=== PATIENT | male | born 1945 | race Caucasian/White ===

== ENCOUNTER 2020-03-17 01:08 | Inpatient (IN) | payer MEDICARE, SELFPAY ==
[2020-03-17] VITALS (34 sets, daily range): BP systolic 90–139; BP diastolic 63–95; PULSE 65–132; RESP 15–28; TEMP 36.2–36.9; O2SAT 94–100; BMI 35.2; BMI 34.9
--- NOTE | ~2020-03-17 | US_ITS ---
EXAMINATION: US arterial ankle brachial ind DATE: 04/06/2020 11:24 INDICATION: Peripheral arterial disease. TECHNIQUE: Segmental pressures and plethysmographic and Doppler waveforms of the brachial and lower e xtremity arteries were obtained. COMPARISON: Arterial Doppler and segmental pressures 03/23/20 FINDINGS: Right and left brachial artery pressures of 166 mm Hg and 160 mm Hg, respectively, are concordant (no rmal difference <= 30 mmHg). The right ankle-brachial index (SISSY) could not be measured due to inability to cuff occlude the dorsa lis pedis artery (normal >= 0.9-1.0). The right great toe-brachial index (TBI) is 0.54 (normal >= 0.6 5). Arterial Doppler waveforms are biphasic in dorsalis pedis and at least triphasic in posterior tib ial artery. The left SISSY could not be measured due to inability to cuff-occlude the arteries. The left TBI is 0.5 1. Arterial Doppler waveforms are at least triphasic at the ankle. IMPRESSION: 1. Mildly decreased TBIs and nondiagnostic ABIs, consistent with arterial occlusive disease. Reviewed, dictated and finalized at location B. APED ARTIST MODEL IMPRESSION: 1. Mildly decreased TBIs and nondiagnostic ABIs, consistent with arterial occlu sive disease.
--- NOTE | ~2020-03-17 | XR_ITS ---
XR chest 1V portable 03/23/2020 06:15 Indication: Respiratory failure Procedure: AP portable chest Comparison: Comparison to multiple prior studies sequentially, with oldest reviewed study dated 03/2020. Findings: Endotracheal tube tip 5.8 cm above the chase. NG tube in the stomach. PICC line tip in the SVC. Pacemaker leads in expected position. Cardiomegaly. There is bilateral perihilar and bibasilar infiltrates. Small left pleural effusion. No pneumothorax. Impression: 1: No significant change to bilateral perihilar and basilar airspace disease which may represent thanh a or pneumonia. 2: Small left pleural effusion. Reviewed, dictated and finalized at location A. ING MACHINE OPERATOR Impression: 1: No significant change to bilateral perihilar and basilar airspace disease wh ich may represent edema or pneumonia. 2: Small left pleural effusion.
--- NOTE | ~2020-03-17 | XR_ITS ---
EXAMINATION: XR abdomen obstructive series DATE: 04/08/2020 07:58 INDICATION: Respiratory failure. TECHNIQUE: Upright and supine views of the abdomen on 3 radiographs were obtained. COMPARISON: CT abdomen and pelvis 03/26/2020 FINDINGS: There are no dilated loops of bowel. There is a gastrostomy tube in expected position. No f ree intraperitoneal gas. There are phleboliths in the pelvis. Pacer wires overlie the heart. There ar e airspace opacities in the lower lung zones. IMPRESSION: 1. Normal bowel gas pattern. 2. Airspace opacities in the lower lung zones, consistent with pneumonia. Reviewed, dictated and finalized at location B. LANE CAPTAIN
--- NOTE | ~2020-03-17 | XR_ITS ---
XR chest 1V portable 03/28/2020 05:59 Indication: Respiratory failure Procedure: AP portable chest Comparison: Comparison to multiple prior studies sequentially, with oldest reviewed study dated 07/2020. Findings: NG tube in the stomach. PICC line tip in the SVC. Heart size upper normal. Patchy bilateral airspace disease. Small left effusion. No pneumothorax. Impression: 1: Persistent patchy bilateral airspace disease, most likely pneumonia. Reviewed, dictated and finalized at location A. LATORY ASSISTANT Impression: 1: Persistent patchy bilateral airspace disease, most likely pneumonia.
--- NOTE | ~2020-03-17 | US_ITS ---
EXAMINATION: US right upper quadrant EXAM DATE: 04/07/2020 09:21 INDICATION: Increased liver function tests. TECHNIQUE: Multiple grayscale and Doppler images of the abdomen right upper quadrant were obtained (b y a technologist who performed the scan) and subsequently reviewed. Comparison is made to prior exami nation from 03/19/2020, kidney ultrasound. FINDINGS: The pancreatic head and body are normal in appearance. The pancreatic tail is not visualized. The l iver has normal echogenicity and contour. There are no focal liver lesions identified. There is no evidence of intrahepatic biliary duct dilation. Portal venous flow was seen in the hepatopedal, nor mal direction and has normal Doppler waveform. No right-sided hydronephrosis. Common bile duct measures 7 mm, which is normal normal for age. Gallbladder wall is diffusely edemato us, which is nonspecific. There is moderate gallbladder distention. No pericholecystic fluid or dulce lithiasis. IMPRESSION: Gallbladder wall thickening, edema which is nonspecific. Could be from congestive heart f ailure, hypoalbuminemia, reactive from hepatitis or other nonspecific inflammatory condition. No chol elithiasis, biliary dilation or pericholecystic fluid to suggest acute cholecystitis. Could not asses s for sonographic Lozano's sign. Reviewed, dictated and finalized at location A. RANCE CLAIMS ASSISTANT IMPRESSION: Gallbladder wall thickening, edema which is nonspecific. Could be f rom congestive heart failure, hypoalbuminemia, reactive from hepatitis or other nonspecific inflammatory condition. No cholelithiasis, biliary dilation or per icholecystic fluid to suggest acute cholecystitis. Could not assess for sonogra phic Lozano's sign.
--- NOTE | ~2020-03-17 | XR_ITS ---
EXAMINATION: XR chest 1V portable EXAM DATE: 04/09/2020 05:54 INDICATION: Respiratory failure. TECHNIQUE: Portable AP frontal chest x-ray was obtained. Comparison is made to prior examination from 04/07, 04/08. FINDINGS: There is tracheostomy tube. There is a dual lead pacemaker/AICD seen with leads projecting over the expected locations of the right atrial appendage and right ventricle. There is moderate amount of patchy bilateral pneumonia and/or edema. There are no sizable pleural ef fusions. There is no pneumothorax suspected. The cardiomediastinal silhouette is prominent but mag nified on this AP technique. Moderate thoracic spondylosis and shoulder primary osteoarthritis. Airspace disease not significantly changed. IMPRESSION: 1. ET tube in position 2. Moderate patchy bilateral pneumonia and/or edema. Reviewed, dictated and finalized at location A. ST LANDSCAPE ECOLOGY PROFESSOR
--- NOTE | ~2020-03-17 | XR_ITS ---
XR chest 1V portable 03/25/2020 06:09 Indication: Respiratory failure Procedure: AP portable chest Comparison: Comparison to multiple prior studies sequentially, with oldest reviewed study dated 04/2020. Findings: Endotracheal tube tip 6.4 cm above the chase. Heart size normal. No significant change to bilateral airspace disease. Small left effusion. No pneumothorax. Pacemaker leads are present. PICC l ine tip not well visualized due to overlying pacemaker leads. Impression: 1: Stable bilateral airspace disease which may represent edema or pneumonia. Reviewed, dictated and finalized at location A. EDURES ANALYST Impression: 1: Stable bilateral airspace disease which may represent edema or pneumonia.
--- NOTE | ~2020-03-17 | XR_ITS ---
EXAMINATION: XR chest 1V portable INDICATION: Respiratory failure TECHNIQUE: Portable AP chest at 0509 hours COMPARISON: 03/30/2020 FINDINGS: The endotracheal tube ends approximately 5.7 cm above the chase. The nasogastric tube is f ollowed as far as the stomach. Its tip is beyond the inferior margin of the radiograph. A right upper extremity PICC ends with its tip in the distal superior vena cava. There is no pleural effusion or p neumothorax. Bibasilar airspace opacities persist with slight improvement. IMPRESSION: 1. Improved bibasilar airspace opacities, consistent with atelectasis versus pneumonia. Reviewed, dictated and finalized at location A. ED BOX SEWER IMPRESSION: 1. Improved bibasilar airspace opacities, consistent with atelectasis versus pn eumonia.
--- NOTE | ~2020-03-17 | XR_ITS ---
EXAMINATION: XR abdomen obstructive series EXAM DATE: 04/12/2020 18:05 INDICATION: Not tolerating tube feedings. TECHNIQUE: Frontal upright projection of the upper abdomen, frontal projection of the lower abdomen f or interpretation. Comparison is made to prior examination from 04/08/2020. FINDINGS: Gastric tube identified, balloon projecting over the gastric body. There is moderate amoun t of colonic gas, possibly of stool. No dilated small bowel. There is no organomegaly. Patchy bibasil ar airspace disease. No free intraperitoneal gas suspected. IMPRESSION: 1. Nonspecific, but nonobstructive bowel gas pattern. 2. Gastrostomy anchor balloon projects over expected location. 3. Basilar airspace disease. Reviewed, dictated and finalized at location A. MOBILE PARKER
--- NOTE | ~2020-03-17 | XR_ITS ---
EXAMINATION: XR chest 1V portable DATE: 03/19/2020 06:33 INDICATION: COVID 19 pneumonia. Acute respiratory failure. TECHNIQUE: frontal view of the chest was obtained. COMPARISON: Chest radiograph dated 03/18/2020 FINDINGS: Endotracheal tube tip 7.0 cm above the chase. Nasogastric tube extends below the left hemidiaphragm with distal tip collimated off the study. Right upper extremity peripherally inserted central venous catheter (PICC) tip at the caudal superior vena cava. Patchy airspace opacities throughout both lungs most prominent in the right upper lobe but with inter kelvin increase in the bilateral lower lobes. No pneumothorax or pleural effusion. The cardiomediastinal silhouette is normal. Dual lead pacemaker seen with leads projecting over the expected locations of the right atrium and right ventricular outflow tract. IMPRESSION: 1. Endotracheal tube tip 7 cm above the chase. Recommend advancement by 4-5 cm. 2. Scattered bilateral patchy airspace opacities consistent with pneumonia with interval progression in the bilateral lower lung zones. Reviewed, dictated and finalized at location A. M HEATING INSTALLER IMPRESSION: 1. Endotracheal tube tip 7 cm above the chase. Recommend advancement by 4-5 cm . 2. Scattered bilateral patchy airspace opacities consistent with pneumonia with interval progression in the bilateral lower lung zones.
--- NOTE | ~2020-03-17 | US_ITS ---
EXAMINATION: US venous doppler LE EXAM DATE: 04/02/2020 15:47 INDICATION: Respiratory failure. Fever. TECHNIQUE: Multiple grayscale, color flow and Doppler images of the lower extremity deep venous syste ms bilaterally were obtained and reviewed. Comparison is made to prior examination from 03/21/2020. FINDINGS: Right side: The right common femoral, femoral and profunda veins demonstrate normal color flow, respi ratory variation, augmentation and compressibility. Compressibility, color flow confirmed within the right popliteal, posterior tibial, peroneal, and greater saphenous veins. Left side: The left common femoral, femoral and profunda veins demonstrate normal color flow, respira tory variation, augmentation and compressibility. Compressibility, color flow confirmed within the l eft popliteal, posterior tibial, peroneal, and greater saphenous veins. IMPRESSION: No lower extremity deep venous thrombosis bilaterally. Reviewed, dictated and finalized at location B. CLEANING SUPERVISOR
--- NOTE | ~2020-03-17 | XR_ITS ---
XR chest 1V portable 03/29/2020 05:55 Indication: Respiratory failure Procedure: AP portable chest Comparison: Comparison to multiple prior studies sequentially, with oldest reviewed study dated 08/2020. Findings: Endotracheal tube tip 7.3 cm above the chase. NG tube in the stomach. PICC line tip in the SVC. Pacemaker leads stable. No significant change to patchy bilateral airspace disease, compatible with pneumonia. Small left pleural effusion. No pneumothorax. Impression: 1: Stable patchy bilateral airspace disease, compatible with pneumonia. Reviewed, dictated and finalized at location A. O GAME DEVELOPER Impression: 1: Stable patchy bilateral airspace disease, compatible with pneumonia.
--- NOTE | ~2020-03-17 | CT_ITS ---
EXAMINATION: CT brain wo con EXAM DATE: 03/17/2020 01:47 INDICATION: Temporary change in awareness. Unable to hold still. Clinical concern for stroke. TECHNIQUE: Spiral CT of the head was performed without contrast. Axial, coronal and sagittal images were reviewed. The dose-length product (DLP) for this examination was 681.00 mGy-cm. The exposure w as tailored according to patient size, and iterative reconstruction (ASIR) was used as additional dos e reduction technique. There is no prior study for comparison. 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 There is no acute intraparenchymal hemorrhage. No evidence of intraparenchymal brain mass lesion. No evidence of acute infarction. Please note that initial h ead CT has limited sensitivity for small or acute infarctions. There is mild to moderate periventricu lar and subcortical hypodensity, nonspecific but probably related to small vessel ischemic disease. There is prominence of the sulci and ventricles related to cerebral atrophy. There is intracranial carotid arteriosclerosis. There are no extra-axial collections. There is no mass effect or midline shift. Soft tissue is unremarkable. The visualized sinuses and mastoid air cells are well aerated. IMPRESSION: 1. No acute intracranial findings. 2. Chronic age related findings. Reviewed, dictated and finalized at location D. RITIES CONSULTANT
--- NOTE | ~2020-03-17 | XR_ITS ---
EXAMINATION: XR abdomen obstructive series EXAM DATE: 04/06/2020 12:37 INDICATION: Abdominal tenderness. TECHNIQUE: Frontal upright projection of the upper abdomen, frontal projection of the lower abdomen f or interpretation. Comparison is made to prior examination from 03/17/2020. FINDINGS: Interval placement of gastrostomy tube, ankle balloon overlies the gastric bubble. No evid ence of free intraperitoneal air. Nonobstructive bowel gas pattern. Large thoracolumbar endplate oste ophytes. IMPRESSION: 1. Nonspecific bowel gas pattern. Reviewed, dictated and finalized at location A. ER INSTALLER
--- NOTE | ~2020-03-17 | XR_ITS ---
EXAMINATION: XR chest 1V portable DATE: 03/22/2020 05:56 INDICATION: Acute respiratory failure. COVID 19 pneumonia. TECHNIQUE: frontal view of the chest was obtained. COMPARISON: Chest radiograph dated 03/21/2020 FINDINGS: Endotracheal tube tip 5.5 cm above the chase. Nasogastric tube extends below the left hemidiaphragm with distal tip collimated off the study. Right upper extremity peripherally inserted central venous catheter (PICC) tip at the caudal superior vena cava. Mild elevation the left hemidiaphragm. No significant interval change in patchy airspace opacities sc attered throughout both lungs. No pleural effusion or pneumothorax. The cardiomediastinal silhouette is within normal limits accounting for AP technique and slight leftward rotation of the patient. Dual lead pacemaker/AICD seen with leads projecting over the expected locations of the right atrium and r ight ventricular outflow tract. IMPRESSION: 1. No interval change in patchy bilateral airspace disease consistent with pneumonia. Reviewed, dictated and finalized at location A. EXCHANGE OPERATOR IMPRESSION: 1. No interval change in patchy bilateral airspace disease consistent with pneu monia.
--- NOTE | ~2020-03-17 | CT_ITS ---
EXAMINATION: CTA chest PE abdomen pel DATE: 04/09/2020 13:15 INDICATION: Pulmonary embolism. TECHNIQUE: Computed tomography (CT) pulmonary angiogram of the chest was performed with 100 mL Omnipa que-350 intravenous contrast. Additional 3D reconstructions utilizing coronal maximum intensity proje ction (MIP) were performed. CT of the abdomen and pelvis was performed with intravenous contrast util izing the same contrast bolus following a short delay. Automated exposure control and iterative recon struction technique were employed. The dose-length product was 2518.09 mGy-cm. COMPARISON: 03/26/2020 FINDINGS: Chest: Excellent contrast opacification of the pulmonary arteries. There is mild to moderate streak artifact from dense contrast in the superior vena cava and right atrium. As well as related to a dual-lead ca rdiac pacemaker with one of the leads appears to terminate in the region of the right atrial appendag e. The second lead is located along the proximal septum at level of the pulmonary valve plane, unclea r whether in the atrium or ventricle. Extensive moderate scattered respiratory motion artifact. Toget her this mildly decreases sensitivity in the segmental and moderately decreased sensitivity in some o f the smaller subsegmental pulmonary arteries. No definite pulmonary embolism. Tracheostomy tube in e xpected position at the thoracic inlet. Minimal paraseptal emphysema in the upper lungs. There are re gions of consolidation and groundglass opacity with peripheral and lower lung predominance. Improved aeration in the bilateral lower lobes with decrease in regions of consolidation in the right lower lo be and more significantly in the basilar segments of the left lower lobe. No pleural effusion or pneu mothorax. Cardiomegaly. Atherosclerotic coronary artery calcific lesions. Thoracic aorta is normal in caliber with no dissection. No significant change in a few mildly prominent but still normal-sized b ilateral hilar and mediastinal lymph nodes consistent with mild likely reactive lymphadenopathy. Mode rate to severe thoracic spondylosis. Abdomen/pelvis: Ill-defined 1 cm low-attenuation likely cyst or hemangioma in the right hepatic lobe. There is peripo rtal edema at the phoebe hepatis and throughout the right hepatic lobe. There is also diffuse edematou s gallbladder wall thickening, mild pericholecystic inflammatory stranding tiny amount of free fluid along the tip of the gallbladder. Multiple splenic lesions consistent with old granulomatous disease. Pancreas and bilateral adrenal glands are normal. A few small calcific lesions measuring up to 3 mm at the left renal hilum which could represent either atherosclerotic calcifications were nonobstructi ng renal stones. No hydronephrosis. Bilateral subcentimeter low-attenuation renal cysts. Dougherty cathet er in the partially decompressed bladder. Prostatomegaly. The appendix is not visualized. No periceca l inflammatory change to suggest acute appendicitis. Small amount of fluid in the sigmoid colon and r ectum consistent with diarrhea. A few diverticula along the descending and sigmoid colon without ewelina cent inflammatory change to suggest diverticulitis. No bowel obstruction. Small amount of free fluid in the deep pelvis. No abscess or free intraperitoneal gas. Small fat-containing right inguinal herni a. There is calcified atherosclerosis of the aorta and many of the other arteries. No pathologically enlarged abdominal or pelvic lymphadenopathy. Severe lumbar spondylosis. Dense sclerotic likely bone island at the right sacral ala. IMPRESSION: 1. No pulmonary embolism. Evaluation mildly limited in some of the smaller segmental and subsegmental pulmonary arteries due to respiratory motion and some streak artifact. 2. Diffuse bilateral peripheral and lower lung predominant lung disease with improvement in the bilat eral lower lobes likely sequela of COVID pneumonia.
--- NOTE | ~2020-03-17 | XR_ITS ---
EXAMINATION: XR chest ET placement DATE: 03/20/2020 13:27 INDICATION: Desaturation and endotracheal tube placement. TECHNIQUE: frontal view of the chest was obtained. COMPARISON: Chest radiograph dated 03/20/2020 at 5:15 AM FINDINGS: Endotracheal tube tip 5.9 cm above the chase. Nasogastric tube extends below the left hemidiaphragm with distal tip collimated off the study. Right upper extremity peripherally inserted central venous catheter (PICC) tip at the superior vena cava. Scattered mild airspace opacities in the right lower and left mid and lower lung zones. No pneumothor ax or definitive pleural effusion. The cardiomediastinal silhouette is within normal limits for AP te chnique and accounting for mild leftward rotation of the patient. Dual lead pacemaker seen with leads projecting over the expected locations of the right atrium and right ventricle. Suture anchors at th e right humeral head likely for prior rotator cuff repair. IMPRESSION: 1. Endotracheal tube tip 5.9 cm above the chase. Could consider advancement by 3-4 cm. 2. Mild opacities in the left mid and bilateral lower lung zones with improvement in the right mid an d upper lung zones. Differential would include pneumonia and mild pulmonary edema. Reviewed, dictated and finalized at location A. ENT OFFICER IMPRESSION: 1. Endotracheal tube tip 5.9 cm above the chase. Could consider advancement by 3-4 cm. 2. Mild opacities in the left mid and bilateral lower lung zones with improveme nt in the right mid and upper lung zones. Differential would include pneumonia and mild pulmonary edema.
--- NOTE | ~2020-03-17 | US_ITS ---
EXAMINATION: US venous doppler UE BI EXAM DATE: 04/02/2020 15:48 INDICATION: Respiratory failure. Fever. TECHNIQUE: Multiple grayscale, color flow, Doppler sonographic images of the upper extremity veins bi laterally obtained by technologist. Compression was performed where able. There is no prior study f or comparison. FINDINGS: RIGHT upper extremity: Jugular vein: ------------> Normal. Subclavian vein: --------> Normal. Axillary vein:------------> Normal. Brachial vein:-----------> Normal. Basilic vein: ------------> Normal. Cephalic vein: ----------> Normal. Radial vein: ------------> Normal. Ulnar vein: > Normal. LEFT upper extremity: Jugular vein: ------------> Normal. Subclavian vein: --------> Normal. Axillary vein:------------> Normal. Brachial vein:-----------> Normal. Basilic vein: ------------> Normal. Cephalic vein: ----------> Normal. Radial vein: ------------> Normal. Ulnar vein: > Normal. IMPRESSION: No upper extremity DVT. Reviewed, dictated and finalized at location B. LYTIC CASE OPERATOR IMPRESSION: No upper extremity DVT.
--- NOTE | ~2020-03-17 | XR_ITS ---
EXAMINATION: XR chest 1V portable DATE: 03/20/2020 06:13 INDICATION: Acute respiratory failure. COVID 19 pneumonia. TECHNIQUE: frontal view of the chest was obtained. COMPARISON: Chest radiograph dated 03/19/2020 FINDINGS: Endotracheal tube tip 5.5 cm above the chase. Nasogastric tube extends below the left hemidiaphragm with distal tip collimated off the study. Right upper extremity peripherally inserted central venous catheter (PICC) tip at the superior vena cava. Scattered airspace opacities throughout both lungs without significant change in the bilateral lower lungs but with interval improvement in the right upper lobe. No pleural effusion or pneumothorax. The cardiomediastinal silhouette is normal. Dual lead pacemaker/AICD seen with leads projecting over the expected locations of the right atrium and right ventricle. Suture anchors at the right humeral head likely related to prior rotator cuff repair. IMPRESSION: 1. Scattered bilateral patchy airspace opacities consistent with pneumonia with some improvement in t he right upper lobe. Reviewed, dictated and finalized at location A. DRILL OPERATOR CABLE TOOL IMPRESSION: 1. Scattered bilateral patchy airspace opacities consistent with pneumonia with some improvement in the right upper lobe.
--- NOTE | ~2020-03-17 | XR_ITS ---
EXAMINATION: XR chest PICC line DATE: 03/17/2020 12:19 INDICATION: PICC line placement TECHNIQUE: frontal view of the chest was obtained. COMPARISON: Chest radiograph dated 03/17/2020 at 6:52 AM FINDINGS: Right upper extremity peripherally inserted central venous catheter (PICC) extends into the superior vena cava but not into the right atrium with distal tip obscured within the superior vena cava by sup erimposed cardiac pacemaker leads. The pacemaker leads terminate at the right atrial appendage and at the right ventricular outflow tract. Endotracheal tube tip 6.8 cm above the chase. Nasogastric tube extends below the left hemidiaphragm with distal tip collimated off the study. Again seen are bilateral patchy airspace opacities most prominent in the right upper lung zone. No pn eumothorax or definitive pleural effusion. The cardiomediastinal silhouette is normal. Suture anchors at the right femoral head likely for right rotator cuff repair. IMPRESSION: 1. Right PICC line tip in the superior vena cava. 2. Patchy bilateral lung disease most likely pneumonia with differential including less likely pulmon hector edema or atelectasis. 3. Endotracheal tube tip 6.8 cm above the chase. Recommend advancement by 4 cm. Reviewed, dictated and finalized at location A. WAY PAINTER HELPER IMPRESSION: 1. Right PICC line tip in the superior vena cava. 2. Patchy bilateral lung disease most likely pneumonia with differential includ ing less likely pulmonary edema or atelectasis. 3. Endotracheal tube tip 6.8 cm above the chase. Recommend advancement by 4 cm .
--- NOTE | ~2020-03-17 | CT_ITS ---
EXAMINATION: CT brain wo con DATE: 03/26/2020 11:36 INDICATION: Encephalopathy TECHNIQUE: Computed tomography (CT) of the head was performed without intravenous contrast. The dose- length product was 681.00 mGy-cm. Automated exposure control and iterative reconstruction technique w ere employed. COMPARISON: CT dated FINDINGS: Mild generalized atrophy. There are scattered mild periventricular and subcortical white ma tter changes, most likely related to small vessel ischemic disease (microangiopathy). Basilar cistern s are patent. 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 No acute intracranial hemorrhage, infarction, mass or mass effect. There is small air-fluid level right maxillary sinus. There is mucosal thickening of th e ethmoid, frontal and sphenoid sinuses. There are mastoid effusions. IMPRESSION: 1. No acute intracranial abnormality. 2: Moderate sinus disease. Reviewed, dictated and finalized at location A. CTOR RIVER RESTORATION
--- NOTE | ~2020-03-17 | CT_ITS ---
EXAMINATION: CT chest abdomen pelvis wo con EXAM DATE: 03/26/2020 15:49 INDICATION: Persistent fever, recent COVID pneumonia. TECHNIQUE: Spiral CT of the chest, abdomen and pelvis was performed without contrast. Axial, wong l and sagittal images were reviewed. Coronal maximum intensity pixel images of chest reviewed. The dose-length product (DLP) for this examination was 2056.32 mGy-cm. The exposure was tailored accordi ng to patient size (auto mA exposure control), and iterative reconstruction (ASIR) was used as additi onal dose reduction technique. There is no prior study for comparison. FINDINGS: CHEST: Endotracheal and nasogastric tubes are in position. There is left-sided pacemaker/AICD device. Right-sided PICC line. Respiratory motion somewhat limiting evaluation of lung parenchyma but there are suspected to be scattered ill-defined groundglass opacities bilaterally, could be COVID pneumonia . There is more confluent multi segmental left lower lobe, segmental right lower lobe atelectasis and pneumonia. Trace left pleural effusion and pericardial effusion. Tracheobronchial tree is patent. There is no mediastinal, hilar or axillary lymphadenopathy. There is no pneumothorax. There is c ardiomegaly. There is moderate coronary arterial calcification, arterial sclerosis. ABDOMEN PELVIS: The liver, spleen, adrenal glands and pancreas are unremarkable. Gallbladder is unre markable. No biliary obstruction. Several small left renal hilar calcifications could be nephrolith iasis or arterial sclerosis. No hydronephrosis. There is mild to moderate prostatomegaly. The bladd er is collapsed with Dougherty catheter balloon anchor inside. There is no retroperitoneal or pelvic lym phadenopathy. There is mild to moderate scattered arteriosclerotic disease. The appendix is not positively visualized. There is no pericecal inflammatory change to suggest appe ndicitis. There is moderate sigmoid predominant colonic diverticulosis. There is no adjacent inflamm atory change to suggest diverticulitis. The stomach and small bowel are unremarkable. There is expec tayler amount of colonic stool. No free intraperitoneal gas. There is 5 x 9 mm sclerotic focus in th e sacrum probably bone island. IMPRESSION: 1. Multi segmental left lower lobe, segmental right lower lobe dependent atelectasis and pneumonia. 2. Scattered diffuse ill-defined groundglass lung opacities suspicious for COVID pneumonia. 3. Chronic abdominal findings. Reviewed, dictated and finalized at location A. HOUSE HANDLER IMPRESSION: 1. Multi segmental left lower lobe, segmental right lower lobe dependent atele ctasis and pneumonia. 2. Scattered diffuse ill-defined groundglass lung opacities suspicious for COV ID pneumonia. 3. Chronic abdominal findings.
--- NOTE | ~2020-03-17 | XR_ITS ---
XR chest 1V portable 03/26/2020 06:28 Indication: Acute respiratory failure Procedure: AP portable chest Comparison: Comparison to multiple prior studies sequentially, with oldest reviewed study dated 05/2020. Findings: Endotracheal tube tip 7.7 cm above the chase. PICC line tip in the SVC. NG tube in the sto mach. There is a hiatal hernia. Heart size normal. No significant change to bilateral patchy airspace disease of the mid and lower lung zones. No significant pleural effusion or pneumothorax. Impression: 1: Stable patchy airspace infiltrates of the mid and lower lung zones, compatible with pneumonia. Reviewed, dictated and finalized at location A. OID IOS DEVELOPER Impression: 1: Stable patchy airspace infiltrates of the mid and lower lung zones, compatib le with pneumonia.
--- NOTE | ~2020-03-17 | US_ITS ---
EXAMINATION: US renal BI DATE: 03/19/2020 09:35 INDICATION: Acute renal injury. COVID 19. TECHNIQUE: Multiple ultrasound grayscale images of the kidneys were obtained. COMPARISON: None. FINDINGS: The right kidney measures 12.2 x 5.1 x 5.6 cm. The left kidney measures 11.9 x 5.7 x 5.8 cm. The kidn eys demonstrate normal echogenicity. There is no hydronephrosis in either kidney. No stones identifi ed. The bladder appears normal but is partially decompressed which limits evaluation. IMPRESSION: 1. Normal kidneys without hydronephrosis. Reviewed, dictated and finalized at location A. ORATE AFFAIRS MANAGER
--- NOTE | ~2020-03-17 | XR_ITS ---
EXAMINATION: XR chest 1V portable EXAM DATE: 04/13/2020 06:02 INDICATION: COVID pneumonia. TECHNIQUE: Portable AP frontal chest x-ray was obtained. Comparison is made to prior examination from 04/09/2020. FINDINGS: There is tracheostomy tube. There is a dual lead pacemaker/AICD seen with leads projecting over the expected locations of the right atrial appendage and right ventricle. There is moderate amount of patchy bilateral pneumonia and/or edema. There are no sizable pleural ef fusions. There is no pneumothorax suspected. There is mild cardiomegaly. Moderate thoracic spondy losis and shoulder primary osteoarthritis. Suspect mild interval progression in the airspace disease compared to prior study. IMPRESSION: 1. Moderate amount of bilateral ill-defined acute airspace disease, mild interval progression. Reviewed, dictated and finalized at location A. EDICAL PHOTOGRAPHER IMPRESSION: 1. Moderate amount of bilateral ill-defined acute airspace disease, mild inter kelvin progression.
--- NOTE | ~2020-03-17 | XR_ITS ---
XR chest 1V portable 03/27/2020 06:08 Indication: Respiratory failure Procedure: AP portable chest Comparison: Comparison to multiple prior studies sequentially, with oldest reviewed study dated 06/2020. Findings: Endotracheal tube tip 7 cm above the chase. NG tube in the stomach. PICC line tip in the S VC. Pacemaker leads are stable. Patchy bilateral airspace disease predominantly of the mid and lower lung zones, most likely pneumonia. No significant pleural effusion or pneumothorax. Impression: 1: Persistent bilateral patchy airspace disease mid and lower lung zones, most likely pneumonia. Reviewed, dictated and finalized at location A. T HIGH SCHOOL INSTRUCTOR Impression: 1: Persistent bilateral patchy airspace disease mid and lower lung zones, most likely pneumonia.
--- NOTE | ~2020-03-17 | XR_ITS ---
XR chest 1V portable 04/05/2020 06:11 Indication: Respiratory failure Procedure: AP portable chest Comparison: Comparison to multiple prior studies sequentially, with oldest reviewed study dated 03/30. Findings: Endotracheal tube tip 6 cm above the chase. NG tube in the stomach. PICC line tip in the S VC. Pacemaker leads stable. There are patchy bilateral infiltrates, not significantly changed from pr ior examination. No acute osseous abnormality. Impression: 1: Patchy bilateral infiltrates predominantly affecting the upper and lower lung zones, increased sin ce 04/01/2020. Differential diagnosis includes pneumonia and edema. Reviewed, dictated and finalized at location A. GY ADMINISTRATOR Impression: 1: Patchy bilateral infiltrates predominantly affecting the upper and lower cesar g zones, increased since 04/01/2020. Differential diagnosis includes pneumonia a nd edema.
--- NOTE | ~2020-03-17 | US_ITS ---
EXAMINATION: US venous doppler [facility] DATE: 03/21/2020 09:22 INDICATION: COVID positive with acute respiratory failure. Fevers. TECHNIQUE: Grayscale ultrasound images without and with compression and Doppler ultrasound images of the bilateral lower extremity veins were obtained. COMPARISON: None. FINDINGS: The visualized portions of right common femoral vein, profunda (deep) femoral vein, femoral vein, pop liteal vein, posterior tibial veins and greater saphenous vein outflow are patent. The visualized portions of left common femoral vein, profunda femoral vein, femoral vein, popliteal v ein, posterior tibial veins, peroneal veins and greater saphenous vein outflow are patent. IMPRESSION: 1. No deep venous thrombosis in either lower limb. Reviewed, dictated and finalized at location A. AL CHIROPRACTOR
--- NOTE | ~2020-03-17 | XR_ITS ---
EXAMINATION: XR chest 1V portable INDICATION: Respiratory failure TECHNIQUE: Portable AP chest at 0510 hours COMPARISON: 03/29/2020 FINDINGS: There is stable cardiomegaly. The endotracheal tube ends approximately 4.6 cm above the car janette. The nasogastric tube is followed as far as the stomach. Its tip is beyond the inferior margin of the radiograph. A right upper extremity PICC ends with its tip in the distal superior vena cava. The re is no pleural effusion or pneumothorax. Bibasilar airspace opacities persist without significant c hange. IMPRESSION: 1. Stable bibasilar airspace opacities, consistent with atelectasis versus pneumonia. Reviewed, dictated and finalized at location A. RTED BLOCK OPERATOR IMPRESSION: 1. Stable bibasilar airspace opacities, consistent with atelectasis versus pneu monia.
--- NOTE | ~2020-03-17 | XR_ITS ---
EXAMINATION: XR chest 1V portable INDICATION: Respiratory failure TECHNIQUE: Portable AP chest at 0514 hours COMPARISON: 04/01/2020 FINDINGS: The endotracheal tube ends approximately 5.2 cm above the chase. The nasogastric tube is f ollowed as far as the stomach. Its tip is beyond the inferior margin of the radiograph. A right upper extremity PICC ends with its tip in the distal superior vena cava. Bibasilar airspace opacities pers ist without significant change. There is stable cardiomegaly. No pleural effusion or pneumothorax is identified. A dual-lead cardiac pacemaker of the left chest wall ends with leads in expected location s. IMPRESSION: 1. Stable bibasilar airspace opacities, consistent with atelectasis versus pneumonia. 2. Stable cardiomegaly. Reviewed, dictated and finalized at location A. USION SPECIALIST IMPRESSION: 1. Stable bibasilar airspace opacities, consistent with atelectasis versus pneu monia. 2. Stable cardiomegaly.
--- NOTE | ~2020-03-17 | US_ITS ---
EXAMINATION: US art doppler w arnav CAPUTO EXAM DATE: 03/23/2020 16:25 INDICATION: Decreased pulses and mottling. TECHNIQUE: Segmental pressures and plethysmographic and Doppler waveforms of the brachial and lower e xtremity arteries were obtained. There is no prior study for comparison. FINDINGS: Right brachial artery pressure is 167 mm Hg. The left could not be obtained. RIGHT LEG: The ankle-brachial index (SISSY) is 1.06 (normal >= 0.9-1). The great toe-brachial index (TBI) is 0.20 (normal >= 0.65). The lower extremity ratios, segmental pressure gradients as follows; Proximal superficial femoral artery:- 1.04 (173 mmHg). Distal superficial femoral artery: ----- 0.96 (160 mmHg). Popliteal: 1.18 (197 mmHg). Dorsalis pedis: 0.02 (3 mmHg). Posterior tibial: 1.06 (177 mmHg). (Normal gradients <= 20-30 mmHg between adjacent levels on the same leg or the same levels on the two legs). Arterial waveforms are biphasic . LEFT LEG: The ankle-brachial index (SISSY) is could not be obtained (normal >= 0.9-1). The great toe-brachial index (TBI) is 0.66 (normal >= 0.65). The lower extremity ratios, segmental pressure gradients as follows; Proximal superficial femoral artery:- Could not be obtained ( mmHg). Distal superficial femoral artery: ----- 0.95 (159 mmHg). Popliteal: 1.29 (215 mmHg). Dorsalis pedis: Could not be obtained ( mmHg). Posterior tibial: Could not be obtained (biphasic mmHg). (Normal gradients <= 20-30 mmHg between adjacent levels on the same leg or the same levels on the two legs). Arterial waveforms are biphasic. IMPRESSION: 1. Right ankle-brachial index 1.06, normal. 2. Left ankle-brachial index could not be obtained. 3. Segmental pressures as above. 4. High blood pressure. Reviewed, dictated and finalized at location A. EDICAL ANALYTICAL SCIENTIST
--- NOTE | ~2020-03-17 | CT_ITS ---
EXAMINATION: CT brain wo con DATE: 04/16/2020 11:25 INDICATION: Encephalopathy. Right upper extremity paralysis. TECHNIQUE: Computed tomography (CT) of the head was performed without intravenous contrast. The mA wa s adjusted according to patient size. Iterative reconstruction technique was employed. The dose-lengt h product was 605.33 mGy-cm. COMPARISON: Head CT 04/03/2020, 03/17/2020 FINDINGS: There are scattered areas of low attenuation in the cerebral white matter. There is no intr acranial hemorrhage, acute infarction, or abnormal intracranial mass lesion. The ventricles are cari l in size. 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 There are likely changes of right ocular lens rep lacement surgery. There is mild mucosal thickening in the paranasal sinuses. There are bilateral mast oid effusions. IMPRESSION: 1. Moderate nonspecific cerebral white matter disease, which likely represents chronic small vessel i schemic disease, stable from 03/17/2020. Reviewed, dictated and finalized at location A. PATIAL IMAGE ANALYST IMPRESSION: 1. Moderate nonspecific cerebral white matter disease, which likely represents chronic small vessel ischemic disease, stable from 03/17/2020.
--- NOTE | ~2020-03-17 | XR_ITS ---
EXAMINATION: XR chest 1V portable EXAM DATE: 04/08/2020 06:14 INDICATION: Respiratory failure. TECHNIQUE: Portable AP frontal chest x-ray was obtained. Comparison is made to prior examination from 04/07/2020, 04/05. FINDINGS: There is tracheostomy tube. There is a dual lead pacemaker/AICD seen with leads projecting over the expected locations of the right atrial appendage and right ventricle. There is moderate amount of patchy bilateral pneumonia and/or edema. There are no sizable pleural ef fusions. There is no pneumothorax suspected. The cardiomediastinal silhouette is prominent but mag nified on this AP technique. Moderate thoracic spondylosis and shoulder primary osteoarthritis. Airspace disease not significantly changed. IMPRESSION: 1. ET tube in position 2. Moderate patchy bilateral pneumonia and/or edema. Reviewed, dictated and finalized at location A. TER MACHINE
--- NOTE | ~2020-03-17 | XR_ITS ---
EXAMINATION: XR chest 1V portable INDICATION: Respiratory failure TECHNIQUE: Portable AP chest at 0509 hours COMPARISON: 03/31/2020 FINDINGS: The endotracheal tube ends approximately 6.0 cm above the chase. The nasogastric tube is f ollowed as far as the stomach. Its tip is beyond the inferior margin of the radiograph. A right upper extremity PICC ends with its tip in the distal superior vena cava. Bibasilar airspace opacities pers ist with slight improvement. There is no pleural effusion or pneumothorax. Stable cardiomegaly is not ed. A dual-lead cardiac pacemaker of the left chest wall ends with leads in expected locations. IMPRESSION: 1. Improving bibasilar airspace opacities, consistent with atelectasis versus pneumonia. 2. Stable cardiomegaly. Reviewed, dictated and finalized at location A. UNTS SPECIALIST IMPRESSION: 1. Improving bibasilar airspace opacities, consistent with atelectasis versus p neumonia. 2. Stable cardiomegaly.
--- NOTE | ~2020-03-17 | XR_ITS ---
XR chest 1V portable 03/24/2020 05:49 Indication: Respiratory failure Procedure: AP portable chest Comparison: Comparison to multiple prior studies sequentially, with oldest reviewed study dated 03/2020. Findings: Endotracheal tube tip 6.2 cm above the chase. There is bilateral perihilar airspace diseas e. There is bibasilar consolidation. Pacemaker leads are stable. Left costophrenic recesses excluded. No pneumothorax. PICC line tip in the SVC. Impression: 1: No significant change to bilateral perihilar airspace disease which may represent pneumonia and/or edema. Reviewed, dictated and finalized at location A. ANGE ENGINEER Impression: 1: No significant change to bilateral perihilar airspace disease which may repr esent pneumonia and/or edema.
--- NOTE | ~2020-03-17 | XR_ITS ---
EXAMINATION: XR chest 1V portable EXAM DATE: 04/07/2020 06:09 INDICATION: Respiratory failure. TECHNIQUE: Portable AP frontal chest x-ray was obtained. Comparison is made to prior examination from 04/06, 04/05, 04/02. FINDINGS: Feeding tube is no longer identified. Endotracheal tube tip is 5-6 centimeters above the ca zoey. There is moderate amount of patchy bilateral pneumonia and/or edema. There are no sizable pleural ef fusions. There is no pneumothorax suspected. There is a dual lead pacemaker/AICD seen with leads p rojecting over the expected locations of the right atrial appendage and right ventricle. The cardi omediastinal silhouette is prominent but magnified on this AP technique. Moderate thoracic spondylo sis and shoulder primary osteoarthritis. Airspace disease not significantly changed. IMPRESSION: 1. ET tube in position Moderate patchy bilateral pneumonia and/or edema. Reviewed, dictated and finalized at location A. ACOUSTIC ANALYST
--- NOTE | ~2020-03-17 | US_ITS ---
EXAMINATION: US arterial duplex LE EXAM DATE: 03/26/2020 14:51 INDICATION: left foot cool and mottled . TECHNIQUE: Multiple grayscale and Doppler images of the bilateral lower extremity arteries were obtai amara (by a technologist who performed the scan) and subsequently reviewed. Correlation is made to an a nkle brachial index exam from 03/23/2020. FINDINGS: Velocities below are reported in centimeters per 2nd. Right side: Common femoral 62, profunda 52, superficial femoral 66, 58, popliteal 31, posterior tibia l 46, anterior tibial 26, dorsalis pedis 20. Triphasic waveforms. Left side: Common femoral 62, profunda 97, superficial femoral 57, 63, 42, popliteal 39, posterior ti bial 47, anterior tibial 20, dorsalis pedis 20. The waveforms are triphasic. IMPRESSION: Normal bilateral lower extremity velocities and Doppler waveforms. Reviewed, dictated and finalized at location A. ELLATION CLERK
--- NOTE | ~2020-03-17 | CT_ITS ---
EXAMINATION: CT soft tissue neck wo con DATE: 04/09/2020 13:16 INDICATION: Abscess. TECHNIQUE: Computed tomography (CT) of the neck was performed without intravenous contrast. Automated exposure control and iterative reconstruction technique were employed. The dose-length product was 6 52.03 mGy-cm. 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 There are likely changes of right ocular lens repl acement surgery. There is a tracheostomy tube in expected position. There is a 1.5 cm nodule in right thyroid lobe. There are no pathologically enlarged lymph nodes. There is mild mucosal thickening in the paranasal sinuses. There are small bilateral mastoid effusions. There is no abscess. There is mod erate cervical spondylosis. IMPRESSION: 1. No abscess. 2. Right thyroid nodule. Given the patient's comorbidities, further evaluation may not be needed. Reviewed, dictated and finalized at location B. R VEHICLE EMISSIONS INSPECTOR
--- NOTE | ~2020-03-17 | XR_ITS ---
EXAMINATION: XR chest 1V portable DATE: 03/18/2020 06:08 INDICATION: Acute respiratory failure. COVID 19 pneumonia. TECHNIQUE: frontal view of the chest was obtained. COMPARISON: Chest radiograph dated 03/17/20 FINDINGS: Endotracheal tube tip 7.2 cm above the chase. Nasogastric tube extends below the left hemidiaphragm with distal tip collimated off the study. Right upper extremity peripherally inserted central venous catheter (PICC) tip at the caudal superior vena cava. Interval improvement in a region of consolidation in the right upper lobe concerning for pneumonia. M inimal change in more streaky opacities scattered throughout the remainder of the lungs which could r epresent atelectasis or additional pneumonia. No pleural effusion or pneumothorax. The cardiomediasti nal silhouette is normal. Dual lead pacemaker seen with leads projecting over the expected locations of the right atrium and right ventricular outflow tract. Suture anchors at the right humeral head lik jenise for prior rotator cuff repair. IMPRESSION: 1. Endotracheal tube tip now 7.2 cm above the chase. Recommend advancement by 4-5 cm. 2. Scattered mild streaky opacities throughout both lungs with interval improvement in a more conflue nt region of consolidation in the right upper lobe consistent with improving pneumonia. Reviewed, dictated and finalized at location A. AISER AUDITOR IMPRESSION: 1. Endotracheal tube tip now 7.2 cm above the chase. Recommend advancement by 4-5 cm. 2. Scattered mild streaky opacities throughout both lungs with interval improve ment in a more confluent region of consolidation in the right upper lobe consis tent with improving pneumonia.
--- NOTE | ~2020-03-17 | XR_ITS ---
EXAMINATION: XR chest 1V portable EXAM DATE: 04/06/2020 05:33 INDICATION: Respiratory failure. TECHNIQUE: Portable AP frontal chest x-ray was obtained. Comparison is made to prior examination from 04/05/2020. FINDINGS: Endotracheal tube tip is about 4 centimeters above the chase. There is a nasogastric tube seen with tip collimated off the study, but below the left hemidiaphragm. There is moderate amount of patchy bilateral pneumonia and/or edema. There are no sizable pleural ef fusions. There is no pneumothorax suspected. There is a dual lead pacemaker/AICD seen with leads p rojecting over the expected locations of the right atrial appendage and right ventricle. The cardi omediastinal silhouette is prominent but magnified on this AP technique. Moderate thoracic spondylo sis. There is no significant interval change compared to prior exam. IMPRESSION: 1. Tubes in position. 2. Moderate patchy bilateral pneumonia and/or edema. Reviewed, dictated and finalized at location A. IFIED REGISTERED NURSE ANESTHETIST
--- NOTE | ~2020-03-17 | CT_ITS ---
EXAMINATION: CT brain wo con INDICATION: Altered mental status COMPARISON: 03/26/2020 TECHNIQUE: Standard unenhanced head CT. The dose-length product (DLP) was 983.67 mGy-cm. The mA was a djusted according to patient size. Iterative reconstruction technique was employed. FINDINGS: Motion artifact slightly limits the examination. There is no acute intraparenchymal hemorrh age. No evidence of mass lesion. No evidence of acute infarction. There is mild periventricular and s ubcortical hypodensity probably related to small vessel ischemic disease. There is mild prominence of the sulci and ventricles related to cerebral atrophy. Intracranial calcified cerebral atherosclerosi s is noted. There are no extra-axial collections. There is no mass effect or midline shift. Changes i n the right globe are likely from ocular lens surgery. 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 There is mil d mucosal thickening of the paranasal sinuses. IMPRESSION: 1. No acute intracranial abnormality. 2. Age related findings. Reviewed, dictated and finalized at location A. OR ACCOUNTANT CPA
--- NOTE | ~2020-03-17 | XR_ITS ---
EXAMINATION: XR chest 1V portable DATE: 03/21/2020 06:22 INDICATION: Altered mental status TECHNIQUE: frontal view of the chest was obtained. COMPARISON: Chest radiograph dated 03/20/2020 FINDINGS: Endotracheal tube tip 5.7 cm above the chase. Nasogastric tube extends below the left hemidiaphragm with distal tip collimated off the study. Right upper extremity peripherally inserted central venous catheter (PICC) tip at the superior vena cava. No significant interval change accounting for differences in positioning in patchy bilateral airspace opacities throughout both lungs. No pneumothorax or pleural effusion. The cardiomediastinal silhouet te is normal. Dual lead pacemaker seen with leads projecting over the expected locations of the right atrium and right ventricle. Suture anchors at the right humeral head consistent with prior rotator c uff repair. IMPRESSION: 1. Unchanged patchy bilateral airspace opacities consistent with pneumonia. Reviewed, dictated and finalized at location A. T SALES ASSOCIATE
--- NOTE | ~2020-03-17 | XR_ITS ---
EXAMINATION: XR chest ET placement, XR abdomen NG/feed tube insert DATE: 03/17/2020 07:01 INDICATION: Status post intubation and nasogastric tube placement. TECHNIQUE: 1. Frontal view of the chest was obtained. 2. AP view of the upper abdomen was obtained. COMPARISON: None FINDINGS: Chest: Endotracheal tube tip 6.7 cm above the chase. Bilateral scattered scattered airspace opacities most prominent in the right mid to upper lung zones. No pneumothorax or evident pleural effusion. The righ t lung base is excluded from the [id number]. Heart size is normal. Dual lead pacemaker seen with l akbar projecting over the expected locations of the right atrium and right ventricular outflow tract. Abdomen: Nasogastric tube tip in the proximal stomach just below the level of the gastroesophageal junction. N o dilated loops of gas-filled bowel in the visualized upper abdomen. IMPRESSION: 1. Endotracheal tube tip 6.7 cm above the chase and consider advancement by 4 cm. 2. Nasogastric tube tip in the proximal stomach. Recommend advancement by additional 8-10 cm. 3. There are bilateral lung disease greatest in the right mid and upper lungs which is concerning for pneumonia. Differential includes pulmonary edema and/or atelectasis. Reviewed, dictated and finalized at location A. NSED PRACTICAL VOCATIONAL NURSE IMPRESSION: 1. Endotracheal tube tip 6.7 cm above the chase and consider advancement by 4 cm. 2. Nasogastric tube tip in the proximal stomach. Recommend advancement by addit ional 8-10 cm. 3. There are bilateral lung disease greatest in the right mid and upper lungs w hich is concerning for pneumonia. Differential includes pulmonary edema and/or atelectasis.
--- NOTE | 2020-03-17 01:12 | PM.IMHP ---
H&P: HPI History of Present Illness Date/Time: 03/17/20 01:12 Chief Complaint: Dyspnea Narrative: Griffin Meehan is a 74 year old male past history CAD, CHF, essential hypertension, BPH, TONY presents to ED with complaints dyspnea and cough. Patient was recently diagnosed with COVID-19. Symptoms were cough with sputum, dyspnea on exertion, wheezing. PCP Dr. Townsend. Patient was too anxious to give history. I attempted to call , no answer. It is unclear where he got COVID-19 and how it was diagnosed. Clinically patient appears to have COVID-19 as well as imaging consistent with COVID-19. In the ED at [facility]: Initial vitals show tachycardia 110, respirations 36, satting 88%. Patient will go in and out of paced rhythm. Original blood gas showed low pCO2 consistent with tachypnea. BNP 714, glucose elevated 217, lactic acid 2.6, D-dimer 1.46. Chest x-ray shows multi lobar pneumonia with consolidation right lung. Patient was given Rocephin and Zithromax. CT chest showed extensive bilateral infiltrates consistent with COVID-19, no large pulmonary embolism, small few possible filling defect subsegmental branches right lower lobe which could be small PE. He was given 3 doses of IV Ativan for agitation. Review of Systems Review of Systems: ROS unobtainable: Yes unobtainable due to medical condition PENDING SALE TO [facility] Past Medical History Medical History (Updated 03/17/20 @ 04:52 by Rachel Pruitt DO) Anxiety and depression Benign prostatic hyperplasia Bronchitis Congestive heart failure Coronary artery disease Essential hypertension Gastroesophageal reflux disease Hyperlipidemia Overactive bladder Surgical History Surgical History (Updated 03/17/20 @ 03:53 by Rachel Pruitt DO) Status post placement of cardiac pacemaker Family History Family History (Updated 03/17/20 @ 03:08 by Norma Diaz RN) Other Unknown family medical history Social History Social History (Updated 03/17/20 @ 03:59 by Rachel Pruitt DO) Smoking packs per day: 1 Smoking cigarettes per day: 20.0 Smoking status: Current every day smoker Alcohol intake: never Substance use: never Substance use type: does not use Living arrangements: with family Gender identity (if verbalized by the patient): Male Spiritual care concerns: No Meds Home Medications and Allergies Home Medications Medication Instructions Recorded Confirmed Type aspirin 81 mg PO DAILY 03/17/20 03/17/20 History atorvastatin 80 mg PO DAILY 03/17/20 03/17/20 History bupropion HCl 150 mg PO DAILY 03/17/20 03/17/20 History cetirizine [Zyrtec] 10 mg PO DAILY 03/17/20 03/17/20 History clopidogrel 75 mg PO DAILY 03/17/20 03/17/20 History famotidine 40 mg PO DAILY 03/17/20 03/17/20 History furosemide 40 mg PO DAILY 03/17/20 03/17/20 History metoprolol succinate 100 mg PO DAILY 03/17/20 03/17/20 History mirabegron [Myrbetriq] 25 mg PO DAILY 03/17/20 03/17/20 History oxybutynin chloride 10 mg PO DAILY 03/17/20 03/17/20 History sertraline 100 mg PO DAILY 03/17/20 03/17/20 History spironolactone 25 mg PO DAILY 03/17/20 03/17/20 History tamsulosin 0.4 mg PO DAILY 03/17/20 03/17/20 History Allergies Allergy/AdvReac Type Severity Reaction Status Date / Time No Known Allergies Allergy Verified 03/17/20 02:57 Exam Narrative: Exam Narrative: - GENERAL: Ill-appearing older gentleman not communicating on BiPAP however he was following commands like testing physical integration practitioner strength. Later he was very anxious and communicating. - EYES: Anicteric right eye, left artificial glass eye. - HENT: Moist mucous membranes. No scleral icterus. - LUNGS: Diminished lung sounds throughout. Tolerating BiPAP breathing with some abdominal muscles. - CARDIOVASCULAR: Regular rate and rhythm. Pacemaker in place. - ABDOMEN: Soft, non-tender and non-distended. Rectus diathesis. Patient has urine and stool appear to be normal in consistency. - EXTREMITIES: No ryan
[2020-03-17 01:14] LABS: Alveolar/Arterial O2 Gradient 227.1 mmHg; Base Excess ABG -2.7 mEq/l (+/-2.0); Carboxyhemoglobin 0.3 % THb (0-2.0); Fractional Inspired Oxygen 50 %; HCO3 ABG 22.2 mEq/l (22.0-26.0); Methemoglobin ABG 0.4 %THb (0-1.5); Oxygen Saturation ABG 96.3 % (95.0-100.0); Oxyhemoglobin 94.9 % THb (90.0-100.0); PCO2 ABG 39.1 mmHg (35.0-45.0); PO2 ABG 85.4 mmHg (80.0-100.0); PO2 FiO2 Ratio Arterial Blood 1.71 %; Reduced Hemoglobin 4.4 %THb (0-5.0); Total Hemoglobin 14.2 g/dL (12.0-18.0); pH ABG 7.372 (7.350-7.450)
[2020-03-17 01:15] LABS: Site Drawn RIGHT BRACHIAL
[2020-03-17 01:16] LABS: Device NON-INVASIVE VENT
[2020-03-17 01:17] LABS: Non-Invasive Expiratory Pressure 6 CMH2O; Non-Invasive Inspiratory Pressure 12 CMH2O; Non-Invasive Vent Rate 14 /MIN
--- NOTE | 2020-03-17 01:56 | ADMGEN ---
This patient, Griffin Meehan, was admitted to IMU Room 213-01 [id number]. Patient/family oriented to hospital policies and general routines including ID bracelet, bed and alarms, visiting hours, pain management, procedures, bathroom and other care routines, personal items, smoking policy, room service/diet, and visiting hours. Information on how to activate the Rapid Response Team has been discussed. Patient/Family are encouraged to report perceived risks to care and to ask questions if they do not understand what they are told or what they should do.
[2020-03-17 02:09] LABS: Hematocrit 40.8 % (42.0-52.0); Immature Granulocyte Absolute 0.05 K/mm3 (0.00-0.031); Immature Granulocyte Percent A 0.8 % (0-0.5); Immature Platelet Fraction Pct 2.8 % (0.9-11.2); Lymphocytes Absolute Auto 0.28 K/mm3 (0.9-3.2); Lymphocytes Percent Auto 4.5 % (18.3-44.2); Mean Corpuscular HGB Conc 34.3 g/dl (32-36); Mean Corpuscular Hemoglobin 31.1 pg (26-34); Mean Corpuscular Volume 90.7 fl (80-100); Mean Platelet Volume 10.1 fl (7.4-10.4); Monocytes Absolute Auto 0.1 K/mm3 (0.1-0.6); Monocytes Percent Auto 2.2 % (2.6-8.5); Neutrophils Absolute Auto 5.8 K/mm3 (1.3-6.7); Neutrophils Percent Auto 92.5 % (45.5-73.1); Platelet Count Result 110 k/mm3 (150-375); Red Cell Distribution Width 13.2 % (11.5-14.5); White Blood Count 6.3 K/mm3 (4.5-10.0)
[2020-03-17 02:20] LABS: Anion Gap 12 mmol/L (8-16); Blood Urea Nitrogen 19 mg/dL (9-20); Calcium 7.9 mg/dL (8.4-10.2); Carbon Dioxide 25 mmol/L (22-30); Chloride 103 mmol/L (98-107); Estimated CRCL calculation 78 ml/min; Estimated Glomerular Filt Rate > 60; Glucose 283 mg/dL (75-110); Magnesium 2.1 mg/dL (1.6-2.3); Potassium 3.4 mmol/L (3.4-5.0); Sodium 140 mmol/L (137-145)
[2020-03-17 02:38] LABS: CRP 8.7 mg/dL (<1.0)
[2020-03-17 02:51] LABS: Hemoglobin A1C 6.3 % (<5.7)
[2020-03-17 03:04] LABS: Partial Thromboplastin Time 29.2 SECONDS (22.3-36.8)
[2020-03-17 03:26] LABS: Lactate Dehydrogenase 728 U/L (313-618)
[2020-03-17] MEDS: LORazepam INJ (*CRX) 2 MG/ML VIAL 0.5 MG IV PUSH (04:36)
[2020-03-17] MEDS: ENOXAPARIN 120 MG/0.8 ML SYRINGE SUB-Q ×2 (04:36→17:11)
[2020-03-17] MEDS: LORazepam INJ (*CRX) 2 MG/ML VIAL 1 MG IV PUSH (05:42)
--- NOTE | 2020-03-17 05:49 | ECG_ITS ---
Measurements Intervals [place] Rate: 107 P: IN: 0 QRS: -65 QRSD: 162 T: 76 QT: 409 QTc: 547 Interpretive Statements SINUS OR ECTOPIC ATRIAL TACHYCARDIA LEFT AXIS DEVIATION LEFT BUNDLE BRANCH BLOCK BASELINE ARTIFACT- I, II, III, AVR, AVF, V1-V6 ABNORMAL ECG Electronically Signed On 03-17-2020 7:31:35 ELECTRIC METER REPAIRER by Jose Elise D.O.
[2020-03-17] MEDS: RAPID SEQUENCE INTUBATION KIT 1 EACH (06:15)
[2020-03-17 06:16] LABS: Alveolar/Arterial O2 Gradient 271.9 mmHg; Carboxyhemoglobin 0.3 % THb (0-2.0); Fractional Inspired Oxygen 50 %; Methemoglobin ABG 0.4 %THb (0-1.5); Oxygen Content ABG 17.8 %vol (16.0-22.0); Oxyhemoglobin 78.7 % THb (90.0-100.0); PCO2 ABG 31.2 mmHg (35.0-45.0); PO2 FiO2 Ratio Arterial Blood 0.99 %; Reduced Hemoglobin 20.6 %THb (0-5.0); Total Hemoglobin 16.1 g/dL (12.0-18.0)
[2020-03-17 06:18] LABS: pH ABG 7.238 (7.350-7.450)
[2020-03-17 06:19] LABS: Device NON-INVASIVE VENT; Modified Allen's Test Pass; Oxygen Saturation ABG 78.9 % (95.0-100.0); PO2 ABG 49.5 mmHg (80.0-100.0); Site Drawn RIGHT BRACHIAL
[2020-03-17 06:20] LABS: Non-Invasive Expiratory Pressure 6 CMH2O; Non-Invasive Inspiratory Pressure 12 CMH2O; Non-Invasive Vent Rate 14 /MIN
--- NOTE | 2020-03-17 06:42 | PC.NURSE ---
Pt arrived at approx. 0100 03/17. Report recieved from [facility] in [place]. when pt arrived noticed left eye wouldn't open and didn't look right did stat CT of brain. Took pt down on 9L high flow. Put back on Bipap to sleep. Called daughter couldn't get ahold of . He is very restless.
[2020-03-17] MEDS: FENTANYL 2,500MCG/NS250ML(*CRX 2,500 MCG/250 ML BAG 7.5 MCG IV CONT (06:50)
--- NOTE | 2020-03-17 06:51 | WPDPROCEDUR ---
Procedures Intubation Intubation Date: 03/17/20 Intubation Time: 06:30 Consent: Discussed with daughter, phone consent. Emergent procedure. A pre-procedural Time-Out was completed immediately before starting the procedure and confirmed: Patient Identification, Site, Procedure, Patient Position and the Availability of Requisite Equipment: Yes Sedative: etomidate Mg given: 35 Paralytic: rocuronium Mg given: 70 Laryngoscope: fiber optic video scope Assist device used: fiber optic device ET tube size: 7.5 Tube secured depth (cm): 26 Tube secured location: teeth Tube placement confirmation: visualized tube passing through cords, equal breath sounds bilaterally, no breath sounds over epigastrium and confirmation by capnometry Patient tolerated procedure: well Intubation complications: none
--- NOTE | 2020-03-17 07:18 | P.PNCROSS_ITS ---
Event Note Event Note Event Note: Rapid response was called for acute worsening of respiratory failure. Throughout the night he was requiring ativan to stay calm, patient has significant anxiety history on multiple agents confirmed by his daughter. He had received 3mg IV Ativan in the ER and at our hospital 0.5mg then 1mg. He would continuously take off his O2 and desaturate. He was using accessory muscles to breath. ABG done earlier in the evening showed patient was oxygenating well and tolerating the bipap. However there appeared to be a change in status. His heart rhythm appeared to have widened however on further inspection the rhythm appears to be the same as previous on EKG. Patient has significant CAD history with multiple stents and pacemaker placement. He is supposed to get new pacemaker next week. He follows Dr. Joshi cardiology at [place]. With his respiratory distress and new hypoxia and unable to keep his mask on, decision was made to intubate and place patient on ventilator. I called and discussed with daugther who agreed to the plan as I was unable to reach the . The is apparently also sick with COVID 19 at home. Patient was moved to the ICU and intubated with rapid sequence intubation 7.5 cm ETT with glidescope, etomidate 35mg and rocuronium 70mg. ETT placement confirmed by x-ray. I have informed systems engineering manager of the events.
--- NOTE | 2020-03-17 07:45 | PC.NURSE ---
Pt moved to ICU2 approx 03/17
--- NOTE | 2020-03-17 07:48 | PC.NURSE ---
Tried several times to reach never got a response. Spoke to daughter she says her mother is just as sick with covid. She was the one who took her dad to the ED and signed the transfer papers. I am putting her as the emergency contact at this time. Angie Torres [phone]
[2020-03-17] MEDS: ALBUTEROL SULFATE NEB 2.5 MG/0.5 ML INH 5 MG INHALATION ×2 (08:01→19:59)
[2020-03-17 08:50] LABS: Alanine Aminotransferase 42 U/L (4-50)
[2020-03-17 08:55] LABS: Alveolar/Arterial O2 Gradient 572.7 mmHg; Base Excess ABG -5.3 mEq/l (+/-2.0); Carboxyhemoglobin 0.3 % THb (0-2.0); Fractional Inspired Oxygen 100 %; HCO3 ABG 22.5 mEq/l (22.0-26.0); Methemoglobin ABG 0.4 %THb (0-1.5); Oxygen Content ABG 20.5 %vol (16.0-22.0); Oxygen Saturation ABG 95.2 % (95.0-100.0); Oxyhemoglobin 94.1 % THb (90.0-100.0); PCO2 ABG 52.6 mmHg (35.0-45.0); PO2 ABG 87.7 mmHg (80.0-100.0); PO2 FiO2 Ratio Arterial Blood 0.88 %; Reduced Hemoglobin 5.2 %THb (0-5.0); Total Hemoglobin 15.5 g/dL (12.0-18.0)
[2020-03-17 08:56] LABS: Arterial Blood Gas PEEP 10 cmH2O; Arterial Blood Gas Tidal Volume 450 ml; Arterial Blood Gas Vent Mode CMV; Arterial Blood Gas Ventilator rate 24 /MIN; Device VENTILATOR; Modified Allen's Test Pass; Site Drawn RIGHT RADIAL
[2020-03-17] MEDS: ATORVASTATIN 40 MG TABLET 80 MG PO (09:08)
[2020-03-17] MEDS: SERTRALINE HCL 50 MG TABLET 100 MG PO (09:08)
[2020-03-17] MEDS: CLOPIDOGREL BISULFATE 75 MG TABLET PO (09:09)
[2020-03-17] MEDS: CHOLECALCIFEROL 1,000 UNITS TABLET 5000 UNITS PO (09:09)
--- NOTE | 2020-03-17 09:09 | WPDCNINT ---
Assessment and Plan Assessment and plan (1) Acute respiratory failure with hypoxia: Code(s): J96.01 - Acute respiratory failure with hypoxia Status: Acute Assessment and Plan: Acute respiratory failure likely secondary to COVID-19 pneumonia -intubated on 03/17/2020 -chest x-ray shows bilateral lung disease greatest in the right mid and upper lungs which is concerning for pneumonia. Differential includes pulmonary edema and/or atelectasis. -continue on low tidal volume strategy, peep of 10, 100% FiO2, will wean FiO2 as tolerated -ABGs reviewed, will increase respiratory rate -will add bronchodilators (2) Pneumonia due to COVID-19 virus: Code(s): U07.1 - COVID-19; J12.89 - Other viral pneumonia Status: Acute Assessment and Plan: SARS-CoV-2 PCR positive on 03/11/2020 -patient presented to outside hospital 03/16/2020 with productive cough, shortness of breath, wheezing hypoxia -elevated inflammatory markers -patient started on dexamethasone IV -will start Remdesivir -will order convalescent plasma -continue airborne, contact, droplet isolation/precautions -will monitor inflammatory markers (3) Pulmonary embolism associated with severe acute respiratory syndrome coronavirus 2 (SARS-CoV-2) infection: Code(s): U07.1 - COVID-19; I26.99 - Other pulmonary embolism without acute cor pulmonale Status: Acute Assessment and Plan: Possible small segmental PEs on CTA chest the outside hospital lots of motion artifact -patient has been started on therapeutic Lovenox (4) Anxiety: Code(s): F41.9 - Anxiety disorder, unspecified Status: Acute Assessment and Plan: History of anxiety patient did require a lot of Ativan at the outside hospital and at [facility] prior to intubation Additional Plan Discussed with family and updated them with patient's condition and plan of care Code status: Full code Critical care time spent: 49 minutes Due to a high probability of clinically significant, life threatening deterioration, the patient required my highest level of preparedness to intervene emergently and I personally spent this critical care time directly and personally managing the patient. This critical care time included obtaining a history; examining the patient; pulse oximetry; ordering and review of studies; arranging urgent treatment with development of a management plan; evaluation of patient's response to treatment; frequent reassessment; and discussions with other providers. It was exclusive of separately billable procedures and treating other patients and teaching time. Please see Assessment and Plan section and the rest of the note for further information on patient assessment and treatment On Car Supervisor Consult Note Consult date: 03/17/20 Time Seen: 06:58 Reason for consult: Acute hypoxic respiratory failure COVID-19 pneumonia HPI: Griffin Meehan is a 74 year old male past medical history congestive heart failure, coronary artery disease, essential hypertension, GERD, hyperlipidemia overactive bladder, BPH depression presents to the ED at [facility] with cough with sputum, wheezing, shortness of breath, decreased O2 sats, tachypnea. Patient was also tachycardic. Patient was transferred to the [facility] for COVID-19 pneumonia, SARS-CoV-2 PCR was positive on 03/11/2020. CT scan done at the outside hospital showed extensive bilateral infiltrates consistent with COVID-19 19, no large pulmonary embolism, small few per filling defects at subsegmental branches right lower lobe which could be small PE. 03/17 in the morning patient was desaturating, severely anxious and removing his oxygen and BiPAP. Patient was using accessory muscles to breathe. ABG showed severe hypoxemia and hypoxia. And was intubated in the early hours on 03/17/2020 by the hospitalist. Patient currently on tidal volume of 450 mL, rate of 24, peep of 10, 100% FiO2. Repeat A
[2020-03-17] MEDS: DEXAMETHASONE SOD PHOS INJ 4 MG/ML VIAL 6 MG IV PUSH (09:10)
[2020-03-17] MEDS: PANTOPRAZOLE SODIUM IV 40 MG VIAL IV PUSH (09:30)
[2020-03-17 09:35] LABS: Glucose Point of Care 266 (65-105)
[2020-03-17] MEDS: REMDESIVIR 200 MG/NS 250 ML 200 MG/250 ML BAG 250 MG IVPB (11:08)
[2020-03-17] MEDS: LIDOCAINE HCL 1% PF INJ 5 ML VIAL INFILTRATE (11:30)
[2020-03-17] MEDS: INSULIN ASPART (*BKC) 100 UNITS/ML SUB-Q ×2 (12:52→17:16)
[2020-03-17] MEDS: SODIUM CHLORIDE 0.9% IV 250 ML 30 ML IV CONT (13:04)
[2020-03-17 13:10] LABS: Glucose Point of Care 249 (65-105)
--- NOTE | 2020-03-17 14:11 | PM.IMPN ---
Progress Note: A&P Assessment and Plan (1) Pneumonia due to COVID-19 virus: Code(s): U07.1 - COVID-19; J12.89 - Other viral pneumonia Status: Acute Assessment and Plan: -COVID-19 pneumonia diagnosed -CT and chest x-ray consistent with COVID-19 pneumonia -inflammatory markers are mildly elevated ferritin 597, LDH 728, CRP 8.7 -wean oxygen to keep saturations greater than 90%, currently 9 L oxygen nasal cannula, weaned off BiPAP, patient may need CPAP at night -ABG showed PO2 85 on 50% FiO2 -Tylenol for fever -albuterol nebs q.6 hours, is unclear if he could cooperate for MDI -dexamethasone 6 mg IV daily -will need to find out with when COVID-19 was diagnosed to see if he is appropriate for remdesivir and convalescent plasma -continue home Pepcid for GI prophylaxis -supplements vitamin-D 5000 units -on full-dose Lovenox for possible PE -holding off on further antibiotics and will re-evaluate tomorrow as patient does not a leukocytosis or sputum production 03/17/20 14:11 Patient is 74-year-old male with history of congestive heart failure, cardiac arrhythmia, coronary artery disease hypertension hyperlipidemia patient was diagnosed with COVID-19 on 03/11/2020 and he was admitted at [facility] with shortness of breath and hypoxia he was transferred to [facility] on 03/16 to intermediate care unit (IMU) he developed significant agitation was not keeping his BiPAP and was desaturating so solid center winder of 03/17 patient was intubated and placed on ventilator by the entertainment agent after he spoke with family, now in ICU patient is seen by space control supervisor patient is started on dexamethasone 03/17, Remdesovor 03/17 and will receive convalescent plasma, currently on vent unable to provide any review of symptoms, appreciate space control supervisor (2) Acute respiratory failure with hypoxia: Code(s): J96.01 - Acute respiratory failure with hypoxia Status: Acute Assessment and Plan: -Continue supportive care as above (3) Pulmonary embolism associated with severe acute respiratory syndrome coronavirus 2 (SARS-CoV-2) infection: Code(s): U07.1 - COVID-19; I26.99 - Other pulmonary embolism without acute cor pulmonale Status: Acute Assessment and Plan: -CT chest was unable to rule out subsegmental branches right lower lobe filling defects for PE which could be artifact respiratory motion -will air on the safe side and give full-dose Lovenox (4) Anxiety: Code(s): F41.9 - Anxiety disorder, unspecified Status: Acute Assessment and Plan: -Continue Zoloft, Wellbutrin -adding Ativan IV 0.5 mg q.6 hours p.r.n. anxiety, may need to go up on dose Additional Plan # other chronic conditions -CAD, HLD: Continue atorvastatin, Plavix. Because we are starting full-dose Lovenox, holding aspirin. -congestive heart failure: Unknown baseline, holding Lasix, spironolactone, metoprolol for now -GERD: Continue Pepcid -bladder spasm: Continue Myrbetriq and oxybutynin -BPH: Continue Flomax -seasonal allergies: Continue Zyrtec -patient has artificial left eye: Head CT was ordered to rule out stroke when we did not know eye was artifical, CT confirmed the left ocular prosthesis. Otherwise CT found underlying cerebral atrophy and presumed microvascular deep white matter hyper dense changes -hemoglobin A1c is 6.3, no diabetes, it was checked because of elevated blood sugar in the ER Diet: heart healthy DVT prophylaxis: full-dose Lovenox Code status: Full code Disposition: IMU, pending clinical course Subjective Date/time seen: 03/17/20 14:11 Patient is 74-year-old male with history of congestive heart failure, cardiac arrhythmia, coronary artery disease hypertension hyperlipidemia patient was diagnosed with COVID-19 on 03/11/2020 and he was admitted at [facility] with shortness of breath and hypoxia he was transferred to [facility] on 03/16 to intermediate care unit (IMU) he de
[2020-03-17] MEDS: IPRATROPIUM BR 0.02% INH SOLN 0.5 MG/2.5 ML VIAL INHALATION ×2 (14:15→20:00)
[2020-03-17] MEDS: LEVALBUTEROL NEB 1.25 MG/3 ML 0.63 MG INHALATION ×2 (14:16→19:59)
[2020-03-17] MEDS: CENTRAL LINE FLUSH 10 ML IV PUSH ×2 (17:12→21:45)
[2020-03-17 17:23] LABS: Glucose Point of Care 234 (65-105)
--- NOTE | 2020-03-17 22:17 | ECG_ITS ---
Measurements Intervals [place] Rate: 128 P: -37 NC: 198 QRS: -64 QRSD: 137 T: 82 QT: 361 QTc: 527 Interpretive Statements ATRIAL TACHYCARDIA/FLUTTER WITH RAPID VENTRICULAR RESPONSE LEFT BUNDLE BRANCH BLOCK ANTEROLATERAL INFARCT OR DUE TO LEFT BUNDLE BRANCH BLOCK INFERIOR INFARCT OR DUE TO LEFT BUNDLE BRANCH BLOCK ABNORMAL ECG Electronically Signed On 03-18-2020 14:41:02 GRINDER SET UP OPERATOR THREAD TOOL by Jose Elise D.O.
[2020-03-17] MEDS: AMIODARONE 150 MG/D5W 100 ML 150 MG/100 ML BAG 600 MG IV CONT (22:44)
[2020-03-17] MEDS: AMIODARONE 360 MG/D5W 200 ML 360 MG/200 ML BAG 33.33 MG IV CONT (22:55)
[2020-03-17 23:13] LABS: Blood Urea Nitrogen 34 mg/dL (9-20); Calcium 7.3 mg/dL (8.4-10.2); Carbon Dioxide 26 mmol/L (22-30); Chloride 108 mmol/L (98-107); Estimated CRCL calculation 56 ml/min; Estimated Glomerular Filt Rate 50; Glucose 235 mg/dL (75-110); Magnesium 2.3 mg/dL (1.6-2.3); Phosphorus 2.7 mg/dL (2.5-4.5); Potassium 2.5 mmol/L (3.4-5.0); Troponin I 0.389 ng/mL (0.000-0.034)
[2020-03-17 23:28] LABS: Anion Gap 7 mmol/L (8-16); Sodium 141 mmol/L (137-145)
[2020-03-17] MEDS: FENTANYL 2,500MCG/NS250ML(*CRX 2,500 MCG/250 ML BAG 15 MCG IV CONT (23:30)
[2020-03-18] VITALS (37 sets, daily range): BP systolic 94–131; BP diastolic 61–90; PULSE 84–128; RESP 13–30; TEMP 36.2–37.3; O2SAT 88–99
[2020-03-18] MEDS: POTASSIUM CHLORIDE 20 MEQ PACKET (FOR LIQUID) 40 MEQ FEED TUBE (00:06)
[2020-03-18] MEDS: INSULIN ASPART (*BKC) 100 UNITS/ML SUB-Q ×4 (01:31→17:15)
[2020-03-18] MEDS: ALBUTEROL SULFATE NEB 2.5 MG/0.5 ML INH 5 MG INHALATION (01:34)
[2020-03-18] MEDS: IPRATROPIUM BR 0.02% INH SOLN 0.5 MG/2.5 ML VIAL INHALATION ×4 (01:35→20:28)
[2020-03-18] MEDS: LEVALBUTEROL NEB 1.25 MG/3 ML 0.63 MG INHALATION ×4 (02:03→20:28)
[2020-03-18 03:52] LABS: Glucose Point of Care 247 (65-105)
[2020-03-18] MEDS: ENOXAPARIN 120 MG/0.8 ML SYRINGE SUB-Q ×2 (04:32→15:34)
[2020-03-18] MEDS: AMIODARONE 360 MG/D5W 200 ML 360 MG/200 ML BAG 16.67 MG IV CONT ×2 (04:34→20:05)
[2020-03-18 04:59] LABS: Alveolar/Arterial O2 Gradient 396.4 mmHg; Carboxyhemoglobin 0.3 % THb (0-2.0); Fractional Inspired Oxygen 75 %; HCO3 ABG 21.1 mEq/l (22.0-26.0); Methemoglobin ABG 0.4 %THb (0-1.5); Oxygen Content ABG 19.7 %vol (16.0-22.0); Oxygen Saturation ABG 97.2 % (95.0-100.0); Oxyhemoglobin 96.1 % THb (90.0-100.0); PCO2 ABG 38.4 mmHg (35.0-45.0); PO2 ABG 97.6 mmHg (80.0-100.0); Reduced Hemoglobin 3.2 %THb (0-5.0); Total Hemoglobin 14.5 g/dL (12.0-18.0); pH ABG 7.357 (7.350-7.450)
[2020-03-18 05:03] LABS: Arterial Blood Gas Vent Mode CMV; Arterial Blood Gas Ventilator rate 26 /MIN; Device VENTILATOR; Modified Allen's Test Pass; Site Drawn RIGHT RADIAL
[2020-03-18 05:04] LABS: Arterial Blood Gas PEEP 10 cmH2O; Arterial Blood Gas Tidal Volume 450 ml
[2020-03-18] MEDS: CENTRAL LINE FLUSH 10 ML IV PUSH ×3 (05:53→20:02)
[2020-03-18 06:01] LABS: Hematocrit 40.1 % (42.0-52.0); Hemoglobin 13.6 g/dL (14.0-18.0); Mean Corpuscular HGB Conc 33.9 g/dl (32-36); Mean Corpuscular Hemoglobin 31.6 pg (26-34); Mean Platelet Volume 9.9 fl (7.4-10.4); Platelet Count Result 121 k/mm3 (150-375); Red Blood Count 4.31 M/mm3 (4.6-6.20); Red Cell Distribution Width 13.7 % (11.5-14.5); White Blood Count 5.5 K/mm3 (4.5-10.0)
[2020-03-18 06:05] LABS: Glucose Point of Care 257 (65-105)
[2020-03-18 06:36] LABS: Alanine Aminotransferase 45 U/L (4-50); Albumin Level 3.1 g/dL (3.5-5.1); Alkaline Phosphatase 62 U/L (38-126); Anion Gap 7 mmol/L (8-16); Aspartate Amino Transferase 49 U/L (17-59); Bilirubin,Total 0.8 mg/dL (0.2-1.3); Blood Urea Nitrogen 31 mg/dL (9-20); Calcium 7.9 mg/dL (8.4-10.2); Carbon Dioxide 27 mmol/L (22-30); Chloride 109 mmol/L (98-107); Estimated CRCL calculation 60 ml/min; Estimated Glomerular Filt Rate 54; Glucose 283 mg/dL (75-110); Magnesium 2.5 mg/dL (1.6-2.3); Potassium 3.2 mmol/L (3.4-5.0); Sodium 143 mmol/L (137-145)
[2020-03-18 06:39] LABS: CRP 17.7 mg/dL (<1.0)
[2020-03-18] MEDS: PANTOPRAZOLE SODIUM IV 40 MG VIAL IV PUSH (08:09)
[2020-03-18] MEDS: CHOLECALCIFEROL 1,000 UNITS TABLET 5000 UNITS PO (08:09)
[2020-03-18] MEDS: DEXAMETHASONE SOD PHOS INJ 4 MG/ML VIAL 6 MG IV PUSH (08:09)
[2020-03-18] MEDS: CLOPIDOGREL BISULFATE 75 MG TABLET PO (08:10)
[2020-03-18] MEDS: INSULIN DETEMIR 100 UNITS/ML SUB-Q ×2 (08:10→20:01)
[2020-03-18] MEDS: ATORVASTATIN 40 MG TABLET 80 MG PO (08:10)
[2020-03-18] MEDS: POTASSIUM PHOS,M-BASIC-D-BASIC 20 MMOL in SODIUM CHLORIDE 0.9% IV 250 ML 62.5 MMOL IVPB (08:11)
--- NOTE | 2020-03-18 09:25 | WPDINTPN ---
Progress Note: A&P Assessment and Plan (1) Acute respiratory failure with hypoxia: Code(s): J96.01 - Acute respiratory failure with hypoxia Status: Acute Assessment and Plan: Acute respiratory failure likely secondary to COVID-19 pneumonia -intubated on 03/17/2020 -chest x-ray and ABGs reviewed, continue on low tidal volume strategy, peep of 10, 75% FiO2, wean FiO2 as tolerated to maintain O2 sats greater than 92% -continue bronchodilators (2) Pneumonia due to COVID-19 virus: Code(s): U07.1 - COVID-19; J12.89 - Other viral pneumonia Status: Acute Assessment and Plan: SARS-CoV-2 PCR positive on 03/11/2020 -patient presented to outside hospital 03/16/2020 with productive cough, shortness of breath, wheezing hypoxia -dexamethasone for a total of 10 days -continue Remdesivir for total of 5 days -received convalescent plasma on 03/17/2020 -continue airborne, contact, droplet isolation/precautions -inflammatory markers are elevated will continue to monitor and trend (3) Pulmonary embolism associated with severe acute respiratory syndrome coronavirus 2 (SARS-CoV-2) infection: Code(s): U07.1 - COVID-19; I26.99 - Other pulmonary embolism without acute cor pulmonale Status: Acute Assessment and Plan: Possible small segmental PEs on CTA chest the outside hospital lots of motion artifact -patient has been started on therapeutic Lovenox (4) Hyperglycemia: Code(s): R73.9 - Hyperglycemia, unspecified Status: Acute Assessment and Plan: Hyperglycemia likely related to steroids -continue sliding scale insulin Accu-Cheks. Added Levemir (5) Coronary artery disease: Code(s): I25.10 - Atherosclerotic heart disease of [place] coronary artery without angina pectoris Status: Acute Assessment and Plan: Continue clopidogrel, statin (6) Dietary counseling and surveillance: Code(s): Z71.3 - Dietary counseling and surveillance Status: Acute Assessment and Plan: Tolerating tube feeds (7) DVT prophylaxis: Code(s): Z29.9 - Encounter for prophylactic measures, unspecified Status: Acute Assessment and Plan: Therapeutic Lovenox Additional Plan Discussed with family and updated them with patient's condition and plan of care Code status: Full code Critical care time spent: 34 minutes Due to a high probability of clinically significant, life threatening deterioration, the patient required my highest level of preparedness to intervene emergently and I personally spent this critical care time directly and personally managing the patient. This critical care time included obtaining a history; examining the patient; pulse oximetry; ordering and review of studies; arranging urgent treatment with development of a management plan; evaluation of patient's response to treatment; frequent reassessment; and discussions with other providers. It was exclusive of separately billable procedures and treating other patients and teaching time. Please see Assessment and Plan section and the rest of the note for further information on patient assessment and treatment Subjective Date/time seen: 03/18/20 09:25 Interval history: Reason for consult: Acute hypoxic respiratory failure COVID-19 pneumonia -intubated on 03/17/2020 -convalescent plasma on 03/17/2020 03/18/2020: Patient seen and examined the ICU, remains intubated, the mode of ventilation, 75% FiO2, peep of 10. Patient is hemodynamically stable, urine output has been good. Some and phosphorus are low this morning. Patient is sedated with fentanyl and Versed infusion. 1 unit of a convalescent plasma yesterday. Patient is sedated, does not open his eyes or follow simple commands Review of Systems Review of Systems: ROS unobtainable: Yes unobtainable due to endotracheal tube Exam Const: General: comfortable and no acute distress HENMT: Other: ETT in place Eyes: Other: Right eye
[2020-03-18] MEDS: REMDESIVIR 100 MG/NS 250 ML 100 MG/250 ML BAG 250 MG IVPB (10:12)
--- NOTE | 2020-03-18 10:37 | PCDIET ---
ICU Rounding Note: Tube feedings held overnight for residual of 500mL. MD orders for Reglan and restarting Glucerna 1.2 at 10mL/hr. Last recorded weight is 118.9kg which is down from last review. Bowel Motility: BM x 3 on 03/17/20. Labs Reviewed: Hgb (13.6), Hct (40.1), Glu (283), BUN (31), K (3.2), Alb (3.1), Ceci Ca (8.62), PO4 (2.0) Meds Noted: Lipitor, Decadron, Fentanyl, Novolog, Levemir, Atrovent, Xopenex, Versed, Protonix, K-Phos, KCl, Remdesivir, Vitamin D, Reglan Additional Notes: No documented skin breakdown. Following daily in ICU rounds. Assessing/reassessing every Monday/Monday.
[2020-03-18 11:24] LABS: Glucose Point of Care 223 (65-105)
[2020-03-18] MEDS: METOCLOPRAMIDE HCL INJ 10 MG/2 ML VIAL 5 MG IV PUSH ×3 (11:36→23:39)
[2020-03-18] MEDS: AMIODARONE 360 MG/D5W 200 ML 360 MG/200 ML BAG 33.33 MG IV CONT (13:08)
[2020-03-18] MEDS: FENTANYL 2,500MCG/NS250ML(*CRX 2,500 MCG/250 ML BAG 15 MCG IV CONT (14:07)
--- NOTE | 2020-03-18 15:15 | PM.IMPN ---
Progress Note: A&P Assessment and Plan (1) Pneumonia due to COVID-19 virus: Code(s): U07.1 - COVID-19; J12.89 - Other viral pneumonia Status: Acute Assessment and Plan: -COVID-19 pneumonia diagnosed -CT and chest x-ray consistent with COVID-19 pneumonia -inflammatory markers are mildly elevated ferritin 597, LDH 728, CRP 8.7 -wean oxygen to keep saturations greater than 90%, currently 9 L oxygen nasal cannula, weaned off BiPAP, patient may need CPAP at night -ABG showed PO2 85 on 50% FiO2 -Tylenol for fever -albuterol nebs q.6 hours, is unclear if he could cooperate for MDI -dexamethasone 6 mg IV daily -will need to find out with when COVID-19 was diagnosed to see if he is appropriate for remdesivir and convalescent plasma -continue home Pepcid for GI prophylaxis -supplements vitamin-D 5000 units -on full-dose Lovenox for possible PE -holding off on further antibiotics and will re-evaluate tomorrow as patient does not a leukocytosis or sputum production 03/18/20 15:15 Patient is 74-year-old male with history of congestive heart failure, cardiac arrhythmia, coronary artery disease hypertension hyperlipidemia patient was diagnosed with COVID-19 on 03/11/2020 and [facility] of breath and hypoxia he was transferred to [facility] on 03/16 to intermediate care unit (IMU) he developed significant agitation was not keeping his BiPAP and was desaturating 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 patient was intubated and placed on ventilator by the business services intern after he spoke with family, now in ICU patient is seen by test equipment mechanic patient is started on dexamethasone 03/17 for 10days 04/29 , Remdesovor for 5 day on 03/17 04/24 and received 1 unit convalescent plasma 03/17 currently on vent unable to provide any review of symptoms, appreciate test equipment mechanic (2) Acute respiratory failure with hypoxia: Code(s): J96.01 - Acute respiratory failure with hypoxia Status: Acute Assessment and Plan: -Continue supportive care as above (3) Pulmonary embolism associated with severe acute respiratory syndrome coronavirus 2 (SARS-CoV-2) infection: Code(s): U07.1 - COVID-19; I26.99 - Other pulmonary embolism without acute cor pulmonale Status: Acute Assessment and Plan: -CT chest was unable to rule out subsegmental branches right lower lobe filling defects for PE which could be artifact respiratory motion -will air on the safe side and give full-dose Lovenox (4) Anxiety: Code(s): F41.9 - Anxiety disorder, unspecified Status: Acute Assessment and Plan: -Continue Zoloft, Wellbutrin -adding Ativan IV 0.5 mg q.6 hours p.r.n. anxiety, may need to go up on dose Additional Plan # other chronic conditions -CAD, HLD: Continue atorvastatin, Plavix. Because we are starting full-dose Lovenox, holding aspirin. -congestive heart failure: Unknown baseline, holding Lasix, spironolactone, metoprolol for now -GERD: Continue Pepcid -bladder spasm: Continue Myrbetriq and oxybutynin -BPH: Continue Flomax -seasonal allergies: Continue Zyrtec -patient has artificial left eye: Head CT was ordered to rule out stroke when we did not know eye was artifical, CT confirmed the left ocular prosthesis. Otherwise CT found underlying cerebral atrophy and presumed microvascular deep white matter hyper dense changes -hemoglobin A1c is 6.3, no diabetes, it was checked because of elevated blood sugar in the ER Diet: heart healthy DVT prophylaxis: full-dose Lovenox Code status: Full code Disposition: IMU, pending clinical course Subjective Date/time seen: 03/18/20 15:15 Patient is 74-year-old male with history of congestive heart failure, cardiac arrhythmia, coronary artery disease hypertension hyperlipidemia patient was diagnosed with COVID-19 on 03/11/2020 and [facility] with shortness of breath and hypoxia he was transferred to [facility] on
[2020-03-18 17:28] LABS: Glucose Point of Care 262 (65-105)
[2020-03-18 20:08] LABS: Glucose Point of Care 237 (65-105)
[2020-03-18 23:45] LABS: Glucose Point of Care 190 (65-105)
[2020-03-19] VITALS (37 sets, daily range): BP systolic 106–135; BP diastolic 70–87; PULSE 76–101; RESP 22–29; TEMP 36.2–36.9; O2SAT 95–98
[2020-03-19] MEDS: IPRATROPIUM BR 0.02% INH SOLN 0.5 MG/2.5 ML VIAL INHALATION ×4 (02:19→19:52)
[2020-03-19] MEDS: ALBUTEROL SULFATE NEB 2.5 MG/0.5 ML INH 5 MG INHALATION (02:19)
[2020-03-19] MEDS: ENOXAPARIN 120 MG/0.8 ML SYRINGE SUB-Q ×2 (03:48→16:14)
[2020-03-19 04:14] LABS: Hematocrit 39.2 % (42.0-52.0); Hemoglobin 12.9 g/dL (14.0-18.0); Immature Platelet Fraction Pct 2.2 % (0.9-11.2); Mean Corpuscular HGB Conc 32.9 g/dl (32-36); Mean Corpuscular Hemoglobin 31.3 pg (26-34); Mean Corpuscular Volume 95.1 fl (80-100); Mean Platelet Volume 9.7 fl (7.4-10.4); Platelet Count Result 125 k/mm3 (150-375); Red Blood Count 4.12 M/mm3 (4.6-6.20); Red Cell Distribution Width 14.1 % (11.5-14.5); White Blood Count 4.6 K/mm3 (4.5-10.0)
[2020-03-19 04:52] LABS: Alanine Aminotransferase 43 U/L (4-50); Albumin Level 3.1 g/dL (3.5-5.1); Alkaline Phosphatase 53 U/L (38-126); Anion Gap 3 mmol/L (8-16); Aspartate Amino Transferase 47 U/L (17-59); Blood Urea Nitrogen 38 mg/dL (9-20); CRP 15.5 mg/dL (<1.0); Calcium 8.3 mg/dL (8.4-10.2); Carbon Dioxide 30 mmol/L (22-30); Chloride 111 mmol/L (98-107); Estimated CRCL calculation 50 ml/min; Estimated Glomerular Filt Rate 42; Glucose 203 mg/dL (75-110); Magnesium 2.8 mg/dL (1.6-2.3); Phosphorus 3.1 mg/dL (2.5-4.5); Potassium 3.7 mmol/L (3.4-5.0); Sodium 144 mmol/L (137-145)
[2020-03-19 05:14] LABS: Alveolar/Arterial O2 Gradient 187.1 mmHg; Base Excess ABG -1.1 mEq/l (+/-2.0); Carboxyhemoglobin 0.3 % THb (0-2.0); Fractional Inspired Oxygen 45 %; HCO3 ABG 23.9 mEq/l (22.0-26.0); Methemoglobin ABG 0.4 %THb (0-1.5); Oxygen Content ABG 18.1 %vol (16.0-22.0); Oxygen Saturation ABG 96.5 % (95.0-100.0); PCO2 ABG 41.1 mmHg (35.0-45.0); PO2 FiO2 Ratio Arterial Blood 1.93 %; Reduced Hemoglobin 4.3 %THb (0-5.0); Total Hemoglobin 13.5 g/dL (12.0-18.0); pH ABG 7.383 (7.350-7.450)
[2020-03-19 05:15] LABS: Arterial Blood Gas PEEP 10 cmH2O; Arterial Blood Gas Tidal Volume 450 ml; Arterial Blood Gas Vent Mode CMV; Arterial Blood Gas Ventilator rate 26 /MIN; Device VENTILATOR; Modified Allen's Test Unable to perform; Site Drawn RIGHT RADIAL
[2020-03-19] MEDS: CENTRAL LINE FLUSH 10 ML IV PUSH ×3 (05:43→22:02)
[2020-03-19] MEDS: METOCLOPRAMIDE HCL INJ 10 MG/2 ML VIAL 5 MG IV PUSH ×3 (05:44→17:59)
[2020-03-19] MEDS: INSULIN ASPART (*BKC) 100 UNITS/ML SUB-Q ×3 (05:44→17:57)
[2020-03-19 05:50] LABS: Glucose Point of Care 206 (65-105)
[2020-03-19] MEDS: LEVALBUTEROL NEB 1.25 MG/3 ML 0.63 MG INHALATION ×3 (07:49→19:52)
[2020-03-19] MEDS: ATORVASTATIN 40 MG TABLET 80 MG PO (08:11)
[2020-03-19] MEDS: CHOLECALCIFEROL 1,000 UNITS TABLET 5000 UNITS PO (08:12)
[2020-03-19] MEDS: SODIUM CHLORIDE 0.9% IV 500 ML IV CONT (08:12)
[2020-03-19] MEDS: DEXAMETHASONE SOD PHOS INJ 4 MG/ML VIAL 6 MG IV PUSH (08:12)
[2020-03-19] MEDS: CLOPIDOGREL BISULFATE 75 MG TABLET PO (08:12)
[2020-03-19] MEDS: PANTOPRAZOLE SODIUM IV 40 MG VIAL IV PUSH (08:12)
[2020-03-19] MEDS: AMIODARONE 360 MG/D5W 200 ML 360 MG/200 ML BAG 16.67 MG IV CONT ×2 (08:14→18:54)
[2020-03-19] MEDS: INSULIN DETEMIR 100 UNITS/ML SUB-Q ×2 (08:41→10:29)
--- NOTE | 2020-03-19 08:47 | WPDINTPN ---
Progress Note: A&P Assessment and Plan (1) Acute respiratory failure with hypoxia: Code(s): J96.01 - Acute respiratory failure with hypoxia Status: Acute Assessment and Plan: Acute respiratory failure likely secondary to COVID-19 pneumonia -intubated on 03/17/2020 -chest x-ray shows Scattered bilateral patchy airspace opacities consistent with pneumonia with interval progression in the bilateral lower lung zones. -continue on low tidal volume strategy, peep of 10, 45 % FiO2, will wean FiO2 as tolerated -ABGs reviewed, -continue bronchodilators (2) Pneumonia due to COVID-19 virus: Code(s): U07.1 - COVID-19; J12.89 - Other viral pneumonia Status: Acute Assessment and Plan: SARS-CoV-2 PCR positive on 03/11/2020 -patient presented to outside hospital 03/16/2020 with productive cough, shortness of breath, wheezing hypoxia -elevated inflammatory markers -continue dexamethasone IV for 10 days -continue Remdesivir for 5 days -03/17 received to convalescent plasma -continue airborne, contact, droplet isolation/precautions -will monitor inflammatory markers (3) Pulmonary embolism associated with severe acute respiratory syndrome coronavirus 2 (SARS-CoV-2) infection: Code(s): U07.1 - COVID-19; I26.99 - Other pulmonary embolism without acute cor pulmonale Status: Acute Assessment and Plan: Possible small segmental PEs on CTA chest the outside hospital lots of motion artifact -patient has been started on therapeutic Lovenox (4) Hyperglycemia: Code(s): R73.9 - Hyperglycemia, unspecified Status: Acute Assessment and Plan: Continue Accu-Cheks, sliding scale insulin -increase Levemir -hyperglycemia likely related to dexamethasone (5) Coronary artery disease: Code(s): I25.10 - Atherosclerotic heart disease of [place] coronary artery without angina pectoris Status: Acute Assessment and Plan: Continue clopidogrel, atorvastatin (6) Dietary counseling and surveillance: Code(s): Z71.3 - Dietary counseling and surveillance Status: Acute Assessment and Plan: Patient tolerating tube feeds will continue Stress ulcer prophylaxis: Protonix (7) DVT prophylaxis: Code(s): Z29.9 - Encounter for prophylactic measures, unspecified Status: Acute Assessment and Plan: DVT prophylaxis: Therapeutic Lovenox Additional Plan Discussed with , Jodie and updated them with patient's condition and plan of care Code status: Full code Critical care time spent: 32 minutes Due to a high probability of clinically significant, life threatening deterioration, the patient required my highest level of preparedness to intervene emergently and I personally spent this critical care time directly and personally managing the patient. This critical care time included obtaining a history; examining the patient; pulse oximetry; ordering and review of studies; arranging urgent treatment with development of a management plan; evaluation of patient's response to treatment; frequent reassessment; and discussions with other providers. It was exclusive of separately billable procedures and treating other patients and teaching time. Please see Assessment and Plan section and the rest of the note for further information on patient assessment and treatment Subjective Date/time seen: 03/19/20 08:47 Interval history: Reason for consult: Acute hypoxic respiratory failure COVID-19 pneumonia -intubated on 03/17/2020 -convalescent plasma on 03/17/2020 03/19/2020: Patient remains intubated on CMV mode of ventilation. 45% FiO2, peep of 10. Hemodynamically stable, urine output has been adequate. Slight increase in his creatinine to 1.6 from 1.3 yesterday. CRP trending down. Patient is tolerating tube feeds. Patient sedated with fentanyl and Versed infusion, does not open his eyes to name of follows simple commands Review of Systems Review of Systems:
[2020-03-19] MEDS: REMDESIVIR 100 MG/NS 250 ML 100 MG/250 ML BAG 250 MG IVPB (10:30)
--- NOTE | 2020-03-19 10:55 | PCDIET ---
ICU Rounding Note: Patient tolerating Glucerna 1.2 tube feedings which were just advanced to goal of 60mL/hr, per RN. Continuing to receive 30mL water flush every 4 hours. Last recorded weight is 120.3kg which is increased from last review. +I/O. Bowel Motility: BM x 3 on 03/17/20. Labs Reviewed: Hgb (12.9), Hct (39.2), Glu (203), BUN (38), Cr (1.6), Alb (3.1) Meds Noted: Remdesivir, Vitamin D, Lipitor, Plavix, Decadron, Reglan, Versed, Fentanyl, Novolog, Levemir, Atrovent, Xopenex, Protonix Additional Notes: No documented skin breakdown. Following daily in ICU rounds. Assessing/reassessing every Monday/Monday.
[2020-03-19 11:10] LABS: Potassium Urine Random 18.7 meq/L; Sodium Urine Random 16 meq/L
[2020-03-19 12:14] LABS: Glucose Point of Care 222 (65-105)
--- NOTE | 2020-03-19 14:08 | PM.CNNEP ---
Assessment and Plan Assessment and plan (1) CLARK (acute kidney injury): Code(s): N17.9 - Acute kidney failure, unspecified Status: Acute Assessment and Plan: creatinine on admission 1.0mg/dl (presumed baseline) acute rise to 1.4, then 1.3, then 1.6mg/dl today suspect multifactorial etiology: - contrast/dye exposure for CT of chest at OSH (rise in creatinine (at 48 hours) appears to correlate) - prerenal factors (follow-up on urine lytes) - infection (COVD-19) - concurrent use of diuretics (lasix + spironolactone) prior to admission continue supportive therapy for now follow repeat labs and UOP (2) Acute respiratory failure with hypoxia: Code(s): J96.01 - Acute respiratory failure with hypoxia Status: Acute Assessment and Plan: due to COVID-19 pneumonia wean as tolerated (3) Pneumonia due to COVID-19 virus: Code(s): U07.1 - COVID-19; J12.89 - Other viral pneumonia Status: Acute Assessment and Plan: tested positive on 03/11/2020 started on dexamethasone for 10 days continue remdesivir for 5 days s/p convalescent plasma on 03/17/20 on airborne/contact/droplet isolation follow inflammatory markers continue ventilator support (4) Pulmonary embolism associated with severe acute respiratory syndrome coronavirus 2 (SARS-CoV-2) infection: Code(s): U07.1 - COVID-19; I26.99 - Other pulmonary embolism without acute cor pulmonale Status: Acute Assessment and Plan: as noted by CT Chest at OSH on anticoagulation Discussed case with Dr. Kennedy. Will continue to follow. History of Present Illness Reason for Consult Consult date: 03/19/20 Reason for consult: acute renal failure Chief Complaint Chief complaint: COVID-19, PE History of Present Illness Narrative: All of the information I have obtained is from review of the electronic medical record as well as discussion with the physicians/nurses involved in the care of this patient as the patient is unable to provide me with any history regarding his admission as he is currently intubated and sedated. The patient is a 74-year-old male with an extensive past medical history as outlined below who presented to an outside hospital with complaints of worsening shortness of breath. Apparently, for the last several days, he has had increasing cough with sputum production associated with wheezing. Workup and evaluation at the outside hospital emergency room demonstrated the patient to be in respiratory distress with hypoxia, tachypnea, and tachycardia. Complicating matters was the fact he tested positive on 03/11/2020 for COVID-19. CT scan of the chest demonstrated extensive bilateral infiltrates consistent with COVID-19 but no large pulmonary embolism but there were a few small filling defects at the subsegmental branches of the right lower lobe concerning for possible small PEs. He was subsequently transferred to [facility] IMU for further evaluation and therapy. On arrival to [facility], it was quite clear the patient had severe anxiety and was removing his oxygen and BiPAP therapy which was helping maintain his respiratory status. This continued to worsen despite the use of IV anxiolytics and given his worsening respiratory status in general with the use of accessory muscles to breathe and ongoing hypoxia/ hypoxemia, it was decided to intubate the patient and place him on mechanical ventilation after discussion with his family. He was subsequent transferred to the intensive care unit for further therapy. It was noted by labs today that his creatinine went from 1.3 - 1.6 mg/dL (creatinine on admission was 1.0mg/dl); however, he still appears to be making reasonable amounts of urine and he has no other critical electrolyte abnormalities. Renal consultation was requested due to his acute kidney injury/acute renal fa
--- NOTE | 2020-03-19 15:12 | PM.IMPN ---
Progress Note: A&P Assessment and Plan (1) Pneumonia due to COVID-19 virus: Code(s): U07.1 - COVID-19; J12.89 - Other viral pneumonia Status: Acute Assessment and Plan: -COVID-19 pneumonia diagnosed -CT and chest x-ray consistent with COVID-19 pneumonia -inflammatory markers are mildly elevated ferritin 597, LDH 728, CRP 8.7 -wean oxygen to keep saturations greater than 90%, currently 9 L oxygen nasal cannula, weaned off BiPAP, patient may need CPAP at night -ABG showed PO2 85 on 50% FiO2 -Tylenol for fever -albuterol nebs q.6 hours, is unclear if he could cooperate for MDI -dexamethasone 6 mg IV daily -will need to find out with when COVID-19 was diagnosed to see if he is appropriate for remdesivir and convalescent plasma -continue home Pepcid for GI prophylaxis -supplements vitamin-D 5000 units -on full-dose Lovenox for possible PE -holding off on further antibiotics and will re-evaluate tomorrow as patient does not a leukocytosis or sputum production 03/19/20 15:12 Patient is 74-year-old male with history of congestive heart failure, cardiac arrhythmia, coronary artery disease hypertension hyperlipidemia patient was diagnosed with COVID-19 on 03/11/2020 and he was admitted at [facility] with shortness of breath and hypoxia he was transferred to [facility] on 03/16 to intermediate care unit (IMU) he developed significant agitation was not keeping his BiPAP and was desaturating 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 patient was intubated and placed on ventilator by the program dir after he spoke with family, now in ICU patient is seen by obstetric assistant patient is started on dexamethasone 03/17 for 10days 05/27 , Remdesovor for 5 day on 03/17 3/ and received 1 unit convalescent plasma 03/17, today patient creatinine climb to 1.6 from 1.3, renal US is normal, gently hydrated, out of school hours care worker is consulted, currently on vent unable to provide any review of symptoms, appreciate obstetric assistant (2) Acute respiratory failure with hypoxia: Code(s): J96.01 - Acute respiratory failure with hypoxia Status: Acute Assessment and Plan: -Continue supportive care as above (3) Pulmonary embolism associated with severe acute respiratory syndrome coronavirus 2 (SARS-CoV-2) infection: Code(s): U07.1 - COVID-19; I26.99 - Other pulmonary embolism without acute cor pulmonale Status: Acute Assessment and Plan: -CT chest was unable to rule out subsegmental branches right lower lobe filling defects for PE which could be artifact respiratory motion -will air on the safe side and give full-dose Lovenox (4) Anxiety: Code(s): F41.9 - Anxiety disorder, unspecified Status: Acute Assessment and Plan: -Continue Zoloft, Wellbutrin -adding Ativan IV 0.5 mg q.6 hours p.r.n. 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 patient was intubated and placed on ventilator by the program dir after he spoke with family, now in ICU patient is seen by obstetric assistant patient is started on dexamethasone 03/17 for 10days 05/27 , Remdesovor for 5 day on 03/17 05/22 and received 1 unit convalescent plasma 03/17, today patient creatinine climb to 1.6 from 1.3, renal US is normal, gently hydrated, out of school hours care worker is consulted, currently on vent unable to provide any review of symptoms, appreciate obstetric assistant Review of Systems Review of Systems: ROS unobtainable: Yes unobtainable due to endotracheal tube Exam Narrative: Exam Narrative: Cristofer
[2020-03-19 18:12] LABS: Glucose Point of Care 320 (65-105)
[2020-03-19] MEDS: INSULIN DETEMIR 100 UNITS/ML 10 UNITS SUB-Q (20:08)
[2020-03-19 20:11] LABS: Glucose Point of Care 268 (65-105)
[2020-03-20] VITALS (47 sets, daily range): BP systolic 123–163; BP diastolic 64–104; PULSE 74–155; RESP 24–31; TEMP 35.9–38.4; O2SAT 92–98
[2020-03-20] MEDS: INSULIN ASPART (*BKC) 100 UNITS/ML SUB-Q ×5 (00:02→23:51)
[2020-03-20] MEDS: FENTANYL 2,500MCG/NS250ML(*CRX 2,500 MCG/250 ML BAG 10 MCG IV CONT (00:05)
[2020-03-20] MEDS: METOCLOPRAMIDE HCL INJ 10 MG/2 ML VIAL 5 MG IV PUSH ×5 (00:05→23:53)
[2020-03-20 00:53] LABS: Glucose Point of Care 282 (65-105)
[2020-03-20] MEDS: IPRATROPIUM BR 0.02% INH SOLN 0.5 MG/2.5 ML VIAL INHALATION ×4 (01:59→19:39)
[2020-03-20] MEDS: LEVALBUTEROL NEB 1.25 MG/3 ML 0.63 MG INHALATION ×4 (02:00→19:38)
[2020-03-20] MEDS: ENOXAPARIN 120 MG/0.8 ML SYRINGE SUB-Q ×2 (04:16→16:12)
[2020-03-20 04:47] LABS: Hematocrit 37.1 % (42.0-52.0); Hemoglobin 11.9 g/dL (14.0-18.0); Mean Corpuscular HGB Conc 32.1 g/dl (32-36); Mean Corpuscular Hemoglobin 30.6 pg (26-34); Mean Corpuscular Volume 95.4 fl (80-100); Mean Platelet Volume 10.3 fl (7.4-10.4); Platelet Count Result 109 k/mm3 (150-375); Red Blood Count 3.89 M/mm3 (4.6-6.20); Red Cell Distribution Width 13.8 % (11.5-14.5); White Blood Count 4.5 K/mm3 (4.5-10.0)
[2020-03-20 05:11] LABS: Alanine Aminotransferase 43 U/L (4-50); Albumin Level 2.9 g/dL (3.5-5.1); Alkaline Phosphatase 49 U/L (38-126); Anion Gap 5 mmol/L (8-16); Aspartate Amino Transferase 43 U/L (17-59); Bilirubin,Total 0.8 mg/dL (0.2-1.3); Blood Urea Nitrogen 55 mg/dL (9-20); CRP 7.2 mg/dL (<1.0); Calcium 8.5 mg/dL (8.4-10.2); Carbon Dioxide 30 mmol/L (22-30); Chloride 111 mmol/L (98-107); Estimated CRCL calculation 48 ml/min; Estimated Glomerular Filt Rate 40; Glucose 241 mg/dL (75-110); Phosphorus 4.2 mg/dL (2.5-4.5); Sodium 146 mmol/L (137-145)
[2020-03-20 05:36] LABS: Alveolar/Arterial O2 Gradient 148.4 mmHg; Arterial Blood Gas Ventilator rate 26 /MIN; Base Excess ABG -1.2 mEq/l (+/-2.0); Carboxyhemoglobin 0.3 % THb (0-2.0); Device VENTILATOR; Fractional Inspired Oxygen 40 %; HCO3 ABG 24.2 mEq/l (22.0-26.0); Methemoglobin ABG 0.4 %THb (0-1.5); Modified Allen's Test Unable to perform; Oxygen Saturation ABG 96.3 % (95.0-100.0); Oxyhemoglobin 94.7 % THb (90.0-100.0); PCO2 ABG 43.5 mmHg (35.0-45.0); PO2 ABG 86.8 mmHg (80.0-100.0); PO2 FiO2 Ratio Arterial Blood 2.17 %; Reduced Hemoglobin 4.6 %THb (0-5.0); Site Drawn RIGHT RADIAL; Total Hemoglobin 13.5 g/dL (12.0-18.0); pH ABG 7.364 (7.350-7.450)
[2020-03-20 05:37] LABS: Arterial Blood Gas PEEP 10 cmH2O; Arterial Blood Gas Tidal Volume 450 ml; Arterial Blood Gas Vent Mode CMV
[2020-03-20] MEDS: CENTRAL LINE FLUSH 10 ML IV PUSH ×2 (05:59→20:22)
[2020-03-20] MEDS: AMIODARONE 360 MG/D5W 200 ML 360 MG/200 ML BAG 16.67 MG IV CONT (06:47)
[2020-03-20 06:55] LABS: Glucose Point of Care 240 (65-105)
[2020-03-20] MEDS: PANTOPRAZOLE SODIUM IV 40 MG VIAL IV PUSH (07:37)
[2020-03-20] MEDS: CHOLECALCIFEROL 1,000 UNITS TABLET 5000 UNITS PO (07:37)
[2020-03-20] MEDS: CLOPIDOGREL BISULFATE 75 MG TABLET PO (07:37)
[2020-03-20] MEDS: DEXAMETHASONE SOD PHOS INJ 4 MG/ML VIAL 6 MG IV PUSH (07:37)
[2020-03-20] MEDS: ATORVASTATIN 40 MG TABLET 80 MG PO (07:38)
[2020-03-20] MEDS: INSULIN DETEMIR 100 UNITS/ML 18 UNITS SUB-Q ×2 (07:58→20:19)
--- NOTE | 2020-03-20 08:51 | WPDINTPN ---
Progress Note: A&P Assessment and Plan (1) Acute respiratory failure with hypoxia: Code(s): J96.01 - Acute respiratory failure with hypoxia Status: Acute Assessment and Plan: Acute respiratory failure likely secondary to COVID-19 pneumonia -intubated on 03/17/2020 -chest x-ray shows Scattered bilateral patchy airspace opacities consistent with pneumonia with some improvement in the right upper lobe. -continue on low tidal volume strategy, will decrease PEEP to 8, currently on 40% FiO2 -ABGs reviewed, -continue bronchodilators (2) Pneumonia due to COVID-19 virus: Code(s): U07.1 - COVID-19; J12.89 - Other viral pneumonia Status: Acute Assessment and Plan: SARS-CoV-2 PCR positive on 03/11/2020 -patient presented to outside hospital 03/16/2020 with productive cough, shortness of breath, wheezing hypoxia -elevated inflammatory markers -continue dexamethasone IV for 10 days -continue Remdesivir for 5 days -03/17 received to convalescent plasma -continue airborne, contact, droplet isolation/precautions -will monitor inflammatory markers (3) Pulmonary embolism associated with severe acute respiratory syndrome coronavirus 2 (SARS-CoV-2) infection: Code(s): U07.1 - COVID-19; I26.99 - Other pulmonary embolism without acute cor pulmonale Status: Acute Assessment and Plan: Possible small segmental PEs on CTA chest the outside hospital lots of motion artifact -patient has been started on therapeutic Lovenox (4) Hyperglycemia: Code(s): R73.9 - Hyperglycemia, unspecified Status: Acute Assessment and Plan: Continue Accu-Cheks, sliding scale insulin -increase Levemir -hyperglycemia likely related to dexamethasone (5) Coronary artery disease: Code(s): I25.10 - Atherosclerotic heart disease of [place] coronary artery without angina pectoris Status: Acute Assessment and Plan: Continue clopidogrel, atorvastatin (6) Dietary counseling and surveillance: Code(s): Z71.3 - Dietary counseling and surveillance Status: Acute Assessment and Plan: Patient tolerating tube feeds will continue Stress ulcer prophylaxis: Protonix (7) DVT prophylaxis: Code(s): Z29.9 - Encounter for prophylactic measures, unspecified Status: Acute Assessment and Plan: DVT prophylaxis: Therapeutic Lovenox Additional Plan Discussed with , Jodie and updated them with patient's condition and plan of care Code status: Full code Critical care time spent: 34 minutes Due to a high probability of clinically significant, life threatening deterioration, the patient required my highest level of preparedness to intervene emergently and I personally spent this critical care time directly and personally managing the patient. This critical care time included obtaining a history; examining the patient; pulse oximetry; ordering and review of studies; arranging urgent treatment with development of a management plan; evaluation of patient's response to treatment; frequent reassessment; and discussions with other providers. It was exclusive of separately billable procedures and treating other patients and teaching time. Please see Assessment and Plan section and the rest of the note for further information on patient assessment and treatment Subjective Date/time seen: 03/20/20 08:51 Interval history: Reason for consult: Acute hypoxic respiratory failure COVID-19 pneumonia -intubated on 03/17/2020 -convalescent plasma on 03/17/2020 03/20/2020: Patient on CMV mode of ventilation, peep of 10, 40% FiO2 urine output has been adequate, afebrile, hemodynamically stable remains on amiodarone infusion, in sinus rhythm. CRP trending down. Patient tolerating tube feeds sedated with fentanyl and Versed infusion. Does not open his eyes to name of follows simple commands Review of Systems Review of Systems: ROS unobtainable: Yes unobtainable due to endotrachea
[2020-03-20] MEDS: REMDESIVIR 100 MG/NS 250 ML 100 MG/250 ML BAG 250 MG IVPB (10:04)
[2020-03-20 11:33] LABS: Glucose Point of Care 291 (65-105)
[2020-03-20] MEDS: fentaNYL CITRATE INJ (*CRX) 100 MCG/2 ML VIAL 50 MCG IV PUSH (11:53)
[2020-03-20] MEDS: MIDAZOLAM HCL (*CRX) 2 MG/2 ML VIAL IV PUSH (11:53)
[2020-03-20] MEDS: ROCURONIUM BROMIDE 50 MG/5 ML VIAL IV PUSH (12:41)
[2020-03-20] MEDS: METOPROLOL TARTRATE INJ 5 MG/5 ML VIAL IV PUSH (13:30)
[2020-03-20] MEDS: ACETAMINOPHEN 325 MG TABLET 650 MG PO ×2 (13:31→20:20)
--- NOTE | 2020-03-20 14:09 | PM.IMPN ---
Progress Note: A&P Assessment and Plan (1) Pneumonia due to COVID-19 virus: Code(s): U07.1 - COVID-19; J12.89 - Other viral pneumonia Status: Acute Assessment and Plan: -COVID-19 pneumonia diagnosed -CT and chest x-ray consistent with COVID-19 pneumonia -inflammatory markers are mildly elevated ferritin 597, LDH 728, CRP 8.7 -wean oxygen to keep saturations greater than 90%, currently 9 L oxygen nasal cannula, weaned off BiPAP, patient may need CPAP at night -ABG showed PO2 85 on 50% FiO2 -Tylenol for fever -albuterol nebs q.6 hours, is unclear if he could cooperate for MDI -dexamethasone 6 mg IV daily -will need to find out with when COVID-19 was diagnosed to see if he is appropriate for remdesivir and convalescent plasma -continue home Pepcid for GI prophylaxis -supplements vitamin-D 5000 units -on full-dose Lovenox for possible PE -holding off on further antibiotics and will re-evaluate tomorrow as patient does not a leukocytosis or sputum production 03/20/20 14:09 Patient is 74-year-old male with history of congestive heart failure, cardiac arrhythmia, coronary artery disease hypertension hyperlipidemia patient was diagnosed with COVID-19 on 03/11/2020 and he was admitted at [facility] with shortness of breath and hypoxia he was transferred to [facility] on 03/16 to intermediate care unit (IMU) he developed significant agitation was not keeping his BiPAP and was desaturating so tamper operator of 03/17 patient was intubated and placed on ventilator by the optical instrument assembler after he spoke with family, now in ICU patient is seen by automobile carpets molder patient is started on dexamethasone 03/17 for 10days 06/27 , Remdesovor for 5 day on 03/17 06/22 and received 1 unit convalescent plasma 03/17, on 03/19 patient creatinine climb to 1.6 from 1.3, renal US was normal, gently hydrated, Today patient BUN and creatinine are rising, patient is seen by machine tool rebuilder further recommendation to follow. currently on vent and sedated unable to provide any review of symptoms, appreciate automobile carpets molder (2) Acute respiratory failure with hypoxia: Code(s): J96.01 - Acute respiratory failure with hypoxia Status: Acute Assessment and Plan: -Continue supportive care as above (3) Pulmonary embolism associated with severe acute respiratory syndrome coronavirus 2 (SARS-CoV-2) infection: Code(s): U07.1 - COVID-19; I26.99 - Other pulmonary embolism without acute cor pulmonale Status: Acute Assessment and Plan: -CT chest was unable to rule out subsegmental branches right lower lobe filling defects for PE which could be artifact respiratory motion -will air on the safe side and give full-dose Lovenox (4) Anxiety: Code(s): F41.9 - Anxiety disorder, unspecified Status: Acute Assessment and Plan: -Continue Zoloft, Wellbutrin -adding Ativan IV 0.5 mg q.6 hours p.r.n. anxiety, may need to go up on dose Subjective Date/time seen: 03/20/20 14:09 Patient is 74-year-old male with history of congestive heart failure, cardiac arrhythmia, coronary artery disease hypertension hyperlipidemia patient was diagnosed with COVID-19 on 03/11/2020 and he was admitted at [facility] with shortness of breath and hypoxia he was transferred to [facility] on 03/16 to intermediate care unit (IMU) he developed significant agitation was not keeping his BiPAP and was desaturating so tamper operator of 03/17 patient was intubated and placed on ventilator by the optical instrument assembler after he spoke with family, now in ICU patient is seen by automobile carpets molder patient is started on dexamethasone 03/17 for 10days /10 , Remdesovor for 5 day on 03/17 4/5 and received 1 unit convalescent plasma 03/17, on 03/19 patient creatinine climb to 1.6 from 1.3, renal US was normal, gently hydrated, Today patient BUN and creatinine are rising, patient is seen by machine tool rebuilder further recommendation to follow. currently on vent and sedated u
--- NOTE | 2020-03-20 14:24 | PCDIET ---
Nutrition Follow-Up Complete: Inadequate oral intake related to oral intubation as evidenced by NPO status. Patient to meet estimated nutritional needs. Goal:Goal met; continue goal Pt current nutrition is Glucerna 1.2 @ 60ml/hr over 22hrs Nutrition recommendation: agree Last recorded weight is 123.7 kg, up from 120.3kg yesterday; +485 I/O Bowel Motility: Scant BM today Labs Reviewed: Mg 3.0, Hgb/Hct 11.9/37.1, Albumin 2.9, Na 146, BUN 55, Cr 1.70, Glucose 241 Meds Noted:Vitamin D, Remdesiver, Decadron, Versed, Insulin, Reglan Additional Notes: Pt tolerating enteral nutrition at goal of 60ml/hr over 22hrs, with 0 residuals providing 1584kcals/79g protein, and 1062ml of free water. 30ml water flush q 4hrs appropriate with other fluids at this time. We will continue to reassess every T/F and follow daily in ICU rounds.
--- NOTE | 2020-03-20 14:58 | PM.PNNEP ---
Progress Note: A&P Assessment and Plan (1) CLARK (acute kidney injury): Code(s): N17.9 - Acute kidney failure, unspecified Status: Acute Assessment and Plan: creatinine on admission 1.0mg/dl (presumed baseline) acute rise to 1.4, then 1.3, then 1.6, and now 1.7mg/dl today suspect multifactorial etiology: - contrast/dye exposure for CT of chest at OSH (rise in creatinine (at 48 hours) appears to correlate) - prerenal factors (urine electrolytes support this) - infection (COVD-19) - concurrent use of diuretics (lasix + spironolactone) prior to admission continue supportive therapy for now follow repeat labs and UOP (2) Acute respiratory failure with hypoxia: Code(s): J96.01 - Acute respiratory failure with hypoxia Status: Acute Assessment and Plan: due to COVID-19 pneumonia wean as tolerated (3) Pneumonia due to COVID-19 virus: Code(s): U07.1 - COVID-19; J12.89 - Other viral pneumonia Status: Acute Assessment and Plan: tested positive on 03/11/2020 started on dexamethasone for 10 days continue remdesivir for 5 days s/p convalescent plasma on 03/17/20 on airborne/contact/droplet isolation follow inflammatory markers continue ventilator support (4) Pulmonary embolism associated with severe acute respiratory syndrome coronavirus 2 (SARS-CoV-2) infection: Code(s): U07.1 - COVID-19; I26.99 - Other pulmonary embolism without acute cor pulmonale Status: Acute Assessment and Plan: as noted by CT Chest at OSH on anticoagulation Will continue to follow. Subjective Date/time seen: 03/20/20 14:58 No significant change since I last saw him; remains on ventilator support; reasonable urine output in the last 24 hours; remains hemodynamically stable without the need for pressors although on amiodarone gtt; appears comfortable and in no distress. Exam Narrative: Exam Narrative: General: WD/WN male in NAD; intubated/sedated Heart: normal S1 and S2; no rub Lungs: coarse breath sounds throughout Abdomen: soft, nontender, nondistended, positive bowel sounds Extremities: no cyanosis or clubbing; no edema Skin: warm and dry Objective Data Vital Signs Vital Signs: Vital Signs Temp Pulse Resp BP Pulse Ox 03/20/20 14:49 93 98 03/20/20 14:47 93 28 H 03/20/20 13:31 38.1 C H 03/20/20 13:30 155 H 03/20/20 13:28 155 H 26 H 03/20/20 13:27 155 H 163/104 H 03/20/20 12:00 110 H 29 H 95 03/20/20 11:52 105 H 03/20/20 11:43 38.4 C H 03/20/20 11:30 127 H 92 03/20/20 11:09 37.9 C H 110 H 31 H 142/76 H 93 03/20/20 10:00 82 03/20/20 08:19 76 26 H 03/20/20 08:00 35.9 C L 79 24 H 140/78 94 03/20/20 07:49 78 97 03/20/20 07:48 78 97 03/20/20 07:46 79 26 H 03/20/20 06:47 74 142/79 H 03/20/20 06:00 80 26 H 142/79 H 98 03/20/20 05:59 80 26 H 03/20/20 04:47 77 97 03/20/20 04:18 81 26 H 03/20/20 04:00 36.3 C L 82 26 H 141/91 H 95 03/20/20 02:03 77 96 03/20/20 02:00 77 26 H 126/70 96 03/20/20 00:05 77 26 H 03/20/20 00:00 36.7 C 75 26 H 123/72 97 03/19/20 22:59 76 96 03/19/20 22:00 80 26 H 117/70 97 03/19/20 20:10 77 26 H 03/19/20 20:09 85 26 H 03/19/20 20:00 36.2 C L 84 24 H 116/72 97 03/19/20 19:57 84 97 03/19/20 19:56 84 28 H 03/19/20 18:54 85 123/73 03/19/20 18:19 92 26 H 03/19/20 18:18 91 26 H 03/19/20 18:00 87 26 H 123/73 96 03/19/20 16:54 87 96 03/19/20 16:38 92 26 H 03/19/20 16:00 36.6 C 83 26 H 118/73 96 Intake/Output Intake/Output: Intake & Output 03/17/20 03/18/20 03/19/20 03/20/20 23:59 23:59 23:59 23:59 Intake Total 876 2597 2638 1185 Output Total 800 1350 1150 700 Balance 76 1247 1488 485 Meds/Results Me
[2020-03-20] MEDS: AMIODARONE 360 MG/D5W 200 ML 360 MG/200 ML BAG 33.33 MG IV CONT ×2 (18:03→23:54)
[2020-03-20 18:08] LABS: Glucose Point of Care 295 (65-105)
[2020-03-20 20:46] LABS: Glucose Point of Care 301 (65-105)
[2020-03-20] MEDS: FENTANYL 2,500MCG/NS250ML(*CRX 2,500 MCG/250 ML BAG 15 MCG IV CONT (23:57)
[2020-03-21] VITALS (47 sets, daily range): BP systolic 124–181; BP diastolic 69–94; PULSE 69–101; RESP 25–38; TEMP 37.9–39.2; O2SAT 91–100
[2020-03-21 00:18] LABS: Glucose Point of Care 269 (65-105)
[2020-03-21] MEDS: ENOXAPARIN 120 MG/0.8 ML SYRINGE SUB-Q ×2 (03:47→17:18)
[2020-03-21] MEDS: INSULIN ASPART (*BKC) 100 UNITS/ML SUB-Q ×2 (05:03→17:40)
[2020-03-21] MEDS: CENTRAL LINE FLUSH 10 ML IV PUSH ×2 (05:04→21:54)
[2020-03-21] MEDS: METOCLOPRAMIDE HCL INJ 10 MG/2 ML VIAL 5 MG IV PUSH ×4 (05:05→23:14)
[2020-03-21 05:23] LABS: Glucose Point of Care 222 (65-105)
[2020-03-21 05:28] LABS: Hematocrit 36.1 % (42.0-52.0); Hemoglobin 11.5 g/dL (14.0-18.0); Mean Corpuscular HGB Conc 31.9 g/dl (32-36); Mean Corpuscular Hemoglobin 31.2 pg (26-34); Mean Corpuscular Volume 97.8 fl (80-100); Mean Platelet Volume 10.4 fl (7.4-10.4); Platelet Count Result 107 k/mm3 (150-375); Red Blood Count 3.69 M/mm3 (4.6-6.20); Red Cell Distribution Width 13.2 % (11.5-14.5)
[2020-03-21 05:44] LABS: Alanine Aminotransferase 39 U/L (4-50); Albumin Level 2.6 g/dL (3.5-5.1); Alkaline Phosphatase 45 U/L (38-126); Anion Gap 2 mmol/L (8-16); Aspartate Amino Transferase 33 U/L (17-59); Bilirubin,Total 0.6 mg/dL (0.2-1.3); Blood Urea Nitrogen 55 mg/dL (9-20); CRP 4.3 mg/dL (<1.0); Calcium 8.6 mg/dL (8.4-10.2); Carbon Dioxide 30 mmol/L (22-30); Chloride 115 mmol/L (98-107); Estimated CRCL calculation 57 ml/min; Estimated Glomerular Filt Rate 50; Glucose 244 mg/dL (75-110); Magnesium 2.6 mg/dL (1.6-2.3); Phosphorus 4.5 mg/dL (2.5-4.5); Potassium 4.2 mmol/L (3.4-5.0); Sodium 147 mmol/L (137-145)
[2020-03-21] MEDS: AMIODARONE 360 MG/D5W 200 ML 360 MG/200 ML BAG 33.33 MG IV CONT (05:54)
[2020-03-21 06:04] LABS: Base Excess ABG -0.4 mEq/l (+/-2.0); Carboxyhemoglobin 0.3 % THb (0-2.0); Fractional Inspired Oxygen 30 %; Methemoglobin ABG 0.3 %THb (0-1.5); Oxygen Content ABG 16.1 %vol (16.0-22.0); Oxygen Saturation ABG 91.6 % (95.0-100.0); Oxyhemoglobin 89.8 % THb (90.0-100.0); PO2 ABG 63.2 mmHg (80.0-100.0); PO2 FiO2 Ratio Arterial Blood 2.11 %; Reduced Hemoglobin 9.6 %THb (0-5.0); Total Hemoglobin 12.7 g/dL (12.0-18.0); pH ABG 7.372 (7.350-7.450)
[2020-03-21 06:05] LABS: Arterial Blood Gas Ventilator rate 26 /MIN; Device VENTILATOR; Modified Allen's Test Pass; Site Drawn RIGHT RADIAL
[2020-03-21 06:06] LABS: Arterial Blood Gas PEEP 8 cmH2O; Arterial Blood Gas Tidal Volume 450 ml; Arterial Blood Gas Vent Mode CMV
[2020-03-21] MEDS: LEVALBUTEROL NEB 1.25 MG/3 ML 0.63 MG INHALATION ×3 (07:21→19:48)
[2020-03-21] MEDS: IPRATROPIUM BR 0.02% INH SOLN 0.5 MG/2.5 ML VIAL INHALATION ×3 (07:21→19:48)
[2020-03-21] MEDS: DEXAMETHASONE SOD PHOS INJ 4 MG/ML VIAL 6 MG IV PUSH (07:50)
[2020-03-21] MEDS: PANTOPRAZOLE SODIUM IV 40 MG VIAL IV PUSH (07:50)
[2020-03-21] MEDS: CHOLECALCIFEROL 1,000 UNITS TABLET 5000 UNITS PO (07:51)
[2020-03-21] MEDS: ATORVASTATIN 40 MG TABLET 80 MG PO (07:51)
[2020-03-21] MEDS: CLOPIDOGREL BISULFATE 75 MG TABLET PO (07:51)
[2020-03-21] MEDS: INSULIN DETEMIR 100 UNITS/ML 25 UNITS SUB-Q ×2 (07:59→21:54)
[2020-03-21] MEDS: dexmedeTOMIDine 400 MCG/100 ML 400 MCG/100 ML BAG 15.41 MCG IV CONT (08:35)
[2020-03-21] MEDS: ACETAMINOPHEN 325 MG TABLET 650 MG PO ×3 (10:56→21:55)
[2020-03-21] MEDS: REMDESIVIR 100 MG/NS 250 ML 100 MG/250 ML BAG 250 MG IVPB (10:56)
[2020-03-21 11:48] LABS: Glucose Point of Care 171 (65-105)
[2020-03-21] MEDS: dexmedeTOMIDine 400 MCG/100 ML 400 MCG/100 ML BAG 30.83 MCG IV CONT ×3 (12:46→19:32)
--- NOTE | 2020-03-21 13:12 | WPDINTPN ---
Progress Note: A&P Assessment and Plan (1) Acute respiratory failure with hypoxia: Code(s): J96.01 - Acute respiratory failure with hypoxia Status: Acute Assessment and Plan: Acute respiratory failure likely secondary to COVID-19 pneumonia -intubated on 03/17/2020 -chest x-ray shows Scattered bilateral patchy airspace opacities consistent with pneumonia with some improvement in the right upper lobe. -continue on low tidal volume strategy, will decrease PEEP to 8, currently on 30% FiO2 -ABGs reviewed, -continue bronchodilators -will try to wean fentanyl and Versed, patient started on Precedex infusion (2) Pneumonia due to COVID-19 virus: Code(s): U07.1 - COVID-19; J12.89 - Other viral pneumonia Status: Acute Assessment and Plan: SARS-CoV-2 PCR positive on 03/11/2020 -patient presented to outside hospital 03/16/2020 with productive cough, shortness of breath, wheezing hypoxia -continue dexamethasone IV for 10 days -received 5 days of Remdesivir -03/17 received to convalescent plasma -continue airborne, contact, droplet isolation/precautions -will monitor inflammatory markers (3) Pulmonary embolism associated with severe acute respiratory syndrome coronavirus 2 (SARS-CoV-2) infection: Code(s): U07.1 - COVID-19; I26.99 - Other pulmonary embolism without acute cor pulmonale Status: Acute Assessment and Plan: Possible small segmental PEs on CTA chest the outside hospital lots of motion artifact -patient has been started on therapeutic Lovenox -03/21/2020 venous Dopplers bilateral lower extremities negative for DVT (4) Hyperglycemia: Code(s): R73.9 - Hyperglycemia, unspecified Status: Acute Assessment and Plan: Continue Accu-Cheks, sliding scale insulin -increase Levemir -hyperglycemia likely related to dexamethasone (5) Coronary artery disease: Code(s): I25.10 - Atherosclerotic heart disease of [place] coronary artery without angina pectoris Status: Acute Assessment and Plan: Continue clopidogrel, atorvastatin (6) Dietary counseling and surveillance: Code(s): Z71.3 - Dietary counseling and surveillance Status: Acute Assessment and Plan: Patient tolerating tube feeds will continue Stress ulcer prophylaxis: Protonix (7) DVT prophylaxis: Code(s): Z29.9 - Encounter for prophylactic measures, unspecified Status: Acute Assessment and Plan: DVT prophylaxis: Therapeutic Lovenox Additional Plan Discussed with , Jodie and updated them with patient's condition and plan of care Code status: Full code Critical care time spent: 33 minutes Due to a high probability of clinically significant, life threatening deterioration, the patient required my highest level of preparedness to intervene emergently and I personally spent this critical care time directly and personally managing the patient. This critical care time included obtaining a history; examining the patient; pulse oximetry; ordering and review of studies; arranging urgent treatment with development of a management plan; evaluation of patient's response to treatment; frequent reassessment; and discussions with other providers. It was exclusive of separately billable procedures and treating other patients and teaching time. Please see Assessment and Plan section and the rest of the note for further information on patient assessment and treatment Subjective Date/time seen: 03/21/20 13:12 Interval history: Reason for consult: Acute hypoxic respiratory failure COVID-19 pneumonia -intubated on 03/17/2020 -convalescent plasma on 03/17/2020 03/21/2020: Patient on CMV mode of ventilation, peep of 10, 40% FiO2 urine output has been adequate, febrile with a T-max of 101.1? F, hemodynamically stable remains on amiodarone infusion, in sinus rhythm, rate controlled. CRP trending down. Patient tolerating tube feeds. Sedated with fentanyl and Versed infusio
--- NOTE | 2020-03-21 13:39 | PM.PNNEP ---
Progress Note: A&P Assessment and Plan (1) CLARK (acute kidney injury): Code(s): N17.9 - Acute kidney failure, unspecified Status: Acute Assessment and Plan: creatinine on admission 1.0mg/dl (presumed baseline) peaked at 1.7mg/dl and improving at this time suspect multifactorial etiology: - contrast/dye exposure for CT of chest at OSH [rise in creatinine (at 48 hours) appears to correlate] - prerenal factors (urine electrolytes support this) - infection (COVD-19) - concurrent use of diuretics (lasix + spironolactone) prior to admission continue supportive therapy for now follow repeat labs and UOP (2) Acute respiratory failure with hypoxia: Code(s): J96.01 - Acute respiratory failure with hypoxia Status: Acute Assessment and Plan: due to COVID-19 pneumonia wean as tolerated (3) Pneumonia due to COVID-19 virus: Code(s): U07.1 - COVID-19; J12.89 - Other viral pneumonia Status: Acute Assessment and Plan: tested positive on 03/11/2020 started on dexamethasone for 10 days s/p remdesivir for 5 days s/p convalescent plasma on 03/17/20 on airborne/contact/droplet isolation follow inflammatory markers continue ventilator support (4) Pulmonary embolism associated with severe acute respiratory syndrome coronavirus 2 (SARS-CoV-2) infection: Code(s): U07.1 - COVID-19; I26.99 - Other pulmonary embolism without acute cor pulmonale Status: Acute Assessment and Plan: as noted by CT Chest at OSH on anticoagulation Will continue to follow. Subjective Date/time seen: 03/21/20 13:39 Remains sedated and on ventilator support - hemodynamically stable but remains on amiodarone for rate control; febrile in the last 24 hours; continues to make reasonably urine output; some issues with agitation at times per nursing; no apparent distress noted at this time. Exam Narrative: Exam Narrative: General: WD/WN male in NAD; intubated/sedated Heart: normal S1 and S2; no rub Lungs: coarse breath sounds throughout Abdomen: soft, nontender, nondistended, positive bowel sounds Extremities: no cyanosis or clubbing; no edema Skin: warm and intact Objective Data Vital Signs Vital Signs: Vital Signs Temp Pulse Resp BP Pulse Ox 03/21/20 12:46 72 29 H 03/21/20 11:56 38.4 C H 03/21/20 11:40 69 98 03/21/20 10:56 38.3 C H 03/21/20 10:28 75 28 H 03/21/20 10:27 71 26 H 03/21/20 10:24 70 124/69 03/21/20 10:00 38.4 C H 81 28 H 134/75 99 03/21/20 08:00 38.2 C H 86 27 H 142/82 H 97 03/21/20 07:22 78 26 H 97 03/21/20 07:00 38.1 C H 76 26 H 138/75 97 03/21/20 06:00 38.1 C H 94 30 H 171/94 H 94 03/21/20 05:54 88 132/71 03/21/20 05:36 78 97 03/21/20 05:10 78 26 H 03/21/20 05:09 78 26 H 03/21/20 05:07 79 132/71 03/21/20 04:00 37.9 C H 77 26 H 139/75 99 03/21/20 02:09 75 26 H 03/21/20 02:08 75 26 H 133/73 03/21/20 02:04 75 97 03/21/20 02:00 38.0 C H 75 26 H 133/73 98 03/21/20 00:00 38.0 C H 77 28 H 131/72 98 03/20/20 23:58 77 26 H 03/20/20 23:57 77 26 H 03/20/20 23:54 77 138/73 03/20/20 23:47 77 98 03/20/20 22:39 89 26 H 128/68 03/20/20 22:38 89 26 H 03/20/20 22:00 38.0 C H 89 26 H 128/68 97 03/20/20 21:20 38.1 C H 03/20/20 20:24 87 29 H 130/64 03/20/20 20:22 95 26 H 03/20/20 20:20 38.4 C H 03/20/20 20:00 38.4 C H 82 28 H 130/64 97 03/20/20 19:41 83 97 03/20/20 19:39 81 28 H 03/20/20 18:03 84 124/67 03/20/20 18:00 38.3 C H 82 28 H 134/67 97 03/20/20 16:39 87 96 03/20/20 16:00 37.9 C H 94 28 H 140/69 96 03/20/20 14:49 93 98 03/20/20 14:47 93 28 H 03/20/20 14:31 37.9 C H 03/20/20 14:00 37.9 C H 93 28 H 123/73 96
--- NOTE | 2020-03-21 13:50 | PM.IMPN ---
Progress Note: A&P Assessment and Plan (1) Pneumonia due to COVID-19 virus: Code(s): U07.1 - COVID-19; J12.89 - Other viral pneumonia Status: Acute Assessment and Plan: -COVID-19 pneumonia diagnosed -CT and chest x-ray consistent with COVID-19 pneumonia -inflammatory markers are mildly elevated ferritin 597, LDH 728, CRP 8.7 -wean oxygen to keep saturations greater than 90%, currently 9 L oxygen nasal cannula, weaned off BiPAP, patient may need CPAP at night -ABG showed PO2 85 on 50% FiO2 -Tylenol for fever -albuterol nebs q.6 hours, is unclear if he could cooperate for MDI -dexamethasone 6 mg IV daily -will need to find out with when COVID-19 was diagnosed to see if he is appropriate for remdesivir and convalescent plasma -continue home Pepcid for GI prophylaxis -supplements vitamin-D 5000 units -on full-dose Lovenox for possible PE -holding off on further antibiotics and will re-evaluate tomorrow as patient does not a leukocytosis or sputum production 03/21/20 13:50 Patient is 74-year-old male with history of congestive heart failure, cardiac arrhythmia, coronary artery disease hypertension hyperlipidemia patient was diagnosed with COVID-19 on 03/11/2020 and he was admitted at [facility] with shortness of breath and hypoxia he was transferred to [facility] on 03/16 to intermediate care unit (IMU) he developed significant agitation was not keeping his BiPAP and was desaturating so early head start teacher of 03/17 patient was intubated and placed on ventilator by the director payment after he spoke with family, now in ICU patient is seen by glass cleaner patient is started on dexamethasone 03/17 for 10days 06/27 , Remdesovor for 5 day on 03/17 4/ and received 1 unit convalescent plasma 03/17, on 03/19 patient creatinine climb to 1.6 from 1.3, renal US was normal, gently hydrated, on 03/20/2020 patient BUN and creatinine was rising however today its trending down, patient is seen by preschool teacher's assistant further recommendation to follow. currently on vent and sedated unable to provide any review of symptoms, however patient sometime patient get agitated and moves his head disconnect from vent, appreciate glass cleaner (2) Acute respiratory failure with hypoxia: Code(s): J96.01 - Acute respiratory failure with hypoxia Status: Acute Assessment and Plan: -Continue supportive care as above (3) Pulmonary embolism associated with severe acute respiratory syndrome coronavirus 2 (SARS-CoV-2) infection: Code(s): U07.1 - COVID-19; I26.99 - Other pulmonary embolism without acute cor pulmonale Status: Acute Assessment and Plan: -CT chest was unable to rule out subsegmental branches right lower lobe filling defects for PE which could be artifact respiratory motion -will air on the safe side and give full-dose Lovenox (4) Anxiety: Code(s): F41.9 - Anxiety disorder, unspecified Status: Acute Assessment and Plan: -Continue Zoloft, Wellbutrin -adding Ativan IV 0.5 mg q.6 hours p.r.n. anxiety, may need to go up on dose Additional Plan # other chronic conditions -CAD, HLD: Continue atorvastatin, Plavix. Because we are starting full-dose Lovenox, holding aspirin. -congestive heart failure: Unknown baseline, holding Lasix, spironolactone, metoprolol for now -GERD: Continue Pepcid -bladder spasm: Continue Myrbetriq and oxybutynin -BPH: Continue Flomax -seasonal allergies: Continue Zyrtec -patient has artificial left eye: Head CT was ordered to rule out stroke when we did not know eye was artifical, CT confirmed the left ocular prosthesis. Otherwise CT found underlying cerebral atrophy and presumed microvascular deep white matter hyper dense changes -hemoglobin A1c is 6.3, no diabetes, it was checked because of elevated blood sugar in the ER Diet: heart healthy DVT prophylaxis: full-dose Lovenox Code status: Full code Disposition: IMU, pending clinical course Subjective Date/time se
[2020-03-21] MEDS: AMIODARONE 360 MG/D5W 200 ML 360 MG/200 ML BAG 16.67 MG IV CONT (14:05)
[2020-03-21] MEDS: fentaNYL CITRATE INJ (*CRX) 100 MCG/2 ML VIAL IV PUSH (17:19)
[2020-03-21 17:54] LABS: Glucose Point of Care 244 (65-105)
[2020-03-21 22:27] LABS: Glucose Point of Care 210 (65-105)
[2020-03-21] MEDS: dexmedeTOMIDine 400 MCG/100 ML 400 MCG/100 ML BAG 33.91 MCG IV CONT (22:29)
[2020-03-22] VITALS (53 sets, daily range): BP systolic 83–172; BP diastolic 55–91; PULSE 75–114; RESP 16–40; TEMP 37.2–40.2; O2SAT 92–98
[2020-03-22 00:04] LABS: Glucose Point of Care 183 (65-105)
[2020-03-22] MEDS: LEVALBUTEROL NEB 1.25 MG/3 ML 0.63 MG INHALATION ×4 (01:17→19:31)
[2020-03-22] MEDS: IPRATROPIUM BR 0.02% INH SOLN 0.5 MG/2.5 ML VIAL INHALATION ×4 (01:18→19:32)
[2020-03-22] MEDS: dexmedeTOMIDine 400 MCG/100 ML 400 MCG/100 ML BAG 33.91 MCG IV CONT (01:26)
[2020-03-22] MEDS: ACETAMINOPHEN 325 MG TABLET 650 MG PO ×3 (03:04→18:35)
[2020-03-22] MEDS: ENOXAPARIN 120 MG/0.8 ML SYRINGE SUB-Q ×2 (03:51→15:32)
[2020-03-22] MEDS: dexmedeTOMIDine 400 MCG/100 ML 400 MCG/100 ML BAG 36.99 MCG IV CONT ×3 (04:17→09:45)
[2020-03-22 04:29] LABS: Alveolar/Arterial O2 Gradient 181.5 mmHg; Carboxyhemoglobin 0.3 % THb (0-2.0); Device VENTILATOR; Fractional Inspired Oxygen 40 %; HCO3 ABG 23.5 mEq/l (22.0-26.0); Methemoglobin ABG 0.6 %THb (0-1.5); Modified Allen's Test Unable to perform; Oxygen Content ABG 16.4 %vol (16.0-22.0); Oxygen Saturation ABG 93.7 % (95.0-100.0); Oxyhemoglobin 91.3 % THb (90.0-100.0); PCO2 ABG 34.3 mmHg (35.0-45.0); PO2 ABG 64.3 mmHg (80.0-100.0); PO2 FiO2 Ratio Arterial Blood 1.61 %; Reduced Hemoglobin 7.8 %THb (0-5.0); Site Drawn LEFT RADIAL; Total Hemoglobin 12.8 g/dL (12.0-18.0); pH ABG 7.453 (7.350-7.450)
[2020-03-22 04:30] LABS: Arterial Blood Gas PEEP 8 cmH2O; Arterial Blood Gas Tidal Volume 450 ml; Arterial Blood Gas Vent Mode CMV; Arterial Blood Gas Ventilator rate 26 /MIN
[2020-03-22] MEDS: INSULIN ASPART (*BKC) 100 UNITS/ML SUB-Q ×3 (05:08→17:57)
[2020-03-22] MEDS: METOCLOPRAMIDE HCL INJ 10 MG/2 ML VIAL 5 MG IV PUSH (05:10)
[2020-03-22] MEDS: CENTRAL LINE FLUSH 10 ML IV PUSH ×3 (05:10→20:57)
[2020-03-22 05:23] LABS: Glucose Point of Care 238 (65-105)
[2020-03-22 05:44] LABS: Hematocrit 36.1 % (42.0-52.0); Hemoglobin 11.7 g/dL (14.0-18.0); Mean Corpuscular HGB Conc 32.4 g/dl (32-36); Mean Corpuscular Hemoglobin 30.4 pg (26-34); Mean Corpuscular Volume 93.8 fl (80-100); Mean Platelet Volume 10.8 fl (7.4-10.4); Platelet Count Result 100 k/mm3 (150-375); Red Blood Count 3.85 M/mm3 (4.6-6.20); Red Cell Distribution Width 12.8 % (11.5-14.5); White Blood Count 5.4 K/mm3 (4.5-10.0)
[2020-03-22 06:16] LABS: Alanine Aminotransferase 37 U/L (4-50); Albumin Level 2.8 g/dL (3.5-5.1); Alkaline Phosphatase 53 U/L (38-126); Anion Gap 6 mmol/L (8-16); Aspartate Amino Transferase 31 U/L (17-59); Bilirubin,Total 0.8 mg/dL (0.2-1.3); Blood Urea Nitrogen 44 mg/dL (9-20); Calcium 8.6 mg/dL (8.4-10.2); Carbon Dioxide 29 mmol/L (22-30); Chloride 115 mmol/L (98-107); Estimated CRCL calculation 62 ml/min; Estimated Glomerular Filt Rate 54; Glucose 257 mg/dL (75-110); Magnesium 2.2 mg/dL (1.6-2.3); Phosphorus 4.3 mg/dL (2.5-4.5); Potassium 4.2 mmol/L (3.4-5.0); Sodium 150 mmol/L (137-145)
[2020-03-22] MEDS: ATORVASTATIN 40 MG TABLET 80 MG PO ×2 (08:54→08:55)
[2020-03-22] MEDS: SERTRALINE HCL 50 MG TABLET 100 MG PO (08:55)
[2020-03-22] MEDS: buPROPion HCL 75 MG TABLET PO ×2 (08:55→21:00)
[2020-03-22] MEDS: DEXAMETHASONE SOD PHOS INJ 4 MG/ML VIAL 6 MG IV PUSH (08:55)
[2020-03-22] MEDS: METOPROLOL TARTRATE 50 MG TAB PO (08:55)
[2020-03-22] MEDS: CHOLECALCIFEROL 1,000 UNITS TABLET 5000 UNITS PO (08:55)
[2020-03-22] MEDS: PANTOPRAZOLE SODIUM IV 40 MG VIAL IV PUSH (08:56)
[2020-03-22] MEDS: CLOPIDOGREL BISULFATE 75 MG TABLET PO (09:44)
[2020-03-22] MEDS: INSULIN DETEMIR 100 UNITS/ML 25 UNITS SUB-Q ×2 (09:44→20:57)
--- NOTE | 2020-03-22 10:27 | P.PNNP_ITS ---
Progress Note: A&P Assessment and Plan (1) CLARK (acute kidney injury): Code(s): N17.9 - Acute kidney failure, unspecified Status: Acute Assessment and Plan: * creatinine on admission 1.0mg/dl (presumed baseline) * peaked at 1.7mg/dl and improving at this time * suspect multifactorial etiology: - contrast/dye exposure for CT of chest at OSH [rise in creatinine (at 48 hours) appears to correlate] - prerenal factors (urine electrolytes support this) - infection (COVD-19) - concurrent use of diuretics (lasix + spironolactone) prior to admission * continue supportive therapy for now * follow repeat labs and UOP (2) Hyponatremia: Code(s): E87.1 - Hypo-osmolality and hyponatremia Status: Acute Assessment and Plan: * as noted by trend of labs in the last 3 - 4 days * likely due to free water deficit worsened by insensible losses from recent fevers * have increased free water tube flushes to 250cc * follow trend of sodium (3) Acute respiratory failure with hypoxia: Code(s): J96.01 - Acute respiratory failure with hypoxia Status: Acute Assessment and Plan: * due to COVID-19 pneumonia * wean as tolerated (4) Pneumonia due to COVID-19 virus: Code(s): U07.1 - COVID-19; J12.89 - Other viral pneumonia Status: Acute Assessment and Plan: * tested positive on 03/11/2020 * started on dexamethasone for 10 days * s/p remdesivir for 5 days * s/p convalescent plasma on 03/17/20 * on airborne/contact/droplet isolation * follow inflammatory markers * continue ventilator support (5) Pulmonary embolism associated with severe acute respiratory syndrome coronavirus 2 (SARS-CoV-2) infection: Code(s): U07.1 - COVID-19; I26.99 - Other pulmonary embolism without acute cor pulmonale Status: Acute Assessment and Plan: * as noted by CT Chest at OSH * on anticoagulation Will continue to follow. Subjective Date/time seen: 03/22/20 10:27 Continues to have high fevers in the last 24 - 48 hours despite broad spectrum antibiotic therapy but remains hemodynamically stable; making good urine output in general; remains on ventilatory support and sedation. Exam Narrative: Exam Narrative: General: WD/WN male in NAD; intubated/sedated Heart: normal S1 and S2; no rub Lungs: coarse breath sounds throughout Abdomen: soft, nontender, nondistended, positive bowel sounds Extremities: no cyanosis or clubbing; no edema Skin: no rash or nodules Objective Data Vital Signs Vital Signs: Vital Signs Temp Pulse Resp BP Pulse Ox 03/22/20 09:52 114 H 38 H 03/22/20 09:22 96 30 H 03/22/20 09:17 99 96 03/22/20 09:16 94 31 H 03/22/20 08:58 39.6 C H 03/22/20 08:55 93 03/22/20 06:36 96 32 H 03/22/20 06:00 39.1 C H 93 34 H 148/85 H 96 03/22/20 05:11 98 32 H 03/22/20 04:17 92 30 H 03/22/20 04:13 92 94 03/22/20 04:04 39.0 C H 03/22/20 04:00 39.1 C H 96 30 H 172/88 H 94 03/22/20 03:04 38.9 C H 03/22/20 03:00 102 H 40 H 03/22/20 02:00 38.7 C H 91 29 H 169/91 H 94 03/22/20 01:26 90 28 H 03/22/20 01:19 89 96 03/22/20 01:18 88 29 H 03/22/20 00:00 38.6 C H 89 28 H 166/89
--- NOTE | 2020-03-22 10:27 | PM.PNNEP ---
Progress Note: A&P Assessment and Plan (1) CLARK (acute kidney injury): Code(s): N17.9 - Acute kidney failure, unspecified Status: Acute Assessment and Plan: creatinine on admission 1.0mg/dl (presumed baseline) peaked at 1.7mg/dl and improving at this time suspect multifactorial etiology: - contrast/dye exposure for CT of chest at OSH [rise in creatinine (at 48 hours) appears to correlate] - prerenal factors (urine electrolytes support this) - infection (COVD-19) - concurrent use of diuretics (lasix + spironolactone) prior to admission continue supportive therapy for now follow repeat labs and UOP (2) Hyponatremia: Code(s): E87.1 - Hypo-osmolality and hyponatremia Status: Acute Assessment and Plan: as noted by trend of labs in the last 3 - 4 days likely due to free water deficit worsened by insensible losses from recent fevers have increased free water tube flushes to 250cc follow trend of sodium (3) Acute respiratory failure with hypoxia: Code(s): J96.01 - Acute respiratory failure with hypoxia Status: Acute Assessment and Plan: due to COVID-19 pneumonia wean as tolerated (4) Pneumonia due to COVID-19 virus: Code(s): U07.1 - COVID-19; J12.89 - Other viral pneumonia Status: Acute Assessment and Plan: tested positive on 03/11/2020 started on dexamethasone for 10 days s/p remdesivir for 5 days s/p convalescent plasma on 03/17/20 on airborne/contact/droplet isolation follow inflammatory markers continue ventilator support (5) Pulmonary embolism associated with severe acute respiratory syndrome coronavirus 2 (SARS-CoV-2) infection: Code(s): U07.1 - COVID-19; I26.99 - Other pulmonary embolism without acute cor pulmonale Status: Acute Assessment and Plan: as noted by CT Chest at OSH on anticoagulation Will continue to follow. Subjective Date/time seen: 03/22/20 10:27 Continues to have high fevers in the last 24 - 48 hours despite broad spectrum antibiotic therapy but remains hemodynamically stable; making good urine output in general; remains on ventilatory support and sedation. Exam Narrative: Exam Narrative: General: WD/WN male in NAD; intubated/sedated Heart: normal S1 and S2; no rub Lungs: coarse breath sounds throughout Abdomen: soft, nontender, nondistended, positive bowel sounds Extremities: no cyanosis or clubbing; no edema Skin: no rash or nodules Objective Data Vital Signs Vital Signs: Vital Signs Temp Pulse Resp BP Pulse Ox 03/22/20 09:52 114 H 38 H 03/22/20 09:22 96 30 H 03/22/20 09:17 99 96 03/22/20 09:16 94 31 H 03/22/20 08:58 39.6 C H 03/22/20 08:55 93 03/22/20 06:36 96 32 H 03/22/20 06:00 39.1 C H 93 34 H 148/85 H 96 03/22/20 05:11 98 32 H 03/22/20 04:17 92 30 H 03/22/20 04:13 92 94 03/22/20 04:04 39.0 C H 03/22/20 04:00 39.1 C H 96 30 H 172/88 H 94 03/22/20 03:04 38.9 C H 03/22/20 03:00 102 H 40 H 03/22/20 02:00 38.7 C H 91 29 H 169/91 H 94 03/22/20 01:26 90 28 H 03/22/20 01:19 89 96 03/22/20 01:18 88 29 H 03/22/20 00:00 38.6 C H 89 28 H 166/89 H 95 03/21/20 22:55 38.6 C H 03/21/20 22:46 89 95 03/21/20 22:30 38.7 C H 91 26 H 168/87 H 95 03/21/20 22:29 90 29 H 03/21/20 22:03 97 29 H 03/21/20 22:00 38.6 C H 98 26 H 181/94 H 93 03/21/20 21:55 38.6 C H 03/21/20 20:10 85 27 H 03/21/20 20:00 39.2 C H 84 27 H 169/83 H 97 03/21/20 19:51 83 100 03/21/20 19:50 82 26 H 03/21/20 19:32 83 27 H 03/21/20 19:00 39.2 C H 03/21/20 18:00 101 H 38 H 171/88 H 93 03/21/20 17:39 38.7 C H 03/21/20 16:39 95 98 03/21/20 16:00 38.7 C H 82 29 H 177/91 H 91 03/21/20 15:56 81 30 H 98 0
[2020-03-22] MEDS: PROPOFOL IV EMULSION 100 ML 22.27 MG IV CONT ×3 (10:54→18:35)
[2020-03-22] MEDS: FENTANYL 2,500MCG/NS250ML(*CRX 2,500 MCG/250 ML BAG 15 MCG IV CONT ×2 (11:29→20:44)
--- NOTE | 2020-03-22 12:37 | WPDINTPN ---
Progress Note: A&P Assessment and Plan (1) Fever: Code(s): R50.9 - Fever, unspecified Status: Acute Assessment and Plan: Patient with fevers, T-max 103.5? -sputum cultures growing gram-positive cocci in clusters -blood cultures pending -will start patient on vancomycin and cefepime for possible healthcare associated pneumonia -bilateral lower extremity venous Dopplers were negative for DVT -infectious disease has been consulted and await their recommendations (2) Acute respiratory failure with hypoxia: Code(s): J96.01 - Acute respiratory failure with hypoxia Status: Acute Assessment and Plan: Acute respiratory failure likely secondary to COVID-19 pneumonia -intubated on 03/17/2020 -chest x-ray shows No interval change in patchy bilateral airspace disease consistent with pneumonia -continue on low tidal volume strategy, on peep of 8 in 40% FiO2, -continue bronchodilators -patient was placed on Precedex, gets agitated, fentanyl, Versed was restarted. Start patient on propofol, wean Precedex to off, and then wean fentanyl and Versed infusions (3) Pneumonia due to COVID-19 virus: Code(s): U07.1 - COVID-19; J12.89 - Other viral pneumonia Status: Acute Assessment and Plan: SARS-CoV-2 PCR positive on 03/11/2020 -patient presented to outside hospital 03/16/2020 with productive cough, shortness of breath, wheezing hypoxia -continue dexamethasone IV for 10 days -received 5 days of Remdesivir -03/17 received to convalescent plasma -continue airborne, contact, droplet isolation/precautions -will monitor inflammatory markers (4) Pulmonary embolism associated with severe acute respiratory syndrome coronavirus 2 (SARS-CoV-2) infection: Code(s): U07.1 - COVID-19; I26.99 - Other pulmonary embolism without acute cor pulmonale Status: Acute Assessment and Plan: Possible small segmental PEs on CTA chest the outside hospital lots of motion artifact -patient has been started on therapeutic Lovenox -03/21/2020 venous Dopplers bilateral lower extremities negative for DVT (5) Hyperglycemia: Code(s): R73.9 - Hyperglycemia, unspecified Status: Acute Assessment and Plan: Continue Accu-Cheks, sliding scale insulin -continue Levemir -hyperglycemia likely related to dexamethasone (6) Coronary artery disease: Code(s): I25.10 - Atherosclerotic heart disease of [place] coronary artery without angina pectoris Status: Acute Assessment and Plan: Continue clopidogrel, atorvastatin (7) Dietary counseling and surveillance: Code(s): Z71.3 - Dietary counseling and surveillance Status: Acute Assessment and Plan: Patient tolerating tube feeds will continue Stress ulcer prophylaxis: Protonix (8) DVT prophylaxis: Code(s): Z29.9 - Encounter for prophylactic measures, unspecified Status: Acute Assessment and Plan: DVT prophylaxis: Therapeutic Lovenox Additional Plan Discussed with Jodie and updated them with patient's condition and plan of care Code status: Full code Critical care time spent: 32 minutes Due to a high probability of clinically significant, life threatening deterioration, the patient required my highest level of preparedness to intervene emergently and I personally spent this critical care time directly and personally managing the patient. This critical care time included obtaining a history; examining the patient; pulse oximetry; ordering and review of studies; arranging urgent treatment with development of a management plan; evaluation of patient's response to treatment; frequent reassessment; and discussions with other providers. It was exclusive of separately billable procedures and treating other patients and teaching time. Please see Assessment and Plan section and the rest of the note for further information on patient assessment and treatment Subjective Date/time seen: 03/22/20 12
[2020-03-22 12:59] LABS: Glucose Point of Care 364 (65-105)
--- NOTE | 2020-03-22 15:21 | PM.IMPN ---
Progress Note: A&P Assessment and Plan (1) Pneumonia due to COVID-19 virus: Code(s): U07.1 - COVID-19; J12.89 - Other viral pneumonia Status: Acute Assessment and Plan: -COVID-19 pneumonia diagnosed -CT and chest x-ray consistent with COVID-19 pneumonia -inflammatory markers are mildly elevated ferritin 597, LDH 728, CRP 8.7 -wean oxygen to keep saturations greater than 90%, currently 9 L oxygen nasal cannula, weaned off BiPAP, patient may need CPAP at night -ABG showed PO2 85 on 50% FiO2 -Tylenol for fever -albuterol nebs q.6 hours, is unclear if he could cooperate for MDI -dexamethasone 6 mg IV daily -will need to find out with when COVID-19 was diagnosed to see if he is appropriate for remdesivir and convalescent plasma -continue home Pepcid for GI prophylaxis -supplements vitamin-D 5000 units -on full-dose Lovenox for possible PE -holding off on further antibiotics and will re-evaluate tomorrow as patient does not a leukocytosis or sputum production 03/22/20 15:21 Patient is 74-year-old male with history of congestive heart failure, cardiac arrhythmia, coronary artery disease hypertension hyperlipidemia patient was diagnosed with COVID-19 on 03/11/2020 and [facility]ness of breath and hypoxia he was transferred to [facility] on 03/16 to intermediate care unit (IMU) he developed significant agitation was not keeping his BiPAP and was desaturating so television news producer of 03/17 patient was intubated and placed on ventilator by the hood maker after he spoke with family, now in ICU patient is seen by media production support manager patient is started on dexamethasone 03/17 for 10days 07/27 , Remdesovor for 5 day on 03/17 5/ and received 1 unit convalescent plasma 03/17, on 03/19 patient creatinine climb to 1.6 from 1.3, renal US was normal, gently hydrated, on 03/20/2020 patient BUN and creatinine was rising however on 03/21 it was trending down, patient is seen by furnace checker further recommendation to follow. Today patient been fibrile with tmax if 103.5, urine culture is growing coagulase-negative staph, being treated with cefepime and vancomycin Dr. nelson is consult, currently on vent and sedated unable to provide any review of symptoms, however patient sometime patient get agitated and moves his head disconnect from vent, appreciate media production support manager (2) Acute respiratory failure with hypoxia: Code(s): J96.01 - Acute respiratory failure with hypoxia Status: Acute Assessment and Plan: -Continue supportive care as above (3) Pulmonary embolism associated with severe acute respiratory syndrome coronavirus 2 (SARS-CoV-2) infection: Code(s): U07.1 - COVID-19; I26.99 - Other pulmonary embolism without acute cor pulmonale Status: Acute Assessment and Plan: -CT chest was unable to rule out subsegmental branches right lower lobe filling defects for PE which could be artifact respiratory motion -will air on the safe side and give full-dose Lovenox (4) Anxiety: Code(s): F41.9 - Anxiety disorder, unspecified Status: Acute Assessment and Plan: -Continue Zoloft, Wellbutrin -adding Ativan IV 0.5 mg q.6 hours p.r.n. anxiety, may need to go up on dose Subjective Date/time seen: 03/22/20 15:21 Patient is 74-year-old male with history of congestive heart failure, cardiac arrhythmia, coronary artery disease hypertension hyperlipidemia patient was diagnosed with COVID-19 on 03/11/2020 and [facility] with [facility]ness of breath and hypoxia he was transferred to [facility] on 03/16 to intermediate care unit (IMU) he developed significant agitation was not keeping his BiPAP and was desaturating so television news producer of 03/17 patient was intubated and placed on ventilator by the hood maker after he spoke with family, now in ICU patient is seen by media production support manager patient is started on dexamethasone 03/17 for 10days 5/10 , Remdesovor for 5 day
[2020-03-22] MEDS: CISATRACURIUM BESYLATE 200 MG in DEXTROSE 5% 80 ML 11.13 ML IV CONT (15:30)
[2020-03-22 15:37] LABS: Chloride Rand Ur <20 mmol/L (32-290); Creatinine Random Urine 144 mg/dL (20-320)
[2020-03-22] MEDS: SODIUM CHLORIDE 0.9% IV 1,000 ML 999 ML IV CONT (17:56)
[2020-03-22 18:06] LABS: Glucose Point of Care 274 (65-105)
[2020-03-22] MEDS: NOREPINEPHRINE 8 MG/D5W 250 ML 8 MG/250 ML BAG 9.38 MG IV CONT (20:44)
[2020-03-22] MEDS: CISATRACURIUM BESYLATE 200 MG in DEXTROSE 5% 80 ML 7.42 ML IV CONT (22:38)
[2020-03-22 23:16] LABS: Glucose Point of Care 193 (65-105)
[2020-03-23] VITALS (46 sets, daily range): BP systolic 101–129; BP diastolic 61–97; PULSE 53–92; RESP 18–28; TEMP 37.5–38.6; O2SAT 91–97
[2020-03-23] MEDS: ACETAMINOPHEN 325 MG TABLET 650 MG PO (00:01)
[2020-03-23] MEDS: LEVALBUTEROL NEB 1.25 MG/3 ML 0.63 MG INHALATION ×3 (01:33→19:30)
[2020-03-23] MEDS: IPRATROPIUM BR 0.02% INH SOLN 0.5 MG/2.5 ML VIAL INHALATION ×3 (01:33→19:30)
[2020-03-23] MEDS: ENOXAPARIN 120 MG/0.8 ML SYRINGE SUB-Q ×2 (03:35→15:21)
[2020-03-23 04:01] LABS: Hematocrit 35.2 % (42.0-52.0); Hemoglobin 11.4 g/dL (14.0-18.0); Mean Corpuscular HGB Conc 32.4 g/dl (32-36); Mean Corpuscular Hemoglobin 31.2 pg (26-34); Mean Corpuscular Volume 96.4 fl (80-100); Mean Platelet Volume 10.8 fl (7.4-10.4); Platelet Count Result 105 k/mm3 (150-375); Red Blood Count 3.65 M/mm3 (4.6-6.20); Red Cell Distribution Width 13.6 % (11.5-14.5); White Blood Count 8.1 K/mm3 (4.5-10.0)
[2020-03-23 04:16] LABS: Anion Gap 2 mmol/L (8-16); Blood Urea Nitrogen 53 mg/dL (9-20); Carbon Dioxide 31 mmol/L (22-30); Chloride 113 mmol/L (98-107); Estimated CRCL calculation 54 ml/min; Estimated Glomerular Filt Rate 46; Glucose 228 mg/dL (75-110); Magnesium 2.4 mg/dL (1.6-2.3); Potassium 4.3 mmol/L (3.4-5.0); Sodium 146 mmol/L (137-145)
[2020-03-23 05:09] LABS: Alveolar/Arterial O2 Gradient 197.5 mmHg; Base Excess ABG -0.9 mEq/l (+/-2.0); Carboxyhemoglobin 0.3 % THb (0-2.0); Fractional Inspired Oxygen 45 %; HCO3 ABG 24.4 mEq/l (22.0-26.0); Methemoglobin ABG 0.4 %THb (0-1.5); Oxygen Content ABG 16.6 %vol (16.0-22.0); Oxygen Saturation ABG 94.8 % (95.0-100.0); Oxyhemoglobin 93.2 % THb (90.0-100.0); PCO2 ABG 42.4 mmHg (35.0-45.0); PO2 ABG 75.1 mmHg (80.0-100.0); PO2 FiO2 Ratio Arterial Blood 1.67 %; Reduced Hemoglobin 6.1 %THb (0-5.0); Total Hemoglobin 12.6 g/dL (12.0-18.0); pH ABG 7.377 (7.350-7.450)
[2020-03-23 05:11] LABS: Device VENTILATOR; Modified Allen's Test Pass; Site Drawn RIGHT RADIAL
[2020-03-23 05:12] LABS: Arterial Blood Gas PEEP 8 cmH2O; Arterial Blood Gas Vent Mode CMV; Arterial Blood Gas Ventilator rate 26 /MIN
[2020-03-23 05:13] LABS: Arterial Blood Gas Tidal Volume 450 ml
[2020-03-23] MEDS: CENTRAL LINE FLUSH 10 ML IV PUSH ×3 (06:50→20:06)
[2020-03-23] MEDS: INSULIN ASPART (*BKC) 100 UNITS/ML SUB-Q (06:50)
[2020-03-23] MEDS: PANTOPRAZOLE SODIUM IV 40 MG VIAL IV PUSH (08:03)
[2020-03-23] MEDS: buPROPion HCL 75 MG TABLET PO ×2 (08:03→20:05)
[2020-03-23] MEDS: CHOLECALCIFEROL 1,000 UNITS TABLET 5000 UNITS PO (08:03)
[2020-03-23] MEDS: DEXAMETHASONE SOD PHOS INJ 4 MG/ML VIAL 6 MG IV PUSH (08:03)
[2020-03-23] MEDS: CLOPIDOGREL BISULFATE 75 MG TABLET PO (08:04)
[2020-03-23] MEDS: METOPROLOL TARTRATE 50 MG TAB PO ×2 (08:04→20:06)
[2020-03-23] MEDS: SERTRALINE HCL 50 MG TABLET 100 MG PO (08:04)
[2020-03-23] MEDS: INSULIN DETEMIR 100 UNITS/ML 25 UNITS SUB-Q ×2 (08:05→20:04)
[2020-03-23 09:34] LABS: Glucose Point of Care 173 (65-105)
--- NOTE | 2020-03-23 10:23 | PM.PNNEP ---
Progress Note: A&P Assessment and Plan (1) CLARK (acute kidney injury): Code(s): N17.9 - Acute kidney failure, unspecified Status: Acute Assessment and Plan: creatinine on admission 1.0mg/dl (presumed baseline) peaked at 1.7mg/dl on March 20. suspect multifactorial etiology: - contrast/dye exposure for CT of chest at OSH [rise in creatinine (at 48 hours) appears to correlate] - prerenal factors (urine electrolytes support this) - infection (COVD-19) - concurrent use of diuretics (lasix + spironolactone) prior to admission Creatinine is slightly higher today. He is still making some urine. (2) Acute respiratory failure with hypoxia: Code(s): J96.01 - Acute respiratory failure with hypoxia Status: Acute Assessment and Plan: due to COVID-19 pneumonia on ventilator. (3) Pneumonia due to COVID-19 virus: Code(s): U07.1 - COVID-19; J12.89 - Other viral pneumonia Status: Acute Assessment and Plan: tested positive on 03/11/2020 started on dexamethasone for 10 days s/p remdesivir for 5 days s/p convalescent plasma on 03/17/20 on airborne/contact/droplet isolation follow inflammatory markers Still on the ventilator. (4) Pulmonary embolism associated with severe acute respiratory syndrome coronavirus 2 (SARS-CoV-2) infection: Code(s): U07.1 - COVID-19; I26.99 - Other pulmonary embolism without acute cor pulmonale Status: Acute Assessment and Plan: as noted by CT Chest at OSH on anticoagulation (5) Hypernatremia: Code(s): E87.0 - Hyperosmolality and hypernatremia Status: Acute Assessment and Plan: sodium level is improved. It dropped from 150-146. Subjective Date/time seen: 03/23/20 10:23 Interval history: patient is on the ventilator and sedated. He cannot give a history. Review of Systems Review of Systems: ROS unobtainable: Yes unobtainable due to medical condition Exam Narrative: Exam Narrative: General: WD/WN male in NAD; intubated/sedated Heart: normal S1 and S2; no rub Lungs: coarse breath sounds Bilaterally Abdomen: soft, nontender, nondistended, positive bowel sounds Extremities: no cyanosis or clubbing; no edema Skin: no rash Objective Data Vital Signs Vital Signs: Vital Signs - 24 hr 03/22/20 11:19 03/22/20 11:29 03/22/20 12:00 Temperature 40.2 C H Pulse Rate 100 101 H 98 Respiratory Rate 30 H 30 H Blood Pressure 109/69 Pulse Oximetry 95 95 03/22/20 13:50 03/22/20 13:51 03/22/20 14:00 Temperature 39.9 C H Pulse Rate 98 98 98 Respiratory Rate 31 H 29 H 30 H Blood Pressure 102/65 Pulse Oximetry 93 03/22/20 15:19 03/22/20 15:20 03/22/20 15:25 Temperature Pulse Rate 92 95 92 Respiratory Rate 16 16 Blood Pressure Pulse Oximetry 92 03/22/20 15:30 03/22/20 15:57 03/22/20 16:00 Temperature 40.1 C H Pulse Rate 97 98 95 Respiratory Rate 32 H 32 H 26 H Blood Pressure 90/58 L 83/55 L Pulse Oximetry 93 93 03/22/20 16:35 03/22/20 17:58 03/22/20 18:35 Temperature 38.4 C H 38.1 C H Pulse Rate 95 89 86 Respiratory Rate 26 H 26 H Blood Pressure 100/60 Pulse Oximetry 93 95 03/22/20 19:35 03/22/20 20:00 03/22/20 20:29 Temperature 37.3 C 37.2 C Pulse Rate 79 79 Respiratory Rate 26 H Blood Pressure 93/57 L 85/57 L Pulse Oximetry 95 03/22/20 20:44 03/22/20 20:57 03/22/20 21:00 Temperature Pulse Rate 79 75 75 Respiratory Rate 26 H 26 H Blood Pressure 86/56 L 128/70 Pulse Oximetry 98 03/22/20 21:01 03/22/20 22:00 03/22/20 22:31 Temperature Pulse Rate 77 77 76 Respiratory Rate 26 H 26 H 32 H Blood Pressure 107/65 103/63 Pulse Oximetry 97 03/22/20 22:38 03/22/20 23:00 03/22/20 23:17 Temperature 37.3 C Pulse Rate 76 78 77 Respiratory Rate 32 H 26 H 26 H Blood Pressure 103/63 107/68 Pulse Oxim
[2020-03-23] MEDS: PROPOFOL IV EMULSION 100 ML 3.71 MG IV CONT (11:19)
[2020-03-23 11:28] LABS: Glucose Point of Care 192 (65-105)
--- NOTE | 2020-03-23 11:30 | PCDIET ---
ICU Rounding Note: Tube feedings held for residuals of 500-550mL overnight. MD order to resume Glucerna 1.2 at lower rate. Water flushes also reduced to 100mL every 4 hours (previously 250mL). Last recorded weight is 126.9kg which is increased from last review. Bowel Motility: No recent BM documented. If medically appropriate, would consider medication to promote BM. Labs Reviewed: Hgb (11.4), Hct (35.2), Glu (228), BUN (53), Cr (1.5), Cl (113), Na (146) Meds Noted: Versed, Protonix, Lipitor, Maxipime, Decadron, Fentanyl, Levemir, Atrovent, Xopenex, Reglan, Lopressor, Vancomycin, Vitamin D, Propofol (rate of 3.71mL/hr) Additional Notes: No documented skin breakdown. Following daily in ICU rounds. Assessing/reassessing every Monday/Monday.
--- NOTE | 2020-03-23 11:30 | WPDINTPN ---
Progress Note: A&P Assessment and Plan (1) Acute respiratory failure with hypoxia: Code(s): J96.01 - Acute respiratory failure with hypoxia Status: Acute Assessment and Plan: Acute respiratory failure likely secondary to COVID-19 pneumonia -intubated on 03/17/2020 -chest x-ray shows No interval change in patchy bilateral airspace disease consistent with pneumonia -continue on low tidal volume strategy, on peep of 8 in 35% FiO2, -continue bronchodilators -patient was placed on Precedex, gets agitated, fentanyl, Versed was restarted. Patient currently on neuromuscular blockers -I will hold Nimbex drip - Check BNP (2) Fever: Code(s): R50.9 - Fever, unspecified Status: Acute Assessment and Plan: Patient with fevers, T-max 103.5? -sputum cultures grew normal amy -blood cultures negative as of -continue vancomycin and cefepime for possible healthcare associated pneumonia -bilateral lower extremity venous Dopplers were negative for DVT -infectious disease has been consulted and await their recommendations (3) Pneumonia due to COVID-19 virus: Code(s): U07.1 - COVID-19; J12.89 - Other viral pneumonia Status: Acute Assessment and Plan: SARS-CoV-2 PCR positive on 03/11/2020 -patient presented to outside hospital 03/16/2020 with productive cough, shortness of breath, wheezing hypoxia -continue dexamethasone IV for 10 days -received 5 days of Remdesivir -03/17 received to convalescent plasma -continue airborne, contact, droplet isolation/precautions -will monitor inflammatory markers (4) Pulmonary embolism associated with severe acute respiratory syndrome coronavirus 2 (SARS-CoV-2) infection: Code(s): U07.1 - COVID-19; I26.99 - Other pulmonary embolism without acute cor pulmonale Status: Acute Assessment and Plan: Possible small segmental PEs on CTA chest the outside hospital lots of motion artifact -patient has been started on therapeutic Lovenox -03/21/2020 venous Dopplers bilateral lower extremities negative for DVT (5) Hyperglycemia: Code(s): R73.9 - Hyperglycemia, unspecified Status: Acute Assessment and Plan: Continue Accu-Cheks, sliding scale insulin -continue Levemir -hyperglycemia likely related to dexamethasone (6) Coronary artery disease: Code(s): I25.10 - Atherosclerotic heart disease of [place] coronary artery without angina pectoris Status: Acute Assessment and Plan: Continue clopidogrel, atorvastatin (7) Dietary counseling and surveillance: Code(s): Z71.3 - Dietary counseling and surveillance Status: Acute Assessment and Plan: Tube feeds were held due to high residuals. I will resume tube feeds at a low rate Decreased free water flushes Stress ulcer prophylaxis: Protonix (8) DVT prophylaxis: Code(s): Z29.9 - Encounter for prophylactic measures, unspecified Status: Acute Assessment and Plan: DVT prophylaxis: Therapeutic Lovenox Additional Plan Code status: Full code Critical care time spent: 30 minutes Due to a high probability of clinically significant, life threatening deterioration, the patient required my highest level of preparedness to intervene emergently and I personally spent this critical care time directly and personally managing the patient. This critical care time included obtaining a history; examining the patient; pulse oximetry; ordering and review of studies; arranging urgent treatment with development of a management plan; evaluation of patient's response to treatment; frequent reassessment; and discussions with other providers. It was exclusive of separately billable procedures and treating other patients and teaching time. Please see Assessment and Plan section and the rest of the note for further information on patient assessment and treatment Subjective Date/time seen: 03/23/20 11:30 Overnight events reviewed. Afebrile Continues to be
[2020-03-23 13:55] LABS: NT Pro B Type Natriuretic Pept 1540 PG/ML (5-100)
[2020-03-23] MEDS: FENTANYL 2,500MCG/NS250ML(*CRX 2,500 MCG/250 ML BAG 10 MCG IV CONT (15:19)
--- NOTE | 2020-03-23 15:36 | PM.IMPN ---
Progress Note: A&P Assessment and Plan (1) Pneumonia due to COVID-19 virus: Code(s): U07.1 - COVID-19; J12.89 - Other viral pneumonia Status: Acute Assessment and Plan: -COVID-19 pneumonia diagnosed -CT and chest x-ray consistent with COVID-19 pneumonia -inflammatory markers are mildly elevated ferritin 597, LDH 728, CRP 8.7 -wean oxygen to keep saturations greater than 90%, currently 9 L oxygen nasal cannula, weaned off BiPAP, patient may need CPAP at night -ABG showed PO2 85 on 50% FiO2 -Tylenol for fever -albuterol nebs q.6 hours, is unclear if he could cooperate for MDI -dexamethasone 6 mg IV daily -will need to find out with when COVID-19 was diagnosed to see if he is appropriate for remdesivir and convalescent plasma -continue home Pepcid for GI prophylaxis -supplements vitamin-D 5000 units -on full-dose Lovenox for possible PE -holding off on further antibiotics and will re-evaluate tomorrow as patient does not a leukocytosis or sputum production 03/23/20 15:36 Patient is 74-year-old male with history of congestive heart failure, cardiac arrhythmia, coronary artery disease hypertension hyperlipidemia patient was diagnosed with COVID-19 on 03/11/2020 and he was admitted at [facility] with shortness of breath and hypoxia he was transferred to [facility] on 03/16 to intermediate care unit (IMU) he developed significant agitation was not keeping his BiPAP and was desaturating so cannon pinion adjuster of 03/17 patient was intubated and placed on ventilator by the chaser helper after he spoke with family, now in ICU patient is seen by supervisor graphite patient is started on dexamethasone 03/17 for 10days 10 , Remdesovor for 5 day on 03/17 5/ and received 1 unit convalescent plasma 03/17, on 03/19 patient creatinine climb to 1.6 from 1.3, renal US was normal, gently hydrated, on 03/20/2020 patient BUN and creatinine was rising however on 03/21 it was trending down, patient is seen by renewable energy project manager further recommendation to follow. Today patient been fibrile with tmax if 103.5, urine culture is growing coagulase-negative staph, being treated with cefepime and vancomycin Dr. nelson is consult, currently on vent and sedated unable to provide any review of symptoms, Today has low grade fever, creatinine slightly elevated still making some urine, d/w supervisor graphite, prognosis is sable, will continue to monitor appreciate supervisor graphite and renewable energy project manager (2) Acute respiratory failure with hypoxia: Code(s): J96.01 - Acute respiratory failure with hypoxia Status: Acute Assessment and Plan: -Continue supportive care as above (3) Pulmonary embolism associated with severe acute respiratory syndrome coronavirus 2 (SARS-CoV-2) infection: Code(s): U07.1 - COVID-19; I26.99 - Other pulmonary embolism without acute cor pulmonale Status: Acute Assessment and Plan: -CT chest was unable to rule out subsegmental branches right lower lobe filling defects for PE which could be artifact respiratory motion -will air on the safe side and give full-dose Lovenox (4) Anxiety: Code(s): F41.9 - Anxiety disorder, unspecified Status: Acute Assessment and Plan: -Continue Zoloft, Wellbutrin -adding Ativan IV 0.5 mg q.6 hours p.r.n. anxiety, may need to go up on dose Subjective Date/time seen: 03/23/20 15:36 Patient is 74-year-old male with history of congestive heart failure, cardiac arrhythmia, coronary artery disease hypertension hyperlipidemia patient was diagnosed with COVID-19 on 03/11/2020 and he was admitted at [facility] with shortness of breath and hypoxia he was transferred to [facility] on 03/16 to intermediate care unit (IMU) he developed significant agitation was not keeping his BiPAP and was desaturating so cannon pinion adjuster of 03/17 patient was intubated and placed on ventilator by the chaser helper after he spoke with family, now in ICU patient is seen by supervisor graphite patient
[2020-03-23 17:42] LABS: Glucose Point of Care 200 (65-105)
[2020-03-24] VITALS (41 sets, daily range): BP systolic 95–145; BP diastolic 65–114; PULSE 74–98; RESP 18–29; TEMP 37.6–38.2; O2SAT 91–97
[2020-03-24 00:48] LABS: Glucose Point of Care 186 (65-105)
[2020-03-24] MEDS: PROPOFOL IV EMULSION 100 ML 7.42 MG IV CONT ×2 (01:16→13:27)
[2020-03-24] MEDS: LEVALBUTEROL NEB 1.25 MG/3 ML 0.63 MG INHALATION ×4 (01:39→20:58)
[2020-03-24] MEDS: IPRATROPIUM BR 0.02% INH SOLN 0.5 MG/2.5 ML VIAL INHALATION ×4 (01:40→20:58)
[2020-03-24 04:22] LABS: Hematocrit 35.5 % (42.0-52.0); Hemoglobin 11.2 g/dL (14.0-18.0); Immature Platelet Fraction Pct 6.2 % (0.9-11.2); Mean Corpuscular HGB Conc 31.5 g/dl (32-36); Mean Corpuscular Hemoglobin 31.2 pg (26-34); Mean Corpuscular Volume 98.9 fl (80-100); Mean Platelet Volume 11.9 fl (7.4-10.4); Platelet Count Result 142 k/mm3 (150-375); Red Blood Count 3.59 M/mm3 (4.6-6.20); Red Cell Distribution Width 13.4 % (11.5-14.5); White Blood Count 9.1 K/mm3 (4.5-10.0)
[2020-03-24] MEDS: ENOXAPARIN 120 MG/0.8 ML SYRINGE SUB-Q ×2 (04:28→17:02)
[2020-03-24] MEDS: CENTRAL LINE FLUSH 10 ML IV PUSH ×3 (04:28→20:01)
[2020-03-24 05:03] LABS: Alveolar/Arterial O2 Gradient 170.8 mmHg; Base Excess ABG -1.6 mEq/l (+/-2.0); Carboxyhemoglobin 0.3 % THb (0-2.0); Fractional Inspired Oxygen 40 %; HCO3 ABG 23.2 mEq/l (22.0-26.0); Methemoglobin ABG 0.1 %THb (0-1.5); Oxygen Content ABG 15.5 %vol (16.0-22.0); Oxygen Saturation ABG 93.6 % (95.0-100.0); Oxyhemoglobin 91.9 % THb (90.0-100.0); PCO2 ABG 39.7 mmHg (35.0-45.0); PO2 ABG 68.7 mmHg (80.0-100.0); PO2 FiO2 Ratio Arterial Blood 1.72 %; Reduced Hemoglobin 7.7 %THb (0-5.0); pH ABG 7.385 (7.350-7.450)
[2020-03-24 05:05] LABS: Device VENTILATOR; Modified Allen's Test Pass; Site Drawn RIGHT RADIAL
[2020-03-24 05:06] LABS: Arterial Blood Gas PEEP 8 cmH2O; Arterial Blood Gas Tidal Volume 450 ml; Arterial Blood Gas Vent Mode CMV; Arterial Blood Gas Ventilator rate 26 /MIN
[2020-03-24 05:06] LABS: Alanine Aminotransferase 33 U/L (4-50); Albumin Level 2.8 g/dL (3.5-5.1); Alkaline Phosphatase 49 U/L (38-126); Anion Gap 3 mmol/L (8-16); Aspartate Amino Transferase 29 U/L (17-59); Bilirubin,Total 0.7 mg/dL (0.2-1.3); Blood Urea Nitrogen 64 mg/dL (9-20); Calcium 8.4 mg/dL (8.4-10.2); Carbon Dioxide 29 mmol/L (22-30); Chloride 114 mmol/L (98-107); Estimated CRCL calculation 45 ml/min; Estimated Glomerular Filt Rate 37; Glucose 224 mg/dL (75-110); Magnesium 2.9 mg/dL (1.6-2.3); Potassium 4.8 mmol/L (3.4-5.0); Sodium 146 mmol/L (137-145)
[2020-03-24] MEDS: INSULIN ASPART (*BKC) 100 UNITS/ML SUB-Q ×2 (06:07→17:03)
[2020-03-24] MEDS: PANTOPRAZOLE SODIUM IV 40 MG VIAL IV PUSH (08:06)
[2020-03-24] MEDS: CHOLECALCIFEROL 1,000 UNITS TABLET 5000 UNITS PO (08:06)
[2020-03-24] MEDS: SERTRALINE HCL 50 MG TABLET 100 MG PO (08:07)
[2020-03-24] MEDS: METOPROLOL TARTRATE 50 MG TAB PO ×2 (08:07→20:00)
[2020-03-24] MEDS: buPROPion HCL 75 MG TABLET PO ×2 (08:07→20:00)
[2020-03-24] MEDS: CLOPIDOGREL BISULFATE 75 MG TABLET PO (08:07)
[2020-03-24] MEDS: ATORVASTATIN 40 MG TABLET 80 MG PO (08:07)
[2020-03-24] MEDS: DEXAMETHASONE SOD PHOS INJ 4 MG/ML VIAL 6 MG IV PUSH (08:09)
[2020-03-24] MEDS: INSULIN DETEMIR 100 UNITS/ML 25 UNITS SUB-Q ×2 (08:10→20:16)
--- NOTE | 2020-03-24 09:01 | P.PNNP_ITS ---
Progress Note: A&P Assessment and Plan (1) CLARK (acute kidney injury): Code(s): N17.9 - Acute kidney failure, unspecified Status: Acute Assessment and Plan: * creatinine on admission 1.0mg/dl (presumed baseline) * peaked at 1.7mg/dl on March 20. * suspect multifactorial etiology: - contrast/dye exposure for CT of chest at OSH - prerenal factors - infection (COVD-19) * Creatinine is higher again today. * This may be a new process. * I suspect vancomycin toxicity may be playing a role. * He also has COVID-19 and this could be affecting his kidneys as well. * He is not on diuretics. * He is still making some urine. * Discussed with Dr. Kennedy. He agrees with stopping the vancomycin. (2) Acute respiratory failure with hypoxia: Code(s): J96.01 - Acute respiratory failure with hypoxia Status: Acute Assessment and Plan: * due to COVID-19 pneumonia * He also had a pulmonary embolus * on ventilator. (3) Pneumonia due to COVID-19 virus: Code(s): U07.1 - COVID-19; J12.89 - Other viral pneumonia Status: Acute Assessment and Plan: * tested positive on 03/11/2020 * started on dexamethasone for 10 days * s/p remdesivir for 5 days * s/p convalescent plasma on 03/17/20 * on airborne/contact/droplet isolation * Still on the ventilator. (4) Pulmonary embolism associated with severe acute respiratory syndrome coronavirus 2 (SARS-CoV-2) infection: Code(s): U07.1 - COVID-19; I26.99 - Other pulmonary embolism without acute cor pulmonale Status: Acute Assessment and Plan: * as noted by CT Chest at OSH * on anticoagulation (5) Hypernatremia: Code(s): E87.0 - Hyperosmolality and hypernatremia Status: Acute Assessment and Plan: sodium level is about the same today. Will give D5W. Subjective Date/time seen: 03/24/20 09:01 Interval history: patient is on the ventilator and sedated. He cannot give a history. He is on tube feedings. He is on norepinephrine at a low dose. Review of Systems Review of Systems: ROS unobtainable: Yes unobtainable due to medical condition Exam Narrative: Exam Narrative: General: WD/WN male in NAD; intubated/sedated Heart: normal S1 and S2; no rub Lungs: coarse breath sounds bilaterally Abdomen: soft, nontender, nondistended, positive bowel sounds Extremities: 1+ edema Skin: no rash Objective Data Vital Signs Vital Signs: Vital Signs - 24 hr 03/23/20 09:10 03/23/20 09:39 03/23/20 10:00 Temperature Pulse Rate 83 82 87 Respiratory Rate 26 H 26 H 24 H Blood Pressure 123/70 122/73 Pulse Oximetry 91 03/23/20 11:17 03/23/20 11:18 03/23/20 11:19 Temperature Pulse Rate 87 91 92 Respiratory Rate 23 H 28 H Blood Pressure Pulse Oximetry 93 03/23/20 11:20 03/23/20 12:00 03/23/20 14:00 Temperature 37.7 C H Pulse Rate 91 88 89 Respiratory Rate 26 H 26 H 26 H Blood Pressure 119/70 123/70 Pulse Oximetry 93 93 03/23/20 15:10 03/23/20 15:19 03/23/20 16:00 Temperature 37.8 C H Pulse Rate 91 91 91 Respiratory Rate 18 18 26 H Blood Pre
--- NOTE | 2020-03-24 09:01 | PM.PNNEP ---
Progress Note: A&P Assessment and Plan (1) CLARK (acute kidney injury): Code(s): N17.9 - Acute kidney failure, unspecified Status: Acute Assessment and Plan: creatinine on admission 1.0mg/dl (presumed baseline) peaked at 1.7mg/dl on March 20. suspect multifactorial etiology: - contrast/dye exposure for CT of chest at OSH - prerenal factors - infection (COVD-19) Creatinine is higher again today. This may be a new process. I suspect vancomycin toxicity may be playing a role. He also has COVID-19 and this could be affecting his kidneys as well. He is not on diuretics. He is still making some urine. Discussed with Dr. Kennedy. He agrees with stopping the vancomycin. (2) Acute respiratory failure with hypoxia: Code(s): J96.01 - Acute respiratory failure with hypoxia Status: Acute Assessment and Plan: due to COVID-19 pneumonia He also had a pulmonary embolus on ventilator. (3) Pneumonia due to COVID-19 virus: Code(s): U07.1 - COVID-19; J12.89 - Other viral pneumonia Status: Acute Assessment and Plan: tested positive on 03/11/2020 started on dexamethasone for 10 days s/p remdesivir for 5 days s/p convalescent plasma on 03/17/20 on airborne/contact/droplet isolation Still on the ventilator. (4) Pulmonary embolism associated with severe acute respiratory syndrome coronavirus 2 (SARS-CoV-2) infection: Code(s): U07.1 - COVID-19; I26.99 - Other pulmonary embolism without acute cor pulmonale Status: Acute Assessment and Plan: as noted by CT Chest at OSH on anticoagulation (5) Hypernatremia: Code(s): E87.0 - Hyperosmolality and hypernatremia Status: Acute Assessment and Plan: sodium level is about the same today. Will give D5W. Subjective Date/time seen: 03/24/20 09:01 Interval history: patient is on the ventilator and sedated. He cannot give a history. He is on tube feedings. He is on norepinephrine at a low dose. Review of Systems Review of Systems: ROS unobtainable: Yes unobtainable due to medical condition Exam Narrative: Exam Narrative: General: WD/WN male in NAD; intubated/sedated Heart: normal S1 and S2; no rub Lungs: coarse breath sounds bilaterally Abdomen: soft, nontender, nondistended, positive bowel sounds Extremities: 1+ edema Skin: no rash Objective Data Vital Signs Vital Signs: Vital Signs - 24 hr 03/23/20 09:10 03/23/20 09:39 03/23/20 10:00 Temperature Pulse Rate 83 82 87 Respiratory Rate 26 H 26 H 24 H Blood Pressure 123/70 122/73 Pulse Oximetry 91 03/23/20 11:17 03/23/20 11:18 03/23/20 11:19 Temperature Pulse Rate 87 91 92 Respiratory Rate 23 H 28 H Blood Pressure Pulse Oximetry 93 03/23/20 11:20 03/23/20 12:00 03/23/20 14:00 Temperature 37.7 C H Pulse Rate 91 88 89 Respiratory Rate 26 H 26 H 26 H Blood Pressure 119/70 123/70 Pulse Oximetry 93 93 03/23/20 15:10 03/23/20 15:19 03/23/20 16:00 Temperature 37.8 C H Pulse Rate 91 91 91 Respiratory Rate 18 18 26 H Blood Pressure 110/72 Pulse Oximetry 94 03/23/20 16:57 03/23/20 18:00 03/23/20 18:07 Temperature Pulse Rate 91 89 89 Respiratory Rate 26 H 25 H Blood Pressure 117/70 Pulse Oximetry 93 94 03/23/20 18:08 03/23/20 18:09 03/23/20 20:00 Temperature 38.6 C H Pulse Rate 89 89 87 Respiratory Rate 25 H 24 H 27 H Blood Pressure 117/70 126/97 H Pulse Oximetry 92 03/23/20 20:02 03/23/20 20:05 03/23/20 20:06 Temperature 38.6 C H Pulse Rate 89 89 Respiratory Rate 26 H Blood Pressure Pulse Oximetry 93 03/23/20 20:32 03/23/20 22:00 03/23/20 22:15 Temperature 38.5 C H Pulse Rate 76 77 Respiratory Rate 26 H 26 H Blood Pressure 101/71 Pulse Oximetry 94 03/23/20 22:16 03/23/20 23:26 03/23/20 23:33 Temperature
[2020-03-24] MEDS: ACETAMINOPHEN 325 MG TABLET 650 MG PO (12:04)
[2020-03-24 12:35] LABS: Glucose Point of Care 195 (65-105)
--- NOTE | 2020-03-24 12:57 | PCDIET ---
Nutrition Follow-Up Complete: Nutrition Diagnosis: Inadequate oral intake related to oral intubation as evidenced by NPO status. Nutrition Goal: Patient to meet estimated nutritional needs. Goal in progress. RN reports patient tolerating Glucerna 1.2 tube feedings at 50mL/hr with goal of 60mL/hr. Continues on 100mL water flush every 4 hours. Last recorded weight is 125.8 kg which is decreased from last review. +I/O noted. Bowel Motility: No documented BM Labs Reviewed: Hgb (11.2), Hct (35.5), Glu (224), BUN (64), Cr (1.8), Cl (114), Na (146), Alb (2.8) Meds Noted: Propofol (rate of 7.422mL/hr provides 195kcal per 24 hours), Versed, Protonix, Vitamin D, Fentanyl, Novolog, Levemir, Atrovent, Xopenex, Reglan, Lopressor, Nimbex, Decadron, Lipitor, Maxipime Additional Notes: No documented skin breakdown. Will continue to monitor with same goal. Nutrition Monitoring and Evaluation: Follow up every Monday/Monday. Follow daily in ICU rounds.
--- NOTE | 2020-03-24 15:06 | WPDINTPN ---
Progress Note: A&P Assessment and Plan (1) Acute respiratory failure with hypoxia: Code(s): J96.01 - Acute respiratory failure with hypoxia Status: Acute Assessment and Plan: Acute respiratory failure likely secondary to COVID-19 pneumonia -intubated on 03/17/2020 -chest x-ray shows No interval change in patchy bilateral airspace disease consistent with pneumonia -continue on low tidal volume strategy, on peep of 8 in 35% FiO2, -continue bronchodilators -patient was placed on Precedex, gets agitated, fentanyl, Versed was restarted. Patient currently on neuromuscular blockers -off Nimbex (2) Fever: Code(s): R50.9 - Fever, unspecified Status: Acute Assessment and Plan: Patient with fevers, T-max 103.5? -sputum cultures grew normal amy -blood cultures negative as of -will continue cefepime and hold vancomycin as discussed with Nephrology -bilateral lower extremity venous Dopplers were negative for DVT -infectious disease has been consulted and await their recommendations (3) Pneumonia due to COVID-19 virus: Code(s): U07.1 - COVID-19; J12.89 - Other viral pneumonia Status: Acute Assessment and Plan: SARS-CoV-2 PCR positive on 03/11/2020 -patient presented to outside hospital 03/16/2020 with productive cough, shortness of breath, wheezing hypoxia -continue dexamethasone IV for 10 days -received 5 days of Remdesivir -03/17 received to convalescent plasma -continue airborne, contact, droplet isolation/precautions -will monitor inflammatory markers (4) Pulmonary embolism associated with severe acute respiratory syndrome coronavirus 2 (SARS-CoV-2) infection: Code(s): U07.1 - COVID-19; I26.99 - Other pulmonary embolism without acute cor pulmonale Status: Acute Assessment and Plan: Possible small segmental PEs on CTA chest the outside hospital lots of motion artifact -patient has been started on therapeutic Lovenox -03/21/2020 venous Dopplers bilateral lower extremities negative for DVT (5) Hyperglycemia: Code(s): R73.9 - Hyperglycemia, unspecified Status: Acute Assessment and Plan: Continue Accu-Cheks, sliding scale insulin -continue Levemir -hyperglycemia likely related to dexamethasone (6) Coronary artery disease: Code(s): I25.10 - Atherosclerotic heart disease of [place] coronary artery without angina pectoris Status: Acute Assessment and Plan: Continue clopidogrel, atorvastatin (7) Dietary counseling and surveillance: Code(s): Z71.3 - Dietary counseling and surveillance Status: Acute Assessment and Plan: Tolerating tube feeds Decreased free water flushes Stress ulcer prophylaxis: Protonix (8) DVT prophylaxis: Code(s): Z29.9 - Encounter for prophylactic measures, unspecified Status: Acute Assessment and Plan: DVT prophylaxis: Therapeutic Lovenox Additional Plan Code status: Full code Critical care time spent: 33 minutes Due to a high probability of clinically significant, life threatening deterioration, the patient required my highest level of preparedness to intervene emergently and I personally spent this critical care time directly and personally managing the patient. This critical care time included obtaining a history; examining the patient; pulse oximetry; ordering and review of studies; arranging urgent treatment with development of a management plan; evaluation of patient's response to treatment; frequent reassessment; and discussions with other providers. It was exclusive of separately billable procedures and treating other patients and teaching time. Please see Assessment and Plan section and the rest of the note for further information on patient assessment and treatment Subjective Date/time seen: 03/24/20 15:06 Interval history: Reason for consult: Acute hypoxic respiratory failure COVID-19 pneumonia -intubated on 03/17/2020 -convalescent plasma on
[2020-03-24 17:11] LABS: Glucose Point of Care 292 (65-105)
--- NOTE | 2020-03-24 19:26 | CONS_ITS ---
DATE OF CONSULTATION: 03/24/2020 REASON FOR CONSULTATION: Fever. HISTORY OF PRESENT ILLNESS: This 74-year-old male cannot provide any history as he is intubated and sedated. He developed a cough with dyspnea and audible wheezing and some sputum production starting on March 09. He was tested positive for coronavirus on 03/11/2020. He presented to an outside hospital on the , was transferred here, arrived early on the . He has been intubated. His hospital course has been complicated by pulmonary emboli, hyperglycemia, and several days after admission fever. Consultation now requested. He has been on vancomycin and cefepime for the last several days with vancomycin being stopped earlier today. I was first notified of this consult this morning. He has not required any surgical intervention. His hospital course has also been complicated by acute renal failure. ALLERGIES: NONE KNOWN. PRESENT MEDICATIONS: Dexamethasone. Other immunosuppressants none prior to admission. HABITS: One pack per day smoker. No alcohol. PAST MEDICAL HISTORY: In addition to the above, OAB, pacemaker, hyperlipidemia, GERD, hypertension, CAD, heart failure, BPH, anxiety, and depression. FAMILY HISTORY: Not pertinent to his present illness. SOCIAL HISTORY: Lives with family in [place]. and retired. REVIEW OF SYSTEMS: 14-point review otherwise negative though not obtainable from the patient in any direct fashion due to intubated status. PHYSICAL EXAMINATION: GENERAL: This is an elderly male who appears his actual age, sedated. He was afebrile for a number of days and on March 20, T-max 38.4, core temperature. The following day, 39.2 core temperature, following day 40.2 core temperature and since calendar day yesterday T-max 38.6 core. Currently he is afebrile, 80, 24, 123/76, 91 mean, 95% sat. SKIN: Erythroderma over the chest and abdomen, mild. Otherwise, no rashes. Warm and dry. No decubitus ulcers. NODES: No cervical nor axillary adenopathy. EENT: Orally intubated, also orogastric tube. No paranasal sinus erythema, edema or tenderness. Conjunctivae are normal. NECK: No masses or thyromegaly. CHEST: He has a PICC in the right upper extremity with appropriate placement in the central veins. LUNGS: Diminished breath sounds, vesicular breath sounds, clear to percussion. CARDIAC: Regular rate and rhythm. No murmurs or gallops. ABDOMEN: Massively obese. No tenderness elicited. No masses. No organomegaly. : Dougherty catheter draining clear yellow urine. He has no groin lines in place. EXTREMITIES: 2+ pedal edema. Toes are cool, otherwise appear well perfused. LABORATORY DATA: Urine culture with coagulase-negative Staph. Blood cultures from March 21, no growth. Sputum culture, normal amy. Repeat urine culture on March 21, final no growth. White blood cell count 9.1, hemoglobin 11.2, platelets are 142. No differential done today. Earlier showed a left shift with 93% PMNs. Blood gases 7.39, 40, 69, 23, 94% on the noted ventilator settings. Creatinine up to 1.8, had been normal on admission. BUN is 64. His sodium 146. He has had hyperglycemia, currently at 224. Magnesium is high. BNP is high. Albumin 2.8. His urinalysis, not performed. RADIOLOGY: I personally reviewed his chest x-ray. He has mild lower lobe interstitial infiltrates, appropriate PICC placement, appropriate ET tube placement. ASSESSMENT: 1. Fever. Consider due to coronavirus infection, bacterial superinfection of the lungs, PICC infection, urinary tract infection, drug fever or due to thrombosis or embolism. No pre-existing fever, was on no antibiotics prior to admission. 2. Morbid obesity. 3. Thrombotic disease associated with his coronavirus inf
[2020-03-25] VITALS (42 sets, daily range): BP systolic 104–181; BP diastolic 72–112; PULSE 81–121; RESP 15–93; TEMP 37.7–38.8; O2SAT 91–98
[2020-03-25 00:16] LABS: Glucose Point of Care 217 (65-105)
[2020-03-25] MEDS: INSULIN ASPART (*BKC) 100 UNITS/ML SUB-Q ×4 (00:17→23:16)
[2020-03-25] MEDS: PROPOFOL IV EMULSION 100 ML 11.13 MG IV CONT ×3 (00:37→19:54)
[2020-03-25] MEDS: LEVALBUTEROL NEB 1.25 MG/3 ML 0.63 MG INHALATION ×4 (03:27→19:49)
[2020-03-25 03:49] LABS: Arterial Blood Gas Ventilator rate 26 /MIN; Base Excess ABG -0.7 mEq/l (+/-2.0); Carboxyhemoglobin 0.3 % THb (0-2.0); Device VENTILATOR; Fractional Inspired Oxygen 35 %; HCO3 ABG 23.9 mEq/l (22.0-26.0); Methemoglobin ABG 0.4 %THb (0-1.5); Modified Allen's Test Pass; Oxygen Content ABG 19.5 %vol (16.0-22.0); Oxygen Saturation ABG 91.9 % (95.0-100.0); Oxyhemoglobin 89.8 % THb (90.0-100.0); PCO2 ABG 39.8 mmHg (35.0-45.0); PO2 ABG 62.3 mmHg (80.0-100.0); PO2 FiO2 Ratio Arterial Blood 1.78 %; Reduced Hemoglobin 9.5 %THb (0-5.0); Site Drawn LEFT RADIAL; Total Hemoglobin 15.5 g/dL (12.0-18.0); pH ABG 7.397 (7.350-7.450)
[2020-03-25 03:50] LABS: Arterial Blood Gas PEEP 8 cmH2O; Arterial Blood Gas Tidal Volume 450 ml; Arterial Blood Gas Vent Mode CMV
[2020-03-25] MEDS: FENTANYL 2,500MCG/NS250ML(*CRX 2,500 MCG/250 ML BAG IV CONT (05:10)
[2020-03-25] MEDS: ENOXAPARIN 120 MG/0.8 ML SYRINGE SUB-Q ×2 (05:12→16:05)
[2020-03-25] MEDS: ACETAMINOPHEN 325 MG TABLET 650 MG PO ×3 (05:13→19:53)
[2020-03-25] MEDS: IPRATROPIUM BR 0.02% INH SOLN 0.5 MG/2.5 ML VIAL INHALATION ×4 (05:13→19:49)
[2020-03-25 05:29] LABS: Hematocrit 36.7 % (42.0-52.0); Hemoglobin 11.6 g/dL (14.0-18.0); Mean Corpuscular HGB Conc 31.6 g/dl (32-36); Mean Corpuscular Hemoglobin 30.9 pg (26-34); Mean Corpuscular Volume 97.9 fl (80-100); Mean Platelet Volume 11.3 fl (7.4-10.4); Platelet Count Result 136 k/mm3 (150-375); Red Blood Count 3.75 M/mm3 (4.6-6.20); Red Cell Distribution Width 13.5 % (11.5-14.5); White Blood Count 7.6 K/mm3 (4.5-10.0)
[2020-03-25 05:51] LABS: Alanine Aminotransferase 44 U/L (4-50); Albumin Level 2.9 g/dL (3.5-5.1); Alkaline Phosphatase 56 U/L (38-126); Anion Gap 6 mmol/L (8-16); Aspartate Amino Transferase 40 U/L (17-59); Bilirubin,Total 0.6 mg/dL (0.2-1.3); Blood Urea Nitrogen 66 mg/dL (9-20); Calcium 8.7 mg/dL (8.4-10.2); Carbon Dioxide 27 mmol/L (22-30); Chloride 115 mmol/L (98-107); Estimated CRCL calculation 54 ml/min; Estimated Glomerular Filt Rate 46; Glucose 189 mg/dL (75-110); Phosphorus 4.3 mg/dL (2.5-4.5); Potassium 4.7 mmol/L (3.4-5.0); Sodium 148 mmol/L (137-145)
[2020-03-25] MEDS: CENTRAL LINE FLUSH 10 ML IV PUSH ×3 (05:53→19:55)
[2020-03-25] MEDS: buPROPion HCL 75 MG TABLET PO ×2 (08:31→19:58)
[2020-03-25] MEDS: CLOPIDOGREL BISULFATE 75 MG TABLET PO (08:31)
[2020-03-25] MEDS: ATORVASTATIN 40 MG TABLET 80 MG PO (08:31)
[2020-03-25] MEDS: CHOLECALCIFEROL 1,000 UNITS TABLET 5000 UNITS PO (08:32)
[2020-03-25] MEDS: SERTRALINE HCL 50 MG TABLET 100 MG PO (08:32)
[2020-03-25] MEDS: DEXAMETHASONE SOD PHOS INJ 4 MG/ML VIAL 6 MG IV PUSH (08:32)
[2020-03-25] MEDS: METOPROLOL TARTRATE 50 MG TAB PO ×2 (08:32→19:58)
[2020-03-25] MEDS: PANTOPRAZOLE SODIUM IV 40 MG VIAL IV PUSH (08:33)
[2020-03-25] MEDS: MICONAZOLE NITRATE 2% CREAM 30 GM TUBE 1 APPLIC TOPICAL ×2 (08:34→19:57)
[2020-03-25] MEDS: INSULIN DETEMIR 100 UNITS/ML 25 UNITS SUB-Q ×2 (08:49→23:11)
[2020-03-25] MEDS: FUROSEMIDE INJ 40 MG/4 ML VIAL IV PUSH (08:49)
--- NOTE | 2020-03-25 09:50 | WPDINTPN ---
Progress Note: A&P Assessment and Plan (1) Acute respiratory failure with hypoxia: Code(s): J96.01 - Acute respiratory failure with hypoxia Status: Acute Assessment and Plan: Acute respiratory failure likely secondary to COVID-19 pneumonia -intubated on 03/17/2020 -chest x-ray shows No interval change in patchy bilateral airspace disease consistent with pneumonia -continue on low tidal volume strategy, on peep of 8 in 35% FiO2, -continue bronchodilators -currently on fentanyl, Versed and propofol infusion, will start weaning and make a patient and place patient on a breathing trial as he is on minimal FiO2 and PEEP (2) Fever: Code(s): R50.9 - Fever, unspecified Status: Acute Assessment and Plan: Continues to have low-grade fevers, -sputum sputum, blood, cultures negative -appreciate infectious disease evaluation and recommendation, -continue cefepime g q.8 hours -vancomycin was discontinued on 03/24/2020 -bilateral lower extremity venous Dopplers were negative for DVT (3) Pneumonia due to COVID-19 virus: Code(s): U07.1 - COVID-19; J12.89 - Other viral pneumonia Status: Acute Assessment and Plan: SARS-CoV-2 PCR positive on 03/11/2020 -patient presented to outside hospital 03/16/2020 with productive cough, shortness of breath, wheezing hypoxia -continue dexamethasone IV for 10 days -received 5 days of Remdesivir -03/17 received to convalescent plasma -continue airborne, contact, droplet isolation/precautions -will monitor inflammatory markers (4) Pulmonary embolism associated with severe acute respiratory syndrome coronavirus 2 (SARS-CoV-2) infection: Code(s): U07.1 - COVID-19; I26.99 - Other pulmonary embolism without acute cor pulmonale Status: Acute Assessment and Plan: Possible small segmental PEs on CTA chest the outside hospital lots of motion artifact -patient has been started on therapeutic Lovenox -03/21/2020 venous Dopplers bilateral lower extremities negative for DVT (5) Hyperglycemia: Code(s): R73.9 - Hyperglycemia, unspecified Status: Acute Assessment and Plan: Continue Accu-Cheks, sliding scale insulin -continue Levemir -hyperglycemia likely related to dexamethasone (6) Coronary artery disease: Code(s): I25.10 - Atherosclerotic heart disease of [place] coronary artery without angina pectoris Status: Acute Assessment and Plan: Continue clopidogrel, atorvastatin (7) Dietary counseling and surveillance: Code(s): Z71.3 - Dietary counseling and surveillance Status: Acute Assessment and Plan: Tolerating tube feeds Decreased free water flushes -on Reglan Stress ulcer prophylaxis: Protonix (8) DVT prophylaxis: Code(s): Z29.9 - Encounter for prophylactic measures, unspecified Status: Acute Assessment and Plan: DVT prophylaxis: Therapeutic Lovenox Additional Plan Code status: Full code Critical care time spent: 32 minutes Due to a high probability of clinically significant, life threatening deterioration, the patient required my highest level of preparedness to intervene emergently and I personally spent this critical care time directly and personally managing the patient. This critical care time included obtaining a history; examining the patient; pulse oximetry; ordering and review of studies; arranging urgent treatment with development of a management plan; evaluation of patient's response to treatment; frequent reassessment; and discussions with other providers. It was exclusive of separately billable procedures and treating other patients and teaching time. Please see Assessment and Plan section and the rest of the note for further information on patient assessment and treatment Subjective Date/time seen: 03/25/20 09:50 Interval history: Reason for consult: Acute hypoxic respiratory failure COVID-19 pneumonia -intubated on 03/17/2020 -convalescent plas
--- NOTE | 2020-03-25 11:13 | PCDIET ---
ICU Rounding Note: Patient tolerating Glucerna 1.2 at 60mL/hr goal rate with 100mL water flush every 4 hours. Last recorded weight is 123.7kg which is decreased from last review. +I/O. Diuresis earlier today. Bowel Motility: No documented BM. adding Miralax. Labs Reviewed: Hgb (11.6), Hct (36.7), Glu (189), BUN (66), Cr (1.5), Na (148), Alb (2.9) Meds Noted: Lipitor, Cefepime, Protonix, Reglan, Decadron, Fentanyl, Propofol (rate of 11.13mL/hr provides 294kcal per day), Miralax, Lopressor, Novolog, Levemir, Vitamin D, Versed, Atrovent, Xopenex Additional Notes: No documented skin breakdown. Following daily in ICU rounds. Assessing/reassessing every Monday/Monday.
[2020-03-25 12:31] LABS: Glucose Point of Care 260 (65-105)
--- NOTE | 2020-03-25 12:57 | WPDINFPN2 ---
Progress Note: A&P Assessment and Plan (1) Fever: Code(s): R50.9 - Fever, unspecified Status: Acute Additional Plan 1. Fever, persists at 38.8 core, respiratory source is probable. 2. Recent CoVid 19 infection, on steroids, +remdesivir in past 3. Mild renal insufficiency REC Cefepime # 4, continue, no new dose adjustments. Subjective Date/time seen: 03/25/20 12:57 Interval history: sedated, no pressors, OG tube with TF. Exam Const: General: no acute distress Other: morbid obese Eyes: General: appearance normal, both eyes and all related structures Resp: Effort & Inspection: normal respiratory effort Auscultation: clear to auscultation bilaterally and diminished lung sounds Cardio: Rate: tachycardic Rhythm: regular rhythm Heart sounds: no murmurs GI: Inspection: distended GI Palp: Yes Soft to palpation and No Tenderness to palpation present (GI) Urinary Catheter: Urinary Catheter: patent and draining and urine clear Skin: General skin exam: normal color and no rashes or lesions noted Other: distal feet cool, no cyanosis Objective Data Vital Signs Vital Signs: Vital Signs - 24 hr 03/24/20 13:17 03/24/20 13:27 03/24/20 14:00 Temperature 37.9 C H Pulse Rate 80 80 84 Respiratory Rate 24 H 24 H 18 Blood Pressure 124/77 Pulse Oximetry 94 03/24/20 14:38 03/24/20 14:48 03/24/20 16:00 Temperature 38.0 C H Pulse Rate 92 91 90 Respiratory Rate 28 H 28 H 21 H Blood Pressure 124/65 Pulse Oximetry 96 94 03/24/20 17:18 03/24/20 18:00 03/24/20 18:40 Temperature 38.2 C H Pulse Rate 90 90 Respiratory Rate 22 H Blood Pressure 138/92 H Pulse Oximetry 94 95 03/24/20 19:00 03/24/20 19:10 03/24/20 20:00 Temperature 38.2 C H 38.2 C H Pulse Rate 95 93 Respiratory Rate 29 H Blood Pressure 134/73 145/114 H Pulse Oximetry 95 03/24/20 20:24 03/24/20 20:25 03/24/20 20:58 Temperature Pulse Rate 90 90 80 Respiratory Rate 29 H 29 H Blood Pressure Pulse Oximetry 96 03/24/20 21:00 03/24/20 21:10 03/24/20 22:00 Temperature 38.1 C H Pulse Rate 80 83 82 Respiratory Rate 29 H 29 H 20 Blood Pressure 95/68 L Pulse Oximetry 96 03/24/20 23:37 03/24/20 23:39 03/25/20 00:00 Temperature 38.1 C H Pulse Rate 82 83 82 Respiratory Rate 28 H 29 H Blood Pressure 112/72 Pulse Oximetry 97 96 97 03/25/20 00:37 03/25/20 02:00 03/25/20 03:00 Temperature 37.7 C H Pulse Rate 81 85 83 Respiratory Rate 29 H 31 H Blood Pressure 104/85 Pulse Oximetry 96 93 03/25/20 03:11 03/25/20 03:27 03/25/20 04:00 Temperature 37.7 C H Pulse Rate 82 91 81 Respiratory Rate 28 H 31 H 93 H Blood Pressure 124/72 Pulse Oximetry 93 93 03/25/20 05:03 03/25/20 05:10 03/25/20 05:13 Temperature 37.9 C H Pulse Rate 85 91 Respiratory Rate 29 H Blood Pressure Pulse Oximetry 94 03/25/20 05:16 03/25/20 05:35 03/25/20 05:36 Temperature Pulse Rate 90 92 91 Respiratory Rate 31 H 28 H 29 H Blood Pressure Pulse Oximetry 03/25/20 06:00 03/25/20 07:34 03/25/20 07:46 Temperature 38.1 C H Pulse Rate 89 104 H 104 H Respiratory Rate 31 H 32 H 32 H Blood Pressure 120/85 Pulse Oximetry 91 95 03/25/20 07:55 03/25/20 08:00 03/25/20 08:30 Temperature 38.3 C H Pulse Rate 104 H 104 H 104 H Respiratory Rate 32 H 18 32 H Blood Pressure 171/96 H Pulse Oximetry 93 03/25/20 10:00 03/25/20 10:30 03/25/20 10:55 Temperature 38.8 C H Pulse Rate 105 H 104 H 104 H Respiratory Rate 18 18 Blood Pressure 172/106 H Pulse Oximetry 93 93 03/25/20 11:15 03/25/20 12:00 03/25/20 12:20 Temperature 38.3 C H 38.8 C H Pulse Rate 104 H 106 H Respiratory Rate 18 15 Blood Pressure 181/110 H Pulse Oximetry 94 Intake/Output Intake/Output: Intake & Output 03/22/20 03/23/20 03/24/20 03/25/20 23:59 23:59 23:59 23:59 Intake Total 3371 2476.9 2466.9 1326 Output Total 2850 2150 1750 1300 Balance 521 326.9 716.9
--- NOTE | 2020-03-25 15:31 | P.PNNP_ITS ---
Progress Note: A&P Assessment and Plan (1) CLARK (acute kidney injury): Code(s): N17.9 - Acute kidney failure, unspecified Status: Acute Assessment and Plan: * creatinine on admission 1.0mg/dl (presumed baseline) * peaked at 1.7mg/dl on March 20. * suspect multifactorial etiology: - contrast/dye exposure for CT of chest at OSH - prerenal factors - infection (COVD-19 * Creatinine is better today after stopping the vancomycin. * He is still making some urine. * Discussed with Dr. Kennedy. * Will keep an eye on things. His creatinine is back down to 1.5. (2) Acute respiratory failure with hypoxia: Code(s): J96.01 - Acute respiratory failure with hypoxia Status: Acute Assessment and Plan: * due to COVID-19 pneumonia * He also had a pulmonary embolus * on ventilator. (3) Pneumonia due to COVID-19 virus: Code(s): U07.1 - COVID-19; J12.89 - Other viral pneumonia Status: Acute Assessment and Plan: * tested positive on 03/11/2020 * started on dexamethasone for 10 days * s/p remdesivir for 5 days * s/p convalescent plasma on 03/17/20 * on airborne/contact/droplet isolation * Still on the ventilator. (4) Pulmonary embolism associated with severe acute respiratory syndrome coronavirus 2 (SARS-CoV-2) infection: Code(s): U07.1 - COVID-19; I26.99 - Other pulmonary embolism without acute cor pulmonale Status: Acute Assessment and Plan: * as noted by CT Chest at OSH * on anticoagulation (5) Hypernatremia: Code(s): E87.0 - Hyperosmolality and hypernatremia Status: Acute Assessment and Plan: sodium level is A little better. Will give D5W Again. Subjective Date/time seen: 03/25/20 15:31 Interval history: patient is on the ventilator and sedated. He cannot give a history. He is on tube feedings. He is on norepinephrine at a smaller dose than yesterday. Review of Systems Review of Systems: ROS unobtainable: Yes unobtainable due to medical condition Exam Narrative: Exam Narrative: General: WD/WN male in NAD; intubated/sedated Heart: normal S1 and S2; no rub Lungs: coarse breath sounds bilaterally Abdomen: soft, nontender, nondistended, positive bowel sounds Extremities: 1+ edema Skin: no rash Or subcu nodules Objective Data Vital Signs Vital Signs: Vital Signs - 24 hr 03/24/20 16:00 03/24/20 17:18 03/24/20 18:00 Temperature 38.0 C H Pulse Rate 90 90 90 Respiratory Rate 21 H 22 H Blood Pressure 124/65 138/92 H Pulse Oximetry 94 94 95 03/24/20 18:40 03/24/20 19:00 03/24/20 19:10 Temperature 38.2 C H 38.2 C H Pulse Rate 95 Respiratory Rate Blood Pressure 134/73 Pulse Oximetry 03/24/20 20:00 03/24/20 20:24 03/24/20 20:25 Temperature 38.2 C H Pulse Rate 93 90 90 Respiratory Rate 29 H 29 H 29 H Blood Pressure 145/114 H Pulse Oximetry 95 03/24/20 20:58 03/24/20 21:00 03/24/20 21:10 Temperature Pulse Rate 80 80 83 Respiratory Rate 29 H 29 H Blood Pressure Pulse Oximetry 96 03/24/20 22:00 03/24/20 23:37
--- NOTE | 2020-03-25 15:31 | PM.PNNEP ---
Progress Note: A&P Assessment and Plan (1) CLARK (acute kidney injury): Code(s): N17.9 - Acute kidney failure, unspecified Status: Acute Assessment and Plan: creatinine on admission 1.0mg/dl (presumed baseline) peaked at 1.7mg/dl on March 20. suspect multifactorial etiology: - contrast/dye exposure for CT of chest at OSH - prerenal factors - infection (COVD-19 Creatinine is better today after stopping the vancomycin. He is still making some urine. Discussed with Dr. Kennedy. Will keep an eye on things. His creatinine is back down to 1.5. (2) Acute respiratory failure with hypoxia: Code(s): J96.01 - Acute respiratory failure with hypoxia Status: Acute Assessment and Plan: due to COVID-19 pneumonia He also had a pulmonary embolus on ventilator. (3) Pneumonia due to COVID-19 virus: Code(s): U07.1 - COVID-19; J12.89 - Other viral pneumonia Status: Acute Assessment and Plan: tested positive on 03/11/2020 started on dexamethasone for 10 days s/p remdesivir for 5 days s/p convalescent plasma on 03/17/20 on airborne/contact/droplet isolation Still on the ventilator. (4) Pulmonary embolism associated with severe acute respiratory syndrome coronavirus 2 (SARS-CoV-2) infection: Code(s): U07.1 - COVID-19; I26.99 - Other pulmonary embolism without acute cor pulmonale Status: Acute Assessment and Plan: as noted by CT Chest at OSH on anticoagulation (5) Hypernatremia: Code(s): E87.0 - Hyperosmolality and hypernatremia Status: Acute Assessment and Plan: sodium level is A little better. Will give D5W Again. Subjective Date/time seen: 03/25/20 15:31 Interval history: patient is on the ventilator and sedated. He cannot give a history. He is on tube feedings. He is on norepinephrine at a smaller dose than yesterday. Review of Systems Review of Systems: ROS unobtainable: Yes unobtainable due to medical condition Exam Narrative: Exam Narrative: General: WD/WN male in NAD; intubated/sedated Heart: normal S1 and S2; no rub Lungs: coarse breath sounds bilaterally Abdomen: soft, nontender, nondistended, positive bowel sounds Extremities: 1+ edema Skin: no rash Or subcu nodules Objective Data Vital Signs Vital Signs: Vital Signs - 24 hr 03/24/20 16:00 03/24/20 17:18 03/24/20 18:00 Temperature 38.0 C H Pulse Rate 90 90 90 Respiratory Rate 21 H 22 H Blood Pressure 124/65 138/92 H Pulse Oximetry 94 94 95 03/24/20 18:40 03/24/20 19:00 03/24/20 19:10 Temperature 38.2 C H 38.2 C H Pulse Rate 95 Respiratory Rate Blood Pressure 134/73 Pulse Oximetry 03/24/20 20:00 03/24/20 20:24 03/24/20 20:25 Temperature 38.2 C H Pulse Rate 93 90 90 Respiratory Rate 29 H 29 H 29 H Blood Pressure 145/114 H Pulse Oximetry 95 03/24/20 20:58 03/24/20 21:00 03/24/20 21:10 Temperature Pulse Rate 80 80 83 Respiratory Rate 29 H 29 H Blood Pressure Pulse Oximetry 96 03/24/20 22:00 03/24/20 23:37 03/24/20 23:39 Temperature 38.1 C H Pulse Rate 82 82 83 Respiratory Rate 20 28 H Blood Pressure 95/68 L Pulse Oximetry 96 97 96 03/25/20 00:00 03/25/20 00:37 03/25/20 02:00 Temperature 38.1 C H 37.7 C H Pulse Rate 82 81 85 Respiratory Rate 29 H 29 H 31 H Blood Pressure 112/72 104/85 Pulse Oximetry 97 96 03/25/20 03:00 03/25/20 03:11 03/25/20 03:27 Temperature Pulse Rate 83 82 91 Respiratory Rate 28 H 31 H Blood Pressure Pulse Oximetry 93 93 03/25/20 04:00 03/25/20 05:03 03/25/20 05:10 Temperature 37.7 C H Pulse Rate 81 85 91 Respiratory Rate 93 H 29 H Blood Pressure 124/72 Pulse Oximetry 93 94 03/25/20 05:13 03/25/20 05:16 03/25/20 05:35 Temperature 37.9 C H Pulse Rate 90 92 Respiratory Rate 31 H 28 H Blood Pressure Pulse
[2020-03-25] MEDS: DEXTROSE 5% 1,000 ML 1,000 ML 100 ML IV CONT (16:01)
--- NOTE | 2020-03-25 16:13 | PM.IMPN ---
Progress Note: A&P Assessment and Plan (1) Pneumonia due to COVID-19 virus: Code(s): U07.1 - COVID-19; J12.89 - Other viral pneumonia Status: Acute Assessment and Plan: -COVID-19 pneumonia diagnosed -CT and chest x-ray consistent with COVID-19 pneumonia -inflammatory markers are mildly elevated ferritin 597, LDH 728, CRP 8.7 -wean oxygen to keep saturations greater than 90%, currently 9 L oxygen nasal cannula, weaned off BiPAP, patient may need CPAP at night -ABG showed PO2 85 on 50% FiO2 -Tylenol for fever -albuterol nebs q.6 hours, is unclear if he could cooperate for MDI -dexamethasone 6 mg IV daily -will need to find out with when COVID-19 was diagnosed to see if he is appropriate for remdesivir and convalescent plasma -continue home Pepcid for GI prophylaxis -supplements vitamin-D 5000 units -on full-dose Lovenox for possible PE -holding off on further antibiotics and will re-evaluate tomorrow as patient does not a leukocytosis or sputum production 03/25/20 16:13 Patient is 74-year-old male with history of congestive heart failure, cardiac arrhythmia, coronary artery disease hypertension hyperlipidemia patient was diagnosed with COVID-19 on 03/11/2020 and he was admitted at [facility] with shortness of breath and hypoxia he was transferred to [facility] on 03/16 to intermediate care unit (IMU) he developed significant agitation was not keeping his BiPAP and was desaturating so feeder catcher tobacco of 03/17 patient was intubated and placed on ventilator by the cutlery grinder after he spoke with family, now in ICU patient is seen by plastic outfitter patient is started on dexamethasone 03/17 for 10days 07/27 , Remdesovor for 5 day on 03/17 5/ and received 1 unit convalescent plasma 03/17, on 03/19 patient creatinine climb to 1.6 from 1.3, renal US was normal, gently hydrated, on 03/20/2020 patient BUN and creatinine was rising however on 03/21 it was trending down, patient is seen by conservation scientist further recommendation to follow. Today patient been fibrile with tmax if 103.5, urine culture is growing coagulase-negative staph, being treated with cefepime and vancomycin Dr. boothe is consult, currently on vent and sedated unable to provide any review of symptoms, Today has grade fever, was seen by Dr. Boothe recommended to continue Cefepime #4 contineu, vancomycin was stopped did improve creatinine slightly still making some urine, will continue to monitor appreciate plastic outfitter, ID and conservation scientist Subjective Date/time seen: 03/25/20 16:13 Patient is 74-year-old male with history of congestive heart failure, cardiac arrhythmia, coronary artery disease hypertension hyperlipidemia patient was diagnosed with COVID-19 on 03/11/2020 and he was admitted at [facility] with shortness of breath and hypoxia he was transferred to [facility] on 03/16 to intermediate care unit (IMU) he developed significant agitation was not keeping his BiPAP and was desaturating so feeder catcher tobacco of 03/17 patient was intubated and placed on ventilator by the cutlery grinder after he spoke with family, now in ICU patient is seen by plastic outfitter patient is started on dexamethasone 03/17 for 10days 5/10 , Remdesovor for 5 day on 03/17 5/5 and received 1 unit convalescent plasma 03/17, on 03/19 patient creatinine climb to 1.6 from 1.3, renal US was normal, gently hydrated, on 03/20/2020 patient BUN and creatinine was rising however on 03/21 it was trending down, patient is seen by conservation scientist further recommendation to follow. Today patient been fibrile with tmax if 103.5, urine culture is growing coagulase-negative staph, being treated with cefepime and vancomycin Dr. boothe is consult, currently on vent and sedated unable to provide any review of symptoms, Today has grade fever, was seen by Dr. Boothe recommended to continue Cefepime #4 contineu, vancomycin was stopped did improve creatinine slightly still making some urine, will continue to monito
[2020-03-25 17:53] LABS: Glucose Point of Care 284 (65-105)
[2020-03-26] VITALS (32 sets, daily range): BP systolic 124–177; BP diastolic 69–147; PULSE 92–134; RESP 24–33; TEMP 38.4–39.2; O2SAT 92–96
[2020-03-26 00:08] LABS: Glucose Point of Care 235 (65-105)
[2020-03-26] MEDS: IPRATROPIUM BR 0.02% INH SOLN 0.5 MG/2.5 ML VIAL INHALATION ×3 (02:25→21:03)
[2020-03-26] MEDS: LEVALBUTEROL NEB 1.25 MG/3 ML 0.63 MG INHALATION ×3 (02:25→21:03)
[2020-03-26 04:11] LABS: Lactic Acid Reflex 1.7 mmol/L (0.7-2.1)
[2020-03-26 04:12] LABS: Alanine Aminotransferase 57 U/L (4-50); Albumin Level 3.1 g/dL (3.5-5.1); Alkaline Phosphatase 61 U/L (38-126); Anion Gap 5 mmol/L (8-16); Aspartate Amino Transferase 48 U/L (17-59); Bilirubin,Total 0.8 mg/dL (0.2-1.3); Blood Urea Nitrogen 60 mg/dL (9-20); Calcium 8.7 mg/dL (8.4-10.2); Carbon Dioxide 28 mmol/L (22-30); Chloride 113 mmol/L (98-107); Estimated CRCL calculation 57 ml/min; Estimated Glomerular Filt Rate 50; Glucose 239 mg/dL (75-110); Magnesium 2.7 mg/dL (1.6-2.3); Phosphorus 3.9 mg/dL (2.5-4.5); Potassium 4.6 mmol/L (3.4-5.0); Sodium 146 mmol/L (137-145)
[2020-03-26 04:17] LABS: Hematocrit 38.9 % (42.0-52.0); Hemoglobin 12.5 g/dL (14.0-18.0); Mean Corpuscular HGB Conc 32.1 g/dl (32-36); Mean Corpuscular Hemoglobin 30.6 pg (26-34); Mean Corpuscular Volume 95.1 fl (80-100); Mean Platelet Volume 11.5 fl (7.4-10.4); Platelet Count Result 199 k/mm3 (150-375); Red Blood Count 4.09 M/mm3 (4.6-6.20); Red Cell Distribution Width 13.7 % (11.5-14.5); White Blood Count 8.8 K/mm3 (4.5-10.0)
[2020-03-26 04:18] LABS: Alveolar/Arterial O2 Gradient 139.3 mmHg; Base Excess ABG 0.2 mEq/l (+/-2.0); Carboxyhemoglobin 0.3 % THb (0-2.0); Device VENTILATOR; Fractional Inspired Oxygen 35 %; HCO3 ABG 23.3 mEq/l (22.0-26.0); Methemoglobin ABG 0.3 %THb (0-1.5); Modified Allen's Test Unable to perform; Oxygen Saturation ABG 95.3 % (95.0-100.0); Oxyhemoglobin 93.3 % THb (90.0-100.0); PCO2 ABG 33.4 mmHg (35.0-45.0); PO2 ABG 71.4 mmHg (80.0-100.0); PO2 FiO2 Ratio Arterial Blood 2.04 %; Reduced Hemoglobin 6.1 %THb (0-5.0); Site Drawn LEFT RADIAL; Total Hemoglobin 14.5 g/dL (12.0-18.0); pH ABG 7.462 (7.350-7.450)
[2020-03-26 04:19] LABS: Arterial Blood Gas PEEP 8 cmH2O; Arterial Blood Gas Tidal Volume 450 ml; Arterial Blood Gas Vent Mode CMV; Arterial Blood Gas Ventilator rate 24 /MIN
[2020-03-26] MEDS: hydrALAZINE HCL 20 MG/ML VIAL 10 MG IV PUSH ×2 (05:39→20:09)
[2020-03-26] MEDS: INSULIN ASPART (*BKC) 100 UNITS/ML SUB-Q ×4 (05:39→23:21)
[2020-03-26] MEDS: ENOXAPARIN 120 MG/0.8 ML SYRINGE SUB-Q ×2 (05:39→16:19)
[2020-03-26] MEDS: CENTRAL LINE FLUSH 10 ML IV PUSH ×3 (07:13→20:12)
[2020-03-26] MEDS: INSULIN DETEMIR 100 UNITS/ML 35 UNITS SUB-Q ×2 (09:04→20:10)
[2020-03-26] MEDS: ACETAMINOPHEN 325 MG TABLET 650 MG PO ×2 (09:11→20:09)
[2020-03-26] MEDS: ATORVASTATIN 40 MG TABLET 80 MG PO (09:13)
[2020-03-26] MEDS: METOPROLOL TARTRATE 50 MG TAB PO ×2 (09:14→20:11)
[2020-03-26] MEDS: CLOPIDOGREL BISULFATE 75 MG TABLET PO (09:14)
[2020-03-26] MEDS: DEXAMETHASONE SOD PHOS INJ 4 MG/ML VIAL 6 MG IV PUSH (09:14)
[2020-03-26] MEDS: buPROPion HCL 75 MG TABLET PO ×2 (09:14→20:12)
[2020-03-26] MEDS: CHOLECALCIFEROL 1,000 UNITS TABLET 5000 UNITS PO (09:14)
[2020-03-26] MEDS: SERTRALINE HCL 50 MG TABLET 100 MG PO (09:15)
[2020-03-26] MEDS: PANTOPRAZOLE SODIUM IV 40 MG VIAL IV PUSH (09:15)
[2020-03-26] MEDS: polyethylene glycoL 3350 17 GM POWD.PACK PO (09:15)
[2020-03-26] MEDS: MICONAZOLE NITRATE 2% CREAM 30 GM TUBE 1 APPLIC TOPICAL ×2 (09:16→20:11)
--- NOTE | 2020-03-26 09:37 | WPDINTPN ---
Progress Note: A&P Assessment and Plan (1) Acute respiratory failure with hypoxia: Code(s): J96.01 - Acute respiratory failure with hypoxia Status: Acute Assessment and Plan: Acute respiratory failure likely secondary to COVID-19 pneumonia -intubated on 03/17/2020 -chest x-ray shows No interval change in patchy bilateral airspace disease consistent with pneumonia -will increase tidal volume to 6 mL/kg of predicted body weight and decreas respiratory rate. -continue bronchodilators -patient on propofol for sedation, (2) Fever: Code(s): R50.9 - Fever, unspecified Status: Acute Assessment and Plan: Fevers persists -sputum sputum, blood, cultures negative -appreciate infectious disease evaluation and recommendation, -continue cefepime g q.8 hours -vancomycin was discontinued on 03/24/2020 -bilateral lower extremity venous Dopplers were negative for DVT (3) Pneumonia due to COVID-19 virus: Code(s): U07.1 - COVID-19; J12.89 - Other viral pneumonia Status: Acute Assessment and Plan: SARS-CoV-2 PCR positive on 03/11/2020 -patient presented to outside hospital 03/16/2020 with productive cough, shortness of breath, wheezing hypoxia -continue dexamethasone IV for 10 days -received 5 days of Remdesivir -03/17 received to convalescent plasma -continue airborne, contact, droplet isolation/precautions -will monitor inflammatory markers (4) Pulmonary embolism associated with severe acute respiratory syndrome coronavirus 2 (SARS-CoV-2) infection: Code(s): U07.1 - COVID-19; I26.99 - Other pulmonary embolism without acute cor pulmonale Status: Acute Assessment and Plan: Possible small segmental PEs on CTA chest the outside hospital lots of motion artifact -patient has been started on therapeutic Lovenox -03/21/2020 venous Dopplers bilateral lower extremities negative for DVT (5) Hyperglycemia: Code(s): R73.9 - Hyperglycemia, unspecified Status: Acute Assessment and Plan: Continue Accu-Cheks, sliding scale insulin -increased Levemir -hyperglycemia likely related to dexamethasone (6) Coronary artery disease: Code(s): I25.10 - Atherosclerotic heart disease of [place] coronary artery without angina pectoris Status: Acute Assessment and Plan: Continue clopidogrel, atorvastatin (7) Dietary counseling and surveillance: Code(s): Z71.3 - Dietary counseling and surveillance Status: Acute Assessment and Plan: Tolerating tube feeds Decreased free water flushes -on Reglan Stress ulcer prophylaxis: Protonix (8) DVT prophylaxis: Code(s): Z29.9 - Encounter for prophylactic measures, unspecified Status: Acute Assessment and Plan: DVT prophylaxis: Therapeutic Lovenox (9) Encephalopathy: Code(s): G93.40 - Encephalopathy, unspecified Status: Acute Assessment and Plan: Encephalopathy after decreasing sedation. -will obtain CT scan of the brain -neurology consult -patient may require EEG at some point Additional Plan D/w Jodie, spouse, updated with patient's condition plan. And updated with patient's condition and plan of care. I did discuss with her regarding the decrease in oxygen requirement on the breathing machine but he is not able to wake up. She is aware that I will be getting CT scan of the brain and neurology consult. Code status: Full code Critical care time spent: 34 minutes Due to a high probability of clinically significant, life threatening deterioration, the patient required my highest level of preparedness to intervene emergently and I personally spent this critical care time directly and personally managing the patient. This critical care time included obtaining a history; examining the patient; pulse oximetry; ordering and review of studies; arranging urgent treatment with development of a management plan; evaluation of patient's response to treatment;
[2020-03-26 09:46] LABS: Glucose Point of Care 234 (65-105)
--- NOTE | 2020-03-26 10:50 | PCDIET ---
ICU Rounding Note: Patient tolerating Glucerna 1.2 at 60mL/hr goal rate with 100mL water flush every 4 hours. Last recorded weight is 135kg which is increased from last review, although -I/O noted. Bowel Motility: No BM reported. Discussed during rounds - Miralax continued. Labs Reviewed: Hgb (12.5), Hct (38.9), Glu (239), BUN (60), Cr (1.4), Cl (113), Na (146), Alb (3.1), Mg (2.7) Meds Noted: Lipitor, Cefepime, Decadron, Hydralazine, Novolog, Levemir, Xopenex, Reglan, Lopressor, Protonix, Miralax, Propofol (rate of 11.13mL/hr provides 294kcal per day), Vitamin D Additional Notes: Levemir increased today. Sodium/chloride levels slightly improved. No documented skin breakdown. Following daily in ICU rounds. Assessing/reassessing every Monday/Monday.
--- NOTE | 2020-03-26 11:04 | P.PNNP_ITS ---
Progress Note: A&P Assessment and Plan (1) CLARK (acute kidney injury): Code(s): N17.9 - Acute kidney failure, unspecified Status: Acute Assessment and Plan: * creatinine on admission 1.0mg/dl (presumed baseline) * peaked at 1.7mg/dl on March 20. * suspect multifactorial etiology: - contrast/dye exposure for CT of chest at OSH - prerenal factors - infection (COVD-19 * Creatinine is Down to 1.4. * He is still making some urine. * He seems to have plateaued above his prior creatinine. * He has mottling with good pulses. I wonder if he might have had a spontaneous episode of atheroemboli. (2) Acute respiratory failure with hypoxia: Code(s): J96.01 - Acute respiratory failure with hypoxia Status: Acute Assessment and Plan: * due to COVID-19 pneumonia * He also had a pulmonary embolus * on ventilator. (3) Pneumonia due to COVID-19 virus: Code(s): U07.1 - COVID-19; J12.89 - Other viral pneumonia Status: Acute Assessment and Plan: * tested positive on 03/11/2020 * started on dexamethasone for 10 days * s/p remdesivir for 5 days * s/p convalescent plasma on 03/17/20 * on airborne/contact/droplet isolation * Still on the ventilator. (4) Pulmonary embolism associated with severe acute respiratory syndrome coronavirus 2 (SARS-CoV-2) infection: Code(s): U07.1 - COVID-19; I26.99 - Other pulmonary embolism without acute cor pulmonale Status: Acute Assessment and Plan: * as noted by CT Chest at OSH * on anticoagulation (5) Hypernatremia: Code(s): E87.0 - Hyperosmolality and hypernatremia Status: Acute Assessment and Plan: sodium level is Slowly coming down check again in the morning Subjective Date/time seen: 03/26/20 11:04 Interval history: patient is on the ventilator and sedated. He cannot give a history. He is on tube feedings. He is off pressors. Feet are somewhat mottled Review of Systems Review of Systems: ROS unobtainable: Yes unobtainable due to medical condition Exam Narrative: Exam Narrative: General: WD/WN male in NAD; intubated/sedated Heart: normal S1 and S2; no rub Lungs: coarse breath sounds bilaterally Abdomen: soft, nontender, nondistended, positive bowel sounds Extremities: 1+ edema. Some mottling on his feet. Pulses are good. Skin: no rash Or subcu nodules Objective Data Vital Signs Vital Signs: Vital Signs - 24 hr 03/25/20 11:15 03/25/20 12:00 03/25/20 12:20 Temperature 38.3 C H 38.8 C H Pulse Rate 104 H 106 H Respiratory Rate 18 15 Blood Pressure 181/110 H Pulse Oximetry 94 03/25/20 14:00 03/25/20 14:22 03/25/20 14:25 Temperature 38.7 C H Pulse Rate 119 H 119 H 118 H Respiratory Rate 16 28 H Blood Pressure 168/112 H Pulse Oximetry 93 93 03/25/20 14:33 03/25/20 16:00 03/25/20 16:45 Temperature 38.6 C H Pulse Rate 118 H 118 H 117 H Respiratory Rate 24 H 28 H 28 H Blood Pressure 180/106 H Pulse Oximetry 93 03/25/20 17:06 03/25/20 18:00 03/25/20 19:49 Temperature 38.7 C H Pulse Rate 120 H 117 H 121 H Respiratory Rate
--- NOTE | 2020-03-26 11:04 | PM.PNNEP ---
Progress Note: A&P Assessment and Plan (1) CLARK (acute kidney injury): Code(s): N17.9 - Acute kidney failure, unspecified Status: Acute Assessment and Plan: creatinine on admission 1.0mg/dl (presumed baseline) peaked at 1.7mg/dl on March 20. suspect multifactorial etiology: - contrast/dye exposure for CT of chest at OSH - prerenal factors - infection (COVD-19 Creatinine is Down to 1.4. He is still making some urine. He seems to have plateaued above his prior creatinine. He has mottling with good pulses. I wonder if he might have had a spontaneous episode of atheroemboli. (2) Acute respiratory failure with hypoxia: Code(s): J96.01 - Acute respiratory failure with hypoxia Status: Acute Assessment and Plan: due to COVID-19 pneumonia He also had a pulmonary embolus on ventilator. (3) Pneumonia due to COVID-19 virus: Code(s): U07.1 - COVID-19; J12.89 - Other viral pneumonia Status: Acute Assessment and Plan: tested positive on 03/11/2020 started on dexamethasone for 10 days s/p remdesivir for 5 days s/p convalescent plasma on 03/17/20 on airborne/contact/droplet isolation Still on the ventilator. (4) Pulmonary embolism associated with severe acute respiratory syndrome coronavirus 2 (SARS-CoV-2) infection: Code(s): U07.1 - COVID-19; I26.99 - Other pulmonary embolism without acute cor pulmonale Status: Acute Assessment and Plan: as noted by CT Chest at OSH on anticoagulation (5) Hypernatremia: Code(s): E87.0 - Hyperosmolality and hypernatremia Status: Acute Assessment and Plan: sodium level is Slowly coming down check again in the morning Subjective Date/time seen: 03/26/20 11:04 Interval history: patient is on the ventilator and sedated. He cannot give a history. He is on tube feedings. He is off pressors. Feet are somewhat mottled Review of Systems Review of Systems: ROS unobtainable: Yes unobtainable due to medical condition Exam Narrative: Exam Narrative: General: WD/WN male in NAD; intubated/sedated Heart: normal S1 and S2; no rub Lungs: coarse breath sounds bilaterally Abdomen: soft, nontender, nondistended, positive bowel sounds Extremities: 1+ edema. Some mottling on his feet. Pulses are good. Skin: no rash Or subcu nodules Objective Data Vital Signs Vital Signs: Vital Signs - 24 hr 03/25/20 11:15 03/25/20 12:00 03/25/20 12:20 Temperature 38.3 C H 38.8 C H Pulse Rate 104 H 106 H Respiratory Rate 18 15 Blood Pressure 181/110 H Pulse Oximetry 94 03/25/20 14:00 03/25/20 14:22 03/25/20 14:25 Temperature 38.7 C H Pulse Rate 119 H 119 H 118 H Respiratory Rate 16 28 H Blood Pressure 168/112 H Pulse Oximetry 93 93 03/25/20 14:33 03/25/20 16:00 03/25/20 16:45 Temperature 38.6 C H Pulse Rate 118 H 118 H 117 H Respiratory Rate 24 H 28 H 28 H Blood Pressure 180/106 H Pulse Oximetry 93 03/25/20 17:06 03/25/20 18:00 03/25/20 19:49 Temperature 38.7 C H Pulse Rate 120 H 117 H 121 H Respiratory Rate 28 H 30 H Blood Pressure 159/84 H Pulse Oximetry 94 94 03/25/20 19:53 03/25/20 19:54 03/25/20 19:57 Temperature 38.8 C H Pulse Rate 121 H 121 H Respiratory Rate 30 H Blood Pressure Pulse Oximetry 94 03/25/20 19:58 03/25/20 20:00 03/25/20 21:30 Temperature 38.8 C H 38.8 C H Pulse Rate 120 H 118 H Respiratory Rate 30 H Blood Pressure 170/104 H Pulse Oximetry 94 03/25/20 22:00 03/25/20 23:23 03/26/20 00:47 Temperature 38.8 C H Pulse Rate 96 103 H 104 H Respiratory Rate 25 H Blood Pressure 160/93 H Pulse Oximetry 95 95 03/26/20 00:50 03/26/20 02:00 03/26/20 02:25 Temperature 38.8 C H 38.7 C H Pulse Rate 104 H 102 H 104 H Respiratory Rate 25 H 27 H 28 H Blood Pressure 177/101 H 166/98 H Pu
[2020-03-26 12:07] LABS: Glucose Point of Care 256 (65-105)
[2020-03-26] MEDS: IBUPROFEN IV 400 MG in SODIUM CHLORIDE 0.9% IV 100 ML 200 MG IVPB (13:32)
[2020-03-26] MEDS: PROPOFOL IV EMULSION 100 ML 14.84 MG IV CONT ×2 (13:33→18:13)
--- NOTE | 2020-03-26 14:17 | WPDINFPN2 ---
Progress Note: A&P Assessment and Plan (1) Fever: Code(s): R50.9 - Fever, unspecified Status: Acute Additional Plan 1. Fever, persists, exam=no findings to explain. Sinusitis on CT may explain fever but we should investigate other possibilities, besides uncomplicated respiratory source 2. Recent CoVid 19 infection, on steroids, +remdesivir in past 3. Mild renal insufficiency REC Cefepime # 5, continue, no new dose adjustments. Discussed, will set up for CT of viscera, and redo BCs. PICC can remain in place Subjective Date/time seen: 03/26/20 14:17 Interval history: sedated, no pressors Exam Narrative: Exam Narrative: t max 39.1 core Const: General: no acute distress Other: obese HENMT: Other: sinuses no erythema apparent tenderness edema nasal discharge. Eyes: General: appearance normal, both eyes and all related structures Resp: Effort & Inspection: normal respiratory effort Auscultation: clear to auscultation bilaterally Cardio: Rate: regular rate Rhythm: regular rhythm Heart sounds: no murmurs GI: Inspection: non-distended GI Palp: Yes Soft to palpation, No Tenderness to palpation present (GI) and No Guarding due to palpation present (GI) Percussion: Yes normal to percussion : Male General Exam: Yes normal external exam Urinary Catheter: Urinary Catheter: urine clear Skin: General skin exam: normal color and no rashes or lesions noted Other: mild erythroderma upper chest Objective Data Vital Signs Vital Signs: Vital Signs - 24 hr 03/25/20 14:22 03/25/20 14:25 03/25/20 14:33 Temperature Pulse Rate 119 H 118 H 118 H Respiratory Rate 28 H 24 H Blood Pressure Pulse Oximetry 93 03/25/20 16:00 03/25/20 16:45 03/25/20 17:06 Temperature 38.6 C H Pulse Rate 118 H 117 H 120 H Respiratory Rate 28 H 28 H Blood Pressure 180/106 H Pulse Oximetry 93 94 03/25/20 18:00 03/25/20 19:49 03/25/20 19:53 Temperature 38.7 C H 38.8 C H Pulse Rate 117 H 121 H Respiratory Rate 28 H 30 H Blood Pressure 159/84 H Pulse Oximetry 94 03/25/20 19:54 03/25/20 19:57 03/25/20 19:58 Temperature Pulse Rate 121 H 121 H 120 H Respiratory Rate 30 H Blood Pressure Pulse Oximetry 94 03/25/20 20:00 03/25/20 21:30 03/25/20 22:00 Temperature 38.8 C H 38.8 C H 38.8 C H Pulse Rate 118 H 96 Respiratory Rate 30 H 25 H Blood Pressure 170/104 H 160/93 H Pulse Oximetry 94 95 03/25/20 23:23 03/26/20 00:47 03/26/20 00:50 Temperature 38.8 C H Pulse Rate 103 H 104 H 104 H Respiratory Rate 25 H Blood Pressure 177/101 H Pulse Oximetry 95 94 03/26/20 02:00 03/26/20 02:25 03/26/20 02:29 Temperature 38.7 C H Pulse Rate 102 H 104 H 106 H Respiratory Rate 27 H 28 H Blood Pressure 166/98 H Pulse Oximetry 93 96 03/26/20 04:00 03/26/20 04:41 03/26/20 05:33 Temperature 38.4 C H Pulse Rate 101 H 101 H 104 H Respiratory Rate 26 H 26 H Blood Pressure 165/106 H Pulse Oximetry 92 96 03/26/20 08:50 03/26/20 08:53 03/26/20 09:11 Temperature 38.9 C H Pulse Rate 133 H 134 H Respiratory Rate 33 H Blood Pressure Pulse Oximetry 93 03/26/20 09:14 03/26/20 10:11 03/26/20 11:45 Temperature 39.2 C H Pulse Rate 134 H 99 Respiratory Rate Blood Pressure Pulse Oximetry 94 03/26/20 13:32 Temperature 39.1 C H Pulse Rate Respiratory Rate Blood Pressure Pulse Oximetry Intake/Output Intake/Output: Intake & Output 03/23/20 03/24/20 03/25/20 03/26/20 23:59 23:59 23:59 23:59 Intake Total 2476.9 2466.9 2040 886 Output Total 2150 1750 4200 650 Balance 326.9 716.9 -2160 236 Meds/Results Medications: Active Medications Generic Name Dose Route Start Last Admin Trade Name Freq PRN Reason Stop Dose Admin Acetaminophen 650 mg 03/17/20 04:13 03/26/20 09:11 Acetaminophen 325 Mg Tablet PO 650 mg Q4H PRN Administration Mild Pain (1-3) or Fever Atorvastatin Calcium 80 mg 03/17/20 09:00 03/26
--- NOTE | 2020-03-26 14:49 | WPDNEURCNPN ---
Assessment and Plan Assessment and plan (1) Encephalopathy: Code(s): G93.40 - Encephalopathy, unspecified Status: Acute (2) Hypernatremia: Code(s): E87.0 - Hyperosmolality and hypernatremia Status: Acute (3) Fever: Code(s): R50.9 - Fever, unspecified Status: Acute (4) Hyponatremia: Code(s): E87.1 - Hypo-osmolality and hyponatremia Status: Acute (5) CLARK (acute kidney injury): Code(s): N17.9 - Acute kidney failure, unspecified Status: Acute (6) DVT prophylaxis: Code(s): Z29.9 - Encounter for prophylactic measures, unspecified Status: Acute (7) Dietary counseling and surveillance: Code(s): Z71.3 - Dietary counseling and surveillance Status: Acute (8) Coronary artery disease: Code(s): I25.10 - Atherosclerotic heart disease of [place] coronary artery without angina pectoris Status: Acute (9) Hyperglycemia: Code(s): R73.9 - Hyperglycemia, unspecified Status: Acute (10) Anxiety: Code(s): F41.9 - Anxiety disorder, unspecified Status: Acute (11) Pulmonary embolism associated with severe acute respiratory syndrome coronavirus 2 (SARS-CoV-2) infection: Code(s): U07.1 - COVID-19; I26.99 - Other pulmonary embolism without acute cor pulmonale Status: Acute (12) Acute respiratory failure with hypoxia: Code(s): J96.01 - Acute respiratory failure with hypoxia Status: Acute (13) Pneumonia due to COVID-19 virus: Code(s): U07.1 - COVID-19; J12.89 - Other viral pneumonia Status: Acute Additional Plan multifactorial encephalopathy obviously COVID is the main factor a CT scan of the head today with no evidence of bleed and obvious signs of stroke treatment to be continued as such we will obtain EEG at a later date Consult date: 03/26/20 Time Seen: 14:00 HPI: Griffin Meehan is a 74 year old male admitted to the hospital for the complaints of increasing difficulties in breathing in addition to the ongoing history of 1. Coronary artery disease 2. Congestive heart failure 3. Hypertension 4. Benign prostatic hypertrophy 5. Obstructive sleep apnea. Patient had recently been diagnosed to have COVID-19 with symptoms of cough with sputum dyspnea on exertion wheezing. In the emergency room he was noted to be tachycardiac with respiration 36 PO2 88% and in and out of the paced rhythm BNP [address] to 17 lactic acid 2.6 D-dimer 1.46 x-ray chest with multilobar pneumonia with consolidation of the right lung CT of the chest consistent with COVID-19 bilateral infiltrations. 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 Review of Systems Review of Systems: All systems reviewed & are unremarkable except as noted in HPI and below PMFSH Past Medical History Medical History Anxiety and depression Benign prostatic hyperplasia Bronchitis Congestive heart failure Coronary artery disease Essential hypertension Gastroesophageal reflux disease Hyperlipidemia Hypernatremia Hypernatremia Overactive bladder Surgical History Surgical History Status post placement of cardiac pacemaker Family History Family History Other Unknown family medical history Social History Social History Smoking packs per day: 1 Smoking cigarettes per day: 20.0 Smoking status: Current every day smoker Alcohol intake: never Substance use: never Substance use type: does not use Living arrangements: with f
--- NOTE | 2020-03-26 17:32 | PM.IMPN ---
Progress Note: A&P Assessment and Plan (1) Pneumonia due to COVID-19 virus: Code(s): U07.1 - COVID-19; J12.89 - Other viral pneumonia Status: Acute Assessment and Plan: -COVID-19 pneumonia diagnosed -CT and chest x-ray consistent with COVID-19 pneumonia -inflammatory markers are mildly elevated ferritin 597, LDH 728, CRP 8.7 -wean oxygen to keep saturations greater than 90%, currently 9 L oxygen nasal cannula, weaned off BiPAP, patient may need CPAP at night -ABG showed PO2 85 on 50% FiO2 -Tylenol for fever -albuterol nebs q.6 hours, is unclear if he could cooperate for MDI -dexamethasone 6 mg IV daily -will need to find out with when COVID-19 was diagnosed to see if he is appropriate for remdesivir and convalescent plasma -continue home Pepcid for GI prophylaxis -supplements vitamin-D 5000 units -on full-dose Lovenox for possible PE -holding off on further antibiotics and will re-evaluate tomorrow as patient does not a leukocytosis or sputum production 03/26/20 17:32 Patient is 74-year-old male with history of congestive heart failure, cardiac arrhythmia, coronary artery disease hypertension hyperlipidemia patient was diagnosed with COVID-19 on 03/11/2020 and he was admitted at [facility] with shortness of breath and hypoxia he was transferred to 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 patient been fibrile with tmax if 103.5, urine culture is growing coagulase-negative staph, being treated with cefepime and vancomycin Dr. boothe is consult, currently on vent and sedated unable to provide any review of symptoms, has grade fever, was seen by Dr. Boothe recommended to continue Cefepime #5 continue, vancomycin was stopped did improve creatinine slightly still making some urine. on 03/26 patient is off sedation however is not responding unable to wean the patient off the ventilator, discussed with senior web analyst will consult neurologist patient may need EEG to further evaluate, the CT scan the head was negative for any acute injury will continue to monitor appreciate senior web analyst, ID and security controls assessor Subjective Date/time seen: 03/26/20 17:32 Patient is 74-year-old male with history of congestive heart failure, cardiac arrhythmia, coronary artery disease hypertension hyperlipidemia patient was diagnosed with COVID-19 on 03/11/2020 and he was admitted at [facility] with shortness of breath and hypoxia he was transferred to [facility] on 03/16 to intermediate care unit (IMU) he developed significant agitation was not keeping his BiPAP and was desaturating so utility bill collection clerk of 03/17 patient was intubated and placed on ventilator by the all around presser after he spoke with family, now in ICU patient is seen by senior web analyst patient is started on dexamethasone 03/17 for 10days 5/10 , Remdesovor for 5 day on 03/17 5/5 and received 1 unit convalescent plasma 03/17, on 03/19 patient creatinine climb to 1.6 from 1.3, renal US was normal, gently hydrated, on 03/20/2020 patient BUN and creatinine was rising however on 03/21 it was trending down, patient is seen by security controls assessor further recommendation to follow. patient been fibrile with tmax if 103.5, urine culture is growing coagulase-negative staph, being treated with cefepime and vancomycin Dr. boothe is consult, currently on vent and sedate
[2020-03-26 18:30] LABS: Glucose Point of Care 301 (65-105)
[2020-03-26 21:04] LABS: Glucose Point of Care 271 (65-105)
[2020-03-26 23:42] LABS: Glucose Point of Care 240 (65-105)
[2020-03-27] VITALS (39 sets, daily range): BP systolic 95–152; BP diastolic 69–109; PULSE 76–116; RESP 22–31; TEMP 36.4–39.2; O2SAT 90–97
[2020-03-27] MEDS: ACETAMINOPHEN 325 MG TABLET 650 MG PO ×2 (00:07→05:12)
[2020-03-27] MEDS: PROPOFOL IV EMULSION 100 ML 14.84 MG IV CONT ×4 (01:37→18:38)
[2020-03-27] MEDS: LEVALBUTEROL NEB 1.25 MG/3 ML 0.63 MG INHALATION ×4 (02:25→19:50)
[2020-03-27] MEDS: IPRATROPIUM BR 0.02% INH SOLN 0.5 MG/2.5 ML VIAL INHALATION ×4 (02:25→19:50)
[2020-03-27 04:41] LABS: Alveolar/Arterial O2 Gradient 140.4 mmHg; Base Excess ABG -0.8 mEq/l (+/-2.0); Carboxyhemoglobin 0.3 % THb (0-2.0); Fractional Inspired Oxygen 35 %; HCO3 ABG 22.3 mEq/l (22.0-26.0); Methemoglobin ABG 0.1 %THb (0-1.5); Oxygen Content ABG 17.9 %vol (16.0-22.0); Oxygen Saturation ABG 95.3 % (95.0-100.0); Oxyhemoglobin 92.7 % THb (90.0-100.0); PCO2 ABG 32.5 mmHg (35.0-45.0); PO2 ABG 71.4 mmHg (80.0-100.0); PO2 FiO2 Ratio Arterial Blood 2.04 %; Reduced Hemoglobin 6.9 %THb (0-5.0); Total Hemoglobin 13.7 g/dL (12.0-18.0); pH ABG 7.455 (7.350-7.450)
[2020-03-27 04:42] LABS: Device VENTILATOR; Modified Allen's Test Pass; Site Drawn RIGHT RADIAL
[2020-03-27 04:43] LABS: Arterial Blood Gas PEEP 8 cmH2O; Arterial Blood Gas Tidal Volume 480 ml; Arterial Blood Gas Vent Mode CMV; Arterial Blood Gas Ventilator rate 24 /MIN
[2020-03-27] MEDS: INSULIN ASPART (*BKC) 100 UNITS/ML SUB-Q ×4 (05:10→23:48)
[2020-03-27] MEDS: ENOXAPARIN 120 MG/0.8 ML SYRINGE SUB-Q ×2 (05:10→17:06)
[2020-03-27] MEDS: CENTRAL LINE FLUSH 10 ML IV PUSH ×3 (05:11→20:24)
[2020-03-27 05:59] LABS: Hematocrit 41.9 % (42.0-52.0); Hemoglobin 13.3 g/dL (14.0-18.0); Mean Corpuscular HGB Conc 31.7 g/dl (32-36); Mean Corpuscular Hemoglobin 31.1 pg (26-34); Mean Corpuscular Volume 97.9 fl (80-100); Mean Platelet Volume 11.3 fl (7.4-10.4); Platelet Count Result 193 k/mm3 (150-375); Red Blood Count 4.28 M/mm3 (4.6-6.20); White Blood Count 10.6 K/mm3 (4.5-10.0)
[2020-03-27 06:01] LABS: Glucose Point of Care 219 (65-105)
[2020-03-27 06:13] LABS: Alanine Aminotransferase 76 U/L (4-50); Albumin Level 3.3 g/dL (3.5-5.1); Alkaline Phosphatase 66 U/L (38-126); Anion Gap 5 mmol/L (8-16); Aspartate Amino Transferase 57 U/L (17-59); Bilirubin,Total 0.8 mg/dL (0.2-1.3); Blood Urea Nitrogen 57 mg/dL (9-20); Calcium 8.8 mg/dL (8.4-10.2); Carbon Dioxide 28 mmol/L (22-30); Chloride 114 mmol/L (98-107); Estimated CRCL calculation 60 ml/min; Estimated Glomerular Filt Rate 54; Glucose 250 mg/dL (75-110); Magnesium 2.6 mg/dL (1.6-2.3); Phosphorus 4.9 mg/dL (2.5-4.5); Potassium 4.9 mmol/L (3.4-5.0); Sodium 147 mmol/L (137-145)
[2020-03-27] MEDS: buPROPion HCL 75 MG TABLET PO ×2 (07:46→20:25)
[2020-03-27] MEDS: polyethylene glycoL 3350 17 GM POWD.PACK PO (07:46)
[2020-03-27] MEDS: ATORVASTATIN 40 MG TABLET 80 MG PO (07:46)
[2020-03-27] MEDS: SERTRALINE HCL 50 MG TABLET 100 MG PO (07:46)
[2020-03-27] MEDS: DEXAMETHASONE SOD PHOS INJ 4 MG/ML VIAL 6 MG IV PUSH (07:47)
[2020-03-27] MEDS: CLOPIDOGREL BISULFATE 75 MG TABLET PO (07:47)
[2020-03-27] MEDS: METOPROLOL TARTRATE 50 MG TAB PO ×2 (07:47→20:24)
[2020-03-27] MEDS: CHOLECALCIFEROL 1,000 UNITS TABLET 5000 UNITS PO (07:47)
[2020-03-27] MEDS: MICONAZOLE NITRATE 2% CREAM 30 GM TUBE 1 APPLIC TOPICAL ×2 (07:48→20:24)
[2020-03-27] MEDS: PANTOPRAZOLE SODIUM IV 40 MG VIAL IV PUSH (07:48)
[2020-03-27] MEDS: INSULIN DETEMIR 100 UNITS/ML 35 UNITS SUB-Q ×2 (08:34→20:25)
--- NOTE | 2020-03-27 10:03 | P.PNNP_ITS ---
Progress Note: A&P Assessment and Plan (1) CLARK (acute kidney injury): Code(s): N17.9 - Acute kidney failure, unspecified Status: Acute Assessment and Plan: * creatinine on admission 1.0mg/dl (presumed baseline) * peaked at 1.7mg/dl on March 20. * suspect multifactorial etiology: - contrast/dye exposure for CT of chest at OSH - prerenal factors - infection (COVD-19 * Creatinine is Down to 1.3. * He is still making urine. 3600cc yesterday. * He seems to have plateaued above his prior creatinine. * He has mottling with good pulses. I wonder if he might have had a spontaneous episode of atheroemboli. (2) Acute respiratory failure with hypoxia: Code(s): J96.01 - Acute respiratory failure with hypoxia Status: Acute Assessment and Plan: * due to COVID-19 pneumonia * He also had a pulmonary embolus * on ventilator. (3) Pneumonia due to COVID-19 virus: Code(s): U07.1 - COVID-19; J12.89 - Other viral pneumonia Status: Acute Assessment and Plan: * tested positive on 03/11/2020 * started on dexamethasone for 10 days * s/p remdesivir for 5 days * s/p convalescent plasma on 03/17/20 * on airborne/contact/droplet isolation * Still on the ventilator. * Oxygen requirements are improved. (4) Pulmonary embolism associated with severe acute respiratory syndrome coronavirus 2 (SARS-CoV-2) infection: Code(s): U07.1 - COVID-19; I26.99 - Other pulmonary embolism without acute cor pulmonale Status: Acute Assessment and Plan: * as noted by CT Chest at OSH * on anticoagulation (5) Hypernatremia: Code(s): E87.0 - Hyperosmolality and hypernatremia Status: Acute Assessment and Plan: sodium level is still a bit high. I hesitate to give lots of D5W because of the COVID and concerns for fluid overload. Discussed with Dr. Kennedy; instead of more D5W, we will increase tube feeding flushes a little bit and hopefully the sodium will not get worse. check again in the morning Subjective Date/time seen: 03/27/20 10:03 Interval history: patient is on the ventilator and sedated. He cannot give a history. He is on tube feedings. No pressors. Review of Systems Review of Systems: ROS unobtainable: Yes unobtainable due to medical condition Exam Narrative: Exam Narrative: General: WD/WN male in NAD; intubated/sedated Heart: normal S1 and S2; no rub Lungs: coarse breath sounds bilaterally Abdomen: soft, nontender, nondistended, positive bowel sounds Extremities: 1+ edema. Some mottling on his feet. Pulses in the dorsalis pedis are good. Skin: no rash Or subcu nodules Objective Data Vital Signs Vital Signs: Vital Signs - 24 hr 03/26/20 10:11 03/26/20 11:45 03/26/20 12:00 Temperature 39.2 C H 39.2 C H Pulse Rate 99 99 Respiratory Rate 27 H Blood Pressure 124/82 Pulse Oximetry 94 94 03/26/20 13:32 03/26/20 14:00 03/26/20 14:32 Temperature 39.1 C H 39.1 C H 38.8 C H Pulse Rate 107 H Respiratory Rate 29 H Blood Pressure 142/108 H Pulse Oximetry 95 03/26/20 15:50 03/26/20 16:00 03/26/20 16:57 Temperature 38.8 C H Pulse Rate 114 H 101 H 106 H Respirator
--- NOTE | 2020-03-27 10:03 | PM.PNNEP ---
Progress Note: A&P Assessment and Plan (1) CLARK (acute kidney injury): Code(s): N17.9 - Acute kidney failure, unspecified Status: Acute Assessment and Plan: creatinine on admission 1.0mg/dl (presumed baseline) peaked at 1.7mg/dl on March 20. suspect multifactorial etiology: - contrast/dye exposure for CT of chest at OSH - prerenal factors - infection (COVD-19 Creatinine is Down to 1.3. He is still making urine. 3600cc yesterday. He seems to have plateaued above his prior creatinine. He has mottling with good pulses. I wonder if he might have had a spontaneous episode of atheroemboli. (2) Acute respiratory failure with hypoxia: Code(s): J96.01 - Acute respiratory failure with hypoxia Status: Acute Assessment and Plan: due to COVID-19 pneumonia He also had a pulmonary embolus on ventilator. (3) Pneumonia due to COVID-19 virus: Code(s): U07.1 - COVID-19; J12.89 - Other viral pneumonia Status: Acute Assessment and Plan: tested positive on 03/11/2020 started on dexamethasone for 10 days s/p remdesivir for 5 days s/p convalescent plasma on 03/17/20 on airborne/contact/droplet isolation Still on the ventilator. Oxygen requirements are improved. (4) Pulmonary embolism associated with severe acute respiratory syndrome coronavirus 2 (SARS-CoV-2) infection: Code(s): U07.1 - COVID-19; I26.99 - Other pulmonary embolism without acute cor pulmonale Status: Acute Assessment and Plan: as noted by CT Chest at OSH on anticoagulation (5) Hypernatremia: Code(s): E87.0 - Hyperosmolality and hypernatremia Status: Acute Assessment and Plan: sodium level is still a bit high. I hesitate to give lots of D5W because of the COVID and concerns for fluid overload. Discussed with Dr. Kennedy; instead of more D5W, we will increase tube feeding flushes a little bit and hopefully the sodium will not get worse. check again in the morning Subjective Date/time seen: 03/27/20 10:03 Interval history: patient is on the ventilator and sedated. He cannot give a history. He is on tube feedings. No pressors. Review of Systems Review of Systems: ROS unobtainable: Yes unobtainable due to medical condition Exam Narrative: Exam Narrative: General: WD/WN male in NAD; intubated/sedated Heart: normal S1 and S2; no rub Lungs: coarse breath sounds bilaterally Abdomen: soft, nontender, nondistended, positive bowel sounds Extremities: 1+ edema. Some mottling on his feet. Pulses in the dorsalis pedis are good. Skin: no rash Or subcu nodules Objective Data Vital Signs Vital Signs: Vital Signs - 24 hr 03/26/20 10:11 03/26/20 11:45 03/26/20 12:00 Temperature 39.2 C H 39.2 C H Pulse Rate 99 99 Respiratory Rate 27 H Blood Pressure 124/82 Pulse Oximetry 94 94 03/26/20 13:32 03/26/20 14:00 03/26/20 14:32 Temperature 39.1 C H 39.1 C H 38.8 C H Pulse Rate 107 H Respiratory Rate 29 H Blood Pressure 142/108 H Pulse Oximetry 95 03/26/20 15:50 03/26/20 16:00 03/26/20 16:57 Temperature 38.8 C H Pulse Rate 114 H 101 H 106 H Respiratory Rate 24 H Blood Pressure 127/69 Pulse Oximetry 96 94 95 03/26/20 18:00 03/26/20 18:13 03/26/20 20:00 Temperature 38.8 C H 39.0 C H Pulse Rate 108 H 109 H 113 H Respiratory Rate 27 H 27 H 28 H Blood Pressure 136/106 H 164/147 H Pulse Oximetry 95 95 03/26/20 20:09 03/26/20 20:11 03/26/20 21:04 Temperature 39.0 C H Pulse Rate 114 H 92 Respiratory Rate 25 H Blood Pressure Pulse Oximetry 95 03/26/20 21:09 03/26/20 22:00 03/26/20 23:34 Temperature 39.0 C H 39.0 C H Pulse Rate 94 96 Respiratory Rate 27 H Blood Pressure 132/102 H Pulse Oximetry 94 94 03/27/20 00:00 03/27/20 00:06 03/27/20 00:07 Temperature 39.1 C H 39.2 C H Pulse R
--- NOTE | 2020-03-27 11:29 | PCDIET ---
Nutrition Follow-Up Complete: Nutrition Diagnosis: Inadequate oral intake related to oral intubation as evidenced by NPO status. Nutrition Goal: Patient to meet estimated nutritional needs. Goal met. Patient tolerating Glucerna 1.2 at 60mL/hr goal rate with 100mL water flush every 4 hours. Consider increasing water flush slightly, if medically appropriate. Last recorded weight is 115.7 kg which is decreased from last review. -I/O. Bowel Motility: +BM today. Labs Reviewed: WBC (10.6), Hgb (13.3), Hct (41.9), Glu (250), BUN (57), Cl (114), Na (147), PO4 (4.9), Mg (2.6), Alb (3.3) Meds Noted: Lipitor, Cefepime, Decadron, Hydralazine, Reglan, Novolog, Levemir, Atrovent, Lopressor, Xopenex, Protonix, Miralax, Vitamin D, Propofol (14.84mL/hr rate provides 391kcal per day) Additional Notes: No documented skin breakdown. Will continue to monitor with same goal. Nutrition Monitoring and Evaluation: Follow up every Monday/Monday. Follow daily in ICU rounds.
--- NOTE | 2020-03-27 12:38 | WPDINTPN ---
Progress Note: A&P Assessment and Plan (1) Encephalopathy: Code(s): G93.40 - Encephalopathy, unspecified Status: Acute Assessment and Plan: Encephalopathy after decreasing sedation. Be related to infection, fevers, seizures, toxic metabolic encephalopathy -brain CT scan on 03/26/2020 does not show any acute intracranial abnormalities, moderate sinus disease, could be related to COVID-19 -appreciate neurology evaluation recommendation, -patient may require EEG at some point -check ammonia level (2) Acute respiratory failure with hypoxia: Code(s): J96.01 - Acute respiratory failure with hypoxia Status: Acute Assessment and Plan: Acute respiratory failure likely secondary to COVID-19 pneumonia -CXR: Persistent bilateral patchy airspace disease mid and lower lung zones, most likely pneumonia. -continue low tidal volume strategy, 6 mL/kg of predicted body weight. ABGs are adequate, patient patient's mental status is not appropriate to place patient on SBT evaluate for extubation. -continue bronchodilators -patient on propofol for sedation, (3) Fever: Qualifiers: Fever type: unspecified Qualified Code(s): R50.9 - Fever, unspecified Code(s): R50.9 - Fever, unspecified Status: Acute Assessment and Plan: Persistently febrile -could be related to atelectasis, pneumonia, thromboembolism, central lines, drug fever, fungal infection -CT scan of the chest abdomen and pelvis on 03/26/2019 multi segment left lower lobe, segmental right lower lobe dependent atelectasis and pneumonia. Scattered diffuse ill-defined ground-glass lung opacities suspicious for COVID-19 pneumonia. Chronic abdominal findings. -repeat sputum blood, urine cultures pending -initial sputum, blood, cultures negative -appreciate infectious disease evaluation and recommendation, -continue cefepime g q.8 hours -vancomycin was discontinued on 03/24/2020 -bilateral lower extremity venous Dopplers were negative for DVT (4) Pneumonia due to COVID-19 virus: Code(s): U07.1 - COVID-19; J12.89 - Other viral pneumonia Status: Acute Assessment and Plan: SARS-CoV-2 PCR positive on 03/11/2020 -patient presented to outside hospital 03/16/2020 with productive cough, shortness of breath, wheezing hypoxia -continue dexamethasone IV for 10 days -received 5 days of Remdesivir -03/17 received to convalescent plasma -continue airborne, contact, droplet isolation/precautions -will monitor inflammatory markers (5) Pulmonary embolism associated with severe acute respiratory syndrome coronavirus 2 (SARS-CoV-2) infection: Code(s): U07.1 - COVID-19; I26.99 - Other pulmonary embolism without acute cor pulmonale Status: Acute Assessment and Plan: Possible small segmental PEs on CTA chest the outside hospital lots of motion artifact -patient has been started on therapeutic Lovenox -03/21/2020 venous Dopplers bilateral lower extremities negative for DVT (6) Hyperglycemia: Code(s): R73.9 - Hyperglycemia, unspecified Status: Acute Assessment and Plan: Continue Accu-Cheks, sliding scale insulin -increased Levemir -hyperglycemia likely related to dexamethasone (7) Coronary artery disease: Qualifiers: Coronary Disease-Associated Artery/Lesion type: unspecified vessel or lesion type [place] vs. transplanted heart: [place] heart Associated angina: without angina Qualified Code(s): I25.10 - Atherosclerotic heart disease of [place] coronary artery without angina pectoris Code(s): I25.10 - Atherosclerotic heart disease of [place] coronary artery without angina pectoris Status: Acute Assessment and Plan: Continue clopidogrel, atorvastatin (8) Dietary counseling and surveillance: Code(s): Z71.3 - Dietary counseling and surveillance Status: Acute Assessment and Plan: Tolerating tube feeds Increase free water flush for hypernatremia -on
[2020-03-27 13:19] LABS: Glucose Point of Care 277 (65-105)
[2020-03-27 13:26] LABS: Ammonia < 9 umol/L (9-30)
--- NOTE | 2020-03-27 15:20 | PM.IMPN ---
Progress Note: A&P Assessment and Plan (1) Pneumonia due to COVID-19 virus: Code(s): U07.1 - COVID-19; J12.89 - Other viral pneumonia Status: Acute Assessment and Plan: -COVID-19 pneumonia diagnosed -CT and chest x-ray consistent with COVID-19 pneumonia -inflammatory markers are mildly elevated ferritin 597, LDH 728, CRP 8.7 -wean oxygen to keep saturations greater than 90%, currently 9 L oxygen nasal cannula, weaned off BiPAP, patient may need CPAP at night -ABG showed PO2 85 on 50% FiO2 -Tylenol for fever -albuterol nebs q.6 hours, is unclear if he could cooperate for MDI -dexamethasone 6 mg IV daily -will need to find out with when COVID-19 was diagnosed to see if he is appropriate for remdesivir and convalescent plasma -continue home Pepcid for GI prophylaxis -supplements vitamin-D 5000 units -on full-dose Lovenox for possible PE -holding off on further antibiotics and will re-evaluate tomorrow as patient does not a leukocytosis or sputum production 03/27/20 15:20 Patient is 74-year-old male with history of congestive heart failure, cardiac arrhythmia, coronary artery disease hypertension hyperlipidemia patient was diagnosed with COVID-19 on 03/11/2020 and he was admitted at [facility] with shortness of breath and hypoxia he was transferred to [facility] on 03/16 to intermediate care unit (IMU) he developed significant agitation was not keeping his BiPAP and was desaturating so grill cook of 03/17 patient was intubated and placed on ventilator by the hot kettle tender after he spoke with family, now in ICU patient is seen by heel reducer patient is started on dexamethasone 03/17 for 10days 07/27 , Remdesovor for 5 day on 03/17 5/ and received 1 unit convalescent plasma 03/17, on 03/19 patient creatinine climb to 1.6 from 1.3, renal US was normal, gently hydrated, on 03/20/2020 patient BUN and creatinine was rising however on 03/21 it was trending down, patient is seen by household appliances salesperson further recommendation to follow. patient been fibrile with tmax if 103.5, urine culture is growing coagulase-negative staph, being treated with cefepime and vancomycin Dr. boothe is consult, currently on vent and sedated unable to provide any review of symptoms, has grade fever, was seen by Dr. Boothe recommended to continue Cefepime #5 continue, vancomycin was stopped did improve creatinine slightly still making some urine. on 03/26 patient is off sedation however is not responding unable to wean the patient off the ventilator, discussed with heel reducer will consult neurologist patient may need EEG to further evaluate, the CT scan the head was negative for any acute injury will continue to monitor appreciate heel reducer, ID and household appliances salesperson 03/27 patient is on propofol for sedation and he is not following simple instruction and does not respond to painful stimuli, today temp is 102.5 and on Cefepime, patient creatinine is 1.3 improving and he is making urine household appliances salesperson suspect this creatinine may be baseline, patient is seen by heel reducer, household appliances salesperson and ID, will continue to monitor and further recommendation to follow. Subjective Date/time seen: 03/27/20 15:20 Patient is 74-year-old male with history of congestive heart failure, cardiac arrhythmia, coronary artery disease hypertension hyperlipidemia patient was diagnosed with COVID-19 on 03/11/2020 and he was admitted at [facility] with shortness of breath and hypoxia he was transferred to [facility] on 03/16 to intermediate care unit (IMU) he developed significant agitation was not keeping his BiPAP and was desaturating so grill cook of 03/17 patient was intubated and placed on ventilator by the hot kettle tender after he spoke with family, now in ICU patient is seen by heel reducer patient is started on dexamethasone 03/17 for 10days /10 , Remdesovor for 5 day on 03/17 07/22 and received 1 unit convalescent plasma 03/17, on 03/19 patient creatinine climb to 1.6
--- NOTE | 2020-03-27 15:42 | WPDINFPN2 ---
Progress Note: A&P Assessment and Plan (1) Fever: Qualifiers: Fever type: unspecified Qualified Code(s): R50.9 - Fever, unspecified Code(s): R50.9 - Fever, unspecified Status: Acute Additional Plan 1. Fever, persists, respiratory source. exam=no findings to explain. Sinusitis on CT may explain fever but I doubt the sole cause. CT of viscera no other sources outside of the lung parenchyma, and prior sputum culture was not helpful. 2. Recent CoVid 19 infection, off steroids, +remdesivir in past 3. Mild renal insufficiency REC Cefepime # 6, stop (due to persistent fever and due to potential for encephalopathy side effect) and place on empiric PipTazo #1. No empiric antifungal needed. PICC can remain in place. New sputum in process Subjective Date/time seen: 03/27/20 15:42 Interval history: no pressors, lightly sedated, opens eyes no purposeful movements Exam Narrative: Exam Narrative: t max 39.0 core Const: General: no acute distress Resp: Effort & Inspection: normal respiratory effort Auscultation: clear to auscultation bilaterally Cardio: Rate: regular rate Rhythm: regular rhythm GI: Inspection: distended GI Palp: Yes Soft to palpation, No Tenderness to palpation present (GI) and No Guarding due to palpation present (GI) Urinary Catheter: Urinary Catheter: patent and draining and urine clear Skin: General skin exam: normal color and no rashes or lesions noted Objective Data Vital Signs Vital Signs: Vital Signs - 24 hr 03/26/20 15:50 03/26/20 16:00 03/26/20 16:57 Temperature 38.8 C H Pulse Rate 114 H 101 H 106 H Respiratory Rate 24 H Blood Pressure 127/69 Pulse Oximetry 96 94 95 03/26/20 18:00 03/26/20 18:13 03/26/20 20:00 Temperature 38.8 C H 39.0 C H Pulse Rate 108 H 109 H 113 H Respiratory Rate 27 H 27 H 28 H Blood Pressure 136/106 H 164/147 H Pulse Oximetry 95 95 03/26/20 20:09 03/26/20 20:11 03/26/20 21:04 Temperature 39.0 C H Pulse Rate 114 H 92 Respiratory Rate 25 H Blood Pressure Pulse Oximetry 95 03/26/20 21:09 03/26/20 22:00 03/26/20 23:34 Temperature 39.0 C H 39.0 C H Pulse Rate 94 96 Respiratory Rate 27 H Blood Pressure 132/102 H Pulse Oximetry 94 94 03/27/20 00:00 03/27/20 00:06 03/27/20 00:07 Temperature 39.1 C H 39.2 C H Pulse Rate 100 100 Respiratory Rate 29 H Blood Pressure 152/80 H Pulse Oximetry 90 03/27/20 02:00 03/27/20 02:23 03/27/20 02:26 Temperature 38.8 C H Pulse Rate 108 H 111 H 113 H Respiratory Rate 29 H Blood Pressure 136/102 H Pulse Oximetry 91 91 03/27/20 02:52 03/27/20 04:00 03/27/20 04:12 Temperature 39.0 C H 38.7 C H Pulse Rate 116 H 114 H Respiratory Rate 28 H Blood Pressure 147/109 H Pulse Oximetry 93 93 03/27/20 05:12 03/27/20 06:00 03/27/20 06:02 Temperature 38.7 C H 38.7 C H Pulse Rate 112 H 112 H Respiratory Rate 28 H Blood Pressure 114/88 Pulse Oximetry 93 03/27/20 06:12 03/27/20 07:47 03/27/20 08:00 Temperature 38.7 C H 38.3 C H Pulse Rate 111 H 113 H Respiratory Rate 22 H Blood Pressure 136/99 H Pulse Oximetry 93 03/27/20 08:10 03/27/20 08:20 03/27/20 10:00 Temperature 38.3 C H Pulse Rate 111 H 110 H 90 Respiratory Rate 24 H 23 H 23 H Blood Pressure 125/84 Pulse Oximetry 94 94 03/27/20 11:15 03/27/20 11:30 03/27/20 11:45 Temperature 38.4 C H 38.5 C H 38.4 C H Pulse Rate 97 98 96 Respiratory Rate 25 H 25 H 24 H Blood Pressure 134/92 H 139/83 134/89 Pulse Oximetry 93 93 93 03/27/20 12:00 03/27/20 12:02 Temperature 38.4 C H Pulse Rate 96 94 Respiratory Rate 23 H Blood Pressure 129/86 Pulse Oximetry 94 94 Intake/Output Intake/Output: Intake & Output 01/08/0703/25/20 03/26/20 03/27/20 23:59 23:59 23:59 23:59 Intake Total 2466.9 2040 2145 1389 Output Total 1750 4200 3000 1250 Balance 716.9 -2315 -851 139 Meds/Results Medications: Active Medications Generic Name Dose Ro
[2020-03-27 17:22] LABS: Glucose Point of Care 241 (65-105)
[2020-03-27 20:45] LABS: Glucose Point of Care 263 (65-105)
[2020-03-28] VITALS (47 sets, daily range): BP systolic 106–144; BP diastolic 66–111; PULSE 71–97; RESP 20–30; TEMP 37.1–38.2; O2SAT 94–99
[2020-03-28 00:04] LABS: Glucose Point of Care 271 (65-105)
[2020-03-28] MEDS: PROPOFOL IV EMULSION 100 ML 14.84 MG IV CONT ×2 (01:37→06:57)
[2020-03-28] MEDS: IPRATROPIUM BR 0.02% INH SOLN 0.5 MG/2.5 ML VIAL INHALATION ×4 (02:59→21:43)
[2020-03-28] MEDS: LEVALBUTEROL NEB 1.25 MG/3 ML 0.63 MG INHALATION ×4 (02:59→21:43)
[2020-03-28] MEDS: ACETAMINOPHEN 325 MG TABLET 650 MG PO ×3 (03:22→17:58)
[2020-03-28 04:19] LABS: Hematocrit 37.3 % (42.0-52.0); Hemoglobin 11.9 g/dL (14.0-18.0); Mean Corpuscular HGB Conc 31.9 g/dl (32-36); Mean Corpuscular Hemoglobin 30.7 pg (26-34); Mean Corpuscular Volume 96.4 fl (80-100); Mean Platelet Volume 11.2 fl (7.4-10.4); Platelet Count Result 192 k/mm3 (150-375); Red Blood Count 3.87 M/mm3 (4.6-6.20); Red Cell Distribution Width 13.6 % (11.5-14.5); White Blood Count 8.9 K/mm3 (4.5-10.0)
[2020-03-28 04:20] LABS: Alveolar/Arterial O2 Gradient 95.3 mmHg; Base Excess ABG -1.2 mEq/l (+/-2.0); Carboxyhemoglobin 0.3 % THb (0-2.0); Fractional Inspired Oxygen 30 %; HCO3 ABG 21.5 mEq/l (22.0-26.0); Methemoglobin ABG 0.3 %THb (0-1.5); Oxygen Content ABG 17.3 %vol (16.0-22.0); Oxygen Saturation ABG 96.9 % (95.0-100.0); Oxyhemoglobin 94.9 % THb (90.0-100.0); PCO2 ABG 30.4 mmHg (35.0-45.0); PO2 ABG 82.9 mmHg (80.0-100.0); PO2 FiO2 Ratio Arterial Blood 2.76 %; Reduced Hemoglobin 4.5 %THb (0-5.0); Total Hemoglobin 12.9 g/dL (12.0-18.0); pH ABG 7.468 (7.350-7.450)
[2020-03-28 04:21] LABS: Device VENTILATOR; Modified Allen's Test Unable to perform; Site Drawn LEFT RADIAL
[2020-03-28 04:22] LABS: Arterial Blood Gas PEEP 8 cmH2O; Arterial Blood Gas Tidal Volume 480 ml; Arterial Blood Gas Vent Mode CMV; Arterial Blood Gas Ventilator rate 24 /MIN
[2020-03-28 04:33] LABS: Alanine Aminotransferase 79 U/L (4-50); Albumin Level 2.9 g/dL (3.5-5.1); Alkaline Phosphatase 65 U/L (38-126); Anion Gap 6 mmol/L (8-16); Aspartate Amino Transferase 52 U/L (17-59); Bilirubin,Total 0.7 mg/dL (0.2-1.3); Blood Urea Nitrogen 57 mg/dL (9-20); Calcium 8.3 mg/dL (8.4-10.2); Carbon Dioxide 27 mmol/L (22-30); Chloride 114 mmol/L (98-107); Estimated CRCL calculation 70 ml/min; Estimated Glomerular Filt Rate > 60; Glucose 258 mg/dL (75-110); Magnesium 2.7 mg/dL (1.6-2.3); Phosphorus 4.7 mg/dL (2.5-4.5); Potassium 4.4 mmol/L (3.4-5.0); Sodium 147 mmol/L (137-145); Triglycerides 204 mg/dL (<150)
[2020-03-28] MEDS: INSULIN ASPART (*BKC) 100 UNITS/ML SUB-Q ×3 (06:56→17:16)
[2020-03-28] MEDS: ENOXAPARIN 120 MG/0.8 ML SYRINGE SUB-Q ×2 (06:57→17:02)
[2020-03-28] MEDS: CENTRAL LINE FLUSH 10 ML IV PUSH ×3 (06:57→21:12)
[2020-03-28 07:09] LABS: Glucose Point of Care 254 (65-105)
[2020-03-28] MEDS: SERTRALINE HCL 50 MG TABLET 100 MG PO (09:07)
[2020-03-28] MEDS: buPROPion HCL 75 MG TABLET PO ×2 (09:07→21:12)
[2020-03-28] MEDS: METOPROLOL TARTRATE 50 MG TAB PO ×2 (09:07→21:12)
[2020-03-28] MEDS: CHOLECALCIFEROL 1,000 UNITS TABLET 5000 UNITS PO (09:08)
[2020-03-28] MEDS: CLOPIDOGREL BISULFATE 75 MG TABLET PO (09:08)
[2020-03-28] MEDS: ATORVASTATIN 40 MG TABLET 80 MG PO (09:08)
[2020-03-28] MEDS: MICONAZOLE NITRATE 2% CREAM 30 GM TUBE 1 APPLIC TOPICAL ×2 (09:09→21:11)
[2020-03-28] MEDS: PANTOPRAZOLE SODIUM IV 40 MG VIAL IV PUSH (09:09)
[2020-03-28] MEDS: INSULIN DETEMIR 100 UNITS/ML 45 UNITS SUB-Q ×2 (09:10→21:09)
--- NOTE | 2020-03-28 11:51 | PM.PNNEP ---
Progress Note: A&P Assessment and Plan (1) CLARK (acute kidney injury): Code(s): N17.9 - Acute kidney failure, unspecified Status: Acute Assessment and Plan: creatinine on admission 1.0mg/dl (presumed baseline) peaked at 1.7mg/dl on March 20. suspect multifactorial etiology: - contrast/dye exposure for CT of chest at OSH - prerenal factors - infection (COVD-19 Creatinine is Down to 1.1 He is still making urine. 2300cc yesterday. His creatinine is now normal and back to baseline. (2) Acute respiratory failure with hypoxia: Code(s): J96.01 - Acute respiratory failure with hypoxia Status: Acute Assessment and Plan: due to COVID-19 pneumonia He also had a pulmonary embolus on ventilator. (3) Pneumonia due to COVID-19 virus: Code(s): U07.1 - COVID-19; J12.89 - Other viral pneumonia Status: Acute Assessment and Plan: tested positive on 03/11/2020 started on dexamethasone for 10 days s/p remdesivir for 5 days s/p convalescent plasma on 03/17/20 on airborne/contact/droplet isolation Still on the ventilator. Oxygen requirements are improved. He has new fevers. Dr. nelson is on the case. Multiple tests have been done which have not explain the fever so far. (4) Pulmonary embolism associated with severe acute respiratory syndrome coronavirus 2 (SARS-CoV-2) infection: Code(s): U07.1 - COVID-19; I26.99 - Other pulmonary embolism without acute cor pulmonale Status: Acute Assessment and Plan: as noted by CT Chest at OSH on anticoagulation (5) Hypernatremia: Code(s): E87.0 - Hyperosmolality and hypernatremia Status: Acute Assessment and Plan: sodium level is still a bit high. Tube feedings are not hyperosmolar. He is getting tube feeding flushes with his tube feedings. Sodium level is just barely high but stable Subjective Date/time seen: 03/28/20 11:51 Interval history: patient is on the ventilator and sedated. He cannot give a history. He is on tube feedings. He is still running fevers. He is on a cooling blanket. Review of Systems Review of Systems: ROS unobtainable: Yes unobtainable due to medical condition Exam Narrative: Exam Narrative: General: WD/WN male in NAD; intubated/sedated Heart: normal S1 and S2; no rub or gallop Lungs: coarse breath sounds Abdomen: soft, nontender, nondistended, positive bowel sounds Extremities: 1+ edema. Some mottling on his feet. Pulses in the dorsalis pedis are good. Skin: no rash Or subcu nodules Objective Data Vital Signs Vital Signs: Vital Signs - 24 hr 03/27/20 12:00 03/27/20 12:02 03/27/20 12:30 Temperature 38.4 C H 38.4 C H Pulse Rate 96 94 89 Respiratory Rate 23 H 24 H Blood Pressure 129/86 95/69 L Pulse Oximetry 94 94 93 03/27/20 13:00 03/27/20 14:00 03/27/20 15:00 Temperature 38.2 C H 37.8 C H 37.5 C Pulse Rate 90 88 85 Respiratory Rate 27 H 24 H 24 H Blood Pressure 113/90 128/75 124/72 Pulse Oximetry 95 95 95 03/27/20 15:45 03/27/20 15:47 03/27/20 16:00 Temperature 37.1 C Pulse Rate 81 79 80 Respiratory Rate 31 H 22 H Blood Pressure 126/81 Pulse Oximetry 97 96 03/27/20 17:00 03/27/20 17:19 03/27/20 18:00 Temperature 36.7 C 36.4 C L Pulse Rate 76 77 76 Respiratory Rate 24 H 24 H Blood Pressure 137/83 133/99 H Pulse Oximetry 97 97 96 03/27/20 19:57 03/27/20 20:00 03/27/20 20:02 Temperature 36.9 C Pulse Rate 87 85 87 Respiratory Rate 28 H 24 H Blood Pressure 129/83 Pulse Oximetry 96 97 03/27/20 20:24 03/27/20 22:00 03/27/20 23:34 Temperature 37.6 C H Pulse Rate 90 80 87 Respiratory Rate 24 H Blood Pressure 127/96 H Pulse Oximetry 97 97 03/28/20 00:00 03/28/20 00:18 03/28/20 00:30 Temperature 38.1 C H 38.2 C H 38.2 C H Pulse Rate 88 90 90 Respiratory Rate 22 H 24 H 24 H Blood
[2020-03-28 12:00] LABS: Glucose Point of Care 203 (65-105)
--- NOTE | 2020-03-28 14:03 | PM.IMPN ---
Progress Note: A&P Assessment and Plan (1) Pneumonia due to COVID-19 virus: Code(s): U07.1 - COVID-19; J12.89 - Other viral pneumonia Status: Acute Assessment and Plan: -COVID-19 pneumonia diagnosed -CT and chest x-ray consistent with COVID-19 pneumonia -inflammatory markers are mildly elevated ferritin 597, LDH 728, CRP 8.7 -wean oxygen to keep saturations greater than 90%, currently 9 L oxygen nasal cannula, weaned off BiPAP, patient may need CPAP at night -ABG showed PO2 85 on 50% FiO2 -Tylenol for fever -albuterol nebs q.6 hours, is unclear if he could cooperate for MDI -dexamethasone 6 mg IV daily -will need to find out with when COVID-19 was diagnosed to see if he is appropriate for remdesivir and convalescent plasma -continue home Pepcid for GI prophylaxis -supplements vitamin-D 5000 units -on full-dose Lovenox for possible PE -holding off on further antibiotics and will re-evaluate tomorrow as patient does not a leukocytosis or sputum production 03/28/20 14:03 Patient is 74-year-old male with history of congestive heart failure, cardiac arrhythmia, coronary artery disease hypertension hyperlipidemia patient was diagnosed with COVID-19 on 03/11/2020 and he was admitted at [facility] with shortness of breath and hypoxia he was transferred to [facility] on 03/16 to intermediate care unit (IMU) he developed significant agitation was not keeping his BiPAP and was desaturating so furniture installer of 03/17 patient was intubated and placed on ventilator by the camp housekeeper after he spoke with family, now in ICU patient is seen by automatic die cutting machine operator patient is started on dexamethasone 03/17 for 10days 07/27 , Remdesovor for 5 day on 03/17 5/ and received 1 unit convalescent plasma 03/17, on 03/19 patient creatinine climb to 1.6 from 1.3, renal US was normal, gently hydrated, on 03/20/2020 patient BUN and creatinine was rising however on 03/21 it was trending down, patient is seen by financial aids officer further recommendation to follow. patient been fibrile with tmax if 103.5, urine culture is growing coagulase-negative staph, being treated with cefepime and vancomycin Dr. boothe is consult, currently on vent and sedated unable to provide any review of symptoms, has grade fever, was seen by Dr. Boothe recommended to continue Cefepime #5 continue, vancomycin was stopped did improve creatinine slightly still making some urine. on 03/26 patient is off sedation however is not responding unable to wean the patient off the ventilator, discussed with automatic die cutting machine operator will consult neurologist patient may need EEG to further evaluate, the CT scan the head was negative for any acute injury will continue to monitor appreciate automatic die cutting machine operator, ID and financial aids officer 03/27 patient is on propofol for sedation and he is not following simple instruction and does not respond to painful stimuli, today temp is 102.5 and on Cefepime, patient creatinine is 1.3 improving and he is making urine financial aids officer suspect this creatinine may be baseline, patient is seen by automatic die cutting machine operator, financial aids officer and ID, will continue to monitor and further recommendation to follow. 03/28 on ventilator remains on propofol, patient had a fever of 102.5 on 03/[address] boothe concern for fever and possibly encephalopathy due to cefepime it was stopped and started the patient on Zosyn, today seen by financial aids officer coronary down to 1.1 close to normal, patient seen by Nephrology and automatic die cutting machine operator and appreciate Subjective Date/time seen: 03/28/20 14:03 Patient is 74-year-old male with history of congestive heart failure, cardiac arrhythmia, coronary artery disease hypertension hyperlipidemia patient was diagnosed with COVID-19 on 03/11/2020 and he was admitted at [facility] with shortness of breath and hypoxia he was transferred to [facility] on 03/16 to intermediate care unit (IMU) he developed significant agitation was not keeping his BiPAP and was desaturating so early m
[2020-03-28] MEDS: PROPOFOL IV EMULSION 100 ML 11.13 MG IV CONT (14:14)
--- NOTE | 2020-03-28 14:32 | WPDINTPN ---
Progress Note: A&P Assessment and Plan (1) Encephalopathy: Code(s): G93.40 - Encephalopathy, unspecified Status: Acute Assessment and Plan: Encephalopathy after decreasing sedation. Be related to infection, fevers, seizures, toxic metabolic encephalopathy -brain CT scan on 03/26/2020 does not show any acute intracranial abnormalities, moderate sinus disease, could be related to COVID-19 -appreciate neurology evaluation recommendation, -patient may require EEG at some point -ammonia level on 03/27/2020 was < 9 (2) Acute respiratory failure with hypoxia: Code(s): J96.01 - Acute respiratory failure with hypoxia Status: Acute Assessment and Plan: Acute respiratory failure likely secondary to COVID-19 pneumonia -CXR: Persistent bilateral patchy airspace disease mid and lower lung zones, most likely pneumonia. -continue low tidal volume strategy, 6 mL/kg of predicted body weight. ABGs are adequate, patient patient's mental status is not appropriate to place patient on SBT evaluate for extubation. -continue bronchodilators -will decreased propofol and start Precedex infusion (3) Fever: Qualifiers: Fever type: unspecified Qualified Code(s): R50.9 - Fever, unspecified Code(s): R50.9 - Fever, unspecified Status: Acute Assessment and Plan: Persistently febrile -could be related to atelectasis, pneumonia, thromboembolism, central lines, drug fever, fungal infection -CT scan of the chest abdomen and pelvis on 03/26/2019 multi segment left lower lobe, segmental right lower lobe dependent atelectasis and pneumonia. Scattered diffuse ill-defined ground-glass lung opacities suspicious for COVID-19 pneumonia. Chronic abdominal findings. -repeat sputum blood, urine cultures pending -initial sputum, blood, cultures negative -appreciate infectious disease evaluation and recommendation, -cefepime was discontinued and patient was started on Zosyn -vancomycin was discontinued on 03/24/2020 -bilateral lower extremity venous Dopplers were negative for DVT (4) Pneumonia due to COVID-19 virus: Code(s): U07.1 - COVID-19; J12.89 - Other viral pneumonia Status: Acute Assessment and Plan: SARS-CoV-2 PCR positive on 03/11/2020 -patient presented to outside hospital 03/16/2020 with productive cough, shortness of breath, wheezing hypoxia -continue dexamethasone IV for 10 days -received 5 days of Remdesivir -12/29 received to convalescent plasma -continue airborne, contact, droplet isolation/precautions -will monitor inflammatory markers (5) Pulmonary embolism associated with severe acute respiratory syndrome coronavirus 2 (SARS-CoV-2) infection: Code(s): U07.1 - COVID-19; I26.99 - Other pulmonary embolism without acute cor pulmonale Status: Acute Assessment and Plan: Possible small segmental PEs on CTA chest the outside hospital lots of motion artifact -patient has been started on therapeutic Lovenox -03/21/2020 venous Dopplers bilateral lower extremities negative for DVT (6) Hyperglycemia: Code(s): R73.9 - Hyperglycemia, unspecified Status: Acute Assessment and Plan: Continue Accu-Cheks, sliding scale insulin -increased Levemir -hyperglycemia likely related to dexamethasone (7) Coronary artery disease: Qualifiers: Coronary Disease-Associated Artery/Lesion type: unspecified vessel or lesion type [place] vs. transplanted heart: [place] heart Associated angina: without angina Qualified Code(s): I25.10 - Atherosclerotic heart disease of [place] coronary artery without angina pectoris Code(s): I25.10 - Atherosclerotic heart disease of [place] coronary artery without angina pectoris Status: Acute Assessment and Plan: Continue clopidogrel, atorvastatin (8) Dietary counseling and surveillance: Code(s): Z71.3 - Dietary counseling and surveillance Status: Acute Assessment and Plan: Tolerati
[2020-03-28 17:14] LABS: Glucose Point of Care 223 (65-105)
[2020-03-28] MEDS: PROPOFOL IV EMULSION 100 ML 18.56 MG IV CONT ×2 (18:28→23:50)
[2020-03-28 21:32] LABS: Glucose Point of Care 183 (65-105)
[2020-03-29] VITALS (45 sets, daily range): BP systolic 107–145; BP diastolic 47–89; PULSE 69–101; RESP 13–30; TEMP 37.4–38.1; O2SAT 90–99
[2020-03-29] MEDS: INSULIN ASPART (*BKC) 100 UNITS/ML SUB-Q
[2020-03-29 00:16] LABS: Glucose Point of Care 203 (65-105)
[2020-03-29] MEDS: LEVALBUTEROL NEB 1.25 MG/3 ML 0.63 MG INHALATION ×4 (02:50→19:23)
[2020-03-29] MEDS: IPRATROPIUM BR 0.02% INH SOLN 0.5 MG/2.5 ML VIAL INHALATION ×4 (02:51→19:23)
[2020-03-29] MEDS: PROPOFOL IV EMULSION 100 ML 14.84 MG IV CONT (04:00)
[2020-03-29 04:45] LABS: Hematocrit 33.5 % (42.0-52.0); Hemoglobin 10.8 g/dL (14.0-18.0); Mean Corpuscular HGB Conc 32.2 g/dl (32-36); Mean Corpuscular Volume 96.3 fl (80-100); Mean Platelet Volume 11.1 fl (7.4-10.4); Platelet Count Result 154 k/mm3 (150-375); Red Blood Count 3.48 M/mm3 (4.6-6.20); Red Cell Distribution Width 13.5 % (11.5-14.5); White Blood Count 6.8 K/mm3 (4.5-10.0)
[2020-03-29 05:01] LABS: Alanine Aminotransferase 82 U/L (4-50); Albumin Level 2.8 g/dL (3.5-5.1); Alkaline Phosphatase 59 U/L (38-126); Anion Gap 4 mmol/L (8-16); Aspartate Amino Transferase 47 U/L (17-59); Bilirubin,Total 0.6 mg/dL (0.2-1.3); Blood Urea Nitrogen 50 mg/dL (9-20); Calcium 8.3 mg/dL (8.4-10.2); Carbon Dioxide 29 mmol/L (22-30); Chloride 114 mmol/L (98-107); Estimated CRCL calculation 73 ml/min; Estimated Glomerular Filt Rate > 60; Glucose 168 mg/dL (75-110); Magnesium 2.6 mg/dL (1.6-2.3); Phosphorus 4.4 mg/dL (2.5-4.5); Potassium 3.8 mmol/L (3.4-5.0); Sodium 147 mmol/L (137-145)
[2020-03-29 05:21] LABS: Alveolar/Arterial O2 Gradient 109.2 mmHg; Base Excess ABG 0.8 mEq/l (+/-2.0); Carboxyhemoglobin 0.2 % THb (0-2.0); Device VENTILATOR; Fractional Inspired Oxygen 30 %; HCO3 ABG 23.5 mEq/l (22.0-26.0); Methemoglobin ABG 0.2 %THb (0-1.5); Modified Allen's Test Unable to perform; Oxygen Content ABG 15.2 %vol (16.0-22.0); Oxyhemoglobin 92.1 % THb (90.0-100.0); PCO2 ABG 31.6 mmHg (35.0-45.0); PO2 ABG 67.6 mmHg (80.0-100.0); PO2 FiO2 Ratio Arterial Blood 2.25 %; Reduced Hemoglobin 7.5 %THb (0-5.0); Site Drawn RIGHT RADIAL; Total Hemoglobin 11.7 g/dL (12.0-18.0)
[2020-03-29 05:22] LABS: Arterial Blood Gas PEEP 8 cmH2O; Arterial Blood Gas Tidal Volume 480 ml; Arterial Blood Gas Vent Mode CMV; Arterial Blood Gas Ventilator rate 24 /MIN
[2020-03-29] MEDS: ENOXAPARIN 120 MG/0.8 ML SYRINGE SUB-Q ×2 (06:43→17:19)
[2020-03-29] MEDS: CENTRAL LINE FLUSH 10 ML IV PUSH ×3 (06:47→20:10)
[2020-03-29] MEDS: CLOPIDOGREL BISULFATE 75 MG TABLET PO (08:23)
[2020-03-29] MEDS: CHOLECALCIFEROL 1,000 UNITS TABLET 5000 UNITS PO (08:23)
[2020-03-29] MEDS: SERTRALINE HCL 50 MG TABLET 100 MG PO (08:23)
[2020-03-29] MEDS: ATORVASTATIN 40 MG TABLET 80 MG PO (08:24)
[2020-03-29] MEDS: PANTOPRAZOLE SODIUM IV 40 MG VIAL IV PUSH (08:24)
[2020-03-29] MEDS: buPROPion HCL 75 MG TABLET PO ×2 (08:24→20:09)
[2020-03-29] MEDS: MICONAZOLE NITRATE 2% CREAM 30 GM TUBE 1 APPLIC TOPICAL ×2 (08:24→20:09)
[2020-03-29] MEDS: METOPROLOL TARTRATE 50 MG TAB PO ×2 (08:24→20:09)
[2020-03-29] MEDS: INSULIN DETEMIR 100 UNITS/ML 45 UNITS SUB-Q ×2 (08:26→20:34)
[2020-03-29] MEDS: PROPOFOL IV EMULSION 100 ML 11.13 MG IV CONT (10:55)
[2020-03-29] MEDS: dexmedeTOMIDine 400 MCG/100 ML 400 MCG/100 ML BAG 6.4 MCG IV CONT (10:56)
[2020-03-29] MEDS: ACETAMINOPHEN 325 MG TABLET 650 MG PO ×3 (11:21→22:48)
[2020-03-29 11:37] LABS: Glucose Point of Care 118 (65-105)
[2020-03-29] MEDS: ALBUMIN HUMAN 25% 12.5 GM/50ML 50 ML IVPB ×3 (12:04→23:29)
--- NOTE | 2020-03-29 14:31 | WPDINTPN ---
Progress Note: A&P Assessment and Plan (1) Encephalopathy: Code(s): G93.40 - Encephalopathy, unspecified Status: Acute Assessment and Plan: Encephalopathy after decreasing sedation. Be related to infection, fevers, seizures, toxic metabolic encephalopathy -brain CT scan on 03/26/2020 does not show any acute intracranial abnormalities, moderate sinus disease, could be related to COVID-19 -appreciate neurology evaluation recommendation, -patient may require EEG at some point -ammonia level on 03/27/2020 was < 9 -will switch propofol to Precedex infusion to alarm to wake up (2) Acute respiratory failure with hypoxia: Code(s): J96.01 - Acute respiratory failure with hypoxia Status: Acute Assessment and Plan: Acute respiratory failure likely secondary to COVID-19 pneumonia -CXR: Persistent bilateral patchy airspace disease mid and lower lung zones, most likely pneumonia. -continue low tidal volume strategy, 6 mL/kg of predicted body weight. ABGs are adequate, patient patient's mental status is not appropriate to place patient on SBT evaluate for extubation. -continue bronchodilators (3) Fever: Qualifiers: Fever type: unspecified Qualified Code(s): R50.9 - Fever, unspecified Code(s): R50.9 - Fever, unspecified Status: Acute Assessment and Plan: Persistently febrile -could be related to atelectasis, pneumonia, thromboembolism, central lines, drug fever, fungal infection -CT scan of the chest abdomen and pelvis on 03/26/2019 multi segment left lower lobe, segmental right lower lobe dependent atelectasis and pneumonia. Scattered diffuse ill-defined ground-glass lung opacities suspicious for COVID-19 pneumonia. Chronic abdominal findings. -03/26/2020 blood cultures: No growth x2 -03/27/2020 sputum culture growing Yeast -03/27/2020 urine culture: Growth -initial sputum, blood, cultures negative -appreciate infectious disease evaluation and recommendation, -continue Zosyn per Infectious Disease -bilateral lower extremity venous Dopplers were negative for DVT (4) Pneumonia due to COVID-19 virus: Code(s): U07.1 - COVID-19; J12.89 - Other viral pneumonia Status: Acute Assessment and Plan: SARS-CoV-2 PCR positive on 03/11/2020 -patient presented to outside hospital 03/16/2020 with productive cough, shortness of breath, wheezing hypoxia -continue dexamethasone IV for 10 days -received 5 days of Remdesivir -03/17 received to convalescent plasma -continue airborne, contact, droplet isolation/precautions -will monitor inflammatory markers (5) Pulmonary embolism associated with severe acute respiratory syndrome coronavirus 2 (SARS-CoV-2) infection: Code(s): U07.1 - COVID-19; I26.99 - Other pulmonary embolism without acute cor pulmonale Status: Acute Assessment and Plan: Possible small segmental PEs on CTA chest the outside hospital lots of motion artifact -patient has been started on therapeutic Lovenox -03/21/2020 venous Dopplers bilateral lower extremities negative for DVT (6) Hyperglycemia: Code(s): R73.9 - Hyperglycemia, unspecified Status: Acute Assessment and Plan: Continue Accu-Cheks, sliding scale insulin -increased Levemir -hyperglycemia likely related to dexamethasone (7) Coronary artery disease: Qualifiers: Coronary Disease-Associated Artery/Lesion type: unspecified vessel or lesion type [place] vs. transplanted heart: [place] heart Associated angina: without angina Qualified Code(s): I25.10 - Atherosclerotic heart disease of [place] coronary artery without angina pectoris Code(s): I25.10 - Atherosclerotic heart disease of [place] coronary artery without angina pectoris Status: Acute Assessment and Plan: Continue clopidogrel, atorvastatin (8) Dietary counseling and surveillance: Code(s): Z71.3 - Dietary counseling and surveillance Status: Acute Asses
--- NOTE | 2020-03-29 15:02 | PM.IMPN ---
Progress Note: A&P Assessment and Plan (1) Pneumonia due to COVID-19 virus: Code(s): U07.1 - COVID-19; J12.89 - Other viral pneumonia Status: Acute Assessment and Plan: -COVID-19 pneumonia diagnosed -CT and chest x-ray consistent with COVID-19 pneumonia -inflammatory markers are mildly elevated ferritin 597, LDH 728, CRP 8.7 -wean oxygen to keep saturations greater than 90%, currently 9 L oxygen nasal cannula, weaned off BiPAP, patient may need CPAP at night -ABG showed PO2 85 on 50% FiO2 -Tylenol for fever -albuterol nebs q.6 hours, is unclear if he could cooperate for MDI -dexamethasone 6 mg IV daily -will need to find out with when COVID-19 was diagnosed to see if he is appropriate for remdesivir and convalescent plasma -continue home Pepcid for GI prophylaxis -supplements vitamin-D 5000 units -on full-dose Lovenox for possible PE -holding off on further antibiotics and will re-evaluate tomorrow as patient does not a leukocytosis or sputum production 03/29/20 15:02 Patient is 74-year-old male with history of congestive heart failure, cardiac arrhythmia, coronary artery disease hypertension hyperlipidemia patient was diagnosed with COVID-19 on 03/11/2020 and he was admitted at [facility] with shortness of breath and hypoxia he was transferred to [facility] on 03/16 to intermediate care unit (IMU) he developed significant agitation was not keeping his BiPAP and was desaturating so merchant mariner of 03/17 patient was intubated and placed on ventilator by the varnisher after he spoke with family, now in ICU patient is seen by ingredient scaler patient is started on dexamethasone 03/17 for 10days 07/27 , Remdesovor for 5 day on 03/17 5 and received 1 unit convalescent plasma 03/17, on 03/19 patient creatinine climb to 1.6 from 1.3, renal US was normal, gently hydrated, on 03/20/2020 patient BUN and creatinine was rising however on 03/21 it was trending down, patient is seen by character actor further recommendation to follow. patient been fibrile with tmax if 103.5, urine culture is growing coagulase-negative staph, being treated with cefepime and vancomycin Dr. boothe is consult, currently on vent and sedated unable to provide any review of symptoms, has grade fever, was seen by Dr. Boothe recommended to continue Cefepime #5 continue, vancomycin was stopped did improve creatinine slightly still making some urine. on 03/26 patient is off sedation however is not responding unable to wean the patient off the ventilator, discussed with ingredient scaler will consult neurologist patient may need EEG to further evaluate, the CT scan the head was negative for any acute injury will continue to monitor appreciate ingredient scaler, ID and character actor 03/27 patient is on propofol for sedation and he is not following simple instruction and does not respond to painful stimuli, today temp is 102.5 and on Cefepime, patient creatinine is 1.3 improving and he is making urine character actor suspect this creatinine may be baseline, patient is seen by ingredient scaler, character actor and ID, will continue to monitor and further recommendation to follow. 03/28 on ventilator remains on propofol, patient had a fever of 102.5 on 03/[address] boothe concern for fever and possibly encephalopathy due to cefepime it was stopped and started the patient on Zosyn, today seen by character actor coronary down to 1.1 close to normal, patient seen by Nephrology and ingredient scaler and appreciate 03/29 still on ventilator and sedated, does not respond to painful stimuli, patient fever is down to 100.6 he is on Zosyn, discussed with ingredient scaler patient has history of necropsy will discuss with his skin specialist for further recommendation, but is down to 1.1 seen by character actor, will continue to monitor and further recommendation to follow, patient is seen by ingredient scaler, Nephrology, and ID appreciated. Subjective Date/time seen: 03/29/20 15:02 Patient is 74-year-old male with h
[2020-03-29] MEDS: dexmedeTOMIDine 400 MCG/100 ML 400 MCG/100 ML BAG 19.2 MCG IV CONT ×2 (17:53→22:52)
[2020-03-29 18:32] LABS: Glucose Point of Care 90 (65-105)
[2020-03-29 20:27] LABS: Glucose Point of Care 108 (65-105)
[2020-03-29 23:33] LABS: Glucose Point of Care 100 (65-105)
[2020-03-30] VITALS (36 sets, daily range): BP systolic 123–187; BP diastolic 76–110; PULSE 62–101; RESP 11–27; TEMP 37.3–38.2; O2SAT 93–97
[2020-03-30] MEDS: LEVALBUTEROL NEB 1.25 MG/3 ML 0.63 MG INHALATION ×4 (02:16→19:05)
[2020-03-30] MEDS: IPRATROPIUM BR 0.02% INH SOLN 0.5 MG/2.5 ML VIAL INHALATION ×4 (02:16→19:05)
[2020-03-30 04:09] LABS: Hematocrit 29.5 % (42.0-52.0); Hemoglobin 9.5 g/dL (14.0-18.0); Mean Corpuscular HGB Conc 32.2 g/dl (32-36); Mean Corpuscular Hemoglobin 30.9 pg (26-34); Mean Corpuscular Volume 96.1 fl (80-100); Mean Platelet Volume 10.6 fl (7.4-10.4); Platelet Count Result 131 k/mm3 (150-375); Red Blood Count 3.07 M/mm3 (4.6-6.20); Red Cell Distribution Width 13.2 % (11.5-14.5); White Blood Count 5.1 K/mm3 (4.5-10.0)
[2020-03-30 04:39] LABS: Alanine Aminotransferase 81 U/L (4-50); Albumin Level 2.8 g/dL (3.5-5.1); Alkaline Phosphatase 56 U/L (38-126); Anion Gap 3 mmol/L (8-16); Aspartate Amino Transferase 56 U/L (17-59); Bilirubin,Total 0.6 mg/dL (0.2-1.3); Blood Urea Nitrogen 39 mg/dL (9-20); Carbon Dioxide 29 mmol/L (22-30); Chloride 116 mmol/L (98-107); Estimated CRCL calculation 73 ml/min; Estimated Glomerular Filt Rate > 60; Glucose 110 mg/dL (75-110); Magnesium 2.5 mg/dL (1.6-2.3); Phosphorus 4.1 mg/dL (2.5-4.5); Potassium 3.6 mmol/L (3.4-5.0); Sodium 148 mmol/L (137-145); Triglycerides 98 mg/dL (<150)
[2020-03-30] MEDS: ALBUMIN HUMAN 25% 12.5 GM/50ML 50 ML IVPB (05:07)
[2020-03-30 05:08] LABS: Base Excess ABG 0.1 mEq/l (+/-2.0); Carboxyhemoglobin 0.3 % THb (0-2.0); Fractional Inspired Oxygen 30 %; HCO3 ABG 23.1 mEq/l (22.0-26.0); Methemoglobin ABG 0.3 %THb (0-1.5); Oxygen Saturation ABG 96.4 % (95.0-100.0); Oxyhemoglobin 93.5 % THb (90.0-100.0); PCO2 ABG 33.1 mmHg (35.0-45.0); PO2 FiO2 Ratio Arterial Blood 2.63 %; Reduced Hemoglobin 5.9 %THb (0-5.0); Total Hemoglobin 10.7 g/dL (12.0-18.0); pH ABG 7.462 (7.350-7.450)
[2020-03-30] MEDS: dexmedeTOMIDine 400 MCG/100 ML 400 MCG/100 ML BAG 12.8 MCG IV CONT (05:08)
[2020-03-30 05:12] LABS: Arterial Blood Gas PEEP 5 cmH2O; Arterial Blood Gas Vent Mode ASV; Device VENTILATOR; Modified Allen's Test Unable to perform; Site Drawn LEFT RADIAL
[2020-03-30] MEDS: ENOXAPARIN 120 MG/0.8 ML SYRINGE SUB-Q ×2 (05:12→18:26)
[2020-03-30] MEDS: CENTRAL LINE FLUSH 10 ML IV PUSH ×3 (05:12→20:45)
[2020-03-30] MEDS: CHOLECALCIFEROL 1,000 UNITS TABLET 5000 UNITS PO (08:31)
[2020-03-30] MEDS: ATORVASTATIN 40 MG TABLET 80 MG PO (08:31)
[2020-03-30] MEDS: buPROPion HCL 75 MG TABLET PO ×2 (08:31→20:44)
[2020-03-30] MEDS: MICONAZOLE NITRATE 2% CREAM 30 GM TUBE 1 APPLIC TOPICAL ×2 (08:32→20:45)
[2020-03-30] MEDS: CLOPIDOGREL BISULFATE 75 MG TABLET PO (08:32)
[2020-03-30] MEDS: METOPROLOL TARTRATE 50 MG TAB PO ×2 (08:32→20:44)
[2020-03-30] MEDS: PANTOPRAZOLE SODIUM IV 40 MG VIAL IV PUSH (08:33)
[2020-03-30] MEDS: SERTRALINE HCL 50 MG TABLET 100 MG PO (08:33)
[2020-03-30 08:54] LABS: Glucose Point of Care 82 (65-105)
[2020-03-30 12:21] LABS: Glucose Point of Care 97 (65-105)
--- NOTE | 2020-03-30 12:29 | WPDINTPN ---
Progress Note: A&P Assessment and Plan (1) Encephalopathy: Code(s): G93.40 - Encephalopathy, unspecified Status: Acute Assessment and Plan: Encephalopathy after decreasing sedation. Be related to infection, fevers, seizures, toxic metabolic encephalopathy -brain CT scan on 03/26/2020 does not show any acute intracranial abnormalities, moderate sinus disease, could be related to COVID-19 -appreciate neurology evaluation recommendation, -discontinue Precedex and all other sedatives -ammonia level on 03/27/2020 was < 9 -check EEG (2) Acute respiratory failure with hypoxia: Code(s): J96.01 - Acute respiratory failure with hypoxia Status: Acute Assessment and Plan: Acute respiratory failure likely secondary to COVID-19 pneumonia -CXR: Stable bilateral patchy airspace disease -patient currently in ASV mode on 30% FiO2 and 5 of PEEP -continue bronchodilators (3) Fever: Qualifiers: Fever type: unspecified Qualified Code(s): R50.9 - Fever, unspecified Code(s): R50.9 - Fever, unspecified Status: Acute Assessment and Plan: Persistently febrile -could be related to atelectasis, pneumonia, thromboembolism, sinusitis -CT scan of the chest abdomen and pelvis on 03/26/2019 multi segment left lower lobe, segmental right lower lobe dependent atelectasis and pneumonia. Scattered diffuse ill-defined ground-glass lung opacities suspicious for COVID-19 pneumonia. Chronic abdominal findings. -03/26/2020 blood cultures: No growth x2 -03/27/2020 sputum culture growing Yeast -03/27/2020 urine culture: Growth -initial sputum, blood, cultures negative -appreciate infectious disease evaluation and recommendation, -continue Zosyn per Infectious Disease -bilateral lower extremity venous Dopplers were negative for DVT (4) Pneumonia due to COVID-19 virus: Code(s): U07.1 - COVID-19; J12.89 - Other viral pneumonia Status: Acute Assessment and Plan: SARS-CoV-2 PCR positive on 03/11/2020 -patient presented to outside hospital 03/16/2020 with productive cough, shortness of breath, wheezing hypoxia -continue dexamethasone IV for 10 days -received 5 days of Remdesivir -03/17 received to convalescent plasma -continue airborne, contact, droplet isolation/precautions -will monitor inflammatory markers (5) Pulmonary embolism associated with severe acute respiratory syndrome coronavirus 2 (SARS-CoV-2) infection: Code(s): U07.1 - COVID-19; I26.99 - Other pulmonary embolism without acute cor pulmonale Status: Acute Assessment and Plan: Possible small segmental PEs on CTA chest the outside hospital lots of motion artifact -patient has been started on therapeutic Lovenox -03/21/2020 venous Dopplers bilateral lower extremities negative for DVT (6) Hyperglycemia: Code(s): R73.9 - Hyperglycemia, unspecified Status: Acute Assessment and Plan: Continue Accu-Cheks, sliding scale insulin -continue Levemir. -hyperglycemia likely related to dexamethasone (7) Coronary artery disease: Qualifiers: Coronary Disease-Associated Artery/Lesion type: unspecified vessel or lesion type [place] vs. transplanted heart: [place] heart Associated angina: without angina Qualified Code(s): I25.10 - Atherosclerotic heart disease of [place] coronary artery without angina pectoris Code(s): I25.10 - Atherosclerotic heart disease of [place] coronary artery without angina pectoris Status: Acute Assessment and Plan: Continue clopidogrel, atorvastatin (8) Dietary counseling and surveillance: Code(s): Z71.3 - Dietary counseling and surveillance Status: Acute Assessment and Plan: Tolerating tube feeds Increase free water flush for hypernatremia -on Reglan Stress ulcer prophylaxis: Protonix (9) DVT prophylaxis: Code(s): Z29.9 - Encounter for prophylactic measures, unspecified Status: Acute Ass
--- NOTE | 2020-03-30 13:23 | PCDIET ---
ICU Rounding Note: Patient tolerating Glucerna 1.2 at 60mL/hr goal rate with 125mL water flush every 4 hours. Last recorded weight is 127.1kg which is decreased from last review, despite +I/O. Bowel Motility: BM x 2 on 03/29/20. Labs Reviewed: Hgb (9.5), Hct (29.5), BUN (39), Cl (116), Na (148), Alb (2.8), Ceci Ca (8.96) Meds Noted: Lipitor, Precedex, Lopressor, Protonix, Levemir, Atrovent, Zosyn, Vitamin D, Reglan, Xopenex Additional Notes: No documented skin breakdown. decreased Levemir to 30u every 12 hours. Would consider further increasing water flush if sodium/chloride levels remain elevated. Following daily in ICU rounds. Assessing/reassessing every Monday/Monday.
--- NOTE | 2020-03-30 15:07 | WPDINFPN2 ---
Progress Note: A&P Assessment and Plan (1) Fever: Qualifiers: Fever type: unspecified Qualified Code(s): R50.9 - Fever, unspecified Code(s): R50.9 - Fever, unspecified Status: Acute Additional Plan 1. Fever, has improved. Respiratory source suspected 2. Recent CoVid 19 infection, off steroids, +remdesivir in past 3. Mild renal insufficiency REC PipTazo # 4, continue. The yeast in the sputum is likely a colonizer, not a pathogen. No empiric antifungal needed. PICC can remain in place. Subjective Date/time seen: 03/30/20 15:07 Interval history: getting eeg. Eyes do not follow Exam Narrative: Exam Narrative: t max 37.9 core temps Const: General: no acute distress HENMT: General nose exam: Normal nares present Other: no nasal drainage Resp: Effort & Inspection: normal respiratory effort Auscultation: clear to auscultation bilaterally Cardio: Rate: regular rate Rhythm: regular rhythm Heart sounds: no murmurs GI: Inspection: non-distended GI Palp: Yes Soft to palpation and No Tenderness to palpation present (GI) Urinary Catheter: Urinary Catheter: patent and draining and urine clear Objective Data Vital Signs Vital Signs: Vital Signs - 24 hr 03/29/20 15:38 03/29/20 15:52 03/29/20 16:00 Temperature 37.6 C H Pulse Rate 77 79 79 Respiratory Rate 13 14 16 Blood Pressure 119/89 Pulse Oximetry 94 93 03/29/20 16:41 03/29/20 17:16 03/29/20 17:17 Temperature Pulse Rate 80 80 79 Respiratory Rate 16 13 Blood Pressure Pulse Oximetry 93 03/29/20 17:53 03/29/20 17:56 03/29/20 18:00 Temperature 37.6 C H 37.7 C H Pulse Rate 80 79 Respiratory Rate 18 17 Blood Pressure 124/81 Pulse Oximetry 92 03/29/20 18:57 03/29/20 19:23 03/29/20 19:27 Temperature 37.7 C H Pulse Rate 77 76 Respiratory Rate 18 Blood Pressure Pulse Oximetry 97 03/29/20 20:00 03/29/20 20:09 03/29/20 22:00 Temperature 37.4 C 37.6 C H Pulse Rate 77 77 71 Respiratory Rate 23 H 21 H Blood Pressure 107/47 L 127/77 Pulse Oximetry 92 93 03/29/20 22:48 03/29/20 22:52 03/29/20 23:04 Temperature 37.7 C H Pulse Rate 70 71 Respiratory Rate 18 Blood Pressure Pulse Oximetry 99 03/29/20 23:09 03/29/20 23:30 03/29/20 23:37 Temperature Pulse Rate 70 69 69 Respiratory Rate 19 13 17 Blood Pressure Pulse Oximetry 96 03/29/20 23:48 03/30/20 00:00 03/30/20 02:00 Temperature 37.6 C H 37.6 C H 37.4 C Pulse Rate 68 65 Respiratory Rate 19 18 Blood Pressure 129/77 140/82 Pulse Oximetry 96 94 03/30/20 02:18 03/30/20 04:00 03/30/20 04:38 Temperature 37.3 C Pulse Rate 66 62 62 Respiratory Rate 18 19 Blood Pressure 123/76 Pulse Oximetry 95 96 97 03/30/20 05:00 03/30/20 05:08 03/30/20 05:56 Temperature Pulse Rate 62 62 66 Respiratory Rate 15 15 19 Blood Pressure Pulse Oximetry 03/30/20 06:00 03/30/20 08:00 03/30/20 08:20 Temperature 37.3 C 37.4 C Pulse Rate 65 65 66 Respiratory Rate 18 16 16 Blood Pressure 143/76 H 147/81 H Pulse Oximetry 95 96 03/30/20 08:23 03/30/20 08:27 03/30/20 08:32 Temperature Pulse Rate 66 68 67 Respiratory Rate 17 Blood Pressure Pulse Oximetry 97 03/30/20 10:00 03/30/20 10:51 03/30/20 12:00 Temperature 37.7 C H 37.8 C H Pulse Rate 71 93 71 Respiratory Rate 17 15 Blood Pressure 154/86 H 161/87 H Pulse Oximetry 96 95 96 03/30/20 14:00 03/30/20 14:31 03/30/20 14:34 Temperature 37.9 C H Pulse Rate 70 73 74 Respiratory Rate 15 17 Blood Pressure 169/89 H Pulse Oximetry 96 97 03/30/20 14:37 Temperature Pulse Rate 75 Respiratory Rate 18 Blood Pressure Pulse Oximetry Intake/Output Intake/Output: Intake & Output 03/27/20 03/28/20 03/29/20 03/30/20 23:59 23:59 23:59 23:59 Intake Total 2639 6960 3990 1250 Output Total 2599 2049 1999 [facility] Balance 33 041 748 372 Meds/Results Medications: Active Medications Generic Name Dose R
[2020-03-30] MEDS: ACETAMINOPHEN 325 MG TABLET 650 MG PO ×2 (16:59→22:52)
[2020-03-30 18:23] LABS: Glucose Point of Care 158 (65-105)
[2020-03-30] MEDS: INSULIN DETEMIR 100 UNITS/ML 30 UNITS SUB-Q (20:45)
[2020-03-31] VITALS (34 sets, daily range): BP systolic 136–172; BP diastolic 83–98; PULSE 69–94; RESP 14–22; TEMP 37.9–38.2; O2SAT 93–98
[2020-03-31 00:33] LABS: Glucose Point of Care 154 (65-105)
[2020-03-31] MEDS: LEVALBUTEROL NEB 1.25 MG/3 ML 0.63 MG INHALATION ×4 (01:33→20:22)
[2020-03-31] MEDS: IPRATROPIUM BR 0.02% INH SOLN 0.5 MG/2.5 ML VIAL INHALATION ×4 (01:33→20:23)
[2020-03-31] MEDS: ACETAMINOPHEN 325 MG TABLET 650 MG PO ×3 (03:32→20:56)
[2020-03-31 04:22] LABS: Alveolar/Arterial O2 Gradient 99.8 mmHg; Base Excess ABG 0.1 mEq/l (+/-2.0); Carboxyhemoglobin 0.3 % THb (0-2.0); Device VENTILATOR; Fractional Inspired Oxygen 30 %; HCO3 ABG 22.3 mEq/l (22.0-26.0); Methemoglobin ABG 0.4 %THb (0-1.5); Modified Allen's Test Unable to perform; Oxygen Saturation ABG 96.7 % (95.0-100.0); Oxyhemoglobin 94.7 % THb (90.0-100.0); PCO2 ABG 29.5 mmHg (35.0-45.0); PO2 ABG 79.4 mmHg (80.0-100.0); PO2 FiO2 Ratio Arterial Blood 2.65 %; Reduced Hemoglobin 4.6 %THb (0-5.0); Site Drawn RIGHT RADIAL; Total Hemoglobin 13.5 g/dL (12.0-18.0); pH ABG 7.496 (7.350-7.450)
[2020-03-31 04:23] LABS: Arterial Blood Gas PEEP 5 cmH2O; Arterial Blood Gas Vent Mode ASV
[2020-03-31 04:45] LABS: Hematocrit 34.7 % (42.0-52.0); Hemoglobin 11.3 g/dL (14.0-18.0); Mean Corpuscular HGB Conc 32.6 g/dl (32-36); Mean Corpuscular Hemoglobin 31.4 pg (26-34); Mean Corpuscular Volume 96.4 fl (80-100); Mean Platelet Volume 10.7 fl (7.4-10.4); Platelet Count Result 177 k/mm3 (150-375); Red Cell Distribution Width 13.4 % (11.5-14.5); White Blood Count 7.2 K/mm3 (4.5-10.0)
[2020-03-31 05:05] LABS: Alanine Aminotransferase 103 U/L (4-50); Albumin Level 3.1 g/dL (3.5-5.1); Alkaline Phosphatase 69 U/L (38-126); Anion Gap 2 mmol/L (8-16); Aspartate Amino Transferase 71 U/L (17-59); Bilirubin,Total 0.7 mg/dL (0.2-1.3); Blood Urea Nitrogen 32 mg/dL (9-20); Calcium 8.3 mg/dL (8.4-10.2); Carbon Dioxide 28 mmol/L (22-30); Chloride 115 mmol/L (98-107); Estimated CRCL calculation 81 ml/min; Estimated Glomerular Filt Rate > 60; Glucose 178 mg/dL (75-110); Magnesium 2.4 mg/dL (1.6-2.3); Potassium 3.7 mmol/L (3.4-5.0); Sodium 145 mmol/L (137-145)
[2020-03-31] MEDS: ENOXAPARIN 120 MG/0.8 ML SYRINGE SUB-Q ×2 (05:55→17:42)
[2020-03-31] MEDS: CENTRAL LINE FLUSH 10 ML IV PUSH ×3 (05:55→20:16)
[2020-03-31] MEDS: buPROPion HCL 75 MG TABLET PO ×2 (08:53→20:15)
[2020-03-31] MEDS: ATORVASTATIN 40 MG TABLET 80 MG PO (08:53)
[2020-03-31] MEDS: CHOLECALCIFEROL 1,000 UNITS TABLET 5000 UNITS PO (08:54)
[2020-03-31] MEDS: CLOPIDOGREL BISULFATE 75 MG TABLET PO (08:54)
[2020-03-31] MEDS: METOPROLOL TARTRATE 50 MG TAB PO ×2 (08:54→20:15)
[2020-03-31] MEDS: SERTRALINE HCL 50 MG TABLET 100 MG PO (08:55)
[2020-03-31] MEDS: MICONAZOLE NITRATE 2% CREAM 30 GM TUBE 1 APPLIC TOPICAL ×2 (08:55→20:16)
[2020-03-31] MEDS: PANTOPRAZOLE SODIUM IV 40 MG VIAL IV PUSH (08:55)
[2020-03-31] MEDS: INSULIN DETEMIR 100 UNITS/ML 30 UNITS SUB-Q ×2 (09:09→20:16)
[2020-03-31 09:19] LABS: Glucose Point of Care 179 (65-105)
--- NOTE | 2020-03-31 10:45 | PCDIET ---
Nutrition Follow-Up Complete: Nutrition Diagnosis: Inadequate oral intake related to oral intubation as evidenced by NPO status. Nutrition Goal: Patient to meet estimated nutritional needs. Goal met. Patient tolerating Glucerna 1.2 at 60mL/hr goal rate. MD decreasing water flushes from 200mL to 100mL every 4 hours. Last recorded weight is 131.6 kg which is increased from last review. +I/O. Bowel Motility: +BM today - multiple soft BM x 24 hours per RN. Labs Reviewed: Hgb (11.3), Hct (34.7), Glu (178), BUN (32), Alb (3.1) Meds Noted: Lipitor, Precedex, Levemir, Atrovent, Protonix, Xopenex, Reglan, Lopressor, Zosyn, Vitamin D Additional Notes: No documented skin breakdown. Will continue to monitor with same goal. Nutrition Monitoring and Evaluation: Follow up every Monday/Monday. Follow daily in ICU rounds.
--- NOTE | 2020-03-31 12:06 | WPDINFPN2 ---
Progress Note: A&P Assessment and Plan (1) Fever: Qualifiers: Fever type: unspecified Qualified Code(s): R50.9 - Fever, unspecified Code(s): R50.9 - Fever, unspecified Status: Acute Additional Plan 1. Fever, resolved for now after change in empiric therapy. Respiratory source suspected. CXR modest improvement 2. Recent CoVid 19 infection, off steroids, +remdesivir in past 3. Mild renal insufficiency REC PipTazo # 5, continue. Subjective Date/time seen: 03/31/20 12:06 Exam Narrative: Exam Narrative: afebrile : all core temps between 37.9 and 38.2 Const: General: no acute distress Other: non purposeful rotation of head/neck Resp: Effort & Inspection: normal respiratory effort Auscultation: clear to auscultation bilaterally Cardio: Rate: regular rate Rhythm: regular rhythm Heart sounds: no murmurs GI: Inspection: non-distended GI Palp: Yes Soft to palpation, No Tenderness to palpation present (GI) and No Guarding due to palpation present (GI) Urinary Catheter: Urinary Catheter: patent and draining and urine clear Skin: General skin exam: normal color and no rashes or lesions noted Objective Data Vital Signs Vital Signs: Vital Signs - 24 hr 03/30/20 14:00 03/30/20 14:31 03/30/20 14:34 Temperature 37.9 C H Pulse Rate 70 73 74 Respiratory Rate 15 17 Blood Pressure 169/89 H Pulse Oximetry 96 97 03/30/20 14:37 03/30/20 16:00 03/30/20 16:59 Temperature 38.1 C H 38.1 C H Pulse Rate 75 100 Respiratory Rate 18 27 H Blood Pressure 187/110 H Pulse Oximetry 95 03/30/20 17:04 03/30/20 18:00 03/30/20 19:05 Temperature 38.1 C H Pulse Rate 78 98 98 Respiratory Rate 26 H 19 Blood Pressure 164/92 H Pulse Oximetry 96 93 03/30/20 19:11 03/30/20 19:14 03/30/20 19:35 Temperature Pulse Rate 97 98 100 Respiratory Rate 11 L 18 Blood Pressure Pulse Oximetry 93 94 03/30/20 20:00 03/30/20 20:44 03/30/20 22:00 Temperature 38.2 C H 38.2 C H Pulse Rate 100 98 86 Respiratory Rate 20 15 Blood Pressure 154/90 H 153/97 H Pulse Oximetry 95 95 03/30/20 22:52 03/30/20 23:19 03/30/20 23:50 Temperature 38.2 C H Pulse Rate 78 82 Respiratory Rate 17 Blood Pressure Pulse Oximetry 93 94 03/30/20 23:52 03/31/20 00:00 03/31/20 01:34 Temperature 38.1 C H 38.0 C H Pulse Rate 84 87 Respiratory Rate 15 16 Blood Pressure 140/89 Pulse Oximetry 98 03/31/20 01:36 03/31/20 01:39 03/31/20 02:00 Temperature 38.0 C H Pulse Rate 88 88 90 Respiratory Rate 17 18 Blood Pressure 157/95 H Pulse Oximetry 93 93 03/31/20 03:19 03/31/20 03:32 03/31/20 04:00 Temperature 38.1 C H 38.1 C H Pulse Rate 89 91 Respiratory Rate 18 20 Blood Pressure 143/83 H Pulse Oximetry 95 95 03/31/20 04:04 03/31/20 06:00 03/31/20 08:00 Temperature 38.1 C H 37.9 C H Pulse Rate 84 89 88 Respiratory Rate 19 17 Blood Pressure 155/92 H 162/91 H Pulse Oximetry 95 95 95 03/31/20 08:47 03/31/20 08:54 03/31/20 08:57 Temperature Pulse Rate 89 94 90 Respiratory Rate 22 H 22 H Blood Pressure Pulse Oximetry 96 03/31/20 10:00 03/31/20 11:12 Temperature 38.1 C H Pulse Rate 82 83 Respiratory Rate 17 Blood Pressure 151/93 H Pulse Oximetry 95 96 Intake/Output Intake/Output: Intake & Output 03/28/20 03/29/20 03/30/20 03/31/20 23:59 23:59 23:59 23:59 Intake Total 2296 2420 2236 1200 Output Total 2049 1999 1849 850 Balance 484 610 386 350 Meds/Results Medications: Active Medications Generic Name Dose Route Start Last Admin Trade Name Freq PRN Reason Stop Dose Admin Acetaminophen 650 mg 03/17/20 04:13 03/31/20 03:32 Acetaminophen 325 Mg Tablet PO 650 mg Q4H PRN Administration Mild Pain (1-3) or Fever Atorvastatin Calcium 80 mg 03/17/20 09:00 03/31/20 08:53 Atorvastatin 40 Mg Tablet PO 80 mg DAILY ANALI Administration Bupropion HCl 75 mg 03/22/20 09:00 03/31/20 08:53 Bupropion H
--- NOTE | 2020-03-31 12:19 | WPDINTPN ---
Progress Note: A&P Assessment and Plan (1) Encephalopathy: Code(s): G93.40 - Encephalopathy, unspecified Status: Acute Assessment and Plan: Encephalopathy after decreasing sedation. Most likely toxic metabolic encephalopathy. Patient has been critically ill and was on heavy sedation for long time for mechanical ventilation -brain CT scan on 03/26/2020 does not show any acute intracranial abnormalities, moderate sinus disease, could be related to COVID-19 -appreciate neurology evaluation recommendation, -I discontinue Precedex yesterday -ammonia level on 03/27/2020 was < 9 - EEG was done and report is pending -unable to get MRI on mechanical ventilation here in this hospital -patient appears to be marginally better today as compared to yesterday. Continue holding sedation and monitoring (2) Acute respiratory failure with hypoxia: Code(s): J96.01 - Acute respiratory failure with hypoxia Status: Acute Assessment and Plan: Acute respiratory failure likely secondary to COVID-19 pneumonia -CXR: Stable bilateral patchy airspace disease -patient currently in ASV mode on 30% FiO2 and 5 of PEEP -continue bronchodilators (3) Fever: Qualifiers: Fever type: unspecified Qualified Code(s): R50.9 - Fever, unspecified Code(s): R50.9 - Fever, unspecified Status: Acute Assessment and Plan: Persistently febrile -could be related to atelectasis, pneumonia, thromboembolism, sinusitis -CT scan of the chest abdomen and pelvis on 03/26/2019 multi segment left lower lobe, segmental right lower lobe dependent atelectasis and pneumonia. Scattered diffuse ill-defined ground-glass lung opacities suspicious for COVID-19 pneumonia. Chronic abdominal findings. -03/26/2020 blood cultures: No growth x2 -03/27/2020 sputum culture growing Yeast -03/27/2020 urine culture: Growth -initial sputum, blood, cultures negative -appreciate infectious disease evaluation and recommendation, -continue Zosyn per Infectious Disease -bilateral lower extremity venous Dopplers were negative for DVT (4) Pneumonia due to COVID-19 virus: Code(s): U07.1 - COVID-19; J12.89 - Other viral pneumonia Status: Acute Assessment and Plan: SARS-CoV-2 PCR positive on 03/11/2020 -patient presented to outside hospital 03/16/2020 with productive cough, shortness of breath, wheezing hypoxia -continue dexamethasone IV for 10 days -received 5 days of Remdesivir -03/17 received to convalescent plasma -continue airborne, contact, droplet isolation/precautions -will monitor inflammatory markers (5) Pulmonary embolism associated with severe acute respiratory syndrome coronavirus 2 (SARS-CoV-2) infection: Code(s): U07.1 - COVID-19; I26.99 - Other pulmonary embolism without acute cor pulmonale Status: Acute Assessment and Plan: Possible small segmental PEs on CTA chest the outside hospital lots of motion artifact -patient has been started on therapeutic Lovenox -03/21/2020 venous Dopplers bilateral lower extremities negative for DVT (6) Hyperglycemia: Code(s): R73.9 - Hyperglycemia, unspecified Status: Acute Assessment and Plan: Continue Accu-Cheks, sliding scale insulin -continue Levemir. -hyperglycemia likely related to dexamethasone (7) Coronary artery disease: Qualifiers: Coronary Disease-Associated Artery/Lesion type: unspecified vessel or lesion type [place] vs. transplanted heart: [place] heart Associated angina: without angina Qualified Code(s): I25.10 - Atherosclerotic heart disease of [place] coronary artery without angina pectoris Code(s): I25.10 - Atherosclerotic heart disease of [place] coronary artery without angina pectoris Status: Acute Assessment and Plan: Continue clopidogrel, atorvastatin (8) Dietary counseling and surveillance: Code(s): Z71.3 - Dietary counseling and surveillance Status: Acute
[2020-03-31 13:58] LABS: Glucose Point of Care 178 (65-105)
--- NOTE | 2020-03-31 14:33 | PM.IMPN ---
Progress Note: A&P Assessment and Plan (1) Pneumonia due to COVID-19 virus: Code(s): U07.1 - COVID-19; J12.89 - Other viral pneumonia Status: Acute Assessment and Plan: -COVID-19 pneumonia diagnosed -CT and chest x-ray consistent with COVID-19 pneumonia -inflammatory markers are mildly elevated ferritin 597, LDH 728, CRP 8.7 -wean oxygen to keep saturations greater than 90%, currently 9 L oxygen nasal cannula, weaned off BiPAP, patient may need CPAP at night -ABG showed PO2 85 on 50% FiO2 -Tylenol for fever -albuterol nebs q.6 hours, is unclear if he could cooperate for MDI -dexamethasone 6 mg IV daily -will need to find out with when COVID-19 was diagnosed to see if he is appropriate for remdesivir and convalescent plasma -continue home Pepcid for GI prophylaxis -supplements vitamin-D 5000 units -on full-dose Lovenox for possible PE -holding off on further antibiotics and will re-evaluate tomorrow as patient does not a leukocytosis or sputum production culture is growing coagulase-negative staph, being treated with cefepime and vancomycin Dr. boothe is consult, currently on vent and sedated unable to provide any review of symptoms, has grade fever, was seen by Dr. Boothe recommended to continue Cefepime #5 continue, vancomycin was stopped did improve creatinine slightly still making some urine. on 03/26 patient is off sedation however is not responding unable to wean the patient off the ventilator, discussed with intelligence research specialist will consult neurologist patient may need EEG to further evaluate, the CT scan the head was negative for any acute injury will continue to monitor appreciate intelligence research specialist, ID and licensed insurance agent 03/27 patient is on propofol for sedation and he is not following simple instruction and does not respond to painful stimuli, today temp is 102.5 and on Cefepime, patient creatinine is 1.3 improving and he is making urine licensed insurance agent suspect this creatinine may be baseline, patient is seen by intelligence research specialist, licensed insurance agent and ID, will continue to monitor and further recommendation to follow. 03/28 on ventilator remains on propofol, patient had a fever of 102.5 on 03/[address] boothe concern for fever and possibly encephalopathy due to cefepime it was stopped and started the patient on Zosyn, today seen by licensed insurance agent coronary down to 1.1 close to normal, patient seen by Nephrology and intelligence research specialist and appreciate 03/29 still on ventilator and sedated, does not respond to painful stimuli, patient fever is down to 100.6 he is on Zosyn, discussed with intelligence research specialist patient has history of necropsy will discuss with his car lot attendant for further recommendation, but is down to 1.1 seen by licensed insurance agent, will continue to monitor and further recommendation to follow, patient is seen by intelligence research specialist, Nephrology, and ID appreciated. 03/30 patient not seen 03/31 patient still has a low-grade fever there is slight improved and patient is mentation as he nodes with were verbal instruction, seen by Dr. boothe recommending continue Zosyn, patient kidney function is improving, intelligence research specialist will discuss with the patient family further management. Subjective Date/time seen: 03/31/20 14:33 03/29/20 15:02 Patient is 74-year-old male with history of congestive heart failure, cardiac arrhythmia, coronary artery disease hypertension hyperlipidemia patient was diagnosed with COVID-19 on 03/11/2020 and he was admitted at [facility] with shortness of breath and hypoxia he was transferred to [facility] on 03/16 to intermediate care unit (IMU) he developed significant agitation was not keeping his BiPAP and was desaturating so baker doughnut of 03/17 patient was intubated and placed on ventilator by the director financial planning after he spoke with family, now in ICU patient is seen by intelligence research specialist patient is started on dexamethasone 03/17 for 10days 10 , Remdesovor for 5 day on 03/17 07/22 and received 1 unit convalescent plasma 03/17, on 03/19
[2020-03-31 17:46] LABS: Glucose Point of Care 163 (65-105)
[2020-03-31] MEDS: ALTEPLASE 2 MG VIAL (CATHFLO) IV PUSH (20:56)
[2020-03-31 23:19] LABS: Glucose Point of Care 137 (65-105)
[2020-04-01] VITALS (31 sets, daily range): BP systolic 105–164; BP diastolic 84–103; PULSE 70–93; RESP 14–22; TEMP 37.9–38.2; O2SAT 94–96
[2020-04-01] MEDS: LEVALBUTEROL NEB 1.25 MG/3 ML 0.63 MG INHALATION ×4 (02:56→20:55)
[2020-04-01] MEDS: IPRATROPIUM BR 0.02% INH SOLN 0.5 MG/2.5 ML VIAL INHALATION ×4 (02:56→20:56)
[2020-04-01 04:17] LABS: Hematocrit 33.9 % (42.0-52.0); Mean Corpuscular HGB Conc 32.4 g/dl (32-36); Mean Corpuscular Hemoglobin 31.3 pg (26-34); Mean Corpuscular Volume 96.3 fl (80-100); Mean Platelet Volume 10.5 fl (7.4-10.4); Platelet Count Result 171 k/mm3 (150-375); Red Blood Count 3.52 M/mm3 (4.6-6.20); Red Cell Distribution Width 13.5 % (11.5-14.5); White Blood Count 6.4 K/mm3 (4.5-10.0)
[2020-04-01 04:30] LABS: Alanine Aminotransferase 101 U/L (4-50); Alkaline Phosphatase 65 U/L (38-126); Anion Gap 5 mmol/L (8-16); Aspartate Amino Transferase 62 U/L (17-59); Bilirubin,Total 0.7 mg/dL (0.2-1.3); Blood Urea Nitrogen 29 mg/dL (9-20); Calcium 8.1 mg/dL (8.4-10.2); Carbon Dioxide 27 mmol/L (22-30); Chloride 115 mmol/L (98-107); Estimated CRCL calculation 100 ml/min; Estimated Glomerular Filt Rate > 60; Glucose 159 mg/dL (75-110); Magnesium 2.3 mg/dL (1.6-2.3); Phosphorus 3.5 mg/dL (2.5-4.5); Potassium 3.7 mmol/L (3.4-5.0); Sodium 147 mmol/L (137-145); Triglycerides 129 mg/dL (<150)
[2020-04-01] MEDS: ACETAMINOPHEN 325 MG TABLET 650 MG PO ×2 (04:57→21:32)
[2020-04-01] MEDS: CENTRAL LINE FLUSH 10 ML IV PUSH ×3 (04:58→21:36)
[2020-04-01] MEDS: ENOXAPARIN 120 MG/0.8 ML SYRINGE SUB-Q ×2 (05:05→17:49)
[2020-04-01 05:11] LABS: Alveolar/Arterial O2 Gradient 94.6 mmHg; Base Excess ABG -1.9 mEq/l (+/-2.0); Carboxyhemoglobin 0.2 % THb (0-2.0); Fractional Inspired Oxygen 30 %; HCO3 ABG 21.4 mEq/l (22.0-26.0); Methemoglobin ABG 0.2 %THb (0-1.5); Oxygen Content ABG 14.2 %vol (16.0-22.0); Oxygen Saturation ABG 96.7 % (95.0-100.0); Oxyhemoglobin 94.4 % THb (90.0-100.0); PCO2 ABG 31.3 mmHg (35.0-45.0); PO2 ABG 82.5 mmHg (80.0-100.0); PO2 FiO2 Ratio Arterial Blood 2.75 %; Reduced Hemoglobin 5.2 %THb (0-5.0); Total Hemoglobin 10.6 g/dL (12.0-18.0); pH ABG 7.452 (7.350-7.450)
[2020-04-01 05:12] LABS: Device VENTILATOR; Modified Allen's Test Pass; Site Drawn RIGHT RADIAL
[2020-04-01 05:13] LABS: Arterial Blood Gas Vent Mode ASV
[2020-04-01 05:14] LABS: Arterial Blood Gas PEEP 5 cmH2O
[2020-04-01] MEDS: METOPROLOL TARTRATE 50 MG TAB PO ×2 (07:56→21:36)
[2020-04-01] MEDS: CHOLECALCIFEROL 1,000 UNITS TABLET 5000 UNITS PO (07:56)
[2020-04-01] MEDS: buPROPion HCL 75 MG TABLET PO ×2 (07:56→21:36)
[2020-04-01] MEDS: CLOPIDOGREL BISULFATE 75 MG TABLET PO (07:56)
[2020-04-01] MEDS: SERTRALINE HCL 50 MG TABLET 100 MG PO (07:56)
[2020-04-01] MEDS: ATORVASTATIN 40 MG TABLET 80 MG PO (07:56)
[2020-04-01] MEDS: INSULIN DETEMIR 100 UNITS/ML 30 UNITS SUB-Q ×2 (07:57→21:53)
[2020-04-01] MEDS: PANTOPRAZOLE SODIUM IV 40 MG VIAL IV PUSH (07:57)
[2020-04-01] MEDS: MICONAZOLE NITRATE 2% CREAM 30 GM TUBE 1 APPLIC TOPICAL ×2 (07:58→21:36)
--- NOTE | 2020-04-01 10:19 | PM.IMPN ---
Progress Note: A&P Assessment and Plan (1) Pneumonia due to COVID-19 virus: Code(s): U07.1 - COVID-19; J12.89 - Other viral pneumonia Status: Acute Assessment and Plan: -COVID-19 pneumonia diagnosed -CT and chest x-ray consistent with COVID-19 pneumonia -inflammatory markers are mildly elevated ferritin 597, LDH 728, CRP 8.7 -wean oxygen to keep saturations greater than 90%, currently 9 L oxygen nasal cannula, weaned off BiPAP, patient may need CPAP at night -ABG showed PO2 85 on 50% FiO2 -Tylenol for fever -albuterol nebs q.6 hours, is unclear if he could cooperate for MDI -dexamethasone 6 mg IV daily -will need to find out with when COVID-19 was diagnosed to see if he is appropriate for remdesivir and convalescent plasma -continue home Pepcid for GI prophylaxis -supplements vitamin-D 5000 units -on full-dose Lovenox for possible PE -holding off on further antibiotics and will re-evaluate tomorrow as patient does not a leukocytosis or sputum production culture is growing coagulase-negative staph, being treated with cefepime and vancomycin Dr. boothe is consult, currently on vent and sedated unable to provide any review of symptoms, has grade fever, was seen by Dr. Boothe recommended to continue Cefepime #5 continue, vancomycin was stopped did improve creatinine slightly still making some urine. on 03/26 patient is off sedation however is not responding unable to wean the patient off the ventilator, discussed with cardiopulmonary technologist chief will consult neurologist patient may need EEG to further evaluate, the CT scan the head was negative for any acute injury will continue to monitor appreciate cardiopulmonary technologist chief, ID and digital field service technician 03/27 patient is on propofol for sedation and he is not following simple instruction and does not respond to painful stimuli, today temp is 102.5 and on Cefepime, patient creatinine is 1.3 improving and he is making urine digital field service technician suspect this creatinine may be baseline, patient is seen by cardiopulmonary technologist chief, digital field service technician and ID, will continue to monitor and further recommendation to follow. 03/28 on ventilator remains on propofol, patient had a fever of 102.5 on 03/[address] boothe concern for fever and possibly encephalopathy due to cefepime it was stopped and started the patient on Zosyn, today seen by digital field service technician coronary down to 1.1 close to normal, patient seen by Nephrology and cardiopulmonary technologist chief and appreciate 03/29 still on ventilator and sedated, does not respond to painful stimuli, patient fever is down to 100.6 he is on Zosyn, discussed with cardiopulmonary technologist chief patient has history of necropsy will discuss with his bsa officer for further recommendation, but is down to 1.1 seen by digital field service technician, will continue to monitor and further recommendation to follow, patient is seen by cardiopulmonary technologist chief, Nephrology, and ID appreciated. 03/30 patient not seen 03/31 patient still has a low-grade fever there is slight improved and patient is mentation as he nodes with were verbal instruction, seen by Dr. boothe recommending continue Zosyn, patient kidney function is improving, cardiopulmonary technologist chief will discuss with the patient family further management. Additional Plan Patient is intubated and sedated. Patient repeat chest x-ray shows slight improvement. Plan is to continue current antibiotic treatment and vent support. Monitor CBC and electrolytes. Repeat chest x-ray in the morning. DVT prophylaxis: full-dose Lovenox Code status: Full code Disposition: IMU, pending clinical course Subjective Date/time seen: 04/01/20 10:19 Interval history: Patient was seen during the morning rounds today. Intubated and sedated. No new complaints. Review of Systems Review of Systems: ROS unobtainable: Yes unobtainable due to endotracheal tube and unobtainable due to medical condition Exam Narrative: Exam Narrative: Moderately obese Patient is intubated and sedated. HEENT: ET tube in place LUNGS: Normal respiratory effort ABD: Distended
--- NOTE | 2020-04-01 10:44 | PCDIET ---
Nutrition Follow-Up Complete: Nutrition Diagnosis: Inadequate oral intake related to oral intubation as evidenced by NPO status. Nutrition Goal: Patient to meet estimated nutritional needs. Goal met. Patient tolerating Glucerna 1.2 at 60mL/hr goal rate with 100mL water flush every 4 hours. Would consider increasing water flush to 150mL every 4 hours, if medically appropriate. Last recorded weight is 130.6 kg which is decreased from last review, despite +I/O. Will monitor. Bowel Motility: BM x 2 documented 03/31/20. RN reports patient generally with 1-2 BM per shift. Labs Reviewed: Hgb (11.0), Hct (33.9), Glu (159), BUN (29), Na (147), Cl (115), Alb (3.0), Ceci Ca (8.9) Meds Noted: Lipitor, Levemir, Atrovent, Xopenex, Reglan, Lopressor, Protonix, Zosyn, Vitamin D Additional Notes: No documented skin breakdown. Nutrition Monitoring and Evaluation: Follow up every Monday/Monday. Follow daily in ICU rounds.
--- NOTE | 2020-04-01 10:47 | P.NEURO_ITS ---
Neurology EEG Report General Information Date of Study: 03/30/20 TEST EEG DIAGNOSIS change in the mental status CONDITION OF RECORDING unresponsive EEG NUMBER [id number] CLINICAL HISTORY no particular history available and patient is unresponsive EEG DESCRIPTION whole record consists of poorly organized low voltage 8 to 10 hertz per 2nd alpha posteriorly admixed with low to medium voltage 6 to 7 hertz per 2nd theta activity bilaterally as well as anteriorly. Bilateral symmetrical sleep activity is seen during sleep. Non paroxysmal. Nonfocal. Nonlateralizing. IMPRESSION Abnormal record due to presence of bihemispheric theta activity this abnormality could be suggestive of underlying organic or metabolic encephalopathy. There is no evidence of any paroxysmal activity clinical cor relation recommended
--- NOTE | 2020-04-01 12:10 | WPDINFPN2 ---
Progress Note: A&P Assessment and Plan (1) Fever: Qualifiers: Fever type: unspecified Qualified Code(s): R50.9 - Fever, unspecified Code(s): R50.9 - Fever, unspecified Status: Acute Additional Plan 1. Fever, resolved for now after change in empiric therapy. Respiratory source suspected. CXR modest improvement 2. Recent CoVid 19 infection, off steroids, +remdesivir in past 3. Mild renal insufficiency REC PipTazo # 6, continue. PICC can remain in place, discussed. Subjective Date/time seen: 04/01/20 12:10 Interval history: intubated, lightly sedated Exam Narrative: Exam Narrative: afebrile: all core temps 37.9-38.2 Const: General: no acute distress Resp: Effort & Inspection: normal respiratory effort Auscultation: clear to auscultation bilaterally Cardio: Rate: regular rate Rhythm: regular rhythm Heart sounds: no murmurs GI: Inspection: non-distended GI Palp: Yes Soft to palpation, No Tenderness to palpation present (GI) and No Guarding due to palpation present (GI) Urinary Catheter: Urinary Catheter: patent and draining and urine clear Skin: General skin exam: normal color and no rashes or lesions noted Objective Data Vital Signs Vital Signs: Vital Signs - 24 hr 03/31/20 13:47 03/31/20 13:57 03/31/20 14:00 Temperature 38.1 C H Pulse Rate 77 80 84 Respiratory Rate 16 17 17 Blood Pressure 172/98 H Pulse Oximetry 95 95 03/31/20 16:00 03/31/20 16:15 03/31/20 16:56 Temperature 38.2 C H 38.2 C H Pulse Rate 83 81 Respiratory Rate 17 Blood Pressure 169/98 H Pulse Oximetry 95 95 03/31/20 17:15 03/31/20 18:00 03/31/20 20:00 Temperature 38.1 C H 38.1 C H 38.0 C H Pulse Rate 81 78 Respiratory Rate 17 17 Blood Pressure 152/93 H 136/87 Pulse Oximetry 95 96 03/31/20 20:15 03/31/20 20:23 03/31/20 20:25 Temperature Pulse Rate 81 84 77 Respiratory Rate 16 Blood Pressure Pulse Oximetry 97 03/31/20 20:56 03/31/20 21:56 03/31/20 22:00 Temperature 38.1 C H 38.1 C H 38.1 C H Pulse Rate 69 Respiratory Rate 16 Blood Pressure 151/89 H Pulse Oximetry 97 03/31/20 23:19 03/31/20 23:37 04/01/20 00:00 Temperature 37.9 C H Pulse Rate 70 75 72 Respiratory Rate 15 16 Blood Pressure 147/89 H Pulse Oximetry 97 97 96 04/01/20 02:00 04/01/20 02:56 04/01/20 02:57 Temperature 38.0 C H Pulse Rate 73 80 78 Respiratory Rate 15 16 Blood Pressure 160/92 H Pulse Oximetry 94 96 04/01/20 03:32 04/01/20 04:00 04/01/20 04:16 Temperature 38.1 C H Pulse Rate 75 80 78 Respiratory Rate 17 16 Blood Pressure 141/86 H Pulse Oximetry 95 96 95 04/01/20 04:57 04/01/20 05:57 04/01/20 06:00 Temperature 38.1 C H 38.1 C H 38.1 C H Pulse Rate 87 Respiratory Rate 16 Blood Pressure 159/99 H Pulse Oximetry 96 04/01/20 08:00 04/01/20 08:10 04/01/20 08:20 Temperature 38.1 C H Pulse Rate 86 87 88 Respiratory Rate 17 14 14 Blood Pressure 150/93 H Pulse Oximetry 95 95 04/01/20 10:00 Temperature 38.1 C H Pulse Rate 78 Respiratory Rate 22 H Blood Pressure 162/97 H Pulse Oximetry 96 Intake/Output Intake/Output: Intake & Output 03/29/20 03/30/20 03/31/20 04/01/20 23:59 23:59 23:59 23:59 Intake Total 2610 2236 2600 802 Output Total 1999 1850 1950 750 Balance 610 386 650 52 Meds/Results Medications: Active Medications Generic Name Dose Route Start Last Admin Trade Name Freq PRN Reason Stop Dose Admin Acetaminophen 650 mg 03/17/20 04:13 04/01/20 04:57 Acetaminophen 325 Mg Tablet PO 650 mg Q4H PRN Administration Mild Pain (1-3) or Fever Alteplase, Recombinant 2 mg 03/31/20 18:13 03/31/20 20:56 Alteplase 2 Mg Vial (Cathflo) IV PUSH 2 mg ONCE PRN Administration Line Occlusion Atorvastatin Calcium 80 mg 03/17/20 09:00 04/01/20 07:56 Atorvastatin 40 Mg Tablet PO 80 mg DAILY ANALI Administration Bupropion HCl 75 mg 03/22/20 09:00 04/01/20 07:56 Bupropi
--- NOTE | 2020-04-01 12:14 | WPDINTPN ---
Progress Note: A&P Assessment and Plan (1) Encephalopathy: Code(s): G93.40 - Encephalopathy, unspecified Status: Acute Assessment and Plan: Encephalopathy after decreasing sedation. Most likely toxic metabolic encephalopathy. Patient has been critically ill and was on heavy sedation for long time for mechanical ventilation -brain CT scan on 03/26/2020 does not show any acute intracranial abnormalities, moderate sinus disease, could be related to COVID-19 -appreciate neurology evaluation recommendation, -ammonia level on 03/27/2020 was < 9 - EEG was done and is consistent with encephalopathy -unable to get MRI on mechanical ventilation here in this hospital -patient appears to be marginally better today as compared to yesterday. Continue holding sedation and monitoring (2) Acute respiratory failure with hypoxia: Code(s): J96.01 - Acute respiratory failure with hypoxia Status: Acute Assessment and Plan: Acute respiratory failure likely secondary to COVID-19 pneumonia -CXR: Stable bilateral patchy airspace disease -patient currently in ASV mode on 30% FiO2 and 5 of PEEP -continue bronchodilators -patient has been on ventilator for 2 weeks but his mental status is improving and he may be able to be extubated in next few days. If this does not happen he may need tracheostomy but will continue through the end of this week in trying to extubate him. (3) Fever: Qualifiers: Fever type: unspecified Qualified Code(s): R50.9 - Fever, unspecified Code(s): R50.9 - Fever, unspecified Status: Acute Assessment and Plan: Persistently febrile -could be related to atelectasis, pneumonia, thromboembolism, sinusitis -CT scan of the chest abdomen and pelvis on 03/26/2019 multi segment left lower lobe, segmental right lower lobe dependent atelectasis and pneumonia. Scattered diffuse ill-defined ground-glass lung opacities suspicious for COVID-19 pneumonia. Chronic abdominal findings. -03/26/2020 blood cultures: No growth x2 -03/27/2020 sputum culture growing Yeast -03/27/2020 urine culture: Growth -initial sputum, blood, cultures negative -his WBC count is normal -continue Zosyn per Infectious Disease. I have discussed case with Dr. nelson and he feels that it is okay to continue with the PICC line and does not suspect it to be a source of infection -bilateral lower extremity venous Dopplers were negative for DVT (4) Pneumonia due to COVID-19 virus: Code(s): U07.1 - COVID-19; J12.89 - Other viral pneumonia Status: Acute Assessment and Plan: SARS-CoV-2 PCR positive on 03/11/2020 -patient presented to outside hospital 03/16/2020 with productive cough, shortness of breath, wheezing hypoxia -continue dexamethasone IV for 10 days -received 5 days of Remdesivir -03/17 received to convalescent plasma -continue airborne, contact, droplet isolation/precautions -will monitor inflammatory markers (5) Pulmonary embolism associated with severe acute respiratory syndrome coronavirus 2 (SARS-CoV-2) infection: Code(s): U07.1 - COVID-19; I26.99 - Other pulmonary embolism without acute cor pulmonale Status: Acute Assessment and Plan: Possible small segmental PEs on CTA chest the outside hospital lots of motion artifact -patient has been started on therapeutic Lovenox -03/21/2020 venous Dopplers bilateral lower extremities negative for DVT (6) Hyperglycemia: Code(s): R73.9 - Hyperglycemia, unspecified Status: Acute Assessment and Plan: Continue Accu-Cheks, sliding scale insulin -continue Levemir. -hyperglycemia likely related to dexamethasone (7) Coronary artery disease: Qualifiers: Coronary Disease-Associated Artery/Lesion type: unspecified vessel or lesion type [place] vs. transplanted heart: [place] heart Associated angina: without angina Qualified Code(s): I25.10 - Atherosclerotic heart disease of [place] coronary
[2020-04-01 12:51] LABS: Glucose Point of Care 138 (65-105)
[2020-04-01 17:07] LABS: Glucose Point of Care 92 (65-105)
[2020-04-01 21:53] LABS: Glucose Point of Care 131 (65-105)
[2020-04-02] VITALS (38 sets, daily range): BP systolic 123–155; BP diastolic 78–99; PULSE 71–100; RESP 12–26; TEMP 38.1–38.5; O2SAT 91–99
[2020-04-02 01:34] LABS: Glucose Point of Care 109 (65-105)
[2020-04-02] MEDS: LEVALBUTEROL NEB 1.25 MG/3 ML 0.63 MG INHALATION ×4 (02:44→20:22)
[2020-04-02] MEDS: IPRATROPIUM BR 0.02% INH SOLN 0.5 MG/2.5 ML VIAL INHALATION ×4 (02:45→20:22)
[2020-04-02] MEDS: ACETAMINOPHEN 325 MG TABLET 650 MG PO ×2 (03:52→13:12)
[2020-04-02 04:16] LABS: Hematocrit 33.9 % (42.0-52.0); Hemoglobin 10.9 g/dL (14.0-18.0); Mean Corpuscular HGB Conc 32.2 g/dl (32-36); Mean Corpuscular Hemoglobin 30.3 pg (26-34); Mean Corpuscular Volume 94.2 fl (80-100); Mean Platelet Volume 10.4 fl (7.4-10.4); Platelet Count Result 188 k/mm3 (150-375); Red Cell Distribution Width 13.2 % (11.5-14.5); White Blood Count 7.2 K/mm3 (4.5-10.0)
[2020-04-02 04:38] LABS: Alanine Aminotransferase 113 U/L (4-50); Albumin Level 2.9 g/dL (3.5-5.1); Alkaline Phosphatase 66 U/L (38-126); Anion Gap 5 mmol/L (8-16); Aspartate Amino Transferase 73 U/L (17-59); Bilirubin,Total 0.7 mg/dL (0.2-1.3); Blood Urea Nitrogen 27 mg/dL (9-20); Carbon Dioxide 26 mmol/L (22-30); Chloride 115 mmol/L (98-107); Estimated CRCL calculation 100 ml/min; Estimated Glomerular Filt Rate > 60; Glucose 132 mg/dL (75-110); Magnesium 2.3 mg/dL (1.6-2.3); Phosphorus 3.7 mg/dL (2.5-4.5); Potassium 3.7 mmol/L (3.4-5.0); Sodium 146 mmol/L (137-145)
[2020-04-02 05:07] LABS: Alveolar/Arterial O2 Gradient 93.5 mmHg; Base Excess ABG -1.8 mEq/l (+/-2.0); Carboxyhemoglobin 0.3 % THb (0-2.0); Device VENTILATOR; Fractional Inspired Oxygen 30 %; HCO3 ABG 21.8 mEq/l (22.0-26.0); Methemoglobin ABG 0.4 %THb (0-1.5); Modified Allen's Test Unable to perform; Oxygen Content ABG 17.6 %vol (16.0-22.0); Oxygen Saturation ABG 96.3 % (95.0-100.0); Oxyhemoglobin 94.8 % THb (90.0-100.0); PCO2 ABG 33.7 mmHg (35.0-45.0); PO2 ABG 80.8 mmHg (80.0-100.0); PO2 FiO2 Ratio Arterial Blood 2.69 %; Reduced Hemoglobin 4.5 %THb (0-5.0); Site Drawn RIGHT RADIAL; Total Hemoglobin 13.2 g/dL (12.0-18.0); pH ABG 7.429 (7.350-7.450)
[2020-04-02 05:08] LABS: Arterial Blood Gas Minute Volume 7 LPM; Arterial Blood Gas PEEP 5 cmH2O; Arterial Blood Gas Vent Mode ASV
[2020-04-02] MEDS: ENOXAPARIN 120 MG/0.8 ML SYRINGE SUB-Q ×2 (05:09→17:25)
[2020-04-02] MEDS: CENTRAL LINE FLUSH 10 ML IV PUSH ×2 (05:09→21:54)
[2020-04-02] MEDS: SERTRALINE HCL 50 MG TABLET 100 MG PO (08:33)
[2020-04-02] MEDS: ATORVASTATIN 40 MG TABLET 80 MG PO (08:33)
[2020-04-02] MEDS: buPROPion HCL 75 MG TABLET PO (08:34)
[2020-04-02] MEDS: MICONAZOLE NITRATE 2% CREAM 30 GM TUBE 1 APPLIC TOPICAL ×2 (08:34→21:53)
[2020-04-02] MEDS: INSULIN DETEMIR 100 UNITS/ML 30 UNITS SUB-Q ×2 (08:34→21:52)
[2020-04-02] MEDS: CLOPIDOGREL BISULFATE 75 MG TABLET PO (08:34)
[2020-04-02] MEDS: METOPROLOL TARTRATE 50 MG TAB PO ×2 (08:34→21:53)
[2020-04-02] MEDS: CHOLECALCIFEROL 1,000 UNITS TABLET 5000 UNITS PO (08:34)
[2020-04-02] MEDS: PANTOPRAZOLE SODIUM IV 40 MG VIAL IV PUSH (08:34)
--- NOTE | 2020-04-02 13:00 | PCDIET ---
ICU Rounding Note: Patient tolerating Glucerna 1.2 at 60mL/hr goal rate. MD increased water flush to 200mL every 4 hours. Last recorded weight is 129.6kg which is decreased from last review. Bowel Motility: BM x 1 today. Labs Reviewed: Hgb (10.9), Hct (33.9), Glu (132), Na (146), Cl (115), Alb (2.9), Ceci Ca (8.88) Meds Noted: Lipitor, Levemir, Protonix, Atrovent, Xopenex, Zosyn, Reglan, Lopressor, Vitamin D Additional Notes: Cheek wounds per RN. No other reported skin issues. Following daily in ICU rounds. Assessing/reassessing every Monday/Monday.
[2020-04-02 13:24] LABS: Glucose Point of Care 142 (65-105)
--- NOTE | 2020-04-02 14:37 | WPDINTPN ---
Progress Note: A&P Assessment and Plan (1) Encephalopathy: Code(s): G93.40 - Encephalopathy, unspecified Status: Acute Assessment and Plan: Encephalopathy after decreasing sedation. Most likely toxic metabolic encephalopathy. Patient has been critically ill and was on heavy sedation for long time for mechanical ventilation -brain CT scan on 03/26/2020 does not show any acute intracranial abnormalities, moderate sinus disease, could be related to COVID-19 -appreciate neurology evaluation recommendation, -ammonia level on 03/27/2020 was < 9 - EEG was done and is consistent with encephalopathy -unable to get MRI on mechanical ventilation here in this hospital -patient appears to be marginally better today as compared to yesterday. Continue holding sedation and monitoring (2) Acute respiratory failure with hypoxia: Code(s): J96.01 - Acute respiratory failure with hypoxia Status: Acute Assessment and Plan: Acute respiratory failure likely secondary to COVID-19 pneumonia -CXR: Stable bilateral patchy airspace disease -patient currently in ASV mode on 30% FiO2 and 5 of PEEP -continue bronchodilators -patient has been on ventilator for 2 weeks and encephalopathy has prevented extubation. His mental status is improving, albeit very slowly and he may be able to be extubated in next few days. If this does not happen he may need tracheostomy but will continue through the end of this week in trying to extubate him. (3) Fever: Qualifiers: Fever type: unspecified Qualified Code(s): R50.9 - Fever, unspecified Code(s): R50.9 - Fever, unspecified Status: Acute Assessment and Plan: Persistently low-grade fever-could be related to atelectasis, pneumonia, thromboembolism, sinusitis -CT scan of the chest abdomen and pelvis on 03/26/2019 multi segment left lower lobe, segmental right lower lobe dependent atelectasis and pneumonia. Scattered diffuse ill-defined ground-glass lung opacities suspicious for COVID-19 pneumonia. Chronic abdominal findings. -03/26/2020 blood cultures: No growth x2 -03/27/2020 sputum culture growing Yeast -03/27/2020 urine culture: Growth -initial sputum, blood, cultures negative -his WBC count is normal -continue Zosyn per Infectious Disease. 04/01- I discussed case with Dr. nelson and and whether to remove PICC line. He feels that it is okay to continue with the PICC line and does not suspect it to be a source of infection -bilateral lower extremity venous Dopplers were negative for DVT. Will repeat. Check lipase (4) Pneumonia due to COVID-19 virus: Code(s): U07.1 - COVID-19; J12.89 - Other viral pneumonia Status: Acute Assessment and Plan: SARS-CoV-2 PCR positive on 03/11/2020 -patient presented to outside hospital 03/16/2020 with productive cough, shortness of breath, wheezing hypoxia -continue dexamethasone IV for 10 days -received 5 days of Remdesivir -03/17 received to convalescent plasma -continue airborne, contact, droplet isolation/precautions (5) Pulmonary embolism associated with severe acute respiratory syndrome coronavirus 2 (SARS-CoV-2) infection: Code(s): U07.1 - COVID-19; I26.99 - Other pulmonary embolism without acute cor pulmonale Status: Acute Assessment and Plan: Possible small segmental PEs on CTA chest the outside hospital lots of motion artifact -patient has been started on therapeutic Lovenox -03/21/2020 venous Dopplers bilateral lower extremities negative for DVT (6) Hyperglycemia: Code(s): R73.9 - Hyperglycemia, unspecified Status: Acute Assessment and Plan: Continue Accu-Cheks, sliding scale insulin -continue Levemir. (7) Coronary artery disease: Qualifiers: Coronary Disease-Associated Artery/Lesion type: unspecified vessel or lesion type [place] vs. transplanted heart: [place] heart Associated angina: without angina Qualified Code(s): I25.10 - At
--- NOTE | 2020-04-02 15:23 | WPDINFPN2 ---
Progress Note: A&P Assessment and Plan (1) Fever: Qualifiers: Fever type: unspecified Qualified Code(s): R50.9 - Fever, unspecified Code(s): R50.9 - Fever, unspecified Status: Acute Additional Plan 1. Fever, resolved for now after change in empiric therapy. Respiratory source suspected. CXR stable 2. Recent CoVid 19 infection, off steroids, +remdesivir in past 3. Mild renal insufficiency REC PipTazo # 7, continue through today. PICC can remain in place. Back off antibiotic tomorrow if stable. This hospital does not offer procalcitonin levels that are returned in anywhere close to timely fashion, so will not order. Subjective Date/time seen: 04/02/20 15:23 Interval history: on vent, no pressors, no sedation Exam Narrative: Exam Narrative: t max 38.5 core, range since last visit 38.1 - 38.5, all core temps Const: General: no acute distress Resp: Effort & Inspection: normal respiratory effort Auscultation: clear to auscultation bilaterally Cardio: Rate: regular rate Rhythm: regular rhythm Heart sounds: no gallops and no murmurs GI: Inspection: non-distended GI Palp: Yes Soft to palpation, No Tenderness to palpation present (GI) and No Guarding due to palpation present (GI) Urinary Catheter: Urinary Catheter: patent and draining and urine clear Objective Data Vital Signs Vital Signs: Vital Signs - 24 hr 04/01/20 16:00 04/01/20 17:32 04/01/20 18:00 Temperature 38.1 C H 38.1 C H Pulse Rate 76 85 76 Respiratory Rate 16 18 Blood Pressure 151/90 H 164/84 H Pulse Oximetry 95 94 95 04/01/20 20:00 04/01/20 20:30 04/01/20 20:56 Temperature 38.1 C H Pulse Rate 84 88 91 Respiratory Rate 14 14 Blood Pressure 162/96 H Pulse Oximetry 94 94 04/01/20 21:05 04/01/20 21:32 04/01/20 21:36 Temperature 38.2 C H Pulse Rate 89 93 Respiratory Rate 19 Blood Pressure Pulse Oximetry 04/01/20 22:00 04/01/20 23:00 04/01/20 23:41 Temperature 38.2 C H Pulse Rate 83 70 72 Respiratory Rate 15 21 H Blood Pressure 156/99 H Pulse Oximetry 95 95 96 04/02/20 00:00 04/02/20 02:00 04/02/20 02:15 Temperature 38.2 C H 38.3 C H Pulse Rate 71 75 77 Respiratory Rate 13 18 Blood Pressure 151/93 H 155/99 H Pulse Oximetry 96 95 95 04/02/20 02:45 04/02/20 02:53 04/02/20 03:52 Temperature 38.3 C H Pulse Rate 77 77 Respiratory Rate 18 18 Blood Pressure Pulse Oximetry 04/02/20 04:00 04/02/20 04:52 04/02/20 05:09 Temperature 38.3 C H 38.3 C H Pulse Rate 80 80 Respiratory Rate 17 Blood Pressure 137/89 Pulse Oximetry 95 97 04/02/20 06:00 04/02/20 08:00 04/02/20 08:02 Temperature 38.3 C H 38.3 C H Pulse Rate 81 77 79 Respiratory Rate 19 17 17 Blood Pressure 142/93 H 135/87 Pulse Oximetry 96 97 04/02/20 08:05 04/02/20 08:15 04/02/20 08:34 Temperature Pulse Rate 82 84 81 Respiratory Rate 18 Blood Pressure Pulse Oximetry 94 04/02/20 10:00 04/02/20 12:00 04/02/20 12:02 Temperature 38.3 C H 38.5 C H Pulse Rate 96 91 95 Respiratory Rate 18 12 Blood Pressure 151/97 H 154/97 H Pulse Oximetry 93 97 94 04/02/20 13:12 04/02/20 14:05 04/02/20 14:07 Temperature 38.5 C H Pulse Rate 92 90 Respiratory Rate 17 Blood Pressure Pulse Oximetry 91 04/02/20 14:14 Temperature Pulse Rate 98 Respiratory Rate 15 Blood Pressure Pulse Oximetry Intake/Output Intake/Output: Intake & Output 03/30/20 03/31/20 04/01/20 04/02/20 23:59 23:59 23:59 23:59 Intake Total 2236 2600 1725 1150 Output Total 1850 1950 1600 700 Balance 386 650 125 450 Meds/Results Medications: Active Medications Generic Name Dose Route Start Last Admin Trade Name Freq PRN Reason Stop Dose Admin Acetaminophen 650 mg 03/17/20 04:13 04/02/20 13:12 Acetaminophen 325 Mg Tablet PO 650 mg Q4H PRN Administration Mild Pain (1-3) or Fever Alteplase, Recombinant 2 mg 03/31/20 18:13 03/31/20 20:56 Alteplase 2 Mg
[2020-04-02 15:54] LABS: Lipase 151 U/L (23-300)
[2020-04-02 17:41] LABS: Glucose Point of Care 104 (65-105)
[2020-04-02] MEDS: PROPOFOL IV EMULSION 100 ML 3.89 MG IV CONT (21:54)
[2020-04-02 22:27] LABS: Glucose Point of Care 120 (65-105)
[2020-04-02 23:39] LABS: Glucose Point of Care 110 (65-105)
[2020-04-03] VITALS (32 sets, daily range): BP systolic 107–172; BP diastolic 67–100; PULSE 75–94; RESP 12–21; TEMP 37.9–38.4; O2SAT 92–98
[2020-04-03] MEDS: LEVALBUTEROL NEB 1.25 MG/3 ML 0.63 MG INHALATION ×4 (02:18→20:07)
[2020-04-03] MEDS: IPRATROPIUM BR 0.02% INH SOLN 0.5 MG/2.5 ML VIAL INHALATION ×4 (02:18→20:07)
[2020-04-03 04:32] LABS: Alveolar/Arterial O2 Gradient 203.1 mmHg; Base Excess ABG -2.2 mEq/l (+/-2.0); Carboxyhemoglobin 0.3 % THb (0-2.0); Fractional Inspired Oxygen 45 %; HCO3 ABG 20.7 mEq/l (22.0-26.0); Methemoglobin ABG 0.4 %THb (0-1.5); Oxygen Content ABG 17.5 %vol (16.0-22.0); Oxygen Saturation ABG 96.8 % (95.0-100.0); Oxyhemoglobin 94.6 % THb (90.0-100.0); PCO2 ABG 30.1 mmHg (35.0-45.0); PO2 ABG 83.5 mmHg (80.0-100.0); PO2 FiO2 Ratio Arterial Blood 1.86 %; Reduced Hemoglobin 4.7 %THb (0-5.0); Total Hemoglobin 13.1 g/dL (12.0-18.0); pH ABG 7.455 (7.350-7.450)
[2020-04-03 04:34] LABS: Device VENTILATOR; Modified Allen's Test Pass; Site Drawn LEFT RADIAL
[2020-04-03 04:35] LABS: Arterial Blood Gas PEEP 5 cmH2O; Arterial Blood Gas Vent Mode ASV
[2020-04-03] MEDS: ENOXAPARIN 120 MG/0.8 ML SYRINGE SUB-Q ×2 (05:23→17:26)
[2020-04-03] MEDS: CENTRAL LINE FLUSH 10 ML IV PUSH ×3 (05:24→20:23)
[2020-04-03 05:46] LABS: Glucose Point of Care 90 (65-105)
[2020-04-03 05:59] LABS: Triglycerides 96 mg/dL (<150)
[2020-04-03] MEDS: PANTOPRAZOLE SODIUM IV 40 MG VIAL IV PUSH (08:02)
[2020-04-03] MEDS: MICONAZOLE NITRATE 2% CREAM 30 GM TUBE 1 APPLIC TOPICAL ×2 (08:03→20:37)
[2020-04-03] MEDS: CHOLECALCIFEROL 1,000 UNITS TABLET 5000 UNITS PO (08:03)
[2020-04-03] MEDS: ATORVASTATIN 40 MG TABLET 80 MG PO (08:05)
[2020-04-03] MEDS: CLOPIDOGREL BISULFATE 75 MG TABLET PO (08:05)
[2020-04-03] MEDS: METOPROLOL TARTRATE 50 MG TAB PO ×2 (08:05→20:36)
[2020-04-03] MEDS: INSULIN DETEMIR 100 UNITS/ML 30 UNITS SUB-Q ×2 (08:06→20:36)
--- NOTE | 2020-04-03 10:48 | PCDIET ---
Nutrition Follow-Up Complete: Nutrition Diagnosis: Inadequate oral intake related to oral intubation as evidenced by NPO status. Nutrition Goal: Patient to meet estimated nutritional needs. Goal met. Patient tolerating Glucerna 1.2 at 60mL/hr goal rate with 200mL water flush every 4 hours. Last recorded weight is 124.1 kg which is decreased from last review; remains up from admission. Bowel Motility: Last documented BM on 04/02/20 x 1. Labs Reviewed: Glu (90) Meds Noted: Novolog, Xopenex, Protonix, Levemir, Reglan, Zosyn, Atrovent, Lopressor, Vitamin D Additional Notes: Cheek abrasion. Groin areas reddened, per nursing. MD consulting ENT and GI for tracheostomy and PEG. Will continue to monitor with same goal. Nutrition Monitoring and Evaluation: Follow up every Monday/Monday. Follow daily in ICU rounds.
--- NOTE | 2020-04-03 10:49 | WPDINTPN ---
Progress Note: A&P Assessment and Plan (1) Encephalopathy: Code(s): G93.40 - Encephalopathy, unspecified Status: Acute Assessment and Plan: Encephalopathy after decreasing sedation. Most likely toxic metabolic encephalopathy. Patient has been critically ill and was on heavy sedation for long time for mechanical ventilation -brain CT scan on 03/26/2020 does not show any acute intracranial abnormalities, moderate sinus disease, could be related to COVID-19 -ammonia level on 03/27/2020 was < 9 - EEG was done and is consistent with encephalopathy -although patient does appear slightly more aware of his surroundings over last few days, the improvement has been slow -unable to get MRI on mechanical ventilation here in this hospital -I spoke to Dr. Jimenez with neurology yesterday regarding patient's mental status and unexpectedly slow improvement after holding sedation. Discussed options of pursuing LP or transferring patient to other facility for MRI. He recommended getting head CT and will see patient today and offer further recommendations. Head CT was done last night and did not showed any acute change -Continue holding sedation and monitoring. Await further Neurology recommendations (2) Acute respiratory failure with hypoxia: Code(s): J96.01 - Acute respiratory failure with hypoxia Status: Acute Assessment and Plan: Acute respiratory failure likely secondary to COVID-19 pneumonia -CXR: Stable bilateral patchy airspace disease -patient currently in ASV mode on 30% FiO2 and 5 of PEEP -continue bronchodilators -patient has been on ventilator for > 2 weeks and encephalopathy has prevented extubation. His mental status is improving, albeit very slowly but he is very weak and his cough reflex is minimal. He is unable to move his extremities and 1 be able to protect or clear his airway. I do not think patient would be able to be extubated next couple of days. Will proceed the trach next week (see below) (3) Fever: Qualifiers: Fever type: unspecified Qualified Code(s): R50.9 - Fever, unspecified Code(s): R50.9 - Fever, unspecified Status: Acute Assessment and Plan: Persistently low-grade fever-could be related to atelectasis, pneumonia, thromboembolism, sinusitis -CT scan of the chest abdomen and pelvis on 03/26/2019 multi segment left lower lobe, segmental right lower lobe dependent atelectasis and pneumonia. Scattered diffuse ill-defined ground-glass lung opacities suspicious for COVID-19 pneumonia. Chronic abdominal findings. -03/26/2020 blood cultures: No growth x2 -03/27/2020 sputum culture growing Yeast -03/27/2020 urine culture: Growth -initial sputum, blood, cultures negative -his WBC count is normal -he will complete course of Zosyn per Infectious Disease. - 04/01- I discussed case with Dr. nelson and and whether to remove PICC line. He feels that it is okay to continue with the PICC line and does not suspect it to be a source of infection -04/02 repeat bilateral lower and upper extremity venous Dopplers were negative for DVT. Lipase level was normal (4) Pneumonia due to COVID-19 virus: Code(s): U07.1 - COVID-19; J12.89 - Other viral pneumonia Status: Acute Assessment and Plan: SARS-CoV-2 PCR positive on 03/11/2020 -patient presented to outside hospital 03/16/2020 with productive cough, shortness of breath, wheezing hypoxia -continue dexamethasone IV for 10 days -received 5 days of Remdesivir -03/17 received to convalescent plasma -continue airborne, contact, droplet isolation/precautions (5) Pulmonary embolism associated with severe acute respiratory syndrome coronavirus 2 (SARS-CoV-2) infection: Code(s): U07.1 - COVID-19; I26.99 - Other pulmonary embolism without acute cor pulmonale Status: Acute Assessment and Plan: Possible small segmental PEs on CTA chest the outside hospital lots of motion artifact -patient has b
--- NOTE | 2020-04-03 12:29 | WPDGICN ---
Assessment and Plan Assessment and plan (1) Acute respiratory failure with hypoxia: Code(s): J96.01 - Acute respiratory failure with hypoxia Status: Acute Assessment and Plan: Patient appears to be ventilator dependent. Although service is still trying to wean the patient from the ventilator. I will plan to follow patient over the weekend. If unable to be extubated will anticipate PEG tube placement on Monday. If we proceed this with anticoagulation will be need to be held after Monday night. In tube feedings will need to be held at night as well. We will follow with you in the antrum. Anticipate PEG placement on Monday. (2) Pneumonia due to COVID-19 virus: Code(s): U07.1 - COVID-19; J12.89 - Other viral pneumonia Status: Acute (3) Pulmonary embolism associated with severe acute respiratory syndrome coronavirus 2 (SARS-CoV-2) infection: Code(s): U07.1 - COVID-19; I26.99 - Other pulmonary embolism without acute cor pulmonale Status: Acute (4) Encephalopathy: Code(s): G93.40 - Encephalopathy, unspecified Status: Acute (5) Coronary artery disease: Qualifiers: Coronary Disease-Associated Artery/Lesion type: unspecified vessel or lesion type [place] vs. transplanted heart: [place] heart Associated angina: without angina Qualified Code(s): I25.10 - Atherosclerotic heart disease of [place] coronary artery without angina pectoris Code(s): I25.10 - Atherosclerotic heart disease of [place] coronary artery without angina pectoris Status: Acute GI Consult Note Consult date/time: 04/03/20 12:29 HPI: Griffin Meehan is a 74 year old male seen in evaluation at the request of the hospitalist service. Patient presented the hospital was admitted March 17, 2020. Was found to have COVID number pneumonia. Developed respiratory failure placed on the ventilator. He has been on the ventilator since that time. During his hospital stay he has had a pulmonary embolus for which she is now on Lovenox. He remains somewhat poorly alert after stopping any sedatives. He is felt to have an underlying encephalopathy. This is may be from COVID or chronic illness. Because of ventilator dependency a PEG tube has been requested. Patient currently receiving tube feedings through an NG tube. Review of Systems Review of Systems: ROS unobtainable: Yes unobtainable due to endotracheal tube and unobtainable due to medical condition [facility] Past Medical History Medical History Anxiety and depression Benign prostatic hyperplasia Bronchitis Congestive heart failure Coronary artery disease Essential hypertension Gastroesophageal reflux disease Hyperlipidemia Hypernatremia Hypernatremia Overactive bladder Surgical History Surgical History Status post placement of cardiac pacemaker Family History Family History Other Unknown family medical history Social History Social History Smoking packs per day: 1 Smoking cigarettes per day: 20.0 Smoking status: Current every day smoker Alcohol intake: never Substance use: never Substance use type: does not use Living arrangements: with family Gender identity (if verbalized by the patient): Male Spiritual care concerns: No Meds Home Medications and Allergies Home Medications Medication Instructions Recorded Confirmed Type aspirin 81 mg PO DAILY 03/17/20 03/17/20 History atorvastatin 80 mg PO DAILY 03/17/20 03/17/20 History bupropion HCl 150 mg PO DAILY 03/17/20 03/17/20 History cetirizine [Zyrtec] 10 mg PO DAILY 03/17/20 03/17/20 History clopidogrel 75 mg PO DAILY 03/17/20 03/17/20 History famotidine 40 mg PO DAILY 03/17/20 03/17/20 History furosemide 40 mg PO DAILY 03/17/20 03/17/20 History metoprolol succ
[2020-04-03 12:52] LABS: Glucose Point of Care 99 (65-105)
--- NOTE | 2020-04-03 15:06 | WPDINFPN2 ---
Progress Note: A&P Assessment and Plan (1) Fever: Qualifiers: Fever type: unspecified Qualified Code(s): R50.9 - Fever, unspecified Code(s): R50.9 - Fever, unspecified Status: Acute Additional Plan 1. Fever, resolved for now after change in empiric therapy. Respiratory source suspected. 2. Recent CoVid 19 infection, off steroids, +remdesivir in past 3. Mild renal insufficiency REC PipTazo # 8, stop. PICC can remain in place. Subjective Date/time seen: 04/03/20 15:06 Interval history: no sedation no pressors Exam Narrative: Exam Narrative: Core temps range: 37.9 - 38.4 Const: General: no acute distress Resp: Effort & Inspection: normal respiratory effort Auscultation: clear to auscultation bilaterally Cardio: Rate: regular rate Rhythm: regular rhythm GI: Inspection: non-distended GI Palp: Yes Soft to palpation and No Tenderness to palpation present (GI) Urinary Catheter: Urinary Catheter: patent and draining and urine clear Skin: General skin exam: normal color and no rashes or lesions noted Objective Data Vital Signs Vital Signs: Vital Signs - 24 hr 04/02/20 15:33 04/02/20 16:00 04/02/20 16:40 Temperature 38.1 C H Pulse Rate 84 81 75 Respiratory Rate 19 15 Blood Pressure 129/84 Pulse Oximetry 92 92 92 04/02/20 17:46 04/02/20 20:00 04/02/20 20:26 Temperature 38.3 C H Pulse Rate 82 89 86 Respiratory Rate 18 18 13 Blood Pressure 129/84 142/95 H Pulse Oximetry 92 95 04/02/20 20:27 04/02/20 20:36 04/02/20 21:53 Temperature Pulse Rate 86 89 94 Respiratory Rate 14 Blood Pressure Pulse Oximetry 96 04/02/20 21:54 04/02/20 22:00 04/02/20 22:02 Temperature 38.1 C H Pulse Rate 92 91 92 Respiratory Rate 13 17 Blood Pressure 123/78 Pulse Oximetry 98 04/02/20 23:27 04/02/20 23:36 04/03/20 00:00 Temperature Pulse Rate 85 79 Respiratory Rate Blood Pressure Pulse Oximetry 99 96 04/03/20 00:02 04/03/20 01:55 04/03/20 02:00 Temperature 38.1 C H Pulse Rate 77 83 76 Respiratory Rate 17 12 17 Blood Pressure 107/67 112/78 Pulse Oximetry 96 92 95 04/03/20 02:05 04/03/20 03:35 04/03/20 04:00 Temperature Pulse Rate 85 82 Respiratory Rate 12 Blood Pressure Pulse Oximetry 95 04/03/20 04:01 04/03/20 04:13 04/03/20 06:00 Temperature 37.9 C H Pulse Rate 84 83 79 Respiratory Rate 20 Blood Pressure 157/88 H Pulse Oximetry 97 98 04/03/20 06:01 04/03/20 07:31 04/03/20 07:35 Temperature 37.9 C H Pulse Rate 79 82 83 Respiratory Rate 12 18 Blood Pressure 121/75 Pulse Oximetry 96 98 04/03/20 08:00 04/03/20 08:05 04/03/20 10:00 Temperature 37.9 C H 38.2 C H Pulse Rate 81 85 79 Respiratory Rate 12 18 Blood Pressure 166/85 H 155/89 H Pulse Oximetry 94 95 04/03/20 10:33 04/03/20 12:00 04/03/20 14:00 Temperature 38.4 C H 38.4 C H Pulse Rate 79 84 82 Respiratory Rate 21 H 16 Blood Pressure 163/89 H 162/98 H Pulse Oximetry 95 94 96 04/03/20 14:19 04/03/20 14:30 Temperature Pulse Rate 80 80 Respiratory Rate 18 Blood Pressure Pulse Oximetry 96 Intake/Output Intake/Output: Intake & Output 03/31/20 04/01/20 04/02/20 04/03/20 23:59 23:59 23:59 23:59 Intake Total 2600 1725 2254 1398 Output Total 1950 1600 1300 600 Balance 650 125 954 798 Meds/Results Medications: Active Medications Generic Name Dose Route Start Last Admin Trade Name Freq PRN Reason Stop Dose Admin Acetaminophen 650 mg 03/17/20 04:13 04/02/20 13:12 Acetaminophen 325 Mg Tablet PO 650 mg Q4H PRN Administration Mild Pain (1-3) or Fever Alteplase, Recombinant 2 mg 03/31/20 18:13 03/31/20 20:56 Alteplase 2 Mg Vial (Cathflo) IV PUSH 2 mg ONCE PRN Administration Line Occlusion Atorvastatin Calcium 80 mg 03/17/20 09:00 04/03/20 08:05 Atorvastatin 40 Mg Tablet PO 80 mg DAILY ANALI Administration Bupropion HCl 75 mg 03/22/20 09:00 04/02/20 0
[2020-04-03 17:39] LABS: Glucose Point of Care 106 (65-105)
[2020-04-03 23:29] LABS: Glucose Point of Care 98 (65-105)
[2020-04-04] VITALS (41 sets, daily range): BP systolic 117–175; BP diastolic 79–138; PULSE 73–135; RESP 13–32; TEMP 38.1–39.2; O2SAT 93–99
[2020-04-04] MEDS: LEVALBUTEROL NEB 1.25 MG/3 ML 0.63 MG INHALATION ×4 (01:57→20:17)
[2020-04-04] MEDS: IPRATROPIUM BR 0.02% INH SOLN 0.5 MG/2.5 ML VIAL INHALATION ×4 (01:57→20:17)
[2020-04-04] MEDS: CENTRAL LINE FLUSH 10 ML IV PUSH ×3 (04:55→20:08)
[2020-04-04 05:14] LABS: Glucose Point of Care 146 (65-105)
[2020-04-04] MEDS: METOPROLOL TARTRATE INJ 5 MG/5 ML VIAL IV PUSH (05:16)
[2020-04-04] MEDS: ACETAMINOPHEN 325 MG TABLET 650 MG PO ×3 (05:17→17:10)
[2020-04-04 05:46] LABS: Alveolar/Arterial O2 Gradient 154.4 mmHg; Base Excess ABG -1.9 mEq/l (+/-2.0); Carboxyhemoglobin 0.3 % THb (0-2.0); Fractional Inspired Oxygen 40 %; HCO3 ABG 20.7 mEq/l (22.0-26.0); Methemoglobin ABG 0.4 %THb (0-1.5); Oxygen Content ABG 19.1 %vol (16.0-22.0); Oxygen Saturation ABG 97.8 % (95.0-100.0); PCO2 ABG 29.7 mmHg (35.0-45.0); PO2 ABG 96.6 mmHg (80.0-100.0); PO2 FiO2 Ratio Arterial Blood 2.41 %; Reduced Hemoglobin 3.3 %THb (0-5.0); Total Hemoglobin 14.1 g/dL (12.0-18.0); pH ABG 7.461 (7.350-7.450)
[2020-04-04 05:48] LABS: Arterial Blood Gas PEEP 5 cmH2O; Arterial Blood Gas Vent Mode ASV; Device VENTILATOR; Modified Allen's Test Unable to perform; Site Drawn LEFT RADIAL
[2020-04-04] MEDS: ENOXAPARIN 120 MG/0.8 ML SYRINGE SUB-Q ×2 (06:50→17:10)
[2020-04-04] MEDS: METOPROLOL TARTRATE 50 MG TAB PO ×2 (07:52→20:08)
[2020-04-04] MEDS: CLOPIDOGREL BISULFATE 75 MG TABLET PO (07:52)
[2020-04-04] MEDS: MICONAZOLE NITRATE 2% CREAM 30 GM TUBE 1 APPLIC TOPICAL ×2 (07:52→20:08)
[2020-04-04] MEDS: ATORVASTATIN 40 MG TABLET 80 MG PO (07:52)
[2020-04-04] MEDS: PANTOPRAZOLE SODIUM IV 40 MG VIAL IV PUSH (07:53)
[2020-04-04] MEDS: INSULIN DETEMIR 100 UNITS/ML 30 UNITS SUB-Q ×2 (07:53→20:07)
[2020-04-04] MEDS: CHOLECALCIFEROL 1,000 UNITS TABLET 5000 UNITS PO (07:53)
--- NOTE | 2020-04-04 10:07 | WPDINTPN ---
Progress Note: A&P Assessment and Plan (1) Encephalopathy: Code(s): G93.40 - Encephalopathy, unspecified Status: Acute Assessment and Plan: Encephalopathy after decreasing sedation. Most likely toxic metabolic encephalopathy or COVID encephalopathy Patient was critically ill and was on heavy sedation for long time for mechanical ventilation -brain CT scan on 03/26/2020 and repeat on 04/03 did not show any acute intracranial abnormalities except sinus disease -ammonia level on 03/27/2020 was < 9 - EEG was done and is consistent with encephalopathy -unable to get MRI on mechanical ventilation here in this hospital -I spoke to Dr. Jimenez with neurology 04/02 regarding patient's mental status and unexpectedly slow improvement after holding sedation. Discussed options of pursuing LP or transferring patient to other facility for MRI. He recommended getting head CT. Head CT was done and was negative -he saw patient 04/03 and did not recommend any further testing including LP or MRI at this time and feels that this is toxic metabolic encephalopathy or COVID encephalopathy. He agreed with pursuing trach and PEG at this time do not expect patient to get better quickly -Continue holding sedation and monitoring. (2) Acute respiratory failure with hypoxia: Code(s): J96.01 - Acute respiratory failure with hypoxia Status: Acute Assessment and Plan: Acute respiratory failure likely secondary to COVID-19 pneumonia -CXR: Stable bilateral patchy airspace disease -patient currently in ASV mode on 30% FiO2 and 5 of PEEP -continue bronchodilators -trach and PEG scheduled for next week (3) Fever: Qualifiers: Fever type: unspecified Qualified Code(s): R50.9 - Fever, unspecified Code(s): R50.9 - Fever, unspecified Status: Acute Assessment and Plan: Persistently low-grade fever-could be related to atelectasis, pneumonia, thromboembolism, sinusitis -CT scan of the chest abdomen and pelvis on 03/26/2019 multi segment left lower lobe, segmental right lower lobe dependent atelectasis and pneumonia. Scattered diffuse ill-defined ground-glass lung opacities suspicious for COVID-19 pneumonia. Chronic abdominal findings. -03/26/2020 blood cultures: No growth x2 -03/27/2020 sputum culture growing Yeast -03/27/2020 urine culture: Growth -initial sputum, blood, cultures negative -his WBC count is normal -he will complete course of Zosyn per Infectious Disease. - 04/01- I discussed case with Dr. nelson and and whether to remove PICC line. He feels that it is okay to continue with the PICC line and does not suspect it to be a source of infection -04/02 repeat bilateral lower and upper extremity venous Dopplers were negative for DVT. Lipase level was normal (4) Pneumonia due to COVID-19 virus: Code(s): U07.1 - COVID-19; J12.89 - Other viral pneumonia Status: Acute Assessment and Plan: SARS-CoV-2 PCR positive on 03/11/2020 -patient presented to outside hospital 03/16/2020 with productive cough, shortness of breath, wheezing hypoxia -continue dexamethasone IV for 10 days -received 5 days of Remdesivir -03/17 received to convalescent plasma -continue airborne, contact, droplet isolation/precautions (5) Pulmonary embolism associated with severe acute respiratory syndrome coronavirus 2 (SARS-CoV-2) infection: Code(s): U07.1 - COVID-19; I26.99 - Other pulmonary embolism without acute cor pulmonale Status: Acute Assessment and Plan: Possible small segmental PEs on CTA chest the outside hospital lots of motion artifact -patient has been started on therapeutic Lovenox -03/21/2020 and 04/02 venous Dopplers bilateral lower and upper extremities negative for DVT (6) Hyperglycemia: Code(s): R73.9 - Hyperglycemia, unspecified Status: Acute Assessment and Plan: Continue Accu-Cheks, sliding scale insulin -continue Levemir. (7) Coronary artery di
[2020-04-04 10:30] LABS: Basophils Percent Auto 0.2 % (0.2-1.2); Eosinophils Absolute Auto 0.1 K/mm3 (0-0.3); Eosinophils Percent Auto 0.5 % (0-4.4); Hematocrit 35.2 % (42.0-52.0); Hemoglobin 11.9 g/dL (14.0-18.0); Immature Granulocyte Absolute 0.15 K/mm3 (0.00-0.031); Immature Granulocyte Percent A 1.2 % (0-0.5); Lymphocytes Absolute Auto 0.39 K/mm3 (0.9-3.2); Lymphocytes Percent Auto 3.1 % (18.3-44.2); Mean Corpuscular HGB Conc 33.8 g/dl (32-36); Mean Corpuscular Hemoglobin 31.2 pg (26-34); Mean Corpuscular Volume 92.1 fl (80-100); Mean Platelet Volume 9.6 fl (7.4-10.4); Monocytes Absolute Auto 0.7 K/mm3 (0.1-0.6); Monocytes Percent Auto 5.3 % (2.6-8.5); Neutrophils Absolute Auto 11.4 K/mm3 (1.3-6.7); Neutrophils Percent Auto 89.7 % (45.5-73.1); Platelet Count Result 206 k/mm3 (150-375); Red Blood Count 3.82 M/mm3 (4.6-6.20); Red Cell Distribution Width 13.5 % (11.5-14.5); White Blood Count 12.7 K/mm3 (4.5-10.0)
[2020-04-04 10:42] LABS: Alanine Aminotransferase 106 U/L (4-50); Albumin Level 3.2 g/dL (3.5-5.1); Alkaline Phosphatase 68 U/L (38-126); Anion Gap 3 mmol/L (8-16); Aspartate Amino Transferase 68 U/L (17-59); Bilirubin,Total 1.1 mg/dL (0.2-1.3); Blood Urea Nitrogen 20 mg/dL (9-20); Calcium 8.3 mg/dL (8.4-10.2); Carbon Dioxide 28 mmol/L (22-30); Chloride 111 mmol/L (98-107); Estimated CRCL calculation 110 ml/min; Estimated Glomerular Filt Rate > 60; Glucose 150 mg/dL (75-110); Magnesium 2.1 mg/dL (1.6-2.3); Potassium 4.2 mmol/L (3.4-5.0); Sodium 142 mmol/L (137-145)
--- NOTE | 2020-04-04 10:45 | WPDGIPROGNO ---
Progress Note: A&P Assessment and Plan (1) Pneumonia due to COVID-19 virus: Code(s): U07.1 - COVID-19; J12.89 - Other viral pneumonia Status: Acute (2) Acute respiratory failure with hypoxia: Code(s): J96.01 - Acute respiratory failure with hypoxia Status: Acute (3) Encephalopathy: Code(s): G93.40 - Encephalopathy, unspecified Status: Acute (4) Pulmonary embolism associated with severe acute respiratory syndrome coronavirus 2 (SARS-CoV-2) infection: Code(s): U07.1 - COVID-19; I26.99 - Other pulmonary embolism without acute cor pulmonale Status: Acute Additional Plan Because of long-term ventilator dependency with no expectation for improvement. Will plan PEG tube placement Monday. Tracheostomy planned later in week as well. By ENT service Subjective Date/time seen: 04/04/20 10:45 Patient essentially unchanged. Remains on the ventilator. Nutrition via NG tube. Review of Systems Review of Systems: All systems reviewed & are unremarkable except as noted in HPI and below Exam Narrative: Exam Narrative: Patient not examined today because of COVID positive status. No change in status. Objective Data Vital Signs Vital Signs: Vital Signs - 24 hr 04/03/20 12:00 04/03/20 14:00 04/03/20 14:19 Temperature 101.2 F H 101.1 F H Pulse Rate 84 82 80 Respiratory Rate 21 H 16 18 Blood Pressure 163/89 H 162/98 H Pulse Oximetry 94 96 04/03/20 14:30 04/03/20 16:00 04/03/20 16:59 Temperature 101.1 F H Pulse Rate 80 90 91 Respiratory Rate 19 Blood Pressure 166/94 H Pulse Oximetry 96 93 95 04/03/20 18:00 04/03/20 20:00 04/03/20 20:08 Temperature 100.9 F H 100.6 F H Pulse Rate 88 86 85 Respiratory Rate 14 19 14 Blood Pressure 149/91 H 172/94 H Pulse Oximetry 96 95 04/03/20 20:11 04/03/20 20:36 04/03/20 22:00 Temperature Pulse Rate 85 84 75 Respiratory Rate 17 Blood Pressure 169/100 H Pulse Oximetry 97 97 04/03/20 22:58 04/03/20 23:33 04/03/20 23:41 Temperature 100.7 F H Pulse Rate 75 77 Respiratory Rate 19 Blood Pressure 169/91 H Pulse Oximetry 96 95 95 04/04/20 00:00 04/04/20 01:59 04/04/20 02:00 Temperature 100.5 F H Pulse Rate 77 77 78 Respiratory Rate 13 Blood Pressure 175/93 H Pulse Oximetry 95 99 04/04/20 04:00 04/04/20 05:16 04/04/20 05:17 Temperature 101.4 F H 101.1 F H Pulse Rate 73 135 H Respiratory Rate 28 H Blood Pressure 167/138 H Pulse Oximetry 95 04/04/20 05:31 04/04/20 05:45 04/04/20 06:00 Temperature 101.1 F H Pulse Rate 126 H 121 H 124 H Respiratory Rate 23 H Blood Pressure 162/96 H Pulse Oximetry 95 96 04/04/20 06:17 04/04/20 07:32 04/04/20 07:33 Temperature 101.2 F H 101.5 F H Pulse Rate 119 H Respiratory Rate 29 H Blood Pressure 150/98 H Pulse Oximetry 96 96 04/04/20 07:52 04/04/20 08:00 04/04/20 08:16 Temperature Pulse Rate 122 H 126 H 122 H Respiratory Rate 28 H Blood Pressure Pulse Oximetry 04/04/20 08:17 04/04/20 08:22 04/04/20 09:54 Temperature Pulse Rate 119 H 118 H 110 H Respiratory Rate 26 H Blood Pressure Pulse Oximetry 95 04/04/20 10:00 04/04/20 10:23 Temperature 102.6 F H 102.6 F H Pulse Rate 111 H Respiratory Rate 21 H Blood Pressure 154/95 H Pulse Oximetry 93 Intake/Output Intake/Output: Intake & Output 04/01/20 04/02/20 04/03/20 04/04/20 23:59 23:59 23:59 23:59 Intake Total 1725 2254 2101 1000 Output Total 1600 1300 1400 750 Balance 125 954 701 250 Meds/Results Medications: Active Medications Generic Name Dose Route Start Last Admin Trade Name Freq PRN Reason Stop Dose Admin Acetaminophen 650 mg 03/17/20 04:13 04/04/20 10:23 Acetaminophen 325 Mg Tablet PO 650 mg Q4H PRN Administration Mild Pain (1-3) or Fever Alteplase, Recombinant 2 mg 03/31/20 18:13 03/31/20 20:56 Alteplase 2 Mg Vial (Cathflo) IV PUSH 2 mg ONCE PRN A
--- NOTE | 2020-04-04 12:25 | PM.IMPN ---
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 transplanted heart: [place] heart Associated angina: without angina Qualified Code(s): I25.10 - Atherosclerotic heart disease of [place] coronary artery without angina pectoris Code(s): I25.10 - Atherosclerotic heart disease of [place] coronary artery without angina pectoris Status: Acute Assessment and Plan: Stable continue home medication (4) Hyperglycemia: Code(s): R73.9 - Hyperglycemia, unspecified Status: Acute Assessment and Plan: Insulin sliding scale (5) Pulmonary embolism associated with severe acute respiratory syndrome coronavirus 2 (SARS-CoV-2) infection: Code(s): U07.1 - COVID-19; I26.99 - Other pulmonary embolism without acute cor pulmonale Status: Acute Assessment and Plan: Doppler of upper lower extremity was negative Cannot rule out artifact Critical care following Patient currently on therapeutic Lovenox It is difficult to evaluate if patient has pulmonary embolism or was artifact management by critical care May need pulmonology evaluation before discharge (6) Acute respiratory failure with hypoxia: Code(s): J96.01 - Acute respiratory failure with hypoxia Status: Acute Assessment and Plan: Secondary to COVID-19 pneumonia on mechanical ventilation Sedation was discontinued but patient is still having acute metabolic encephalopathy (7) Pneumonia due to COVID-19 virus: Code(s): U07.1 - COVID-19; J12.89 - Other viral pneumonia Status: Acute Assessment and Plan: Completed plasma remdesiver Subjective Date/time seen: 04/04/20 12:25 Interval history: Patient seen and examined Patient was admitted to the hospital with shortness of breath and hypoxia the patient was transferred from [facility] patient was diagnosed with COVID-19 on 03/11/21 patient condition deteriorated required mechanical ventilation and sedation sedation was weaned off but mental status did not improve neurology was consulted CT scan of the brain was negative unable to get MRI done as patient is on mechanical ventilation LP has been discussed with the Neurology 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 also patient during hospitalization doubled acute renal failure probably multifactorial related to COVID-19 infection patient condition did not improve walk-in progress to facilitate for tracheostomy and PEG tube GI was consulted for PEG tube ID was consulted patient received dexamethasone remdisever and plasma, patient also received course of IV antibiotics IV Zosyn last does 04/03/2020 for probable pneumonia bacteremia pneumonia complicating viral pneumonia I am seeing the patient for pneumonia Exam Narrative: Exam Narrative: On a vent not following command Chest no wheeze crackles Abdomen nontender nondistended CVS S1 + S2 Positive Lower extremity edema Objective Data Vital Signs Vital Signs: Vital Signs - 24 hr 04/03/20 14:00 04/03/20 14:19 04/03/20 14:30 Temperature 101.1 F H Pulse Rate 82 80 80 Respiratory Rate 16 18 Blood Pressure 162/98 H Pulse Oximetry 96 96 04/03/20 16:00 04/03/20 16:59 04/03/20 18:00 Temperature 101.1 F H 100.9 F H Pulse
[2020-04-04 13:15] LABS: Ammonia < 9 umol/L (9-30)
[2020-04-04 14:23] LABS: Folic Acid 6.5 ng/mL (2.76->20)
[2020-04-04 18:27] LABS: Glucose Point of Care 174 (65-105)
[2020-04-04 23:54] LABS: Glucose Point of Care 161 (65-105)
[2020-04-05] VITALS (33 sets, daily range): BP systolic 118–145; BP diastolic 76–115; PULSE 83–125; RESP 10–27; TEMP 36.7–38.8; O2SAT 90–100
[2020-04-05] MEDS: ACETAMINOPHEN 325 MG TABLET 650 MG PO ×3 (00:07→12:53)
[2020-04-05] MEDS: IPRATROPIUM BR 0.02% INH SOLN 0.5 MG/2.5 ML VIAL INHALATION ×4 (02:19→20:05)
[2020-04-05] MEDS: LEVALBUTEROL NEB 1.25 MG/3 ML 0.63 MG INHALATION ×4 (02:19→20:05)
[2020-04-05] MEDS: CENTRAL LINE FLUSH 10 ML IV PUSH ×3 (04:35→20:28)
[2020-04-05 04:56] LABS: Alveolar/Arterial O2 Gradient 160.2 mmHg; Base Excess ABG -1.1 mEq/l (+/-2.0); Carboxyhemoglobin 0.2 % THb (0-2.0); Fractional Inspired Oxygen 40 %; HCO3 ABG 21.5 mEq/l (22.0-26.0); Methemoglobin ABG 0.3 %THb (0-1.5); Oxygen Content ABG 15.5 %vol (16.0-22.0); Oxygen Saturation ABG 97.6 % (95.0-100.0); Oxyhemoglobin 95.9 % THb (90.0-100.0); PCO2 ABG 29.3 mmHg (35.0-45.0); PO2 ABG 91.3 mmHg (80.0-100.0); PO2 FiO2 Ratio Arterial Blood 2.28 %; Reduced Hemoglobin 3.6 %THb (0-5.0); Total Hemoglobin 11.4 g/dL (12.0-18.0); pH ABG 7.483 (7.350-7.450)
[2020-04-05 04:58] LABS: Device VENTILATOR; Modified Allen's Test Pass; Site Drawn RIGHT RADIAL
[2020-04-05 04:59] LABS: Arterial Blood Gas PEEP 5 cmH2O; Arterial Blood Gas Vent Mode ASV
[2020-04-05 05:46] LABS: Hematocrit 31.8 % (42.0-52.0); Hemoglobin 10.5 g/dL (14.0-18.0); Mean Corpuscular Hemoglobin 30.2 pg (26-34); Mean Corpuscular Volume 91.4 fl (80-100); Platelet Count Result 152 k/mm3 (150-375); Red Blood Count 3.48 M/mm3 (4.6-6.20); Red Cell Distribution Width 13.7 % (11.5-14.5); White Blood Count 9.6 K/mm3 (4.5-10.0)
[2020-04-05] MEDS: ENOXAPARIN 120 MG/0.8 ML SYRINGE SUB-Q (05:50)
[2020-04-05 06:02] LABS: Alanine Aminotransferase 81 U/L (4-50); Albumin Level 2.8 g/dL (3.5-5.1); Alkaline Phosphatase 62 U/L (38-126); Anion Gap 1 mmol/L (8-16); Aspartate Amino Transferase 46 U/L (17-59); Bilirubin,Total 0.9 mg/dL (0.2-1.3); Blood Urea Nitrogen 20 mg/dL (9-20); Carbon Dioxide 27 mmol/L (22-30); Chloride 110 mmol/L (98-107); Estimated CRCL calculation 110 ml/min; Estimated Glomerular Filt Rate > 60; Glucose 138 mg/dL (75-110); Magnesium 2.1 mg/dL (1.6-2.3); Potassium 3.7 mmol/L (3.4-5.0); Sodium 138 mmol/L (137-145); Triglycerides 81 mg/dL (<150)
[2020-04-05] MEDS: PANTOPRAZOLE SODIUM IV 40 MG VIAL IV PUSH (08:18)
[2020-04-05] MEDS: CHOLECALCIFEROL 1,000 UNITS TABLET 5000 UNITS PO (08:18)
[2020-04-05] MEDS: CLOPIDOGREL BISULFATE 75 MG TABLET PO (08:19)
[2020-04-05] MEDS: ATORVASTATIN 40 MG TABLET 80 MG PO (08:19)
[2020-04-05] MEDS: MICONAZOLE NITRATE 2% CREAM 30 GM TUBE 1 APPLIC TOPICAL ×2 (08:20→20:28)
[2020-04-05] MEDS: METOPROLOL TARTRATE 50 MG TAB PO ×2 (08:20→20:27)
--- NOTE | 2020-04-05 09:29 | WPDGIPROGNO ---
Progress Note: A&P Assessment and Plan (1) Pneumonia due to COVID-19 virus: Code(s): U07.1 - COVID-19; J12.89 - Other viral pneumonia Status: Acute (2) Acute respiratory failure with hypoxia: Code(s): J96.01 - Acute respiratory failure with hypoxia Status: Acute (3) Weakness acquired in ICU: Code(s): R53.1 - Weakness Status: Acute (4) Encephalopathy: Code(s): G93.40 - Encephalopathy, unspecified Status: Acute Additional Plan Patient with respiratory failure remains ventilator dependent. No signs of being able to be wean. Plan to proceed with PEG tube on Monday morning. Will keep patient NPO and hold tube feedings after midnight. Hold anticoagulation in anticipation of PEG tube placement tomorrow morning Subjective Date/time seen: 04/05/20 09:29 Patient remains on the ventilator with no indication of getting office at this time. Currently receiving tube feedings via NG tube. Review of Systems Review of Systems: ROS unobtainable: Yes unobtainable due to endotracheal tube Exam Narrative: Exam Narrative: Patient remains on the ventilator. Abdomen without scars. He is somewhat obese. Objective Data Vital Signs Vital Signs: Vital Signs - 24 hr 04/04/20 09:54 04/04/20 10:00 04/04/20 10:23 Temperature 102.6 F H 102.6 F H Pulse Rate 110 H 111 H Respiratory Rate 21 H Blood Pressure 154/95 H Pulse Oximetry 93 04/04/20 11:00 04/04/20 11:10 04/04/20 11:23 Temperature 102.2 F H Pulse Rate 114 H Respiratory Rate Blood Pressure Pulse Oximetry 97 96 04/04/20 12:00 04/04/20 14:00 04/04/20 14:05 Temperature 101.6 F H Pulse Rate 93 96 108 H Respiratory Rate 25 H 28 H 32 H Blood Pressure 117/79 132/96 H Pulse Oximetry 97 97 98 04/04/20 14:10 04/04/20 15:33 04/04/20 15:35 Temperature 101.9 F H Pulse Rate 105 H 102 H Respiratory Rate 26 H 27 H Blood Pressure 144/91 H Pulse Oximetry 96 97 04/04/20 16:00 04/04/20 16:59 04/04/20 17:10 Temperature 102 F H Pulse Rate 98 100 Respiratory Rate Blood Pressure Pulse Oximetry 97 04/04/20 17:41 04/04/20 18:00 04/04/20 18:10 Temperature 101.6 F H 101.2 F H Pulse Rate 105 H 100 Respiratory Rate 29 H Blood Pressure 142/87 H Pulse Oximetry 97 04/04/20 20:00 04/04/20 20:08 04/04/20 20:18 Temperature 101.4 F H Pulse Rate 97 100 97 Respiratory Rate 22 H 25 H Blood Pressure 141/95 H Pulse Oximetry 98 04/04/20 20:19 04/04/20 22:00 04/04/20 23:00 Temperature Pulse Rate 101 H 85 91 Respiratory Rate 22 H Blood Pressure 137/85 Pulse Oximetry 96 98 98 04/05/20 00:00 04/05/20 00:07 04/05/20 01:07 Temperature 102 F H 102 F H 101.1 F H Pulse Rate 92 Respiratory Rate 22 H Blood Pressure 130/78 Pulse Oximetry 98 04/05/20 02:00 04/05/20 02:10 04/05/20 02:12 Temperature 101 F H Pulse Rate 97 98 98 Respiratory Rate 22 H 21 H Blood Pressure 123/81 Pulse Oximetry 98 97 04/05/20 04:00 04/05/20 05:44 04/05/20 05:49 Temperature 101.3 F H 101.8 F H Pulse Rate 102 H 92 102 H Respiratory Rate 22 H 22 H Blood Pressure 137/115 H 145/87 H Pulse Oximetry 100 97 100 04/05/20 05:50 04/05/20 06:53 04/05/20 08:00 Temperature 101.8 F H 101.3 F H 99.4 F Pulse Rate 96 Respiratory Rate 14 Blood Pressure 142/82 H Pulse Oximetry 97 04/05/20 08:20 04/05/20 08:48 Temperature Pulse Rate 99 101 H Respiratory Rate 20 Blood Pressure Pulse Oximetry 98 Intake/Output Intake/Output: Intake & Output 04/02/20 04/03/20 04/04/20 04/05/20 23:59 23:59 23:59 23:59 Intake Total 2254 2101 2612 1290 Output Total 1300 1400 1450 650 Balance 221 625 9461 640 Meds/Results Medications: Active Medications Generic Name Dose Route Start Last Admin Trade Name Freq PRN Reason Stop Dose Admin Acetaminophen 650 mg 03/17/20 04:13 04/05/20 05:50 Acetaminophen 325 Mg Tablet PO 650 mg Q4H PRN
--- NOTE | 2020-04-05 09:42 | WPDINTPN ---
Progress Note: A&P Assessment and Plan (1) Encephalopathy: Code(s): G93.40 - Encephalopathy, unspecified Status: Acute Assessment and Plan: Encephalopathy after decreasing sedation. Most likely toxic metabolic encephalopathy or COVID encephalopathy Patient was critically ill and was on heavy sedation for long time for mechanical ventilation -brain CT scan on 03/26/2020 and repeat on 04/03 did not show any acute intracranial abnormalities except sinus disease -ammonia level on 03/27/2020 was < 9 - EEG was done and is consistent with encephalopathy -unable to get MRI on mechanical ventilation here in this hospital -I spoke to Dr. Jimenez with neurology 04/02 regarding patient's mental status and unexpectedly slow improvement after holding sedation. Discussed options of pursuing LP or transferring patient to other facility for MRI. He recommended getting head CT. Head CT was done and was negative -he saw patient 04/03 and and I discussed with him. He did not recommend any further testing including LP or MRI at this time and feels that this is toxic metabolic encephalopathy or COVID encephalopathy. He agreed with pursuing trach and PEG at this time do not expect patient to get better quickly -Continue holding sedation and monitoring. (2) Acute respiratory failure with hypoxia: Code(s): J96.01 - Acute respiratory failure with hypoxia Status: Acute Assessment and Plan: Acute respiratory failure likely secondary to COVID-19 pneumonia -CXR: Stable bilateral patchy airspace disease -patient currently in ASV mode on 30% FiO2 and 5 of PEEP -continue bronchodilators -trach and PEG scheduled for next week (3) Fever: Qualifiers: Fever type: unspecified Qualified Code(s): R50.9 - Fever, unspecified Code(s): R50.9 - Fever, unspecified Status: Acute Assessment and Plan: Persistently low-grade fever-could be related to atelectasis, pneumonia, thromboembolism, sinusitis or COVID -CT scan of the chest abdomen and pelvis on 03/26/2019 multi segment left lower lobe, segmental right lower lobe dependent atelectasis and pneumonia. Scattered diffuse ill-defined ground-glass lung opacities suspicious for COVID-19 pneumonia. Chronic abdominal findings. -03/26/2020 blood cultures: No growth x2 -03/27/2020 sputum culture growing Yeast -03/27/2020 urine culture: Growth -initial sputum, blood, cultures negative -he has completed acourse of Zosyn per Infectious Disease. - 04/01- I discussed case with Dr. nelson and and whether to remove PICC line. He feels that it is okay to continue with the PICC line and does not suspect it to be a source of infection -04/02 repeat bilateral lower and upper extremity venous Dopplers were negative for DVT. Lipase level was normal Although his WBC is normal he continues to have low-grade fevers. I will repeat blood cultures, sputum culture, change Dougherty catheter to condom catheter, remove PICC line and place another IV access (4) Pneumonia due to COVID-19 virus: Code(s): U07.1 - COVID-19; J12.89 - Other viral pneumonia Status: Acute Assessment and Plan: SARS-CoV-2 PCR positive on 03/11/2020 -patient presented to outside hospital 03/16/2020 with productive cough, shortness of breath, wheezing hypoxia -continue dexamethasone IV for 10 days -received 5 days of Remdesivir -03/17 received to convalescent plasma -continue airborne, contact, droplet isolation/precautions (5) Pulmonary embolism associated with severe acute respiratory syndrome coronavirus 2 (SARS-CoV-2) infection: Code(s): U07.1 - COVID-19; I26.99 - Other pulmonary embolism without acute cor pulmonale Status: Acute Assessment and Plan: Possible small segmental PEs on CTA chest the outside hospital lots of motion artifact -patient has been started on therapeutic Lovenox -03/21/2020 and 04/02 venous Dopplers bilateral lower and upper extremities negative for DVT
[2020-04-05] MEDS: PROPOFOL IV EMULSION 200 MG/20 ML VIAL 50 MG IV PUSH (10:00)
[2020-04-05 10:38] LABS: Basophils Percent Auto 0.1 % (0.2-1.2); Eosinophils Absolute Auto 0.2 K/mm3 (0-0.3); Eosinophils Percent Auto 1.9 % (0-4.4); Hematocrit 30.7 % (42.0-52.0); Hemoglobin 10.2 g/dL (14.0-18.0); Immature Granulocyte Absolute 0.07 K/mm3 (0.00-0.031); Immature Granulocyte Percent A 0.8 % (0-0.5); Lymphocytes Percent Auto 5.5 % (18.3-44.2); Mean Corpuscular HGB Conc 33.2 g/dl (32-36); Mean Corpuscular Hemoglobin 30.7 pg (26-34); Mean Corpuscular Volume 92.5 fl (80-100); Mean Platelet Volume 9.8 fl (7.4-10.4); Monocytes Absolute Auto 0.5 K/mm3 (0.1-0.6); Monocytes Percent Auto 4.9 % (2.6-8.5); Neutrophils Absolute Auto 7.9 K/mm3 (1.3-6.7); Neutrophils Percent Auto 86.8 % (45.5-73.1); Platelet Count Result 153 k/mm3 (150-375); Red Blood Count 3.32 M/mm3 (4.6-6.20); Red Cell Distribution Width 13.8 % (11.5-14.5); White Blood Count 9.1 K/mm3 (4.5-10.0)
[2020-04-05 10:48] LABS: INR 1.7; Prothrombin Time 20.4 Seconds (11.1-14.7)
[2020-04-05 10:49] LABS: Partial Thromboplastin Time 50.7 SECONDS (22.3-36.8)
[2020-04-05 10:50] LABS: Anion Gap 0 mmol/L (8-16); Blood Urea Nitrogen 21 mg/dL (9-20); Carbon Dioxide 29 mmol/L (22-30); Chloride 111 mmol/L (98-107); Estimated CRCL calculation 97 ml/min; Estimated Glomerular Filt Rate > 60; Glucose 124 mg/dL (75-110); Potassium 3.8 mmol/L (3.4-5.0); Sodium 140 mmol/L (137-145)
[2020-04-05] MEDS: INSULIN DETEMIR 100 UNITS/ML 30 UNITS SUB-Q (11:09)
--- NOTE | 2020-04-05 13:13 | PM.IMPN ---
Progress Note: A&P Assessment and Plan (1) Acute respiratory failure with hypoxia: Code(s): J96.01 - Acute respiratory failure with hypoxia Status: Acute Assessment and Plan: Secondary to COVID-19 pneumonia on mechanical ventilation Sedation was discontinued but patient is still having acute metabolic encephalopathy Wean as possible (2) Pneumonia due to COVID-19 virus: Code(s): U07.1 - COVID-19; J12.89 - Other viral pneumonia Status: Acute Assessment and Plan: Completed plasma, remdesevir (03/23) (3) Pulmonary embolism associated with severe acute respiratory syndrome coronavirus 2 (SARS-CoV-2) infection: Code(s): U07.1 - COVID-19; I26.99 - Other pulmonary embolism without acute cor pulmonale Status: Acute Assessment and Plan: Possible artifact Venous doppler negative Critical care following Continue therapeutic Lovenox (4) Encephalopathy: Code(s): G93.40 - Encephalopathy, unspecified Status: Acute Assessment and Plan: EEG c/w metabolic encephalopathy Most likely patient has acute metabolic encephalopathy multifactorial due to COVID-19 infection and ICU stay Continue to monitor Further diagnostic testing as indicated (5) CLARK (acute kidney injury): Code(s): N17.9 - Acute kidney failure, unspecified Status: Acute Assessment and Plan: Multifactorial most likely related to COVID-19 infection F/u lab (6) Coronary artery disease: Qualifiers: Coronary Disease-Associated Artery/Lesion type: unspecified vessel or lesion type [place] vs. transplanted heart: [place] heart Associated angina: without angina Qualified Code(s): I25.10 - Atherosclerotic heart disease of [place] coronary artery without angina pectoris Code(s): I25.10 - Atherosclerotic heart disease of [place] coronary artery without angina pectoris Status: Acute Assessment and Plan: Stable continue home medication (7) Hyperglycemia: Code(s): R73.9 - Hyperglycemia, unspecified Status: Acute Assessment and Plan: Insulin sliding scale Subjective Date/time seen: 04/05/20 13:14 Interval history: Admitted to the hospital with shortness of breath and hypoxia the patient was transferred from [facility] patient was diagnosed with COVID-19 on 03/11/21 patient condition deteriorated required mechanical ventilation and sedation sedation was weaned off but mental status did not improve neurology was consulted CT scan of the brain was negative unable to get MRI done as patient is on mechanical ventilation LP has been discussed with the 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 also patient during hospitalization developed acute renal failure probably multifactorial related to COVID-19 infection patient condition did not improve to facilitate for tracheostomy and PEG tube GI was consulted for PEG tube ID was consulted patient received dexamethasone remdisever and plasma, patient also received course of IV antibiotics IV Zosyn last does 04/03/2020 for probable pneumonia bacteremia pneumonia complicating viral pneumonia Review of Systems Review of Systems: ROS unobtainable: Yes unobtainable due to medical condition Exam Narrative: Exam Narrative: HEENT: LEFT EYE IS GLASS. Right eye movements WNL with reactive pupil. ET tube in place NECK: No JVD CHEST: Decr BS, breathes with vent HEART: NL S1/S2, regular ABDOMEN: BS+, soft, nontender, no mass, no bruits EXTREMITIES: No cyanosis, edema, or clubbing NEUROLOGIC: CN intact and symmetric to inspection. MUSCULOSKELETAL: Tone and strength symmetric. PSYCH: Arouses to touch, does not follow commands Objective Data Vital Signs Vital Signs: Vital Signs - 24 hr 04/04/20 14:00 04/04/20 14:05 04/04/20 14:10 Temperature Pulse Rate 96 108 H 105 H Respiratory Rate 28 H 32 H 26 H Blood Pressure 132/96 H Pulse Oximetry 97 98 04/04/20 15:33 04/04/20 15:35 04/04/20 16
[2020-04-05 13:18] LABS: Glucose Point of Care 122 (65-105)
[2020-04-05 17:58] LABS: Glucose Point of Care 106 (65-105)
[2020-04-05 20:57] LABS: Glucose Point of Care 91 (65-105)
[2020-04-06] VITALS (40 sets, daily range): BP systolic 105–171; BP diastolic 76–98; PULSE 84–991; RESP 12–27; TEMP 36.6–38.4; O2SAT 90–98
[2020-04-06 00:41] LABS: Glucose Point of Care 94 (65-105)
[2020-04-06] MEDS: LEVALBUTEROL NEB 1.25 MG/3 ML 0.63 MG INHALATION ×4 (02:32→19:57)
[2020-04-06] MEDS: IPRATROPIUM BR 0.02% INH SOLN 0.5 MG/2.5 ML VIAL INHALATION ×4 (02:32→19:57)
[2020-04-06 04:30] LABS: Alveolar/Arterial O2 Gradient 110.4 mmHg; Base Excess ABG -0.4 mEq/l (+/-2.0); Carboxyhemoglobin 0.3 % THb (0-2.0); Fractional Inspired Oxygen 30 %; HCO3 ABG 21.9 mEq/l (22.0-26.0); Methemoglobin ABG 0.3 %THb (0-1.5); Oxygen Content ABG 16.2 %vol (16.0-22.0); Oxygen Saturation ABG 95.4 % (95.0-100.0); Oxyhemoglobin 93.2 % THb (90.0-100.0); PCO2 ABG 29.1 mmHg (35.0-45.0); PO2 ABG 69.3 mmHg (80.0-100.0); PO2 FiO2 Ratio Arterial Blood 2.31 %; Reduced Hemoglobin 6.2 %THb (0-5.0); Total Hemoglobin 12.3 g/dL (12.0-18.0); pH ABG 7.495 (7.350-7.450)
[2020-04-06 04:31] LABS: Device VENTILATOR; Modified Allen's Test Unable to perform; Site Drawn RIGHT RADIAL
[2020-04-06 04:32] LABS: Arterial Blood Gas Minute Volume 8 LPM; Arterial Blood Gas PEEP 5 cmH2O; Arterial Blood Gas Vent Mode ASV
[2020-04-06] MEDS: CENTRAL LINE FLUSH 10 ML IV PUSH ×3 (07:07→20:12)
[2020-04-06 07:16] LABS: Hematocrit 30.3 % (42.0-52.0); Hemoglobin 10.2 g/dL (14.0-18.0); Mean Corpuscular HGB Conc 33.7 g/dl (32-36); Mean Corpuscular Volume 92.1 fl (80-100); Mean Platelet Volume 9.8 fl (7.4-10.4); Platelet Count Result 154 k/mm3 (150-375); Red Blood Count 3.29 M/mm3 (4.6-6.20); Red Cell Distribution Width 13.7 % (11.5-14.5)
[2020-04-06 07:28] LABS: Alanine Aminotransferase 155 U/L (4-50); Albumin Level 2.8 g/dL (3.5-5.1); Alkaline Phosphatase 67 U/L (38-126); Anion Gap -1 mmol/L (8-16); Aspartate Amino Transferase 122 U/L (17-59); Bilirubin,Total 0.9 mg/dL (0.2-1.3); Blood Urea Nitrogen 20 mg/dL (9-20); Carbon Dioxide 32 mmol/L (22-30); Chloride 107 mmol/L (98-107); Estimated CRCL calculation 99 ml/min; Estimated Glomerular Filt Rate > 60; Glucose 81 mg/dL (75-110); Magnesium 2.1 mg/dL (1.6-2.3); Potassium 3.6 mmol/L (3.4-5.0); Sodium 138 mmol/L (137-145)
[2020-04-06] MEDS: PANTOPRAZOLE SODIUM IV 40 MG VIAL IV PUSH (08:44)
[2020-04-06] MEDS: METOPROLOL TARTRATE 50 MG TAB PO ×2 (08:44→20:11)
[2020-04-06] MEDS: MICONAZOLE NITRATE 2% CREAM 30 GM TUBE 1 APPLIC TOPICAL ×2 (08:45→20:11)
--- NOTE | 2020-04-06 08:48 | PM.IMPN ---
Progress Note: A&P Assessment and Plan (1) Acute respiratory failure with hypoxia: Code(s): J96.01 - Acute respiratory failure with hypoxia Status: Acute Assessment and Plan: Secondary to COVID-19 pneumonia. Patient remains on mechanical ventilation. Sedation was discontinued but patient is still having acute metabolic encephalopathy Wean vent as tolerated; appreciate intensivsit input (2) Pneumonia due to COVID-19 virus: Code(s): U07.1 - COVID-19; J12.89 - Other viral pneumonia Status: Acute Assessment and Plan: Completed plasma x 1 03/17 Completed remdesevir 03/23 Remains intubated (3) Fever: Qualifiers: Fever type: unspecified Qualified Code(s): R50.9 - Fever, unspecified Code(s): R50.9 - Fever, unspecified Status: Acute Assessment and Plan: Persistent low-grade fevers without clear etiology. BCx 03/26 negative. Sputum 03/27 growing yeast. Urine cx 03/27 negative. CDiff negative 04/03. He completed a course of Zosyn and patient currently off abx. Repeat cultures ordered and are pending. (4) Pulmonary embolism associated with severe acute respiratory syndrome coronavirus 2 (SARS-CoV-2) infection: Code(s): U07.1 - COVID-19; I26.99 - Other pulmonary embolism without acute cor pulmonale Status: Acute Assessment and Plan: CT chest showed small few possible filling defect subsegmental branches right lower lobe which could be small PE. Possible artifact Venous doppler negative Critical care following Therapeutic Lovenox on hold for PEG planned for today (5) Encephalopathy: Code(s): G93.40 - Encephalopathy, unspecified Status: Acute Assessment and Plan: EEG c/w metabolic encephalopathy; Brain CT 04/03 showing no acute findings Most likely patient has acute metabolic encephalopathy multifactorial due to COVID-19 infection and ICU stay Sedation stopped. Continue to monitor Appreciate Neurology input. (6) CLARK (acute kidney injury): Code(s): N17.9 - Acute kidney failure, unspecified Status: Acute Assessment and Plan: Multifactorial most likely related to COVID-19 infection Resolved (7) Coronary artery disease: Qualifiers: Associated angina: without angina Coronary Disease-Associated Artery/Lesion type: unspecified vessel or lesion type [place] vs. transplanted heart: [place] heart Qualified Code(s): I25.10 - Atherosclerotic heart disease of [place] coronary artery without angina pectoris Code(s): I25.10 - Atherosclerotic heart disease of [place] coronary artery without angina pectoris Status: Acute Assessment and Plan: Stable. Continue Lipitor, Lopressor. Plavix on hold. Tele noted; continue to monitor on tele (8) Hyperglycemia: Code(s): R73.9 - Hyperglycemia, unspecified Status: Acute Assessment and Plan: A1c 6.3. Glucose well controlled. Continue insulin sliding scale Subjective Date/time seen: Date of service 04/06/20 08:48 Interval history: 74yo male admitted to the hospital with shortness of breath and hypoxia. He was diagnosed with COVID-19 on 03/11/21. Patient condition deteriorated required mechanical ventilation and sedation. Sedation was weaned off but mental status did not improve. Assuming care. Chart reviewed. Patient intubated and does not follow commands. Plan for trach and PEG. Review of Systems Review of Systems: ROS unobtainable: Yes unobtainable due to endotracheal tube Exam Narrative: Exam Narrative: Tm 100.3 99.4 151/85 109 20 95% MV Gen - arouses but does not follow commands, intubated HEENT - ETT and OG secured. Left eye is glass Chest - decreased BS anteriorly CV - RRR S1/S2; Tele NSVT with one episode of ?AFib Abd - soft, ND, mild diffuse tenderness Ext - diffuse UE/LE edema Neuro - opens eyes, does not follow commands Skin - mild erythema and warmth to the chest and left foot
[2020-04-06 09:00] LABS: Glucose Point of Care 76 (65-105)
--- NOTE | 2020-04-06 09:27 | WPDNEUROPN ---
Progress Note: A&P Assessment and Plan (1) Encephalopathy: Code(s): G93.40 - Encephalopathy, unspecified Status: Acute Additional Plan remains unresponsive and the supportive measures Review of Systems Review of Systems: All systems reviewed & are unremarkable except as noted in HPI and below Exam Const: General: well developed Orientation/consciousness: patient obtunded HENMT: Head: normal to inspection Face and sinus: normal facial exam Eyes: Alignment and Position: position abnormal Resp: Auscultation: diminished lung sounds Cardio: Rhythm: other GI: Auscultation: normal bowel sounds Neuro: General: patient obtunded and Unable to assess gait Cranial nerves: Yes Other cranial nerve findings present ( completely obtunded) Speech: Other speech findings present (Neuro) ( does not follow the commands) Deep tendon reflexes (DTR's): Right triceps reflex intensity grade: 0, Left triceps reflex intensity grade: 0, Rt Biceps (C5, C6): 0, Left biceps reflex intensity grade: 0, Right brachioradialis reflex intensity grade: 0, Left brachioradialis reflex intensity grade: 0, Right patellar reflex intensity grade: 0, Left patellar reflex intensity grade: 0, Right ankle reflex intensity grade: 0 and Left ankle reflex intensity grade: 0 Objective Data Vital Signs Vital Signs: Vital Signs - 24 hr 04/05/20 10:00 04/05/20 10:45 04/05/20 12:00 Temperature 37.7 C H Pulse Rate 87 83 93 Respiratory Rate 17 20 Blood Pressure 135/86 127/84 Pulse Oximetry 97 97 93 04/05/20 12:53 04/05/20 13:48 04/05/20 14:00 Temperature 37.7 C H Pulse Rate 95 95 Respiratory Rate 10 L 16 Blood Pressure 120/95 H Pulse Oximetry 98 90 04/05/20 15:34 04/05/20 16:00 04/05/20 16:58 Temperature 37.9 C H 37.9 C H Pulse Rate 102 H 103 H Respiratory Rate 21 H Blood Pressure 128/81 Pulse Oximetry 98 98 04/05/20 18:00 04/05/20 20:00 04/05/20 20:02 Temperature 36.7 C 37.9 C H Pulse Rate 105 H 108 H 106 H Respiratory Rate 22 H 25 H Blood Pressure 118/81 121/99 H Pulse Oximetry 97 97 04/05/20 20:07 04/05/20 20:08 04/05/20 20:27 Temperature Pulse Rate 109 H 108 H 111 H Respiratory Rate 27 H Blood Pressure Pulse Oximetry 96 04/05/20 20:47 04/05/20 22:00 04/05/20 22:01 Temperature Pulse Rate 109 H 125 H 85 Respiratory Rate 20 12 Blood Pressure 133/76 Pulse Oximetry 98 04/05/20 23:00 04/06/20 00:00 04/06/20 02:00 Temperature 37.6 C Pulse Rate 87 93 87 Respiratory Rate 24 H 12 Blood Pressure 142/80 H 124/76 Pulse Oximetry 97 97 97 04/06/20 02:10 04/06/20 02:33 04/06/20 02:40 Temperature Pulse Rate 89 92 89 Respiratory Rate 14 14 Blood Pressure Pulse Oximetry 97 04/06/20 04:00 04/06/20 04:47 04/06/20 06:00 Temperature 37.4 C Pulse Rate 93 94 100 Respiratory Rate 18 20 Blood Pressure 142/81 H 151/85 H Pulse Oximetry 96 96 95 04/06/20 08:44 Temperature Pulse Rate 109 H Respiratory Rate Blood Pressure Pulse Oximetry Intake/Output Intake/Output: Intake & Output 04/03/20 04/04/20 04/05/20 04/06/20 23:59 23:59 23:59 23:59 Intake Total 2101 2612 2290 782 Output Total 1400 1450 1050 450 Balance 701 1162 1240 332 Meds/Results Medications: Active Medications Generic Name Dose Route Start Last Admin Trade Name Nbaq PRN Reason Stop Dose Admin Acetaminophen 650 mg 03/17/20 04:13 04/05/20 12:53 Acetaminophen 325 Mg Tablet PO 650 mg Q4H PRN Administration Mild Pain (1-3) or Fever Atorvastatin Calcium 80 mg 03/17/20 09:00 04/06/20 08:46 Atorvastatin 40 Mg Tablet PO Not Given DAILY ANALI Bupropion HCl 75 mg 03/22/20 09:00 04/02/20 08:34 Bupropion Hcl 75 Mg Tablet PO 75 mg Q12HR ANALI Administration Clopidogrel Bisulfate 75 mg 03/17/20 09:00 04/05/20 08:19 Clopidogrel Bisulfate 75 Mg Tablet PO 75 mg DAILY ANALI Administration Dextrose 12.5 gm 03/17/20 10:14 Dextrose 50%
--- NOTE | 2020-04-06 11:04 | PC.NURSE ---
1045- PT FAMILY IN LOBBY TO FEED [facility]USHER PT BELONGINGS. GAVE AND SON PATIENT'S RING, PHONE AND BAG OF MEDICATIONS. UPDATED FAMILY ABOUT PT CONDITION AND PLAN
--- NOTE | 2020-04-06 11:05 | PCDIET ---
ICU Rounding Note: Patient NPO for PEG today. Plan for tracheostomy tomorrow. MD ordering KUB due to abdominal tenderness. Last recorded weight is 127.4kg which is increased from last review. +I/O. Bowel Motility: Last documented BM on 04/05/20 x 2. Labs Reviewed: Hgb (10.2), Hct (30.3), Alb (2.8), Ceci Ca (8.96) Meds Noted: Lipitor, Atrovent, Xopenex, Lopressor, Protonix, Vitamin D Additional Notes: No pressure sores documented. Following daily in ICU rounds. Assessing/reassessing every Monday/Monday.
[2020-04-06] MEDS: PROPOFOL IV EMULSION 100 ML 11.47 MG IV CONT (11:37)
--- NOTE | 2020-04-06 12:02 | SUR.OPER ---
1150-PEG TUBE PLACEMENT TO BE DONE AT BEDSIDE. [employer] ARCHITECT TO PROVIDE SEDATION ORDERED BY PHYSICIAN. PT ON MECHANICAL VENTILATION.
--- NOTE | 2020-04-06 12:14 | PM.OP ---
Procedure Note - Brief Procedure Note - Brief Date of procedure: 04/06/20 Pre-op diagnosis: COVID-19, PE nutritional support, ventilator dependent encephalopathy Procedure performed: EGD with PEG placement Description of procedure: Informed consent obtained from family. The risks benefits alternatives indications are discussed agree to prior to starting the procedure the risks include but are not limited to adverse reaction to medications including allergies. The risk of bleeding possible need for transfusion. The risk perforation possible need for surgery. Family voiced clear understanding agreed to proceed. Patient given small amount of additional propofol under the direction of the gender studies professor. [employer] video endoscope passed through the esophagus which appears normal squamocolumnar junction intact at 40cm. Stomach his hands entirety including U-turn is normal. Duodenum reveals normal bulb and sweep to 2nd portion. Orogastric tube in place is removed. Area of maximal light transillumination is identified the midepigastric area of the abdomen. In this area gastric position is confirmed by finger indentation in visualized in the stomach. 1% lidocaine anesthesia was used in this area. Needle is passed through the abdominal wall and visualized within the body of the stomach. Guidewire passed through the needle and withdrawn endoscopically. Over this a 20gauge gastrostomy tube was placed without difficulty and tolerated well by patient. Plan is for local care to the PEG tube site. Start tube feedings at a slow rate 4-5 hours. Green to a more significant rate tomorrow. Continue local can cleansing to the PEG tube site every 8 hours is advised. Surgeon: Kyle Menezes MD Drains: No Packing: No Pathology: none sent Complications: No immediate complications Condition: stable Disposition: no change Findings: Normal EGD, peg placed without difficulty. Plan for postop PEG tube orders.
--- NOTE | 2020-04-06 12:23 | WPDINTPN ---
Progress Note: A&P Assessment and Plan (1) Encephalopathy: Code(s): G93.40 - Encephalopathy, unspecified Status: Acute Assessment and Plan: Encephalopathy after decreasing sedation. Most likely toxic metabolic encephalopathy or COVID encephalopathy Patient was critically ill and was on heavy sedation for long time for mechanical ventilation -brain CT scan on 03/26/2020 and repeat on 04/03 did not show any acute intracranial abnormalities except sinus disease -ammonia level on 03/27/2020 was < 9 - EEG was done and is consistent with encephalopathy -unable to get MRI on mechanical ventilation here in this hospital -discussed with to Dr. Jimenez with neurology 04/02 regarding patient's mental status and unexpectedly slow improvement after holding sedation. Discussed options of pursuing LP or transferring patient to other facility for MRI. He recommended getting head CT. Head CT was done and was negative -he saw patient 04/03 and and I discussed with him. He did not recommend any further testing including LP or MRI at this time and feels that this is toxic metabolic encephalopathy or COVID encephalopathy. He agreed with pursuing trach and PEG at this time do not expect patient to get better quickly -Continue holding sedation and monitoring. (2) Acute respiratory failure with hypoxia: Code(s): J96.01 - Acute respiratory failure with hypoxia Status: Acute Assessment and Plan: Acute respiratory failure likely secondary to COVID-19 pneumonia -CXR: Stable bilateral patchy airspace disease -patient currently in ASV mode on 30% FiO2 and 5 of PEEP -continue bronchodilators -PEG tube scheduled for today -tracheostomy scheduled for 04/07/2020 (3) Fever: Qualifiers: Fever type: unspecified Qualified Code(s): R50.9 - Fever, unspecified Code(s): R50.9 - Fever, unspecified Status: Acute Assessment and Plan: Persistently low-grade fever-could be related to atelectasis, pneumonia, thromboembolism, sinusitis or COVID -CT scan of the chest abdomen and pelvis on 03/26/2019 multi segment left lower lobe, segmental right lower lobe dependent atelectasis and pneumonia. Scattered diffuse ill-defined ground-glass lung opacities suspicious for COVID-19 pneumonia. Chronic abdominal findings. -03/26/2020 blood cultures: No growth x2 -03/27/2020 sputum culture growing Yeast -03/27/2020 urine culture: Growth -initial sputum, blood, cultures negative -he has completed acourse of Zosyn per Infectious Disease. - 04/01- I discussed case with Dr. nelson and and whether to remove PICC line. He feels that it is okay to continue with the PICC line and does not suspect it to be a source of infection -04/02 repeat bilateral lower and upper extremity venous Dopplers were negative for DVT. Lipase level was normal Although his WBC is normal he continues to have low-grade fevers. Patient continues to have low-grade fevers, PICC line and Dougherty catheter was removed on 04/05/2020 - 04/05/2020 repeat blood cultures are negative x2 so far -04/05/2020 sputum culture pending (4) Pneumonia due to COVID-19 virus: Code(s): U07.1 - COVID-19; J12.89 - Other viral pneumonia Status: Acute Assessment and Plan: SARS-CoV-2 PCR positive on 03/11/2020 -patient presented to outside hospital 03/16/2020 with productive cough, shortness of breath, wheezing hypoxia -continue dexamethasone IV for 10 days -received 5 days of Remdesivir -03/17 received to convalescent plasma -continue airborne, contact, droplet isolation/precautions (5) Pulmonary embolism associated with severe acute respiratory syndrome coronavirus 2 (SARS-CoV-2) infection: Code(s): U07.1 - COVID-19; I26.99 - Other pulmonary embolism without acute cor pulmonale Status: Acute Assessment and Plan: Possible small segmental PEs on CTA chest the outside hospital lots of motion artifact -patient has been started on therapeutic Lo
[2020-04-06 12:26] LABS: Glucose Point of Care 82 (65-105)
--- NOTE | 2020-04-06 13:09 | OP_ITS ---
DATE OF PROCEDURE: 04/06/2020 PROCEDURE: EGD with PEG placement. PREOPERATIVE DIAGNOSES: Nutritional support, ventilator dependency, and encephalopathy. POSTOPERATIVE DIAGNOSIS: Normal EGD with PEG placement. INDICATIONS FOR PROCEDURE: Informed consent for the EGD is obtained from the patient. The risks, benefits, alternatives, and indications are discussed and agreed to prior to starting sedation. The risks include, but are not limited to, adverse reaction to medications including allergies. The risk of bleeding and possible need for transfusion, the risk of perforation and possible need for surgery, and the risk for missed pathology. Family voiced clear understanding and agreed to proceed. Patient was sedated by giving a small amount of additional propofol per the glass sander. DESCRIPTION OF PROCEDURE: [employer] video endoscope passed through the esophagus, which appears normal. Squamocolumnar junction is intact at 40 cm. Oral gastric tube is in place, is subsequently removed. Within the body of the stomach, the area of light transillumination is noted in the mid epigastric area. This is confirmed by finger indentation within the abdominal wall visualized within the body of the stomach. In this area, 1% lidocaine anesthesia is used. A needle was passed through the abdominal wall and visualized within the body of the stomach. Guidewire passed through the needle and withdrawn endoscopically. Over this, 20-Italian gastrostomy tube is placed without difficulty. The patient tolerated the procedure well. Subsequent endoscopy confirmed internal bumper to be placed well within the body of the stomach. PLAN: For frequent cleansing of G-tube site with Betadine or hydrogen peroxide every 8 hours. Tube feedings will be started after an interval of 4 to 5 hours at a slow rate, not to exceed 30 cc an hour today. This may be advanced to 60 cc/hour in the morning if tolerated well. D I MT: Qi
--- NOTE | 2020-04-06 13:47 | WPDINFPN2 ---
Progress Note: A&P Assessment and Plan (1) Fever: Qualifiers: Fever type: unspecified Qualified Code(s): R50.9 - Fever, unspecified Code(s): R50.9 - Fever, unspecified Status: Acute Additional Plan 1. Fever, relpased. Respiratory source suspected. 2. Recent CoVid 19 infection, off steroids, +remdesivir in past 3. Mild renal insufficiency REC No resumption of antibiotics at present. New BCs in process Subjective Date/time seen: 04/06/20 13:47 Interval history: getting upper endoscopy at time of visit Exam Narrative: Exam Narrative: t max 38.8 core Const: General: no acute distress GI: Inspection: non-distended Urinary Catheter: Urinary Catheter: patent and draining and urine clear Objective Data Vital Signs Vital Signs: Vital Signs - 24 hr 04/05/20 13:48 04/05/20 14:00 04/05/20 15:34 Temperature 37.9 C H Pulse Rate 95 95 Respiratory Rate 10 L 16 Blood Pressure 120/95 H Pulse Oximetry 98 90 04/05/20 16:00 04/05/20 16:58 04/05/20 18:00 Temperature 37.9 C H 36.7 C Pulse Rate 102 H 103 H 105 H Respiratory Rate 21 H 22 H Blood Pressure 128/81 118/81 Pulse Oximetry 98 98 97 04/05/20 20:00 04/05/20 20:02 04/05/20 20:07 Temperature 37.9 C H Pulse Rate 108 H 106 H 109 H Respiratory Rate 25 H 27 H Blood Pressure 121/99 H Pulse Oximetry 97 04/05/20 20:08 04/05/20 20:27 04/05/20 20:47 Temperature Pulse Rate 108 H 111 H 109 H Respiratory Rate 20 Blood Pressure Pulse Oximetry 96 04/05/20 22:00 04/05/20 22:01 04/05/20 23:00 Temperature Pulse Rate 125 H 85 87 Respiratory Rate 12 Blood Pressure 133/76 Pulse Oximetry 98 97 04/06/20 00:00 04/06/20 02:00 04/06/20 02:10 Temperature 37.6 C Pulse Rate 93 87 89 Respiratory Rate 24 H 12 Blood Pressure 142/80 H 124/76 Pulse Oximetry 97 97 97 04/06/20 02:33 04/06/20 02:40 04/06/20 04:00 Temperature 37.4 C Pulse Rate 92 89 93 Respiratory Rate 14 14 18 Blood Pressure 142/81 H Pulse Oximetry 96 04/06/20 04:47 04/06/20 06:00 04/06/20 08:00 Temperature 37.7 C H Pulse Rate 94 100 109 H Respiratory Rate 20 18 Blood Pressure 151/85 H 156/84 H Pulse Oximetry 96 95 96 04/06/20 08:10 04/06/20 08:20 04/06/20 08:44 Temperature Pulse Rate 106 H 94 109 H Respiratory Rate 15 15 Blood Pressure Pulse Oximetry 98 04/06/20 10:00 04/06/20 11:31 04/06/20 11:37 Temperature Pulse Rate 91 97 96 Respiratory Rate 20 17 Blood Pressure 167/88 H Pulse Oximetry 97 90 04/06/20 11:45 04/06/20 11:55 04/06/20 12:00 Temperature Pulse Rate 97 96 92 Respiratory Rate 20 18 Blood Pressure 167/88 H 171/94 H Pulse Oximetry 97 97 04/06/20 12:22 Temperature Pulse Rate 95 Respiratory Rate 21 H Blood Pressure Pulse Oximetry Intake/Output Intake/Output: Intake & Output 04/03/20 04/04/20 04/05/20 04/06/20 23:59 23:59 23:59 23:59 Intake Total 2101 2612 2290 782 Output Total 1400 1450 1050 450 Balance 701 1162 1240 332 Meds/Results Medications: Active Medications Generic Name Dose Route Start Last Admin Trade Name Freq PRN Reason Stop Dose Admin Acetaminophen 650 mg 03/17/20 04:13 04/05/20 12:53 Acetaminophen 325 Mg Tablet PO 650 mg Q4H PRN Administration Mild Pain (1-3) or Fever Atorvastatin Calcium 80 mg 03/17/20 09:00 04/06/20 08:46 Atorvastatin 40 Mg Tablet PO Not Given DAILY ANALI Bupropion HCl 75 mg 03/22/20 09:00 04/02/20 08:34 Bupropion Hcl 75 Mg Tablet PO 75 mg Q12HR ANALI Administration Clopidogrel Bisulfate 75 mg 03/17/20 09:00 04/05/20 08:19 Clopidogrel Bisulfate 75 Mg Tablet PO 75 mg DAILY ANALI Administration Dextrose 12.5 gm 03/17/20 10:14 Dextrose 50% 25 Gm/50 Ml Syringe IV PUSH PRN PRN Hypoglycemia Protocol Enoxaparin Sodium 120 mg 03/27/20 06:00 04/05/20 05:50 Enoxaparin 120 Mg/0.8 Ml Syringe SUB-Q 120 mg Q12H ANALI Administration
--- NOTE | 2020-04-06 14:36 | PCDIET ---
Recommend continuing previous tube feeding - Glucerna 1.2 at 60mL/hr.
[2020-04-06] MEDS: ACETAMINOPHEN 325 MG TABLET 650 MG PO ×2 (14:40→20:09)
[2020-04-06 18:00] LABS: Glucose Point of Care 84 (65-105)
--- NOTE | 2020-04-06 19:38 | PC.NURSE ---
Dr. Kennedy notified of 36 beat run of [facility]. Order for BMP, mag and phos.
[2020-04-06 20:10] LABS: Anion Gap 2 mmol/L (8-16); Blood Urea Nitrogen 21 mg/dL (9-20); Calcium 7.9 mg/dL (8.4-10.2); Carbon Dioxide 29 mmol/L (22-30); Chloride 107 mmol/L (98-107); Estimated CRCL calculation 99 ml/min; Estimated Glomerular Filt Rate > 60; Glucose 87 mg/dL (75-110); Magnesium 2.2 mg/dL (1.6-2.3); Phosphorus 3.9 mg/dL (2.5-4.5); Potassium 3.7 mmol/L (3.4-5.0); Sodium 138 mmol/L (137-145)
--- NOTE | 2020-04-06 20:24 | PC.NURSE ---
Dr. Barrowly notified of lab results. No further orders. Also hold Levimer for [employer].
[2020-04-06 23:59] LABS: Glucose Point of Care 73 (65-105)
[2020-04-07] VITALS (30 sets, daily range): BP systolic 100–151; BP diastolic 52–93; PULSE 86–125; RESP 11–31; TEMP 36.9–38.1; O2SAT 92–100
--- NOTE | 2020-04-07 | ECHO_ITS ---
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 History/Risk Factors Pulmonary edema, pulmonary embolism, acute respiratory failure 2/2 COVID19, HTN, CAD. Summary 1. Complete two-dimensional, color flow and Doppler transthoracic echocardiogram is performed. 2. Moderate impairment of left ventricular function with mild global hypokinesis, but worse in the septal and inferior beltran as well as the apex. Calculated ejection fraction is 30 9%, visually appears to be 40-45%. There is mild left ventricular enlargement and left ventricular hypertrophy. Grade 1 diastolic dysfunction is present. There is abnormal septal motion due to bundle branch block versus pacemaker. 3. Right ventricular chamber dimension is mildly enlarged with normal right ventricular function.. 4. Left atrial chamber dimension is mildly enlarged. 5. Right atrial chamber dimension is moderately enlarged. 6. There is mild tricuspid valve regurgitation. 7. No pulmonary hypertension, estimated pulmonary arterial systolic pressure is 34 mmHg. 8. Technically difficult study; endocardium is not well visualized. 9. Rhythm indeterminate; may be a paced rhythm. Left Ventricle Left ventricular chamber dimension is mildly enlarged. Left ventricular systolic function is normal, estimated at 40-45%. There is mildly increased left ventricular wall thickness. Left ventricular septal wall motion is abnormal with septal motion related to bundle branch block. The left ventricular diastolic function is grade I diastolic dysfunction. Moderate impairment of left ventricular function with mild global hypokinesis, but worse in the septal and inferior beltran as well as the apex. Calculated ejection fraction is 30 9%, visually appears to be 40-45%. There is mild left ventricular enlargement and left ventricular hypertrophy. Grade 1 diastolic dysfunction is present. There is abnormal septal motion due to bundle branch block versus pacemaker. Right Ventricle Right ventricular chamber dimension is mildly enlarged with normal right ventricular function.. Right ventricular systolic function is normal. Left Atria Left atrial chamber dimension is mildly enlarged. Right Atria Right atrial chamber dimension is moderately enlarged. Aortic Valve The aortic valve is trileaflet. There is mild aortic valve sclerosis. There is no aortic valve stenosis. There is no aortic valve regurgitation. Pulmonic Valve The pulmonic valve is normal. There is no pulmonic valve stenosis. There is no pulmonic regurgitation. Mitral Valve The mitral valve has normal leaflets. There is no mitral valve stenosis. There is no mitral valve regurgitation. Tricuspid Valve The tricuspid valve leaflets are normal. There is no significant tricuspid valve stenosis. There is mild tricuspid valve regurgitation. No pulmonary hypertension, estimated pulmonary arterial systolic pressure is 34 mmHg. Per
[2020-04-07] MEDS: LEVALBUTEROL NEB 1.25 MG/3 ML 0.63 MG INHALATION ×3 (01:42→20:00)
[2020-04-07] MEDS: IPRATROPIUM BR 0.02% INH SOLN 0.5 MG/2.5 ML VIAL INHALATION ×3 (01:43→20:00)
[2020-04-07 04:28] LABS: Alveolar/Arterial O2 Gradient 99.2 mmHg; Base Excess ABG 0.5 mEq/l (+/-2.0); Carboxyhemoglobin 0.2 % THb (0-2.0); Fractional Inspired Oxygen 30 %; HCO3 ABG 22.7 mEq/l (22.0-26.0); Methemoglobin ABG 0.4 %THb (0-1.5); Oxygen Content ABG 16.7 %vol (16.0-22.0); Oxygen Saturation ABG 96.9 % (95.0-100.0); Oxyhemoglobin 94.7 % THb (90.0-100.0); PCO2 ABG 29.4 mmHg (35.0-45.0); PO2 ABG 80.2 mmHg (80.0-100.0); PO2 FiO2 Ratio Arterial Blood 2.67 %; Reduced Hemoglobin 4.7 %THb (0-5.0); Total Hemoglobin 12.5 g/dL (12.0-18.0); pH ABG 7.505 (7.350-7.450)
[2020-04-07 04:30] LABS: Hematocrit 30.5 % (42.0-52.0); Hemoglobin 10.2 g/dL (14.0-18.0); Mean Corpuscular HGB Conc 33.4 g/dl (32-36); Mean Corpuscular Hemoglobin 30.8 pg (26-34); Mean Corpuscular Volume 92.1 fl (80-100); Mean Platelet Volume 9.9 fl (7.4-10.4); Platelet Count Result 150 k/mm3 (150-375); Red Blood Count 3.31 M/mm3 (4.6-6.20); Red Cell Distribution Width 13.8 % (11.5-14.5); White Blood Count 10.1 K/mm3 (4.5-10.0)
[2020-04-07 04:30] LABS: Arterial Blood Gas PEEP 5 cmH2O; Arterial Blood Gas Vent Mode ASV; Device VENTILATOR; Modified Allen's Test Unable to perform; Site Drawn LEFT RADIAL
[2020-04-07 04:44] LABS: Alanine Aminotransferase 379 U/L (4-50); Albumin Level 2.7 g/dL (3.5-5.1); Alkaline Phosphatase 82 U/L (38-126); Anion Gap 5 mmol/L (8-16); Aspartate Amino Transferase 370 U/L (17-59); Blood Urea Nitrogen 22 mg/dL (9-20); Calcium 7.7 mg/dL (8.4-10.2); Carbon Dioxide 25 mmol/L (22-30); Chloride 108 mmol/L (98-107); Estimated CRCL calculation 96 ml/min; Estimated Glomerular Filt Rate > 60; Glucose 93 mg/dL (75-110); Magnesium 2.2 mg/dL (1.6-2.3); Phosphorus 3.7 mg/dL (2.5-4.5); Potassium 3.6 mmol/L (3.4-5.0); Sodium 138 mmol/L (137-145)
[2020-04-07] MEDS: CENTRAL LINE FLUSH 10 ML IV PUSH ×3 (05:56→20:49)
--- NOTE | 2020-04-07 07:44 | WPDANESEPP ---
Anes - Eval Pre Procedure Procedure: Operation Date: 04/06/20 11:30 Proposed Procedures p Percutaneous Endoscopic Gastrostomy - Kyle Menezes MD Operation Date: 04/07/20 10:30 Proposed Procedures p Tracheostomy - Tl Dunlap MD Date/Time: 04/07/20 07:44 Pre Op Diagnosis: COVID-19, PE Patient Data Age: 74 Gender: M Height: 6 ft 1 in Weight: 121.2 kg Last Vital Signs Temp 98.9 F 04/07/20 04:00 Pulse 110 H 04/07/20 06:00 Resp 16 04/07/20 06:00 BP 141/93 H 04/07/20 06:00 Pulse Ox 96 04/07/20 06:00 Allergies Allergy/AdvReac Type Severity Reaction Status Date / Time No Known Allergies Allergy Verified 03/17/20 02:57 Home Medications Medication Instructions Recorded Confirmed Type aspirin 81 mg PO DAILY 03/17/20 03/17/20 History atorvastatin 80 mg PO DAILY 03/17/20 03/17/20 History bupropion HCl 150 mg PO DAILY 03/17/20 03/17/20 History cetirizine [Zyrtec] 10 mg PO DAILY 03/17/20 03/17/20 History clopidogrel 75 mg PO DAILY 03/17/20 03/17/20 History famotidine 40 mg PO DAILY 03/17/20 03/17/20 History furosemide 40 mg PO DAILY 03/17/20 03/17/20 History metoprolol succinate 100 mg PO DAILY 03/17/20 03/17/20 History mirabegron [Myrbetriq] 25 mg PO DAILY 03/17/20 03/17/20 History oxybutynin chloride 10 mg PO DAILY 03/17/20 03/17/20 History sertraline 100 mg PO DAILY 03/17/20 03/17/20 History spironolactone 25 mg PO DAILY 03/17/20 03/17/20 History tamsulosin 0.4 mg PO DAILY 03/17/20 03/17/20 History Laboratory Tests 04/06/20 04/06/20 04/06/20 08:44 12:16 17:47 WBC RBC Hgb Hct MCV MCH MCHC RDW Plt Count MPV Puncture Site ABG pH ABG pCO2 ABG pO2 ABG PO2/FiO2 Ratio ABG HCO3 ABG O2 Saturation ABG O2 Content ABG Base Excess A-a Gradient Oxyhemoglobin Carboxyhemoglobin Methemoglobin Reduced Hemoglobin Total Hemoglobin O2 Delivery Device O2 Liters/Min Minute Volume Vent Rate Vent Mode FiO2 Tidal Volume PEEP Peak Inspir Pressure Pressure Support Sodium Potassium Chloride Carbon Dioxide Anion Gap BUN Creatinine Estim Creat Clear Calc Estimated GFR Glucose POC Capillary Glucose 76 mg/dl mg/dl 82 mg/dl mg/dl 84 mg/dl mg/dl (65-105) (65-105) (65-105) Calcium Phosphorus Magnesium Total Bilirubin AST ALT Alkaline Phosphatase Total Protein Albumin 04/06/20 04/06/20 04/07/20 19:51 23:53 04:17 WBC 10.1 K/mm3 H K/mm3 (4.5-10.0) RBC 3.31 M/mm3 L M/mm3 (4.6-6.20) Hgb 10.2 g/dL L g/dL (14.0-18.0) Hct 30.5 % L % (42.0-52.0) MCV 92.1 fl fl (80-100) MCH 30.8 pg pg (26-34) MCHC 33.4 g/dl g/dl (32-36) RDW 13.8 % % (11.5-14.5) Plt Count 150 k/mm3 k/mm3 (150-375) MPV 9.9 fl fl (7.4-10.4) Puncture Site ABG pH ABG pCO2 ABG pO2 ABG PO2/FiO2 Ratio ABG HCO3 ABG O2 Saturation ABG O2 Content ABG Base Excess A-a Gradient Oxyhemoglobin Carboxyhemoglobin Methemoglobin Reduced Hemoglobin Total Hemoglobin O2 Delivery Device O2 Liters/Min Minute Volume Vent Rate Vent Mode FiO2
--- NOTE | 2020-04-07 07:51 | WPDCN ---
Assessment and Plan Assessment and plan (1) Pneumonia due to COVID-19 virus: Code(s): U07.1 - COVID-19; J12.89 - Other viral pneumonia Status: Acute Assessment and Plan: Plan is OR for tracheostomy. Ok to remove trach sutures POD 5. (2) Acute respiratory failure with hypoxia: Code(s): J96.01 - Acute respiratory failure with hypoxia Status: Acute HPI Data of Consult Date/Time: 04/07/20 07:51 Requesting Physician: George Gamez MD Primary Care Provider: Pranav Garvin [facility] Consult Narrative Narrative: Griffin Meehan is a 74 year old male with a history of respiratory failure. ENT consulted for placement of tracheostomy. PEEP of 5, O2 30%. Review of Systems Review of Systems: ROS unobtainable: Yes unobtainable due to endotracheal tube PMFSH Past Medical History Medical History (Updated 04/07/20 @ 07:45 by Mike Blackman CRNA) Acute respiratory failure with hypoxia Anxiety Anxiety and depression Benign prostatic hyperplasia Bronchitis Congestive heart failure Coronary artery disease Coronary artery disease Encephalopathy Essential hypertension Fever Gastroesophageal reflux disease Hyperlipidemia Hypernatremia Hypernatremia Overactive bladder Pneumonia due to COVID-19 virus Pulmonary embolism associated with severe acute respiratory syndrome coronavirus 2 (SARS-CoV-2) infection Surgical History Surgical History Status post placement of cardiac pacemaker Family History Family History Other Unknown family medical history Social History Social History Smoking packs per day: 1 Smoking cigarettes per day: 20.0 Smoking status: Current every day smoker Alcohol intake: never Substance use: never Substance use type: does not use Living arrangements: with family Gender identity (if verbalized by the patient): Male Spiritual care concerns: No Meds Home Medications and Allergies Home Medications Medication Instructions Recorded Confirmed Type aspirin 81 mg PO DAILY 03/17/20 03/17/20 History atorvastatin 80 mg PO DAILY 03/17/20 03/17/20 History bupropion HCl 150 mg PO DAILY 03/17/20 03/17/20 History cetirizine [Zyrtec] 10 mg PO DAILY 03/17/20 03/17/20 History clopidogrel 75 mg PO DAILY 03/17/20 03/17/20 History famotidine 40 mg PO DAILY 03/17/20 03/17/20 History furosemide 40 mg PO DAILY 03/17/20 03/17/20 History metoprolol succinate 100 mg PO DAILY 03/17/20 03/17/20 History mirabegron [Myrbetriq] 25 mg PO DAILY 03/17/20 03/17/20 History oxybutynin chloride 10 mg PO DAILY 03/17/20 03/17/20 History sertraline 100 mg PO DAILY 03/17/20 03/17/20 History spironolactone 25 mg PO DAILY 03/17/20 03/17/20 History tamsulosin 0.4 mg PO DAILY 03/17/20 03/17/20 History Allergies Allergy/AdvReac Type Severity Reaction Status Date / Time No Known Allergies Allergy Verified 03/17/20 02:57 Vital Signs Vital Signs - 24 hr 04/06/20 08:00 04/06/20 08:10 04/06/20 08:20 Temperature 37.7 C H Pulse Rate 109 H 106 H 94 Respiratory Rate 18 15 15 Blood Pressure 156/84 H Pulse Oximetry 96 98 04/06/20 08:44 04/06/20 10:00 04/06/20 11:31 Temperature Pulse Rate 109 H 91 97 Respiratory Rate 20 Blood Pressure 167/88 H Pulse Oximetry 97 90 04/06/20 11:37 04/06/20 11:45 04/06/20 11:55 Temperature Pulse Rate 96 97 96 Respiratory Rate 17 20 18 Blood Pressure 167/88 H 171/94 H Pulse Oximetry 97 97 04/06/20 12:00 04/06/20 12:22 04/06/20 12:28 Temperature 38.3 C H Pulse Rate 92 95 90 Respiratory Rate 17 21 H 20 Blood Pressure 150/98 H Pulse Oximetry 97 04/06/20 13:52 04/06/20 14:00 04/06/20 14:25 Temperature 38.4 C H Pulse Rate 94 100 99 Respiratory Rate 23 H 17 Blood Pressure 165/98 H Pulse Oximetry 96 96 04/06/20 14:35 04/06/20 14:40
--- NOTE | 2020-04-07 07:54 | PM.IMHP ---
H&P: HPI History of Present Illness Date/Time: 04/07/20 07:54 Chief Complaint: Respiratory Failure. Narrative: Griffin Meehan is a 74 year old male with respiratory failure. ENT consulted for tracheostomy. O2 30%, PEEP of 5. Review of Systems Review of Systems: ROS unobtainable: Yes unobtainable due to endotracheal tube PMFSH Past Medical History Medical History (Updated 04/07/20 @ 07:45 by Mike Blackman CRNA) Acute respiratory failure with hypoxia Anxiety Anxiety and depression Benign prostatic hyperplasia Bronchitis Congestive heart failure Coronary artery disease Coronary artery disease Encephalopathy Essential hypertension Fever Gastroesophageal reflux disease Hyperlipidemia Hypernatremia Hypernatremia Overactive bladder Pneumonia due to COVID-19 virus Pulmonary embolism associated with severe acute respiratory syndrome coronavirus 2 (SARS-CoV-2) infection Surgical History Surgical History Status post placement of cardiac pacemaker Family History Family History Other Unknown family medical history Social History Social History Smoking packs per day: 1 Smoking cigarettes per day: 20.0 Smoking status: Current every day smoker Alcohol intake: never Substance use: never Substance use type: does not use Living arrangements: with family Gender identity (if verbalized by the patient): Male Spiritual care concerns: No Meds Home Medications and Allergies Home Medications Medication Instructions Recorded Confirmed Type aspirin 81 mg PO DAILY 03/17/20 03/17/20 History atorvastatin 80 mg PO DAILY 03/17/20 03/17/20 History bupropion HCl 150 mg PO DAILY 03/17/20 03/17/20 History cetirizine [Zyrtec] 10 mg PO DAILY 03/17/20 03/17/20 History clopidogrel 75 mg PO DAILY 03/17/20 03/17/20 History famotidine 40 mg PO DAILY 03/17/20 03/17/20 History furosemide 40 mg PO DAILY 03/17/20 03/17/20 History metoprolol succinate 100 mg PO DAILY 03/17/20 03/17/20 History mirabegron [Myrbetriq] 25 mg PO DAILY 03/17/20 03/17/20 History oxybutynin chloride 10 mg PO DAILY 03/17/20 03/17/20 History sertraline 100 mg PO DAILY 03/17/20 03/17/20 History spironolactone 25 mg PO DAILY 03/17/20 03/17/20 History tamsulosin 0.4 mg PO DAILY 03/17/20 03/17/20 History Allergies Allergy/AdvReac Type Severity Reaction Status Date / Time No Known Allergies Allergy Verified 03/17/20 02:57 Vital Signs Vital Signs - 24 hr 04/06/20 08:00 04/06/20 08:10 04/06/20 08:20 Temperature 37.7 C H Pulse Rate 109 H 106 H 94 Respiratory Rate 18 15 15 Blood Pressure 156/84 H Pulse Oximetry 96 98 04/06/20 08:44 04/06/20 10:00 04/06/20 11:31 Temperature Pulse Rate 109 H 91 97 Respiratory Rate 20 Blood Pressure 167/88 H Pulse Oximetry 97 90 04/06/20 11:37 04/06/20 11:45 04/06/20 11:55 Temperature Pulse Rate 96 97 96 Respiratory Rate 17 20 18 Blood Pressure 167/88 H 171/94 H Pulse Oximetry 97 97 04/06/20 12:00 04/06/20 12:22 04/06/20 12:28 Temperature 38.3 C H Pulse Rate 92 95 90 Respiratory Rate 17 21 H 20 Blood Pressure 150/98 H Pulse Oximetry 97 04/06/20 13:52 04/06/20 14:00 04/06/20 14:25 Temperature 38.4 C H Pulse Rate 94 100 99 Respiratory Rate 23 H 17 Blood Pressure 165/98 H Pulse Oximetry 96 96 04/06/20 14:35 04/06/20 14:40 04/06/20 16:00 Temperature 38.4 C H 37.9 C H Pulse Rate 991 H 101 H Respiratory Rate 17 27 H Blood Pressure 117/82 Pulse Oximetry 97 04/06/20 17:02 04/06/20 17:25 04/06/20 17:49 Temperature 37.9 C H Pulse Rate 96 90 Respiratory Rate Blood Pressure Pulse Oximetry 96 04/06/20 17:50 04/06/20 20:00 04/06/20 20:04 Temperature 36.6 C 37.5 C Pulse Rate 93 103 H 103 H Respiratory Rate 12 20 20 Blood Pressure 129/91 H 130/77 Pulse Oximetry 98 9
--- NOTE | 2020-04-07 07:56 | WPDHPUPDATE1 ---
History and Physical Update Update Date/Time: 04/07/20 07:56 History and Physical has been reviewed, including an updated exam of the patient. There are NO changes in the patient's condition. Risks, benefits, and alternatives have been discussed and questions answered. Patient agrees to proceed with procedure.
--- NOTE | 2020-04-07 08:02 | WPDGIPROGNO ---
Progress Note: A&P Assessment and Plan (1) PEG (percutaneous endoscopic gastrostomy) status: Code(s): Z93.1 - Gastrostomy status Status: Acute Assessment and Plan: Peg appears to be functioning adequately 1 day after placement. Plan is to increase tube feeding rate to60cc/hour or as required by nutritional service. Plan to continue local care to PEG site. Anticoagulation can resume if needed. I understand patient is to have tracheostomy today later. (2) Pneumonia due to COVID-19 virus: Code(s): U07.1 - COVID-19; J12.89 - Other viral pneumonia Status: Acute (3) Acute respiratory failure with hypoxia: Code(s): J96.01 - Acute respiratory failure with hypoxia Status: Acute (4) Encephalopathy: Code(s): G93.40 - Encephalopathy, unspecified Status: Acute Subjective Date/time seen: 04/07/20 08:02 Patient remains on the ventilator. Status post PEG placement yesterday. Nursing staff reports no real media problems. Tolerating tube feedings at a low rate. Review of Systems Review of Systems: ROS unobtainable: Yes unobtainable due to endotracheal tube Exam Narrative: Exam Narrative: Abdomen is obese. Bowel sounds are present soft PEG tube in place. Appears adequate at this time. No signs of inflammation or infection. Objective Data Vital Signs Vital Signs: Vital Signs - 24 hr 04/06/20 08:10 04/06/20 08:20 04/06/20 08:44 Temperature Pulse Rate 106 H 94 109 H Respiratory Rate 15 15 Blood Pressure Pulse Oximetry 98 04/06/20 10:00 04/06/20 11:31 04/06/20 11:37 Temperature Pulse Rate 91 97 96 Respiratory Rate 20 17 Blood Pressure 167/88 H Pulse Oximetry 97 90 04/06/20 11:45 04/06/20 11:55 04/06/20 12:00 Temperature 100.9 F H Pulse Rate 97 96 92 Respiratory Rate 20 18 17 Blood Pressure 167/88 H 171/94 H 150/98 H Pulse Oximetry 97 97 97 04/06/20 12:22 04/06/20 12:28 04/06/20 13:52 Temperature Pulse Rate 95 90 94 Respiratory Rate 21 H 20 Blood Pressure Pulse Oximetry 04/06/20 14:00 04/06/20 14:25 04/06/20 14:35 Temperature 101.2 F H Pulse Rate 100 99 991 H Respiratory Rate 23 H 17 17 Blood Pressure 165/98 H Pulse Oximetry 96 96 04/06/20 14:40 04/06/20 16:00 04/06/20 17:02 Temperature 101.2 F H 100.3 F H 100.3 F H Pulse Rate 101 H Respiratory Rate 27 H Blood Pressure 117/82 Pulse Oximetry 97 04/06/20 17:25 04/06/20 17:49 04/06/20 17:50 Temperature 97.8 F Pulse Rate 96 90 93 Respiratory Rate 12 Blood Pressure 129/91 H Pulse Oximetry 96 98 04/06/20 20:00 04/06/20 20:04 04/06/20 20:05 Temperature 99.5 F Pulse Rate 103 H 103 H 102 H Respiratory Rate 20 20 Blood Pressure 130/77 Pulse Oximetry 96 96 04/06/20 20:06 04/06/20 20:09 04/06/20 20:11 Temperature 99.5 F Pulse Rate 102 H 104 H Respiratory Rate 14 Blood Pressure Pulse Oximetry 04/06/20 21:00 04/06/20 22:00 04/06/20 23:09 Temperature Pulse Rate 87 85 86 Respiratory Rate 12 13 Blood Pressure 105/79 139/88 Pulse Oximetry 97 98 98 04/06/20 23:19 04/07/20 00:00 04/07/20 01:46 Temperature 98.5 F Pulse Rate 87 86 90 Respiratory Rate 18 11 L 23 H Blood Pressure 142/83 H Pulse Oximetry 94 95 04/07/20 01:49 04/07/20 01:51 04/07/20 02:00 Temperature Pulse Rate 92 91 97 Respiratory Rate 13 17 Blood Pressure 133/78 Pulse Oximetry 97 97 04/07/20 03:55 04/07/20 04:00 04/07/20 04:13 Temperature 98.9 F Pulse Rate 103 H 101 H 101 H Respiratory Rate 23 H 12 Blood Pressure 151/82 H Pulse Oximetry 96 100 100 04/07/20 06:00 Temperature Pulse Rate 110 H Respiratory Rate 16 Blood Pressure 141/93 H Pulse Oximetry 96 Intake/Output Intake/Output: Intake & Output 04/04/20 04/05/20 04/06/20 04/07/20 23:59 23:59 23:59 23:59 Intake Total 2612 2290 827 200 Output Total 5220 1050 1050 500 Balance 2232 1240 -223 -300 Meds/Results Medications: Act
[2020-04-07] MEDS: PANTOPRAZOLE SODIUM IV 40 MG VIAL IV PUSH (08:10)
[2020-04-07] MEDS: MICONAZOLE NITRATE 2% CREAM 30 GM TUBE 1 APPLIC TOPICAL ×2 (08:10→20:49)
--- NOTE | 2020-04-07 08:22 | WPDANESEFPP ---
Anes - Eval Final PreProcedure Day of Procedure 04/07/20 08:22 Patient weight: obese Heart: regular rate and rhythm Lungs: rales Airway: other (intubated) Last oral intake: >/= 8 hours ASA classification: IV Emergent: no Anesthetic plan: proceed Anesthesia type and monitoring: general GIVS Informed Consent: The patient's anesthetic plan and its attendant risks and benefits were discussed with the patient/family/POA. Questions were solicited and answers provided to the satisfaction of the patient/family/POA.
[2020-04-07] MEDS: ceFAZolin SODIUM 1 GM VIAL 2 GM IV PUSH (09:00)
--- NOTE | 2020-04-07 09:02 | PM.IMPN ---
Progress Note: A&P Assessment and Plan (1) Acute respiratory failure with hypoxia: Code(s): J96.01 - Acute respiratory failure with hypoxia Status: Acute Assessment and Plan: Secondary to COVID-19 pneumonia. Patient remains on mechanical ventilation. Sedation was discontinued but patient is still having acute metabolic encephalopathy Wean vent as tolerated; appreciate imposer input. Discussed. (2) Pneumonia due to COVID-19 virus: Code(s): U07.1 - COVID-19; J12.89 - Other viral pneumonia Status: Acute Assessment and Plan: Completed plasma x 1 03/17 Completed remdesevir 03/21; completed Dexamethasone 03/27. Remains intubated (3) Elevated LFTs: Code(s): R79.89 - Other specified abnormal findings of blood chemistry Status: Acute Assessment and Plan: AST/ALT mildly elevated but worse over the past 2 days. CXR showing possible pulmonary edema. Liver congestion from CHF? Hepatitis panel and RUQ US pending. Ammonia level 04/04 negative. INR 1.7 on 04/05. Hold Lipitor. Continue to follow. Check Echo. Consider Lasix. (4) Fever: Qualifiers: Fever type: unspecified Qualified Code(s): R50.9 - Fever, unspecified Code(s): R50.9 - Fever, unspecified Status: Acute Assessment and Plan: Persistent low-grade fevers without clear etiology. BCx 03/26 negative. Sputum 03/27 growing yeast. Urine cx 03/27 negative. CDiff negative 04/03. He completed a course of Zosyn (03/27-04/03) and patient currently off abx. Repeat blood cultures 04/05 NGTD. (5) Pulmonary embolism associated with severe acute respiratory syndrome coronavirus 2 (SARS-CoV-2) infection: Code(s): U07.1 - COVID-19; I26.99 - Other pulmonary embolism without acute cor pulmonale Status: Acute Assessment and Plan: CT chest showed small few possible filling defect subsegmental branches right lower lobe which could be small PE. Possible artifact. Consider repeating CTA to verify. Venous doppler negative Critical care following Therapeutic Lovenox on hold for Trach planned for today (6) Encephalopathy: Code(s): G93.40 - Encephalopathy, unspecified Status: Acute Assessment and Plan: EEG c/w metabolic encephalopathy; Brain CT 04/03 showing no acute findings Most likely patient has acute metabolic encephalopathy multifactorial due to COVID-19 infection and ICU stay Sedation stopped. Continue to monitor. Plan for MRI brain once trach placed. Would add MRI c-spine as well. Appreciate Neurology input. (7) CLARK (acute kidney injury): Code(s): N17.9 - Acute kidney failure, unspecified Status: Acute Assessment and Plan: Multifactorial most likely related to COVID-19 infection Resolved (8) Coronary artery disease: Qualifiers: Associated angina: without angina Coronary Disease-Associated Artery/Lesion type: unspecified vessel or lesion type [place] vs. transplanted heart: [place] heart Qualified Code(s): I25.10 - Atherosclerotic heart disease of [place] coronary artery without angina pectoris Code(s): I25.10 - Atherosclerotic heart disease of [place] coronary artery without angina pectoris Status: Acute Assessment and Plan: Stable. Continue Lopressor. Plavix and Lipitor on hold. Tele noted; continue to monitor on tele (9) Hyperglycemia: Code(s): R73.9 - Hyperglycemia, unspecified Status: Acute Assessment and Plan: A1c 6.3. Glucose well controlled. Will adjust Levemir and add perimeters. Continue insulin sliding scale. Subjective Date/time seen: 04/07/20 09:02 Interval history: 74yo male admitted to the hospital with shortness of breath and hypoxia. He was diagnosed with COVID-19 on 03/11/21. Patient condition deteriorated required mechanical ventilation and sedation. Sedation was weaned off but mental status did not improve. Patient intubated and do
[2020-04-07] MEDS: LIDO 1%/EPINEPHRINE 1:100,000 50 ML VIAL INFILTRATE (09:12)
--- NOTE | 2020-04-07 09:25 | WPDINTPN ---
Progress Note: A&P Assessment and Plan (1) Encephalopathy: Code(s): G93.40 - Encephalopathy, unspecified Status: Acute Assessment and Plan: Encephalopathy after decreasing sedation. Most likely toxic metabolic encephalopathy or COVID encephalopathy Patient was critically ill and was on heavy sedation for long time for mechanical ventilation -brain CT scan on 03/26/2020 and repeat on 04/03 did not show any acute intracranial abnormalities except sinus disease -ammonia level on 03/27/2020 was < 9 - EEG was done and is consistent with encephalopathy -unable to get MRI on mechanical ventilation here in this hospital -pulse patient receives his tracheostomy, since he is on ASV on 30% FiO2, will place patient on a trach collar and evaluate if he is stable to go for MRI. -Encephalopathy or COVID encephalopathy. -continue to hold sedation -04/07/[address] Anali Greenwood MD, department of neurology and sleep medicine at [facility]. , she stated that patient has a history of obstructive sleep apnea and REM sleep disorder. The REM sleep disorder could be a precursor to Lewy body dementia and Parkinson's disease can be accelerated in the elderly patient like him. She recommended giving him more time to wake up and agrees with the tracheostomy, after which if able to place him on a trach collar and obtained an MRI sounded like a good idea to her. (2) Acute respiratory failure with hypoxia: Code(s): J96.01 - Acute respiratory failure with hypoxia Status: Acute Assessment and Plan: Acute respiratory failure likely secondary to COVID-19 pneumonia -CXR: Stable bilateral patchy airspace disease -patient currently in ASV mode on 30% FiO2 and 5 of PEEP -continue bronchodilators -PEG tube scheduled for today -tracheostomy scheduled for today, 04/07/2020 (3) Fever: Qualifiers: Fever type: unspecified Qualified Code(s): R50.9 - Fever, unspecified Code(s): R50.9 - Fever, unspecified Status: Acute Assessment and Plan: Persistently low-grade fever-could be related to atelectasis, pneumonia, thromboembolism, sinusitis or COVID -CT scan of the chest abdomen and pelvis on 03/26/2019 multi segment left lower lobe, segmental right lower lobe dependent atelectasis and pneumonia. Scattered diffuse ill-defined ground-glass lung opacities suspicious for COVID-19 pneumonia. Chronic abdominal findings. -03/26/2020 blood cultures: No growth x2 -03/27/2020 sputum culture growing Yeast -03/27/2020 urine culture: Growth -initial sputum, blood, cultures negative -he has completed acourse of Zosyn per Infectious Disease. - 04/01- I discussed case with Dr. nelson and and whether to remove PICC line. He feels that it is okay to continue with the PICC line and does not suspect it to be a source of infection -04/02 repeat bilateral lower and upper extremity venous Dopplers were negative for DVT. Lipase level was normal Although his WBC is normal he continues to have low-grade fevers. Patient continues to have low-grade fevers, PICC line and Dougherty catheter was removed on 04/05/2020 - 04/05/2020 repeat blood cultures are negative x2 so far -04/05/2020 sputum culture pending (4) Pneumonia due to COVID-19 virus: Code(s): U07.1 - COVID-19; J12.89 - Other viral pneumonia Status: Acute Assessment and Plan: SARS-CoV-2 PCR positive on 03/11/2020 -patient presented to outside hospital 03/16/2020 with productive cough, shortness of breath, wheezing hypoxia -continue dexamethasone IV for 10 days -received 5 days of Remdesivir -03/17 received to convalescent plasma -continue airborne, contact, droplet isolation/precautions (5) Pulmonary embolism associated with severe acute respiratory syndrome coronavirus 2 (SARS-CoV-2) infection: Code(s): U07.1 - COVID-19; I26.99 - Other pulmonary embolism without acute cor pulmonale Status:
[2020-04-07 09:46] LABS: Hepatitis B Surface Antigen Negative (Negative)
[2020-04-07 09:51] LABS: HAV RESULT Negative (Negative); Hepatitis B Core IgM Result Negative (Negative)
--- NOTE | 2020-04-07 09:52 | P.OP_ITS ---
Procedure Note - Detailed Date of procedure: 04/07/20 Pre-op diagnosis: COVID-19, PE Respiratory failure Post-op diagnosis: same Procedure performed: Tracheotomy Description of procedure: The patient was correctly identified and consent was verified in the patient's ICU room. The patient was then brought to the operating room and a time-out was performed. General anesthesia was deepened and the patient was prepped and marked for the aforementioned procedure. A 15 blade was utilized to create a horizontal incision to the epidermis and dermis. Bovie electrocautery was utilized to dissect down through the subcutaneous tissue, following a subcutaneous lipectomy, and in the midline raphae a down to the thyroid isthmus. The cricoid was identified and a cricoid hook was placed elevating the laryngeal and trachea framework. Bovie electrocautery was then utilized to dissect through the thyroid isthmus bringing the trachea into view. A tracheotomy was created between rings 2 and 3 and anesthesia withdrew the ET tube until was no longer visible through the tracheotomy. An 8 cuffed Shiley trach was placed and anesthesia confirmed end-tidal CO2. All the hardware was removed, and the trach was sutured at 4 corners with a 3 0 silk suture. Trach ties were then applied tightly. Hemostasis was excellent. Care of the patient was turned over to anesthesia. This marked the end of the procedure. I perfor med all dictated portions of the procedure. Anesthesia: GLMA Surgeon: Tl Dunlap MD Complications: No immediate complications Condition: stable Disposition: ICU
[2020-04-07 10:03] LABS: Hepatitis C Virus Antibody Negative (Negative)
[2020-04-07 11:03] LABS: Lactic Acid Reflex 0.9 mmol/L (0.7-2.1)
--- NOTE | 2020-04-07 11:20 | PCDIET ---
Nutrition Follow-Up Complete: Nutrition Diagnosis: Inadequate oral intake related to oral intubation as evidenced by NPO status. Nutrition Goal: Patient to meet estimated nutritional needs. Goal in progress. Tube feedings held for PEG yesterday and tracheostomy today. MD order to resume tube feedings via PEG. Recommend 60mL/hr Glucerna 1.2 with 30mL water flush every 4 hours. Last recorded weight is 121.2 kg which has decreased from last review. -I/O. Bowel Motility: +BM today. Labs Reviewed: Hgb (10.2), Hct (30.5), Alb (2.7), Ceci Ca (8.74) Meds Noted: Atrovent, Xopenex, Lopressor, Protonix, Vitamin D, Propofol (rate of 13.76mL/hr provides 363kcal per day) Additional Notes: No documented pressure sores. Will continue to monitor with same goal. Nutrition Monitoring and Evaluation: Follow up in Monday/Monday. Follow daily in ICU rounds.
[2020-04-07 12:02] LABS: Glucose Point of Care 82 (65-105)
[2020-04-07] MEDS: CHOLECALCIFEROL 1,000 UNITS TABLET 5000 UNITS PO (12:41)
[2020-04-07] MEDS: FUROSEMIDE INJ 40 MG/4 ML VIAL IV PUSH (12:41)
[2020-04-07] MEDS: METOPROLOL TARTRATE 50 MG TAB PO (12:41)
[2020-04-07 12:48] LABS: Glucose Point of Care 107 (65-105)
--- NOTE | 2020-04-07 13:01 | WPDINFPN2 ---
Progress Note: A&P Assessment and Plan (1) Fever: Qualifiers: Fever type: unspecified Qualified Code(s): R50.9 - Fever, unspecified Code(s): R50.9 - Fever, unspecified Status: Acute Additional Plan 1. Fever, persists, no new + micro, sputum rejected. CXR stable, US RUQ non diagnostic and findings could well be due to acute medical illness. 2. Recent CoVid 19 infection, off steroids, +remdesivir in past 3. Mild renal insufficiency REC No resumption of antibiotics at present. New BCs in process Subjective Date/time seen: 04/07/20 13:01 Interval history: was able to speak post -trach to nurse Exam Narrative: Exam Narrative: t max 38.4 core Const: General: no acute distress Resp: Effort & Inspection: normal respiratory effort Auscultation: clear to auscultation bilaterally Cardio: Rate: regular rate Rhythm: regular rhythm Heart sounds: no murmurs GI: Inspection: non-distended GI Palp: Yes Soft to palpation and No Tenderness to palpation present (GI) Other: new PEG Urinary Catheter: Urinary Catheter: patent and draining, urine clear and urine dark Objective Data Vital Signs Vital Signs: Vital Signs - 24 hr 04/06/20 13:52 04/06/20 14:00 04/06/20 14:25 Temperature 38.4 C H Pulse Rate 94 100 99 Respiratory Rate 23 H 17 Blood Pressure 165/98 H Pulse Oximetry 96 96 04/06/20 14:35 04/06/20 14:40 04/06/20 16:00 Temperature 38.4 C H 37.9 C H Pulse Rate 991 H 101 H Respiratory Rate 17 27 H Blood Pressure 117/82 Pulse Oximetry 97 04/06/20 17:02 04/06/20 17:25 04/06/20 17:49 Temperature 37.9 C H Pulse Rate 96 90 Respiratory Rate Blood Pressure Pulse Oximetry 96 04/06/20 17:50 04/06/20 20:00 04/06/20 20:04 Temperature 36.6 C 37.5 C Pulse Rate 93 103 H 103 H Respiratory Rate 12 20 20 Blood Pressure 129/91 H 130/77 Pulse Oximetry 98 96 04/06/20 20:05 04/06/20 20:06 04/06/20 20:09 Temperature 37.5 C Pulse Rate 102 H 102 H Respiratory Rate 14 Blood Pressure Pulse Oximetry 96 04/06/20 20:11 04/06/20 21:00 04/06/20 22:00 Temperature Pulse Rate 104 H 87 85 Respiratory Rate 12 13 Blood Pressure 105/79 139/88 Pulse Oximetry 97 98 04/06/20 23:09 04/06/20 23:19 04/07/20 00:00 Temperature 36.9 C Pulse Rate 86 87 86 Respiratory Rate 18 11 L Blood Pressure 142/83 H Pulse Oximetry 98 94 95 04/07/20 01:46 04/07/20 01:49 04/07/20 01:51 Temperature Pulse Rate 90 92 91 Respiratory Rate 23 H 13 Blood Pressure Pulse Oximetry 97 04/07/20 02:00 04/07/20 03:55 04/07/20 04:00 Temperature 37.2 C Pulse Rate 97 103 H 101 H Respiratory Rate 17 23 H 12 Blood Pressure 133/78 151/82 H Pulse Oximetry 97 96 100 04/07/20 04:13 04/07/20 06:00 04/07/20 08:00 Temperature 37.9 C H Pulse Rate 101 H 110 H 115 H Respiratory Rate 16 16 Blood Pressure 141/93 H 149/77 H Pulse Oximetry 100 96 97 04/07/20 08:40 04/07/20 10:00 04/07/20 11:01 Temperature Pulse Rate 93 101 H 98 Respiratory Rate 27 H Blood Pressure 100/72 Pulse Oximetry 100 99 98 04/07/20 11:42 04/07/20 11:46 04/07/20 12:41 Temperature 38.0 C H Pulse Rate 100 99 107 H Respiratory Rate 21 H 23 H Blood Pressure 145/82 H Pulse Oximetry 97 92 Intake/Output Intake/Output: Intake & Output 04/04/20 04/05/20 04/06/20 04/07/20 23:59 23:59 23:59 23:59 Intake Total 2612 2290 827 200 Output Total 1450 1050 1050 500 Balance 1162 5421 -399 -300 Meds/Results Medications: Active Medications Generic Name Dose Route Start Last Admin Trade Name Freq PRN Reason Stop Dose Admin Acetaminophen 650 mg 03/17/20 04:13 04/06/20 20:09 Acetaminophen 325 Mg Tablet PO 650 mg Q4H PRN Administration Mild Pain (1-3) or Fever Atorvastatin Calcium 80 mg 03/17/20 09:00 04/06/20 08:46 Atorvastatin 40 Mg Tablet PO Not Given DAILY ANALI Bupropion HCl 75 mg 03/22/20 09:00 04/02/20 08:34 Bupropion Hcl
--- NOTE | 2020-04-07 16:08 | ECG_ITS ---
Measurements Intervals [place] Rate: 111 P: 157 ND: 69 QRS: 34 QRSD: 164 T: 247 QT: 425 QTc: 578 Interpretive Statements ELECTRONIC VENTRICULAR PACEMAKER UNDERLYING ATRIAL TACHYCARDIA/FLUTTER NO FURTHER INTERPRETATION IS POSSIBLE ABNORMAL ECG Electronically Signed On 04-07-2020 16:44:42 AQUATIC PERFORMER by Jose Elise D.O.
[2020-04-07 16:18] LABS: Anion Gap 5 mmol/L (8-16); Blood Urea Nitrogen 24 mg/dL (9-20); Calcium 7.8 mg/dL (8.4-10.2); Carbon Dioxide 26 mmol/L (22-30); Chloride 110 mmol/L (98-107); Estimated CRCL calculation 86 ml/min; Estimated Glomerular Filt Rate > 60; Glucose 127 mg/dL (75-110); Magnesium 2.2 mg/dL (1.6-2.3); Potassium 3.6 mmol/L (3.4-5.0); Sodium 141 mmol/L (137-145)
--- NOTE | 2020-04-07 19:45 | PC.NURSE ---
Dr. Kennedy notified of perfuse vomiting. Stop tube feeding. Peg tube to LIS. Hold Lopressor per peg tube and give 5mg IV Q6h Lopressor, first dose now. Give tylenol 1Gram IV for 100.6 temp. Continue to monitor.
[2020-04-07] MEDS: METOPROLOL TARTRATE INJ 5 MG/5 ML VIAL IV PUSH (20:34)
[2020-04-08] VITALS (30 sets, daily range): BP systolic 126–158; BP diastolic 72–98; PULSE 84–109; RESP 10–20; TEMP 36.7–38; O2SAT 95–100; BMI 11.0
[2020-04-08] MEDS: METOPROLOL TARTRATE INJ 5 MG/5 ML VIAL IV PUSH ×4 (00:24→18:19)
[2020-04-08 00:34] LABS: Glucose Point of Care 112 (65-105)
[2020-04-08] MEDS: IPRATROPIUM BR 0.02% INH SOLN 0.5 MG/2.5 ML VIAL INHALATION ×4 (02:38→17:05)
[2020-04-08] MEDS: LEVALBUTEROL NEB 1.25 MG/3 ML 0.63 MG INHALATION ×4 (02:39→17:05)
[2020-04-08 04:35] LABS: Hematocrit 29.6 % (42.0-52.0); Hemoglobin 9.4 g/dL (14.0-18.0); Mean Corpuscular HGB Conc 31.8 g/dl (32-36); Mean Corpuscular Hemoglobin 30.3 pg (26-34); Mean Corpuscular Volume 95.5 fl (80-100); Mean Platelet Volume 9.8 fl (7.4-10.4); Platelet Count Result 139 k/mm3 (150-375); Red Cell Distribution Width 14.2 % (11.5-14.5)
[2020-04-08 04:46] LABS: INR 1.6; Prothrombin Time 19.9 Seconds (11.1-14.7)
[2020-04-08 04:50] LABS: Ammonia < 9 umol/L (9-30)
[2020-04-08 04:51] LABS: Alanine Aminotransferase 585 U/L (4-50); Albumin Level 2.7 g/dL (3.5-5.1); Alkaline Phosphatase 88 U/L (38-126); Anion Gap 2 mmol/L (8-16); Aspartate Amino Transferase 573 U/L (17-59); Bilirubin,Total 0.7 mg/dL (0.2-1.3); Blood Urea Nitrogen 24 mg/dL (9-20); Calcium 7.6 mg/dL (8.4-10.2); Carbon Dioxide 30 mmol/L (22-30); Chloride 110 mmol/L (98-107); Estimated CRCL calculation 86 ml/min; Estimated Glomerular Filt Rate > 60; Glucose 109 mg/dL (75-110); Magnesium 2.3 mg/dL (1.6-2.3); Potassium 3.2 mmol/L (3.4-5.0); Sodium 142 mmol/L (137-145)
[2020-04-08 05:13] LABS: Alveolar/Arterial O2 Gradient 101.8 mmHg; Carboxyhemoglobin 0.3 % THb (0-2.0); Device VENTILATOR; Fractional Inspired Oxygen 30 %; HCO3 ABG 22.6 mEq/l (22.0-26.0); Methemoglobin ABG 0.3 %THb (0-1.5); Modified Allen's Test Unable to perform; Oxygen Content ABG 16.5 %vol (16.0-22.0); Oxyhemoglobin 93.1 % THb (90.0-100.0); PCO2 ABG 34.4 mmHg (35.0-45.0); PO2 ABG 71.7 mmHg (80.0-100.0); PO2 FiO2 Ratio Arterial Blood 2.39 %; Reduced Hemoglobin 6.3 %THb (0-5.0); Site Drawn LEFT RADIAL; Total Hemoglobin 12.6 g/dL (12.0-18.0); pH ABG 7.436 (7.350-7.450)
[2020-04-08 05:14] LABS: Arterial Blood Gas PEEP 5 cmH2O; Arterial Blood Gas Pressure Support 8 cmH2O; Arterial Blood Gas Vent Mode PRESSURE SUPPORT
[2020-04-08] MEDS: KCL 20 MEQ/SW 100 ML 100 ML 50 MEQ IVPB (05:15)
[2020-04-08] MEDS: CENTRAL LINE FLUSH 10 ML IV PUSH ×3 (05:16→19:54)
--- NOTE | 2020-04-08 08:52 | WPDANESPN ---
Anes - Prog Note Post-Op Date/Time: 04/08/20 08:52 Cardiovascular status: normal Respiratory status: normal Airway patency: baseline Mental status: other (FRASNICO) Post-Op hydration status: normal Vital Signs: Last Vital Signs Temp 36.7 C 04/08/20 08:00 Pulse 88 04/08/20 08:25 Resp 10 L 04/08/20 08:17 BP 153/83 H 04/08/20 08:00 Pulse Ox 99 04/08/20 08:25 Pain Score (VAS): FRANSICO I/O: Intake & Output 04/07/20 04/08/20 04/08/20 23:59 07:59 15:59 Intake Total 1116 0 Output Total 1900 1100 Balance -784 -1100 Laboratory Tests 04/08/20 04:27 04/08/20 04:27 04/04/20 04/07/20 04/07/20 12:51 01:27 10:36 WBC RBC Hgb Hct MCV MCH MCHC RDW Plt Count MPV PT INR Puncture Site ABG pH ABG pCO2 ABG pO2 ABG PO2/FiO2 Ratio ABG HCO3 ABG O2 Saturation ABG O2 Content ABG Base Excess A-a Gradient Oxyhemoglobin Carboxyhemoglobin Methemoglobin Reduced Hemoglobin Total Hemoglobin O2 Delivery Device O2 Liters/Min Minute Volume Vent Rate Vent Mode FiO2 Tidal Volume PEEP Peak Inspir Pressure Pressure Support Sodium Potassium Chloride Carbon Dioxide Anion Gap BUN Creatinine Estim Creat Clear Calc Estimated GFR Glucose POC Capillary Glucose 82 Lactic Acid 0.9 Calcium Magnesium Total Bilirubin AST ALT Alkaline Phosphatase Ammonia Total Protein Albumin Hepatitis A IgM Ab Negative Hep Bs Antigen Negative Hep B Core IgM Ab Negative Hepatitis C Ab Screen Negative 04/07/20 04/07/20 04/08/20 12:35 15:49 00:17 WBC RBC Hgb Hct MCV MCH MCHC RDW Plt Count MPV PT INR Puncture Site ABG pH ABG pCO2 ABG pO2 ABG PO2/FiO2 Ratio ABG HCO3 ABG O2 Saturation ABG O2 Content ABG Base Excess A-a Gradient Oxyhemoglobin Carboxyhemoglobin Methemoglobin Reduced Hemoglobin Total Hemoglobin O2 Delivery Device O2 Liters/Min Minute Volume Vent Rate Vent Mode FiO2 Tidal Volume PEEP Peak Inspir Pressure Pressure Support Sodium 141 Potassium 3.6 Chloride 110 H Carbon Dioxide 26 Anion Gap 5 L BUN 24 H Creatinine 0.90 Estim Creat Clear Calc 86 Estimated GFR > 60 Glucose 127 H POC Capillary Glucose 107 112 H Lactic Acid Calcium 7.8 L Magnesium 2.2 Total Bilirubin AST ALT Alkaline Phosphatase Ammonia Total Protein Albumin Hepatitis A IgM Ab Hep Bs Antigen Hep B Core IgM Ab Hepatitis C Ab Screen 04/08/20 04/08/20 04/08/20 04:27 04:27 04:27 WBC 8.0 RBC 3.10 L Hgb 9.4 L Hct 29.6 L MCV 95.5 MCH 30.3 MCHC 31.8 L RDW 14.2 Plt Count 139 L MPV 9.8 PT 19.9 H INR 1.6 Puncture Site ABG pH ABG pCO2 ABG pO2 ABG PO2/FiO2 Ratio ABG HCO3 ABG O2 Saturation ABG O2 Content ABG Base Excess A-a Gradient Oxyhemoglobin Carboxyhemoglobin Methemoglobin Reduced Hemoglobin Total Hemoglobin O2 Delivery Device O2 Liters/Min Minute Volume Vent Rate Vent Mode FiO2 Tidal Volume PEEP Peak Inspir Pressure Pressure Support Sodium 142 Potassium 3.2 L Chloride 110 H Carbon Dioxide 30 Anion Gap 2 L BUN 24 H Creatinine 0.90 Estim Creat Clear Calc 86 Estimated GFR > 60 Glucose 109 POC Capillary Glucose Lactic Acid Calcium 7.6 L Magnesium 2.3 Total Bilirubin 0.7 AST 573 H ALT 585 H Alkaline Phosphatase 88 Ammonia Total Protein 6.0 L Albumin 2.7 L Hepatitis A IgM Ab Hep Bs Antigen Hep B Core IgM Ab Hepatitis C Ab Screen 04/08/20 04/08/20 04:27 04:36 WBC RBC Hgb Hct MCV MCH MCHC RDW Plt Count
[2020-04-08] MEDS: PANTOPRAZOLE SODIUM IV 40 MG VIAL IV PUSH (08:55)
[2020-04-08] MEDS: CHOLECALCIFEROL 1,000 UNITS TABLET 5000 UNITS PO (08:55)
[2020-04-08] MEDS: MICONAZOLE NITRATE 2% CREAM 30 GM TUBE 1 APPLIC TOPICAL ×2 (08:56→19:54)
--- NOTE | 2020-04-08 10:50 | PCDIET ---
ICU Rounding Note: Tube feedings held for episode of vomiting overnight. MD orders for Reglan, and tube feedings to resume at lower rate. Order to continue water flushes at 250mL every 4 hours. Last recorded weight is 124.1kg which is increased from last review. Bowel Motility: +BM today x 1. Labs Reviewed: Hgb (9.4), Hct (29.6), BUN (24), K (3.2), Alb (2.7), Ceci Ca (8.64) Meds Noted:Atrovent, Xopenex, Reglan, Lopressor, Protonix, KCl, Vitamin D Additional Notes: No documented pressure ulcers. Following daily in ICU rounds. Assessing/reassessing every Monday/Monday.
--- NOTE | 2020-04-08 11:15 | WPDINFPN2 ---
Progress Note: A&P Assessment and Plan (1) Fever: Qualifiers: Fever type: unspecified Qualified Code(s): R50.9 - Fever, unspecified Code(s): R50.9 - Fever, unspecified Status: Acute Additional Plan 1. Fever, persists, no new + micro, sputum rejected. CXR stable, US RUQ non diagnostic and findings could well be due to acute medical illness. 2. Recent CoVid 19 infection, off steroids, +remdesivir in past 3. Mild renal insufficiency 4. Elevated transaminases REC No resumption of antibiotics at present. New BCs ngsf Subjective Date/time seen: 04/08/20 11:15 Interval history: eyes open does not follow. no pressors Exam Narrative: Exam Narrative: t max 38.1 Const: General: no acute distress Resp: Effort & Inspection: normal respiratory effort Auscultation: clear to auscultation bilaterally and diminished lung sounds Cardio: Rate: regular rate Rhythm: regular rhythm Heart sounds: no gallops and no murmurs GI: Inspection: non-distended GI Palp: Yes Soft to palpation and No Tenderness to palpation present (GI) Urinary Catheter: Urinary Catheter: patent and draining and urine clear Skin: General skin exam: normal color and no rashes or lesions noted Objective Data Vital Signs Vital Signs: Vital Signs - 24 hr 04/07/20 11:42 04/07/20 11:46 04/07/20 12:00 Temperature 38.0 C H Pulse Rate 100 99 103 H Respiratory Rate 21 H 23 H Blood Pressure 145/82 H Pulse Oximetry 97 92 93 04/07/20 12:41 04/07/20 13:05 04/07/20 14:00 Temperature Pulse Rate 107 H 109 H 107 H Respiratory Rate 20 18 Blood Pressure Pulse Oximetry 97 04/07/20 16:00 04/07/20 17:08 04/07/20 17:34 Temperature 38.1 C H Pulse Rate 114 H 114 H 113 H Respiratory Rate 16 21 H Blood Pressure 142/91 H 142/79 H Pulse Oximetry 98 97 97 04/07/20 20:00 04/07/20 20:04 04/07/20 20:05 Temperature 38.1 C H Pulse Rate 105 H 108 H 91 Respiratory Rate 20 11 L Blood Pressure 139/52 L Pulse Oximetry 98 96 04/07/20 20:34 04/07/20 21:00 04/07/20 22:00 Temperature 38.1 C H Pulse Rate 103 H 88 94 Respiratory Rate 15 16 Blood Pressure 125/72 119/69 Pulse Oximetry 99 99 04/07/20 22:51 04/07/20 23:50 04/08/20 00:00 Temperature 36.8 C Pulse Rate 90 87 89 Respiratory Rate 20 20 Blood Pressure 126/81 Pulse Oximetry 99 99 99 04/08/20 00:24 04/08/20 02:00 04/08/20 02:42 Temperature Pulse Rate 85 86 91 Respiratory Rate 13 13 Blood Pressure 145/84 H Pulse Oximetry 98 04/08/20 02:43 04/08/20 03:43 04/08/20 04:00 Temperature 37.1 C Pulse Rate 86 86 85 Respiratory Rate 19 15 Blood Pressure 143/72 H Pulse Oximetry 95 96 96 04/08/20 04:41 04/08/20 05:16 04/08/20 06:00 Temperature Pulse Rate 88 95 85 Respiratory Rate 13 Blood Pressure 143/80 H Pulse Oximetry 99 97 04/08/20 08:00 04/08/20 08:17 04/08/20 08:25 Temperature 36.7 C Pulse Rate 92 92 88 Respiratory Rate 11 L 10 L Blood Pressure 153/83 H Pulse Oximetry 96 99 04/08/20 10:00 04/08/20 10:37 Temperature Pulse Rate 97 100 Respiratory Rate 11 L Blood Pressure 152/91 H Pulse Oximetry 100 98 Intake/Output Intake/Output: Intake & Output 04/05/20 04/06/20 04/07/20 04/08/20 23:59 23:59 23:59 23:59 Intake Total 2290 827 1316 0 Output Total 1050 1050 2400 1100 Balance 1240 -223 -1084 -1100 Meds/Results Medications: Active Medications Generic Name Dose Route Start Last Admin Trade Name Freq PRN Reason Stop Dose Admin Acetaminophen 650 mg 03/17/20 04:13 04/06/20 20:09 Acetaminophen 325 Mg Tablet PO 650 mg Q4H PRN Administration Mild Pain (1-3) or Fever Atorvastatin Calcium 80 mg 03/17/20 09:00 04/06/20 08:46 Atorvastatin 40 Mg Tablet PO Not Given DAILY [facility] Bupropion HCl 75 mg 03/22/20 09:00 04/02/20 08:34 Bupropion Hcl 75 Mg Tablet PO 75 mg Q12HR ANALI Administration Clopidogrel Bisulfate 75 mg 03/17/20 09:00 04/05/20
--- NOTE | 2020-04-08 12:26 | WPDINTPN ---
Progress Note: A&P Assessment and Plan (1) Encephalopathy: Code(s): G93.40 - Encephalopathy, unspecified Status: Acute Assessment and Plan: Encephalopathy improving patient more awake, follows simple commands and lower extremities, nods to questions Encephalopathy after decreasing sedation. Most likely toxic metabolic encephalopathy or COVID encephalopathy, critical care neuropathy and myopathy -brain CT scan on 03/26/2020 and repeat on 04/03 did not show any acute intracranial abnormalities except sinus disease -ammonia level on 03/27/2020 was < 9 - EEG was done and is consistent with encephalopathy -continue to hold sedation -04/07/[address] Anali Greenwood MD, department of neurology and sleep medicine at [facility]. , she stated that patient has a history of obstructive sleep apnea and REM sleep disorder. The REM sleep disorder could be a precursor to Lewy body dementia and Parkinson's disease can be accelerated in the elderly patient like him. She recommended giving him more time to wake up and agrees with the tracheostomy, after which if able to place him on a trach collar and obtained an MRI sounded like a good idea to her. (2) Acute respiratory failure with hypoxia: Code(s): J96.01 - Acute respiratory failure with hypoxia Status: Acute Assessment and Plan: Acute respiratory failure likely secondary to COVID-19 pneumonia -tracheostomy placed on 04/07/2020 -patient currently on pressure support 10/22 with adequate ABGs -continue bronchodilators -no sedation (3) Fever: Qualifiers: Fever type: unspecified Qualified Code(s): R50.9 - Fever, unspecified Code(s): R50.9 - Fever, unspecified Status: Acute Assessment and Plan: Persistently low-grade fever-could be related to atelectasis, pneumonia, thromboembolism, sinusitis or COVID -CT scan of the chest abdomen and pelvis on 03/26/2019 multi segment left lower lobe, segmental right lower lobe dependent atelectasis and pneumonia. Scattered diffuse ill-defined ground-glass lung opacities suspicious for COVID-19 pneumonia. Chronic abdominal findings. -03/26/2020 blood cultures: No growth x2 -03/27/2020 sputum culture growing Yeast -03/27/2020 urine culture: Growth -initial sputum, blood, cultures negative -he has completed a course of Zosyn per Infectious Disease. - 1/13- I discussed case with Dr. nelson and and whether to remove PICC line. He feels that it is okay to continue with the PICC line and does not suspect it to be a source of infection -04/02 repeat bilateral lower and upper extremity venous Dopplers were negative for DVT. Lipase level was normal Although his WBC is normal he continues to have low-grade fevers. Patient continues to have low-grade fevers, PICC line and Dougherty catheter was removed on 04/05/2020 - 04/05/2020 repeat blood cultures are negative x2 so far -04/05/2020 sputum culture pending (4) Pneumonia due to COVID-19 virus: Code(s): U07.1 - COVID-19; J12.89 - Other viral pneumonia Status: Acute Assessment and Plan: SARS-CoV-2 PCR positive on 03/11/2020 -patient presented to outside hospital 03/16/2020 with productive cough, shortness of breath, wheezing hypoxia -continue dexamethasone IV for 10 days -received 5 days of Remdesivir -03/17 received to convalescent plasma -continue airborne, contact, droplet isolation/precautions (5) Pulmonary embolism associated with severe acute respiratory syndrome coronavirus 2 (SARS-CoV-2) infection: Code(s): U07.1 - COVID-19; I26.99 - Other pulmonary embolism without acute cor pulmonale Status: Acute Assessment and Plan: Possible small segmental PEs on CTA chest the outside hospital lots of motion artifact -patient has been started on therapeutic Lovenox -03/21/2020 and 04/02 venous Dopplers bilateral lower and upper extremities negative for DVT (6) Hyperg
[2020-04-08] MEDS: METOCLOPRAMIDE HCL INJ 10 MG/2 ML VIAL 5 MG IV PUSH ×3 (12:32→23:25)
[2020-04-08 16:00] LABS: Glucose Point of Care 94 (65-105)
--- NOTE | 2020-04-08 17:22 | PM.IMPN ---
Progress Note: A&P Assessment and Plan (1) Acute respiratory failure with hypoxia: Code(s): J96.01 - Acute respiratory failure with hypoxia Status: Acute Assessment and Plan: Secondary to COVID-19 pneumonia. Patient remains on mechanical ventilation. Sedation was discontinued but patient is still having acute metabolic encephalopathy. Trach placed 04/07; PEG placed 04/06. Wean vent as tolerated; appreciate curtain drier input. (2) Pneumonia due to COVID-19 virus: Code(s): U07.1 - COVID-19; J12.89 - Other viral pneumonia Status: Acute Assessment and Plan: Completed plasma x 1 03/17 Completed remdesevir 03/21; completed Dexamethasone 03/27. Remains intubated. (3) Elevated LFTs: Code(s): R79.89 - Other specified abnormal findings of blood chemistry Status: Acute Assessment and Plan: AST/ALT mildly elevated but worse over the past 3 days. CXR showing possible pulmonary edema. Liver congestion from CHF? Echo showing EF 40-45% but normal RV systolic function. Lasix IV once with good UOP. Hepatitis panel negative and RUQ US showing GB wall thickening but nonspecific. Ammonia level 04/04 negative. INR 1.7 on 04/05. Lipitor on hold. Continue to follow. (4) Fever: Qualifiers: Fever type: unspecified Qualified Code(s): R50.9 - Fever, unspecified Code(s): R50.9 - Fever, unspecified Status: Acute Assessment and Plan: Persistent low-grade fevers without clear etiology. BCx 03/26 negative. Sputum 03/27 growing yeast. Urine cx 03/27 negative. CDiff negative 04/03. He completed a course of Zosyn (03/27-04/03) and patient currently off abx. Repeat blood cultures 04/05 NGTD. (5) Pulmonary embolism associated with severe acute respiratory syndrome coronavirus 2 (SARS-CoV-2) infection: Code(s): U07.1 - COVID-19; I26.99 - Other pulmonary embolism without acute cor pulmonale Status: Acute Assessment and Plan: CT chest showed small few possible filling defect subsegmental branches right lower lobe which could be small PE. Venous doppler negative. Possible artifact. Consider repeating CTA to verify. Therapeutic Lovenox resumed (6) Encephalopathy: Code(s): G93.40 - Encephalopathy, unspecified Status: Acute Assessment and Plan: EEG c/w metabolic encephalopathy; Brain CT 04/03 showing no acute findings Most likely patient has acute metabolic encephalopathy multifactorial due to COVID-19 infection and ICU stay. Also with critical illness polyneuropathy. Sedation stopped. Continue to monitor. Plan for MRI brain and c-spine once trach placed. Appreciate Neurology input. (7) CLARK (acute kidney injury): Code(s): N17.9 - Acute kidney failure, unspecified Status: Acute Assessment and Plan: Multifactorial most likely related to COVID-19 infection. Resolved (8) Coronary artery disease: Qualifiers: Associated angina: without angina Coronary Disease-Associated Artery/Lesion type: unspecified vessel or lesion type [place] vs. transplanted heart: [place] heart Qualified Code(s): I25.10 - Atherosclerotic heart disease of [place] coronary artery without angina pectoris Code(s): I25.10 - Atherosclerotic heart disease of [place] coronary artery without angina pectoris Status: Acute Assessment and Plan: Stable. Plavix and Lipitor on hold. Continue Lopressor IV. Tele noted; continue to monitor on tele (9) Hyperglycemia: Code(s): R73.9 - Hyperglycemia, unspecified Status: Acute Assessment and Plan: A1c 6.3. Glucose well controlled. Continue insulin sliding scale. Subjective Date/time seen: 04/08/20 17:22 Interval history: Date of service 04/08 74yo male admitted to the hospital on 03/17/20 with shortness of breath and hypoxia. He was diagnosed with COVID-19 on 03/11/20. Patient condition deteriorated required mechanical ventilation and s
[2020-04-08] MEDS: ENOXAPARIN 120 MG/0.8 ML SYRINGE SUB-Q (18:18)
[2020-04-08 18:50] LABS: Glucose Point of Care 126 (65-105)
[2020-04-08] MEDS: METOPROLOL TARTRATE 50 MG TAB PO (21:09)
[2020-04-08 23:31] LABS: Glucose Point of Care 126 (65-105)
[2020-04-09] VITALS (29 sets, daily range): BP systolic 125–151; BP diastolic 58–105; PULSE 64–112; RESP 11–24; TEMP 36.8–37.8; O2SAT 96–100
[2020-04-09] MEDS: LEVALBUTEROL NEB 1.25 MG/3 ML 0.63 MG INHALATION ×4 (01:42→20:05)
[2020-04-09] MEDS: IPRATROPIUM BR 0.02% INH SOLN 0.5 MG/2.5 ML VIAL INHALATION ×4 (01:43→20:05)
[2020-04-09 05:11] LABS: Hematocrit 29.5 % (42.0-52.0); Hemoglobin 9.6 g/dL (14.0-18.0); Mean Corpuscular HGB Conc 32.5 g/dl (32-36); Mean Corpuscular Hemoglobin 30.4 pg (26-34); Mean Corpuscular Volume 93.4 fl (80-100); Mean Platelet Volume 9.8 fl (7.4-10.4); Platelet Count Result 170 k/mm3 (150-375); Red Blood Count 3.16 M/mm3 (4.6-6.20); Red Cell Distribution Width 14.2 % (11.5-14.5); White Blood Count 8.2 K/mm3 (4.5-10.0)
[2020-04-09 05:34] LABS: Alanine Aminotransferase 708 U/L (4-50); Albumin Level 2.8 g/dL (3.5-5.1); Alkaline Phosphatase 113 U/L (38-126); Anion Gap 4 mmol/L (8-16); Aspartate Amino Transferase 664 U/L (17-59); Bilirubin,Total 0.6 mg/dL (0.2-1.3); Blood Urea Nitrogen 24 mg/dL (9-20); Calcium 7.9 mg/dL (8.4-10.2); Carbon Dioxide 28 mmol/L (22-30); Chloride 112 mmol/L (98-107); Estimated CRCL calculation 97 ml/min; Estimated Glomerular Filt Rate > 60; Glucose 148 mg/dL (75-110); Magnesium 2.3 mg/dL (1.6-2.3); Phosphorus 3.5 mg/dL (2.5-4.5); Potassium 3.1 mmol/L (3.4-5.0); Sodium 144 mmol/L (137-145)
[2020-04-09 05:47] LABS: Base Excess ABG -0.9 mEq/l (+/-2.0); Carboxyhemoglobin 0.3 % THb (0-2.0); Device VENTILATOR; Fractional Inspired Oxygen 30 %; Methemoglobin ABG 0.3 %THb (0-1.5); Modified Allen's Test Pass; Oxygen Content ABG 20.6 %vol (16.0-22.0); Oxygen Saturation ABG 97.6 % (95.0-100.0); Oxyhemoglobin 96.1 % THb (90.0-100.0); PCO2 ABG 31.8 mmHg (35.0-45.0); PO2 ABG 94.5 mmHg (80.0-100.0); PO2 FiO2 Ratio Arterial Blood 3.15 %; Reduced Hemoglobin 3.3 %THb (0-5.0); Site Drawn LEFT RADIAL; Total Hemoglobin 15.2 g/dL (12.0-18.0); pH ABG 7.458 (7.350-7.450)
[2020-04-09 05:48] LABS: Arterial Blood Gas PEEP 5 cmH2O; Arterial Blood Gas Pressure Support 8 cmH2O; Arterial Blood Gas Vent Mode SPONTANEOUS
[2020-04-09] MEDS: METOCLOPRAMIDE HCL INJ 10 MG/2 ML VIAL 5 MG IV PUSH ×4 (05:55→23:32)
[2020-04-09] MEDS: ENOXAPARIN 120 MG/0.8 ML SYRINGE SUB-Q ×2 (05:56→17:48)
[2020-04-09] MEDS: CENTRAL LINE FLUSH 10 ML IV PUSH ×3 (06:27→21:27)
[2020-04-09] MEDS: POTASSIUM CHLORIDE 20 MEQ PACKET (FOR LIQUID) 40 MEQ FEED TUBE (07:27)
[2020-04-09] MEDS: CHOLECALCIFEROL 1,000 UNITS TABLET 5000 UNITS PO (08:10)
[2020-04-09] MEDS: PANTOPRAZOLE SODIUM IV 40 MG VIAL IV PUSH (08:11)
[2020-04-09] MEDS: METOPROLOL TARTRATE 50 MG TAB PO ×2 (08:11→21:26)
--- NOTE | 2020-04-09 09:27 | PM.IMPN ---
Progress Note: A&P Assessment and Plan (1) Acute respiratory failure with hypoxia: Code(s): J96.01 - Acute respiratory failure with hypoxia Status: Acute Assessment and Plan: Secondary to COVID-19 pneumonia. Patient remains on mechanical ventilation. Sedation was discontinued but patient is still having acute metabolic encephalopathy. Trach placed 04/07; PEG placed 04/06. Wean vent as tolerated; appreciate tissue technologist input. (2) Pneumonia due to COVID-19 virus: Code(s): U07.1 - COVID-19; J12.89 - Other viral pneumonia Status: Acute Assessment and Plan: COVID positive around 03/11. Completed plasma x 1 03/17. Completed remdesevir x5 days on 03/21; completed Dexamethasone 03/27. Remains intubated. (3) Elevated LFTs: Code(s): R79.89 - Other specified abnormal findings of blood chemistry Status: Acute Assessment and Plan: AST/ALT mildly elevated but worse over the past 3 days. CXR showing possible pulmonary edema. Liver congestion from CHF? Echo showing EF 40-45% but normal RV systolic function. Lasix IV once with good UOP but LFTs continue to climb. Hepatitis panel negative and RUQ US showing GB wall thickening but nonspecific. Ammonia level 04/04 negative. INR 1.7 on 04/05. Lipitor on hold. Continue to follow. CT scan? (4) Fever: Qualifiers: Fever type: unspecified Qualified Code(s): R50.9 - Fever, unspecified Code(s): R50.9 - Fever, unspecified Status: Acute Assessment and Plan: Persistent low-grade fevers without clear etiology. BCx 03/26 negative. Sputum 03/27 growing yeast. Urine cx 03/27 negative. CDiff negative 04/03. Vanco 03/22-03/24 and Cefepime 03/22-03/27. He completed a course of Zosyn (03/27-04/03) and patient currently off abx. Sputum Cx 04/05 not performed. Repeat blood cultures 04/05 NGTD. Still with fevers. Doubt DVT. Atelectasis? Phlebitis? Smouldering infection? GB? Consider CT abd/pelvis. (5) Pulmonary embolism associated with severe acute respiratory syndrome coronavirus 2 (SARS-CoV-2) infection: Code(s): U07.1 - COVID-19; I26.99 - Other pulmonary embolism without acute cor pulmonale Status: Acute Assessment and Plan: CT chest at the outside hospital showed small few possible filling defect subsegmental branches right lower lobe which could be small PE. Venous doppler negative. Possible artifact. Consider repeating CTA to verify. Continue therapeutic Lovenox. (6) Encephalopathy: Code(s): G93.40 - Encephalopathy, unspecified Status: Acute Assessment and Plan: Patient with altered mental status. Symptoms persisted off sedation. EEG 03/30 c/w organic or metabolic encephalopathy. Brain CT 04/03 showing no acute findings. Most likely patient has acute metabolic encephalopathy multifactorial due to COVID-19 infection and ICU stay. Also with critical illness polyneuropathy. probably having autonomic dysfunction with warm/cool extremitites. Continue to hold sedation. Continue to monitor. Plan for MRI brain and c-spine once trach placed. Appreciate Neurology input. (7) CLARK (acute kidney injury): Code(s): N17.9 - Acute kidney failure, unspecified Status: Acute Assessment and Plan: Creatinine climbed to as high as 1.8 early in his hospital course before normalizing. Elliott to be multifactorial related to COVID-19 infection. Resolved. (8) Coronary artery disease: Qualifiers: Associated angina: without angina Coronary Disease-Associated Artery/Lesion type: unspecified vessel or lesion type [place] vs. transplanted heart: [place] heart Qualified Code(s): I25.10 - Atherosclerotic heart disease of [place] coronary artery without angina pectoris Code(s): I25.10 - Atherosclerotic heart disease of [place] coronary artery without angina pectoris Status: Acute Assessment and Plan: Stable. Plavix and Lipitor on hold. Continue Lopressor
[2020-04-09] MEDS: MICONAZOLE NITRATE 2% CREAM 30 GM TUBE 1 APPLIC TOPICAL ×2 (10:46→21:27)
--- NOTE | 2020-04-09 11:37 | WPDINTPN ---
Progress Note: A&P Assessment and Plan (1) Encephalopathy: Code(s): G93.40 - Encephalopathy, unspecified Status: Acute Assessment and Plan: Encephalopathy improving patient more awake, follows simple commands and lower extremities, nods to questions -encephalopathy could be related to toxic metabolic encephalopathy or COVID encephalopathy, critical care neuropathy and myopathy, sedation -brain CT scan on 03/26/2020 and repeat on 04/03 did not show any acute intracranial abnormalities except sinus disease -ammonia level on 03/27/2020 was < 9 - EEG was done and is consistent with encephalopathy -continue to hold sedation -will obtain CT scan of the neck in soft tissues to rule out for any abscess given weakness and intermittent flaccidity of the right and left upper extremity -04/07/[address] Anali Greenwood MD, department of neurology and sleep medicine at [facility]. , she stated that patient has a history of obstructive sleep apnea and REM sleep disorder. The REM sleep disorder could be a precursor to Lewy body dementia and Parkinson's disease can be accelerated in the elderly patient like him. She recommended giving him more time to wake up and agrees with the tracheostomy, after which if able to place him on a trach collar and obtained an MRI sounded like a good idea to her. (2) Acute respiratory failure with hypoxia: Code(s): J96.01 - Acute respiratory failure with hypoxia Status: Acute Assessment and Plan: Acute respiratory failure likely secondary to COVID-19 pneumonia -tracheostomy placed on 04/07/2020 -patient currently on pressure support 8/5 with adequate ABGs. Will place patient on trach collar today -continue bronchodilators -no sedation (3) Fever: Qualifiers: Fever type: unspecified Qualified Code(s): R50.9 - Fever, unspecified Code(s): R50.9 - Fever, unspecified Status: Acute Assessment and Plan: Persistently low-grade fever-could be related to atelectasis, pneumonia, thromboembolism, sinusitis or COVID -CT scan of the chest abdomen and pelvis on 03/26/2019 multi segment left lower lobe, segmental right lower lobe dependent atelectasis and pneumonia. Scattered diffuse ill-defined ground-glass lung opacities suspicious for COVID-19 pneumonia. Chronic abdominal findings. -03/26/2020 blood cultures: No growth x2 -03/27/2020 sputum culture growing Yeast -03/27/2020 urine culture: Growth -initial sputum, blood, cultures negative -he has completed a course of Zosyn per Infectious Disease. - 04/01- I discussed case with Dr. nelson and and whether to remove PICC line. He feels that it is okay to continue with the PICC line and does not suspect it to be a source of infection -04/02 repeat bilateral lower and upper extremity venous Dopplers were negative for DVT. Lipase level was normal Although his WBC is normal he continues to have low-grade fevers. Patient continues to have low-grade fevers, PICC line and Dougherty catheter was removed on 04/05/2020 - 04/05/2020 repeat blood cultures are negative x2 so far -04/05/2020 sputum culture pending (4) Pneumonia due to COVID-19 virus: Code(s): U07.1 - COVID-19; J12.89 - Other viral pneumonia Status: Acute Assessment and Plan: SARS-CoV-2 PCR positive on 03/11/2020 -patient presented to outside hospital 03/16/2020 with productive cough, shortness of breath, wheezing hypoxia -continue dexamethasone IV for 10 days -received 5 days of Remdesivir -03/17 received to convalescent plasma -continue airborne, contact, droplet isolation/precautions (5) Pulmonary embolism associated with severe acute respiratory syndrome coronavirus 2 (SARS-CoV-2) infection: Code(s): U07.1 - COVID-19; I26.99 - Other pulmonary embolism without acute cor pulmonale Status: Acute Assessment and Plan: Possible small segmental PEs on CTA chest the ou
--- NOTE | 2020-04-09 11:54 | PCPTNOTE ---
Attempted to see patient for Physical Therapy. RN stated that patient is getting ready to go down for a CAT scan. She stated that patient can be seen for PT after the test.
--- NOTE | 2020-04-09 12:24 | PCDIET ---
ICU Rounding Note: Patient tolerating Glucerna 1.2 at 50mL/hr with goal of 60mL/hr with 30mL water flush every 4 hours. Last recorded weight is 123.2kg which is decreased from last review. Bowel Motility: +BM today. RN reports small and liquid. Labs Reviewed: Hgb (9.6), Hct (29.5), Glu (148), BUN (24), K (3.1), Alb (2.8) Meds Noted: Atrovent, Xopenex, Reglan, Lopressor, Protonix, KCl, Vitamin D Additional Notes: No pressure sores documented. Following daily in ICU rounds. Assessing/reassessing every Monday/Monday.
[2020-04-09 13:45] LABS: Glucose Point of Care 120 (65-105)
--- NOTE | 2020-04-09 14:57 | WPDINFPN2 ---
Progress Note: A&P Assessment and Plan (1) Fever: Qualifiers: Fever type: unspecified Qualified Code(s): R50.9 - Fever, unspecified Code(s): R50.9 - Fever, unspecified Status: Acute Additional Plan 1. Fever, persists, resp source? CT of chest shows no new infiltrates, CT of neck no abscess at operative site. 2. Recent CoVid 19 infection, off steroids, +remdesivir in past 3. Mild renal insufficiency 4. Elevated transaminases, abdomen CT noted REC No resumption of antibiotics at present. Subjective Date/time seen: 04/09/20 14:57 Interval history: eyes closed. Being converted to trach collar at time of visit. Exam Narrative: Exam Narrative: t max 38.1 Const: General: no acute distress Resp: Effort & Inspection: normal respiratory effort Auscultation: clear to auscultation bilaterally and diminished lung sounds Cardio: Rate: tachycardic Rhythm: regular rhythm Heart sounds: no murmurs GI: Inspection: non-distended GI Palp: Yes Soft to palpation, Yes Tenderness to palpation present (GI) and No Guarding due to palpation present (GI) Other: llq Urinary Catheter: Urinary Catheter: patent and draining and urine clear Objective Data Vital Signs Vital Signs: Vital Signs - 24 hr 04/08/20 16:00 04/08/20 17:06 04/08/20 17:17 Temperature 37.4 C Pulse Rate 108 H 108 H 108 H Respiratory Rate 12 11 L Blood Pressure 148/87 H Pulse Oximetry 97 97 04/08/20 18:00 04/08/20 18:19 04/08/20 20:00 Temperature 38.0 C H 37.9 C H Pulse Rate 96 109 H 102 H Respiratory Rate 11 L 15 Blood Pressure 129/89 142/93 H Pulse Oximetry 97 100 04/08/20 21:09 04/08/20 22:00 04/08/20 22:31 Temperature Pulse Rate 90 87 86 Respiratory Rate 19 Blood Pressure 144/92 H Pulse Oximetry 98 99 04/08/20 23:33 04/09/20 00:00 04/09/20 01:43 Temperature 37.8 C H Pulse Rate 86 89 91 Respiratory Rate 19 14 Blood Pressure 143/89 H Pulse Oximetry 99 99 99 04/09/20 01:44 04/09/20 02:00 04/09/20 03:53 Temperature Pulse Rate 90 95 94 Respiratory Rate 12 15 19 Blood Pressure 147/90 H Pulse Oximetry 97 96 04/09/20 04:00 04/09/20 05:30 04/09/20 06:00 Temperature 37.8 C H Pulse Rate 99 96 100 Respiratory Rate 15 14 Blood Pressure 149/93 H 145/92 H Pulse Oximetry 99 98 98 04/09/20 07:51 04/09/20 07:52 04/09/20 08:00 Temperature 37.4 C Pulse Rate 108 H 109 H 105 H Respiratory Rate 11 L 18 Blood Pressure 138/62 Pulse Oximetry 98 98 04/09/20 08:11 04/09/20 10:00 04/09/20 11:09 Temperature Pulse Rate 105 H 86 85 Respiratory Rate 17 Blood Pressure 128/58 L Pulse Oximetry 98 98 04/09/20 12:00 04/09/20 14:00 04/09/20 14:40 Temperature Pulse Rate 89 87 100 Respiratory Rate 11 L 12 Blood Pressure Pulse Oximetry 99 04/09/20 14:41 Temperature Pulse Rate 100 Respiratory Rate 18 Blood Pressure Pulse Oximetry 99 Intake/Output Intake/Output: Intake & Output 04/06/20 04/07/20 04/08/20 04/09/20 23:59 23:59 23:59 23:59 Intake Total 827 1316 324 750 Output Total 1050 2400 1100 450 Balance -223 -1084 -776 300 Meds/Results Medications: Active Medications Generic Name Dose Route Start Last Admin Trade Name Freq PRN Reason Stop Dose Admin Acetaminophen 650 mg 03/17/20 04:13 04/06/20 20:09 Acetaminophen 325 Mg Tablet PO 650 mg Q4H PRN Administration Mild Pain (1-3) or Fever Atorvastatin Calcium 80 mg 03/17/20 09:00 04/06/20 08:46 Atorvastatin 40 Mg Tablet PO Not Given DAILY ANALI Bupropion HCl 75 mg 03/22/20 09:00 04/02/20 08:34 Bupropion Hcl 75 Mg Tablet PO 75 mg Q12HR ANALI Administration Clopidogrel Bisulfate 75 mg 03/17/20 09:00 04/05/20 08:19 Clopidogrel Bisulfate 75 Mg Tablet PO 75 mg DAILY ANALI Administration Dextrose 12.5 gm 03/17/20 10:14 Dextrose 50% 25 Gm/50 Ml Syringe IV PUSH PRN PRN Hypoglycemia Protocol Enoxaparin Sodium 120 mg 03/27/
[2020-04-09 18:39] LABS: Glucose Point of Care 125 (65-105)
[2020-04-09 23:36] LABS: Glucose Point of Care 131 (65-105)
[2020-04-10] VITALS (21 sets, daily range): BP systolic 135–168; BP diastolic 68–98; PULSE 81–111; RESP 14–24; TEMP 36.6–37.8; O2SAT 91–99
[2020-04-10] MEDS: LEVALBUTEROL NEB 1.25 MG/3 ML 0.63 MG INHALATION ×4 (02:05→21:30)
[2020-04-10] MEDS: IPRATROPIUM BR 0.02% INH SOLN 0.5 MG/2.5 ML VIAL INHALATION ×4 (02:09→21:31)
[2020-04-10 03:56] LABS: Basophils Percent Auto 0.1 % (0.2-1.2); Eosinophils Absolute Auto 0.3 K/mm3 (0-0.3); Eosinophils Percent Auto 3.6 % (0-4.4); Hematocrit 28.6 % (42.0-52.0); Hemoglobin 9.2 g/dL (14.0-18.0); Immature Granulocyte Percent A 1.3 % (0-0.5); Lymphocytes Absolute Auto 0.59 K/mm3 (0.9-3.2); Lymphocytes Percent Auto 7.7 % (18.3-44.2); Mean Corpuscular HGB Conc 32.2 g/dl (32-36); Mean Corpuscular Hemoglobin 30.2 pg (26-34); Mean Corpuscular Volume 93.8 fl (80-100); Mean Platelet Volume 9.8 fl (7.4-10.4); Monocytes Absolute Auto 0.4 K/mm3 (0.1-0.6); Monocytes Percent Auto 5.6 % (2.6-8.5); Neutrophils Absolute Auto 6.3 K/mm3 (1.3-6.7); Neutrophils Percent Auto 81.7 % (45.5-73.1); Platelet Count Result 166 k/mm3 (150-375); Red Blood Count 3.05 M/mm3 (4.6-6.20); White Blood Count 7.7 K/mm3 (4.5-10.0)
[2020-04-10 04:16] LABS: Alanine Aminotransferase 653 U/L (4-50); Albumin Level 2.8 g/dL (3.5-5.1); Alkaline Phosphatase 118 U/L (38-126); Anion Gap 2 mmol/L (8-16); Aspartate Amino Transferase 484 U/L (17-59); Bilirubin,Total 0.6 mg/dL (0.2-1.3); Blood Urea Nitrogen 19 mg/dL (9-20); Calcium 8.4 mg/dL (8.4-10.2); Carbon Dioxide 29 mmol/L (22-30); Chloride 114 mmol/L (98-107); Estimated CRCL calculation 110 ml/min; Estimated Glomerular Filt Rate > 60; Glucose 130 mg/dL (75-110); Lipase 182 U/L (23-300); Magnesium 2.3 mg/dL (1.6-2.3); Phosphorus 3.3 mg/dL (2.5-4.5); Potassium 3.6 mmol/L (3.4-5.0); Sodium 145 mmol/L (137-145)
[2020-04-10 04:30] LABS: CRP 13.3 mg/dL (<1.0)
[2020-04-10 04:48] LABS: Alveolar/Arterial O2 Gradient 75.8 mmHg; Base Excess ABG 0.6 mEq/l (+/-2.0); Carboxyhemoglobin 0.1 % THb (0-2.0); Fractional Inspired Oxygen 30 %; Methemoglobin ABG 0.4 %THb (0-1.5); Oxygen Content ABG 14.1 %vol (16.0-22.0); Oxygen Saturation ABG 97.2 % (95.0-100.0); Oxyhemoglobin 95.6 % THb (90.0-100.0); PCO2 ABG 39.3 mmHg (35.0-45.0); PO2 ABG 91.9 mmHg (80.0-100.0); PO2 FiO2 Ratio Arterial Blood 3.06 %; Reduced Hemoglobin 3.9 %THb (0-5.0); Total Hemoglobin 10.4 g/dL (12.0-18.0); pH ABG 7.422 (7.350-7.450)
[2020-04-10 04:49] LABS: Device HIGH FLOW THERAPY; Modified Allen's Test Pass; Site Drawn RIGHT RADIAL
[2020-04-10] MEDS: ENOXAPARIN 120 MG/0.8 ML SYRINGE SUB-Q ×2 (05:02→17:17)
[2020-04-10] MEDS: CENTRAL LINE FLUSH 10 ML IV PUSH ×3 (05:02→21:18)
[2020-04-10] MEDS: FUROSEMIDE INJ 40 MG/4 ML VIAL IV PUSH (08:39)
[2020-04-10] MEDS: CHOLECALCIFEROL 1,000 UNITS TABLET 5000 UNITS PO (08:40)
[2020-04-10] MEDS: METOPROLOL TARTRATE 50 MG TAB 100 MG PO ×2 (08:40→20:50)
[2020-04-10] MEDS: MICONAZOLE NITRATE 2% CREAM 30 GM TUBE 1 APPLIC TOPICAL ×2 (08:41→20:51)
[2020-04-10] MEDS: PANTOPRAZOLE SODIUM IV 40 MG VIAL IV PUSH (08:41)
--- NOTE | 2020-04-10 11:08 | PCDIET ---
Nutrition Follow-Up Complete: Nutrition Diagnosis: Inadequate oral intake related to oral intubation as evidenced by NPO status. Nutrition Goal: Patient to meet estimated nutritional needs. Goal met. Patient tolerating Glucerna 1.2 at goal of 60mL/hr with 30mL water flush every 4 hours. Last recorded weight is 123.4 kg which is stable with last review. Bowel Motility: BM x 2 today. Labs Reviewed: Hgb (9.2), Hct (28.6), Glu (130), Cl (114), Alb (2.8) Meds Noted: Atrovent, Xopenex, Lopressor, Protonix, KCl, Vitamin D Additional Notes: Reglan held since patient tolerating tube feedings with some liquid stools. May suggest resuming Banatrol if liquid stools continue. LFTs increasing. Right cheek with scab. Will continue to monitor with same goals. Nutrition Monitoring and Evaluation: Follow up in Monday/Monday. Follow daily in ICU rounds.
--- NOTE | 2020-04-10 11:33 | WPDINTPN ---
Progress Note: A&P Assessment and Plan (1) Encephalopathy: Code(s): G93.40 - Encephalopathy, unspecified Status: Acute Assessment and Plan: Encephalopathy improving patient more awake, follows simple commands and lower extremities, nods to questions -encephalopathy could be related to toxic metabolic encephalopathy or COVID encephalopathy, critical care neuropathy and myopathy, sedation -brain CT scan on 03/26/2020 and repeat on 04/03 did not show any acute intracranial abnormalities except sinus disease -ammonia level on 03/27/2020 was < 9 - EEG was done and is consistent with encephalopathy -04/09/2020: CT scan of the soft tissue neck: No abscess seen, right thyroid nodule -continue to hold sedation -04/07/[address] Anali Greenwood MD, department of neurology and sleep medicine at [facility]. , she stated that patient has a history of obstructive sleep apnea and REM sleep disorder. The REM sleep disorder could be a precursor to Lewy body dementia and Parkinson's disease can be accelerated in the elderly patient like him. She recommended giving him more time to wake up and agrees with the tracheostomy, after which if able to place him on a trach collar and obtained an MRI sounded like a good idea to her. (2) Acute respiratory failure with hypoxia: Code(s): J96.01 - Acute respiratory failure with hypoxia Status: Acute Assessment and Plan: Acute respiratory failure likely secondary to COVID-19 pneumonia -tracheostomy placed on 04/07/2020 -patient currently on pressure support 8/5 with adequate ABGs. Will place patient on trach collar today -continue bronchodilators -no sedation (3) Fever: Qualifiers: Fever type: unspecified Qualified Code(s): R50.9 - Fever, unspecified Code(s): R50.9 - Fever, unspecified Status: Acute Assessment and Plan: Persistently low-grade fever-could be related to atelectasis, pneumonia, thromboembolism, sinusitis or COVID -CT scan of the chest abdomen and pelvis on 03/26/2019 multi segment left lower lobe, segmental right lower lobe dependent atelectasis and pneumonia. Scattered diffuse ill-defined ground-glass lung opacities suspicious for COVID-19 pneumonia. Chronic abdominal findings. -03/26/2020 blood cultures: No growth x2 -03/27/2020 sputum culture growing Yeast -03/27/2020 urine culture: Growth -initial sputum, blood, cultures negative -he has completed a course of Zosyn per Infectious Disease. - 04/01- I discussed case with Dr. nelson and and whether to remove PICC line. He feels that it is okay to continue with the PICC line and does not suspect it to be a source of infection -04/02 repeat bilateral lower and upper extremity venous Dopplers were negative for DVT. Lipase level was normal Although his WBC is normal he continues to have low-grade fevers. Patient continues to have low-grade fevers, PICC line and Dougherty catheter was removed on 04/05/2020 - 04/05/2020 repeat blood cultures are negative x2 so far -04/05/2020 sputum culture pending (4) Pneumonia due to COVID-19 virus: Code(s): U07.1 - COVID-19; J12.89 - Other viral pneumonia Status: Acute Assessment and Plan: SARS-CoV-2 PCR positive on 03/11/2020 -patient presented to outside hospital 03/16/2020 with productive cough, shortness of breath, wheezing hypoxia -continue dexamethasone IV for 10 days -received 5 days of Remdesivir -03/17 received to convalescent plasma -continue airborne, contact, droplet isolation/precautions (5) Pulmonary embolism associated with severe acute respiratory syndrome coronavirus 2 (SARS-CoV-2) infection: Code(s): U07.1 - COVID-19; I26.99 - Other pulmonary embolism without acute cor pulmonale Status: Acute Assessment and Plan: Possible small segmental PEs on CTA chest the outside hospital lots of motion artifact -patient has been started on the
[2020-04-10 11:45] LABS: Glucose Point of Care 143 (65-105)
--- NOTE | 2020-04-10 14:08 | WPDINFPN2 ---
Progress Note: A&P Assessment and Plan (1) Fever: Qualifiers: Fever type: unspecified Qualified Code(s): R50.9 - Fever, unspecified Code(s): R50.9 - Fever, unspecified Status: Acute Additional Plan 1. Fever, resp source, temperature curve favorable. 2. Recent CoVid 19 infection, off steroids, +remdesivir in past 3. Mild renal insufficiency 4. Elevated transaminases, abdomen CT noted REC No resumption of antibiotics at present. Will see prn, call if other Qs Subjective Date/time seen: 04/10/20 14:08 Interval history: eyes closed, on TC Exam Narrative: Exam Narrative: t max 37.8 Const: General: no acute distress Resp: Effort & Inspection: normal respiratory effort Auscultation: clear to auscultation bilaterally Cardio: Rate: regular rate Rhythm: regular rhythm Heart sounds: no murmurs GI: Inspection: non-distended GI Palp: Yes Soft to palpation and No Tenderness to palpation present (GI) Urinary Catheter: Urinary Catheter: patent and draining and urine clear Skin: General skin exam: no rashes or lesions noted Objective Data Vital Signs Vital Signs: Vital Signs - 24 hr 04/09/20 14:40 04/09/20 14:41 04/09/20 16:00 Temperature Pulse Rate 100 100 99 Respiratory Rate 12 18 17 Blood Pressure 146/84 H Pulse Oximetry 99 98 04/09/20 17:56 04/09/20 18:00 04/09/20 20:00 Temperature 36.8 C 37.8 C H Pulse Rate 102 H 100 108 H Respiratory Rate 18 16 18 Blood Pressure 141/81 H 125/84 Pulse Oximetry 99 98 99 04/09/20 20:06 04/09/20 20:07 04/09/20 21:26 Temperature Pulse Rate 106 H 106 H 112 H Respiratory Rate 24 H 24 H Blood Pressure Pulse Oximetry 99 04/09/20 22:00 04/09/20 23:01 04/09/20 23:49 Temperature Pulse Rate 90 94 94 Respiratory Rate 18 24 H 24 H Blood Pressure 139/105 H 141/76 H Pulse Oximetry 100 99 99 04/10/20 00:00 04/10/20 02:00 04/10/20 02:09 Temperature 37.8 C H Pulse Rate 94 92 92 Respiratory Rate 16 20 24 H Blood Pressure 147/68 H 135/78 Pulse Oximetry 99 98 04/10/20 02:10 04/10/20 04:00 04/10/20 06:00 Temperature 37.6 C Pulse Rate 92 91 102 H Respiratory Rate 24 H 18 17 Blood Pressure 161/85 H 164/91 H Pulse Oximetry 96 99 98 04/10/20 08:00 04/10/20 08:40 04/10/20 09:32 Temperature 37.7 C H Pulse Rate 81 108 H 81 Respiratory Rate 16 16 Blood Pressure 157/97 H Pulse Oximetry 96 04/10/20 10:00 04/10/20 12:00 04/10/20 14:00 Temperature 37.8 C H Pulse Rate 84 81 88 Respiratory Rate 22 H 16 19 Blood Pressure 152/98 H 155/98 H 163/92 H Pulse Oximetry 97 96 97 Intake/Output Intake/Output: Intake & Output 04/07/20 04/08/20 04/09/20 04/10/20 23:59 23:59 23:59 23:59 Intake Total 4725 256 6301 700 Output Total 2400 1100 1000 2150 Balance -1084 -776 401 -1450 Meds/Results Medications: Active Medications Generic Name Dose Route Start Last Admin Trade Name Freq PRN Reason Stop Dose Admin Acetaminophen 650 mg 03/17/20 04:13 04/06/20 20:09 Acetaminophen 325 Mg Tablet PO 650 mg Q4H PRN Administration Mild Pain (1-3) or Fever Atorvastatin Calcium 80 mg 03/17/20 09:00 04/06/20 08:46 Atorvastatin 40 Mg Tablet PO Not Given DAILY ANALI Bupropion HCl 75 mg 03/22/20 09:00 04/02/20 08:34 Bupropion Hcl 75 Mg Tablet PO 75 mg Q12HR ANALI Administration Clopidogrel Bisulfate 75 mg 03/17/20 09:00 04/05/20 08:19 Clopidogrel Bisulfate 75 Mg Tablet PO 75 mg DAILY ANALI Administration Dextrose 12.5 gm 03/17/20 10:14 Dextrose 50% 25 Gm/50 Ml Syringe IV PUSH PRN PRN Hypoglycemia Protocol Enoxaparin Sodium 120 mg 03/27/20 06:00 04/10/20 05:02 Enoxaparin 120 Mg/0.8 Ml Syringe SUB-Q 120 mg Q12H ANALI Administration Glucagon 1 mg 03/17/20 10:14 Glucagon For Inj 1 Mg Vial IM PRN PRN Hypoglycemia Protocol Glucose 15 gm 03/17/20 10:14 Glucose Oral Gel 15 Gm Of Glucse In 37.5 Gm Tube PO PRN
[2020-04-10 17:24] LABS: Glucose Point of Care 113 (65-105)
--- NOTE | 2020-04-10 19:37 | PM.IMPN ---
Progress Note: A&P Assessment and Plan (1) Acute respiratory failure with hypoxia: Code(s): J96.01 - Acute respiratory failure with hypoxia Status: Acute Assessment and Plan: Secondary to COVID-19 pneumonia. Patient weaned to trach collar. Sedation was discontinued but patient is still having acute metabolic encephalopathy with slow improvement of symptoms. Trach placed 04/07; PEG placed 04/06. Appreciate right of way cutter input. (2) Pneumonia due to COVID-19 virus: Code(s): U07.1 - COVID-19; J12.89 - Other viral pneumonia Status: Acute Assessment and Plan: Completed plasma x 1 03/17. Completed Remdesevir 03/21; completed Dexamethasone 03/27. (3) Elevated LFTs: Code(s): R79.89 - Other specified abnormal findings of blood chemistry Status: Acute Assessment and Plan: AST/ALT climbed to 664 and 708 but now trending down. CXR showing possible pulmonary edema. Liver congestion from CHF? Echo showing EF 40-45% but normal RV systolic function. Lasix IV once with good UOP. Hepatitis panel negative and RUQ US showing GB wall thickening but nonspecific. Ammonia level 04/04 negative. INR 1.7 on 04/05. Lipitor on hold. Levels trending down now. Continue to follow. (4) Fever: Qualifiers: Fever type: unspecified Qualified Code(s): R50.9 - Fever, unspecified Code(s): R50.9 - Fever, unspecified Status: Acute Assessment and Plan: Persistent low-grade fevers without clear etiology. BCx 03/26 negative. Sputum 03/27 growing yeast. Urine cx 03/27 negative. CDiff negative 04/03. He completed a course of Zosyn (03/27-04/03) and patient currently off abx. Repeat blood cultures 04/05 NGTD. (5) Pulmonary embolism associated with severe acute respiratory syndrome coronavirus 2 (SARS-CoV-2) infection: Code(s): U07.1 - COVID-19; I26.99 - Other pulmonary embolism without acute cor pulmonale Status: Acute Assessment and Plan: CT chest showed small few possible filling defect subsegmental branches right lower lobe which could be small PE. Venous doppler negative.Possible artifact. Repeat CTA mildly decreases sensitivity in the segmental and moderately decreased sensitivity in some of the smaller subsegmental pulmonary arteries but no definite pulmonary embolism. Will stop therapeutic Lovenox. (6) Encephalopathy: Code(s): G93.40 - Encephalopathy, unspecified Status: Acute Assessment and Plan: EEG c/w metabolic encephalopathy; Brain CT 04/03 showing no acute findings Most likely patient has acute metabolic encephalopathy multifactorial due to COVID-19 infection and ICU stay. Also with critical illness polyneuropathy. Sedation stopped. Consider MRI brain and c-spine. Appreciate Neurology input. (7) CLARK (acute kidney injury): Code(s): N17.9 - Acute kidney failure, unspecified Status: Acute Assessment and Plan: Multifactorial most likely related to COVID-19 infection. Resolved (8) Coronary artery disease: Qualifiers: Associated angina: without angina Coronary Disease-Associated Artery/Lesion type: unspecified vessel or lesion type [place] vs. transplanted heart: i[place] heart Qualified Code(s): I25.10 - Atherosclerotic heart disease of [place] coronary artery without angina pectoris Code(s): I25.10 - Atherosclerotic heart disease of [place] coronary artery without angina pectoris Status: Acute Assessment and Plan: Stable. Plavix and Lipitor on hold. Continue Lopressor. Continue to monitor on tele (9) Hyperglycemia: Code(s): R73.9 - Hyperglycemia, unspecified Status: Acute Assessment and Plan: A1c 6.3. Glucose well controlled. Continue insulin sliding scale. Subjective Date/time seen: 04/10/20 19:37 Interval history: Date of service 04/10 74yo male admitted to the hospital on 03/17/20 with shortness of breath and hypoxia. He was tracy
--- NOTE | 2020-04-10 21:59 | PC.NURSE ---
Report given via phone to Angelica Concepcion RN.
--- NOTE | 2020-04-10 22:45 | PC.NURSE ---
This patient, Griffin Meehan, was received from ICU-02 on 04/10/20 at 2240. Report obtained from Meli Mitchell RN. Patient/family oriented to unit policies and routines
[2020-04-10 23:34] LABS: Glucose Point of Care 150 (65-105)
[2020-04-11] VITALS (24 sets, daily range): BP systolic 137–160; BP diastolic 74–92; PULSE 82–110; RESP 16–26; TEMP 35.5–36.6; O2SAT 93–99
--- NOTE | 2020-04-11 00:25 | ADMIMU ---
This patient, Griffin Meehan, was transferred to IMU status, and placed in IMU Room 231-01 at 2245.
[2020-04-11] MEDS: LEVALBUTEROL NEB 1.25 MG/3 ML 0.63 MG INHALATION ×4 (03:52→22:35)
[2020-04-11] MEDS: IPRATROPIUM BR 0.02% INH SOLN 0.5 MG/2.5 ML VIAL INHALATION ×4 (03:52→22:34)
[2020-04-11] MEDS: CENTRAL LINE FLUSH 20 ML IV PUSH (04:38)
[2020-04-11 04:51] LABS: Hematocrit 29.4 % (42.0-52.0); Hemoglobin 9.5 g/dL (14.0-18.0); Mean Corpuscular HGB Conc 32.3 g/dl (32-36); Mean Corpuscular Hemoglobin 30.4 pg (26-34); Mean Corpuscular Volume 94.2 fl (80-100); Mean Platelet Volume 9.7 fl (7.4-10.4); Platelet Count Result 168 k/mm3 (150-375); Red Blood Count 3.12 M/mm3 (4.6-6.20); Red Cell Distribution Width 13.9 % (11.5-14.5); White Blood Count 7.3 K/mm3 (4.5-10.0)
[2020-04-11 05:10] LABS: Alanine Aminotransferase 510 U/L (4-50); Albumin Level 2.8 g/dL (3.5-5.1); Alkaline Phosphatase 115 U/L (38-126); Anion Gap 0 mmol/L (8-16); Aspartate Amino Transferase 285 U/L (17-59); Bilirubin,Total 0.6 mg/dL (0.2-1.3); Blood Urea Nitrogen 17 mg/dL (9-20); Calcium 8.1 mg/dL (8.4-10.2); Carbon Dioxide 32 mmol/L (22-30); Chloride 114 mmol/L (98-107); Estimated CRCL calculation 97 ml/min; Estimated Glomerular Filt Rate > 60; Glucose 126 mg/dL (75-110); Magnesium 2.1 mg/dL (1.6-2.3); Phosphorus 3.6 mg/dL (2.5-4.5); Potassium 3.3 mmol/L (3.4-5.0); Sodium 146 mmol/L (137-145)
[2020-04-11 06:11] LABS: Alveolar/Arterial O2 Gradient 101.2 mmHg; Base Excess ABG 1.1 mEq/l (+/-2.0); Carboxyhemoglobin 0.1 % THb (0-2.0); Fractional Inspired Oxygen 30 %; Methemoglobin ABG 0.3 %THb (0-1.5); Oxygen Content ABG 14.1 %vol (16.0-22.0); Oxygen Saturation ABG 96.2 % (95.0-100.0); Oxyhemoglobin 94.2 % THb (90.0-100.0); PCO2 ABG 31.8 mmHg (35.0-45.0); PO2 ABG 75.3 mmHg (80.0-100.0); PO2 FiO2 Ratio Arterial Blood 2.51 %; Reduced Hemoglobin 5.4 %THb (0-5.0); Total Hemoglobin 10.6 g/dL (12.0-18.0); pH ABG 7.495 (7.350-7.450)
[2020-04-11 06:12] LABS: Device HIGH FLOW THERAPY; Modified Allen's Test Pass; Site Drawn RIGHT RADIAL
[2020-04-11 06:40] LABS: Glucose Point of Care 119 (65-105)
[2020-04-11] MEDS: CENTRAL LINE FLUSH 10 ML IV PUSH ×3 (06:53→20:42)
[2020-04-11] MEDS: CHOLECALCIFEROL 1,000 UNITS TABLET 5000 UNITS PO (10:05)
[2020-04-11] MEDS: PANTOPRAZOLE SODIUM IV 40 MG VIAL IV PUSH (10:05)
[2020-04-11] MEDS: METOPROLOL TARTRATE 50 MG TAB 100 MG PO ×2 (10:05→20:41)
[2020-04-11] MEDS: ENOXAPARIN 40 MG/0.4 ML SYRINGE SUB-Q ×2 (10:05→20:41)
[2020-04-11] MEDS: MICONAZOLE NITRATE 2% CREAM 30 GM TUBE 1 APPLIC TOPICAL ×2 (10:06→20:42)
[2020-04-11 11:51] LABS: Glucose Point of Care 134 (65-105)
--- NOTE | 2020-04-11 13:55 | PM.IMPN ---
Progress Note: A&P Assessment and Plan (1) Acute respiratory failure with hypoxia: Code(s): J96.01 - Acute respiratory failure with hypoxia Status: Acute Assessment and Plan: Secondary to COVID-19 pneumonia. Patient weaned to trach collar. Sedation was discontinued but patient is still having acute metabolic encephalopathy with slow improvement of symptoms. Trach placed 04/07; PEG placed 04/06. Continue supportive care. (2) Pneumonia due to COVID-19 virus: Code(s): U07.1 - COVID-19; J12.89 - Other viral pneumonia Status: Acute Assessment and Plan: Completed plasma x 1 03/17. Completed Remdesevir 03/21; completed Dexamethasone 03/27. CT chest showing regions of consolidation and groundglass opacity with peripheral and lower lung predominance. Improved aeration in the bilateral lower lobes with decrease in regions of consolidation in the right lower lobe and more significantly in the basilar segments of the left lower lobe. Contineu supportive care. (3) Elevated LFTs: Code(s): R79.89 - Other specified abnormal findings of blood chemistry Status: Acute Assessment and Plan: AST/ALT climbed to 664 and 708 but now trending down. CXR showing possible pulmonary edema. Liver congestion from CHF? Echo showing EF 40-45% but normal RV systolic function. Lasix IV once with good UOP. Hepatitis panel negative and RUQ US showing GB wall thickening but nonspecific. Ammonia level 04/04 negative. INR 1.7 on 04/05. Lipitor on hold. Levels still trending down now. Continue to follow. (4) Fever: Qualifiers: Fever type: unspecified Qualified Code(s): R50.9 - Fever, unspecified Code(s): R50.9 - Fever, unspecified Status: Acute Assessment and Plan: Persistent low-grade fevers without clear etiology. BCx 03/26 negative. Sputum 03/27 growing yeast. Urine cx 03/27 negative. CDiff negative 04/03. He completed a course of Zosyn (03/27-04/03) and patient currently off abx. Repeat blood cultures 04/05 NGTD. Possibly atelectasis causing low grade fevers. (5) Pulmonary embolism associated with severe acute respiratory syndrome coronavirus 2 (SARS-CoV-2) infection: Code(s): U07.1 - COVID-19; I26.99 - Other pulmonary embolism without acute cor pulmonale Status: Acute Assessment and Plan: CT chest at the outside facility showing small few possible filling defect subsegmental branches right lower lobe which could be small PE vs artifact. Venous doppler negative. Repeat CTA mildly decreases sensitivity in the segmental and moderately decreased sensitivity in some of the smaller subsegmental pulmonary arteries but no definite pulmonary embolism. Spoke with radiology and CTA chest images reviewed from OSH and from here. He favors artifact over PE from the original films and does not see anything in the area of the RLL to suggest PE. Given his high risk for bleeding, patient was changed to prophylactic Lovenox. (6) Encephalopathy: Code(s): G93.40 - Encephalopathy, unspecified Status: Acute Assessment and Plan: EEG c/w metabolic encephalopathy; Brain CT 04/03 showing no acute findings. Most likely patient has acute metabolic encephalopathy multifactorial due to COVID-19 infection and ICU stay. Also with critical illness polyneuropathy. Sedation stopped. Not as responsive as yesterday. Will check ABG. Appreciate Neurology input. Consider MRI when able. (7) CLARK (acute kidney injury): Code(s): N17.9 - Acute kidney failure, unspecified Status: Acute Assessment and Plan: Multifactorial most likely related to COVID-19 infection. Resolved (8) Coronary artery disease: Qualifiers: Associated angina: without angina Coronary Disease-Associated Artery/Lesion type: unspecified vessel or lesion type [place] vs. transplanted heart: [place] heart Qualified Code(s): I25.10 - Atherosclerotic heart disease
[2020-04-11 17:37] LABS: Glucose Point of Care 121 (65-105)
[2020-04-11 18:36] LABS: Alveolar/Arterial O2 Gradient 320.6 mmHg; Base Excess ABG 1.9 mEq/l (+/-2.0); Device HIGH FLOW THERAPY; HCO3 ABG 24.8 mEq/l (22.0-26.0); Modified Allen's Test Pass; Oxygen Content ABG 14.2 %vol (16.0-22.0); Oxygen Saturation ABG 95.8 % (95.0-100.0); Oxyhemoglobin 93.4 % THb (90.0-100.0); PCO2 ABG 32.4 mmHg (35.0-45.0); PO2 ABG 71.6 mmHg (80.0-100.0); PO2 FiO2 Ratio Arterial Blood 1.19 %; Site Drawn LEFT RADIAL; Total Hemoglobin 10.8 g/dL (12.0-18.0); pH ABG 7.501 (7.350-7.450)
[2020-04-11 18:37] LABS: Fractional Inspired Oxygen 30 %
[2020-04-11 23:42] LABS: Glucose Point of Care 146 (65-105)
[2020-04-12] VITALS (20 sets, daily range): BP systolic 143–156; BP diastolic 63–96; PULSE 88–130; RESP 22–32; TEMP 36–36.4; O2SAT 92–99
[2020-04-12] MEDS: IPRATROPIUM BR 0.02% INH SOLN 0.5 MG/2.5 ML VIAL INHALATION ×4 (03:50→20:31)
[2020-04-12] MEDS: LEVALBUTEROL NEB 1.25 MG/3 ML 0.63 MG INHALATION ×3 (03:51→14:52)
[2020-04-12] MEDS: CENTRAL LINE FLUSH 20 ML IV PUSH (04:37)
[2020-04-12 04:46] LABS: Hematocrit 30.2 % (42.0-52.0); Hemoglobin 9.7 g/dL (14.0-18.0); Mean Corpuscular HGB Conc 32.1 g/dl (32-36); Mean Corpuscular Hemoglobin 30.3 pg (26-34); Mean Corpuscular Volume 94.4 fl (80-100); Mean Platelet Volume 9.7 fl (7.4-10.4); Platelet Count Result 193 k/mm3 (150-375); Red Cell Distribution Width 13.8 % (11.5-14.5); White Blood Count 7.4 K/mm3 (4.5-10.0)
[2020-04-12 05:08] LABS: Alanine Aminotransferase 387 U/L (4-50); Albumin Level 2.9 g/dL (3.5-5.1); Alkaline Phosphatase 111 U/L (38-126); Anion Gap 1 mmol/L (8-16); Aspartate Amino Transferase 190 U/L (17-59); Bilirubin,Total 0.7 mg/dL (0.2-1.3); Blood Urea Nitrogen 20 mg/dL (9-20); Calcium 8.6 mg/dL (8.4-10.2); Carbon Dioxide 31 mmol/L (22-30); Chloride 117 mmol/L (98-107); Estimated CRCL calculation 108 ml/min; Estimated Glomerular Filt Rate > 60; Glucose 169 mg/dL (75-110); Magnesium 2.1 mg/dL (1.6-2.3); Phosphorus 3.6 mg/dL (2.5-4.5); Potassium 3.5 mmol/L (3.4-5.0); Sodium 149 mmol/L (137-145)
[2020-04-12 06:43] LABS: Glucose Point of Care 148 (65-105)
[2020-04-12] MEDS: CENTRAL LINE FLUSH 10 ML IV PUSH ×3 (06:54→21:43)
[2020-04-12] MEDS: MICONAZOLE NITRATE 2% CREAM 30 GM TUBE 1 APPLIC TOPICAL ×2 (11:08→21:42)
[2020-04-12] MEDS: CHOLECALCIFEROL 1,000 UNITS TABLET 5000 UNITS PO (11:08)
[2020-04-12] MEDS: PANTOPRAZOLE SODIUM IV 40 MG VIAL IV PUSH (11:08)
[2020-04-12] MEDS: METOPROLOL TARTRATE 50 MG TAB 100 MG PO ×2 (11:08→21:42)
[2020-04-12] MEDS: ENOXAPARIN 40 MG/0.4 ML SYRINGE SUB-Q ×2 (11:08→21:42)
[2020-04-12 12:09] LABS: Glucose Point of Care 157 (65-105)
[2020-04-12 16:06] LABS: Glucose Point of Care 154 (65-105)
--- NOTE | 2020-04-12 17:11 | PM.IMPN ---
Progress Note: A&P Assessment and Plan (1) Acute respiratory failure with hypoxia: Code(s): J96.01 - Acute respiratory failure with hypoxia Status: Acute Assessment and Plan: Secondary to COVID-19 pneumonia. Patient weaned to trach collar. Sedation was discontinued but patient is still having acute metabolic encephalopathy with slow improvement of symptoms. Trach placed 04/07; PEG placed 04/06. Continue supportive care. (2) Pneumonia due to COVID-19 virus: Code(s): U07.1 - COVID-19; J12.89 - Other viral pneumonia Status: Acute Assessment and Plan: Completed plasma x 1 03/17. Completed Remdesevir 03/21; completed Dexamethasone 03/27. CT chest showing regions of consolidation and groundglass opacity with peripheral and lower lung predominance. Improved aeration in the bilateral lower lobes with decrease in regions of consolidation in the right lower lobe and more significantly in the basilar segments of the left lower lobe. Contineu supportive care. (3) Elevated LFTs: Code(s): R79.89 - Other specified abnormal findings of blood chemistry Status: Acute Assessment and Plan: AST/ALT climbed to 664 and 708 but now trending down. CXR showing possible pulmonary edema. Liver congestion from CHF? Echo showing EF 40-45% but normal RV systolic function. Lasix IV once with good UOP. Hepatitis panel negative and RUQ US showing GB wall thickening but nonspecific. Ammonia level 04/04 negative. INR 1.7 on 04/05. Lipitor on hold. Levels still trending down now. Continue to follow. (4) Fever: Qualifiers: Fever type: unspecified Qualified Code(s): R50.9 - Fever, unspecified Code(s): R50.9 - Fever, unspecified Status: Acute Assessment and Plan: Persistent low-grade fevers without clear etiology. BCx 03/26 negative. Sputum 03/27 growing yeast. Urine cx 03/27 negative. CDiff negative 04/03. He completed a course of Zosyn (03/27-04/03) and patient currently off abx. Repeat blood cultures 04/05 NGTD. Possibly atelectasis causing low grade fevers. Fever has resolved. (5) Pulmonary embolism associated with severe acute respiratory syndrome coronavirus 2 (SARS-CoV-2) infection: Code(s): U07.1 - COVID-19; I26.99 - Other pulmonary embolism without acute cor pulmonale Status: Acute Assessment and Plan: CT chest at the outside facility showing small few possible filling defect subsegmental branches right lower lobe which could be small PE vs artifact. Venous doppler negative. Repeat CTA mildly decreases sensitivity in the segmental and moderately decreased sensitivity in some of the smaller subsegmental pulmonary arteries but no definite pulmonary embolism. Spoke with radiology 04/10 and CTA chest images reviewed from OSH and CTA from here. He favors artifact over PE from the original films and does not see anything in the area of the RLL to suggest PE. Given his high risk for bleeding and low likelihood this is PE, patient was changed to prophylactic Lovenox. (6) Encephalopathy: Code(s): G93.40 - Encephalopathy, unspecified Status: Acute Assessment and Plan: EEG c/w metabolic encephalopathy; Brain CT 04/03 showing no acute findings. Most likely patient has acute metabolic encephalopathy multifactorial due to COVID-19 infection and ICU stay. Also with critical illness polyneuropathy. Off sedation for quite awhile. Not as responsive again today. Appreciate Neurology input. Consider MRI when able. (7) CLARK (acute kidney injury): Code(s): N17.9 - Acute kidney failure, unspecified Status: Acute Assessment and Plan: Multifactorial most likely related to COVID-19 infection. Resolved (8) Coronary artery disease: Qualifiers: Associated angina: without angina Coronary Disease-Associated Artery/Lesion type: unspecified vessel or lesion type [place] vs. transplanted heart: [place]
[2020-04-12 23:58] LABS: Glucose Point of Care 127 (65-105)
[2020-04-13] VITALS (26 sets, daily range): BP systolic 126–170; BP diastolic 68–111; PULSE 63–131; RESP 20–32; TEMP 36.2–36.8; O2SAT 92–97
[2020-04-13 05:43] LABS: Hematocrit 30.2 % (42.0-52.0); Hemoglobin 9.5 g/dL (14.0-18.0); Mean Corpuscular HGB Conc 31.5 g/dl (32-36); Mean Corpuscular Volume 95.3 fl (80-100); Mean Platelet Volume 10.1 fl (7.4-10.4); Platelet Count Result 196 k/mm3 (150-375); Red Blood Count 3.17 M/mm3 (4.6-6.20); Red Cell Distribution Width 14.2 % (11.5-14.5); White Blood Count 7.4 K/mm3 (4.5-10.0)
[2020-04-13 05:57] LABS: Alanine Aminotransferase 306 U/L (4-50); Albumin Level 2.9 g/dL (3.5-5.1); Alkaline Phosphatase 106 U/L (38-126); Anion Gap 2 mmol/L (8-16); Aspartate Amino Transferase 145 U/L (17-59); Bilirubin,Total 0.7 mg/dL (0.2-1.3); Blood Urea Nitrogen 20 mg/dL (9-20); Calcium 8.7 mg/dL (8.4-10.2); Carbon Dioxide 32 mmol/L (22-30); Chloride 118 mmol/L (98-107); Estimated CRCL calculation 90 ml/min; Estimated Glomerular Filt Rate > 60; Glucose 145 mg/dL (75-110); Magnesium 2.3 mg/dL (1.6-2.3); Phosphorus 3.8 mg/dL (2.5-4.5); Potassium 3.6 mmol/L (3.4-5.0); Sodium 152 mmol/L (137-145)
[2020-04-13] MEDS: LEVALBUTEROL NEB 1.25 MG/3 ML 0.63 MG INHALATION ×4 (09:15→22:06)
[2020-04-13] MEDS: IPRATROPIUM BR 0.02% INH SOLN 0.5 MG/2.5 ML VIAL INHALATION ×4 (09:15→22:06)
[2020-04-13] MEDS: CENTRAL LINE FLUSH 10 ML IV PUSH ×3 (11:00→20:54)
[2020-04-13] MEDS: ENOXAPARIN 40 MG/0.4 ML SYRINGE SUB-Q ×2 (11:01→20:53)
[2020-04-13] MEDS: METOPROLOL TARTRATE 50 MG TAB 100 MG PO ×2 (11:01→20:53)
[2020-04-13] MEDS: CHOLECALCIFEROL 1,000 UNITS TABLET 5000 UNITS PO (11:01)
[2020-04-13] MEDS: PANTOPRAZOLE SODIUM IV 40 MG VIAL IV PUSH (11:02)
[2020-04-13] MEDS: MICONAZOLE NITRATE 2% CREAM 30 GM TUBE 1 APPLIC TOPICAL ×2 (11:40→20:54)
--- NOTE | 2020-04-13 12:58 | PM.IMPN ---
Progress Note: A&P Assessment and Plan (1) Acute respiratory failure with hypoxia: Code(s): J96.01 - Acute respiratory failure with hypoxia Status: Acute Assessment and Plan: Secondary to COVID-19 pneumonia. Patient weaned to high flow therapy with trach. Sedation was discontinued but patient is still having acute metabolic encephalopathy with slow improvement of symptoms. Trach placed 04/07; PEG placed 04/06. CXR 04/13 reviewed and showing mild interval worsening. Fluid balance close to even. Continue Xopenex and Atrovent. Continue supportive care. (2) Pneumonia due to COVID-19 virus: Code(s): U07.1 - COVID-19; J12.89 - Other viral pneumonia Status: Acute Assessment and Plan: Completed plasma x 1 03/17. Completed Remdesevir 03/21; completed Dexamethasone 03/27. CT chest 04/09 showing regions of consolidation and ground glass opacity with peripheral and lower lung predominance; improved aeration in the bilateral lower lobes with decrease in regions of consolidation in the right lower lobe and more significantly in the basilar segments of the left lower lobe. CXR today showing slight worsening. Continue aggressive pulmonary toilet. Continue supportive care. (3) Elevated LFTs: Code(s): R79.89 - Other specified abnormal findings of blood chemistry Status: Acute Assessment and Plan: AST/ALT climbed to 664 and 708 before trending down. Liver congestion from CHF? Echo showing EF 40-45% but normal RV systolic function. Lasix IV once with good UOP. Hepatitis panel negative and RUQ US showing GB wall thickening but nonspecific. Ammonia level 04/04 negative. INR 1.7 on 04/05. Lipitor on hold. Levels still trending down now. Continue to follow. (4) Fever: Qualifiers: Fever type: unspecified Qualified Code(s): R50.9 - Fever, unspecified Code(s): R50.9 - Fever, unspecified Status: Acute Assessment and Plan: Persistent low-grade fevers without clear etiology. BCx 03/26 negative. Sputum 03/27 growing yeast. Urine cx 03/27 negative. CDiff negative 04/03. He completed a course of Zosyn (03/27-04/03) and patient currently off abx. Repeat blood cultures 04/05 NGTD. Possibly atelectasis causing low grade fevers. Fevers have resolved. Continue to monitor. (5) Pulmonary embolism associated with severe acute respiratory syndrome coronavirus 2 (SARS-CoV-2) infection: Code(s): U07.1 - COVID-19; I26.99 - Other pulmonary embolism without acute cor pulmonale Status: Acute Assessment and Plan: CT chest at the outside facility showing small few possible filling defect subsegmental branches right lower lobe which could be small PE vs artifact. Venous doppler negative. Repeat CTA mildly decreases sensitivity in the segmental and moderately decreased sensitivity in some of the smaller subsegmental pulmonary arteries but no definite pulmonary embolism. Spoke with radiology and CTA chest images reviewed from OSH and from here. He favors artifact over PE from the original films and does not see anything in the area of the RLL to suggest PE. Given his high risk for bleeding and low likelihood for PE, patient was changed to prophylactic Lovenox. (6) Encephalopathy: Code(s): G93.40 - Encephalopathy, unspecified Status: Acute Assessment and Plan: EEG c/w metabolic encephalopathy; Brain CT 04/03 showing no acute findings. Most likely patient has acute metabolic encephalopathy multifactorial due to COVID-19 infection and ICU stay. Also with critical illness polyneuropathy. Sedation stopped. Not as responsive. Appreciate Neurology input. Consider MRI when able. (7) CLARK (acute kidney injury): Code(s): N17.9 - Acute kidney failure, unspecified Status: Acute Assessment and Plan: Multifactorial most likely related to COVID-19 infection. Resolved (8) Coronary artery disease: Qualifiers: As
[2020-04-13 14:33] LABS: Glucose Point of Care 131 (65-105)
[2020-04-13] MEDS: METOCLOPRAMIDE HCL INJ 10 MG/2 ML VIAL 5 MG IV PUSH (16:34)
[2020-04-13 17:33] LABS: Glucose Point of Care 161 (65-105)
[2020-04-13 23:17] LABS: Glucose Point of Care 151 (65-105)
[2020-04-14] VITALS (24 sets, daily range): BP systolic 114–138; BP diastolic 66–98; PULSE 86–117; RESP 20–24; TEMP 35.6–36.4; O2SAT 92–100
[2020-04-14] MEDS: METOCLOPRAMIDE HCL INJ 10 MG/2 ML VIAL 5 MG IV PUSH ×4 (00:36→17:28)
[2020-04-14] MEDS: IPRATROPIUM BR 0.02% INH SOLN 0.5 MG/2.5 ML VIAL INHALATION ×4 (03:04→22:37)
[2020-04-14] MEDS: LEVALBUTEROL NEB 1.25 MG/3 ML 0.63 MG INHALATION ×5 (03:04→22:37)
[2020-04-14 05:31] LABS: Hematocrit 33.8 % (42.0-52.0); Hemoglobin 10.3 g/dL (14.0-18.0); Mean Corpuscular HGB Conc 30.5 g/dl (32-36); Mean Corpuscular Hemoglobin 29.9 pg (26-34); Mean Corpuscular Volume 98.3 fl (80-100); Mean Platelet Volume 9.8 fl (7.4-10.4); Platelet Count Result 207 k/mm3 (150-375); Red Blood Count 3.44 M/mm3 (4.6-6.20); Red Cell Distribution Width 14.4 % (11.5-14.5); White Blood Count 8.1 K/mm3 (4.5-10.0)
[2020-04-14 05:42] LABS: Alanine Aminotransferase 283 U/L (4-50); Albumin Level 2.9 g/dL (3.5-5.1); Alkaline Phosphatase 113 U/L (38-126); Anion Gap 2 mmol/L (8-16); Aspartate Amino Transferase 160 U/L (17-59); Bilirubin,Total 0.6 mg/dL (0.2-1.3); Blood Urea Nitrogen 23 mg/dL (9-20); Calcium 8.5 mg/dL (8.4-10.2); Carbon Dioxide 33 mmol/L (22-30); Chloride 122 mmol/L (98-107); Estimated CRCL calculation 81 ml/min; Estimated Glomerular Filt Rate > 60; Glucose 174 mg/dL (75-110); Magnesium 2.5 mg/dL (1.6-2.3); Phosphorus 3.6 mg/dL (2.5-4.5); Potassium 3.5 mmol/L (3.4-5.0); Sodium 157 mmol/L (137-145)
[2020-04-14 06:12] LABS: Glucose Point of Care 163 (65-105)
[2020-04-14] MEDS: ENOXAPARIN 40 MG/0.4 ML SYRINGE SUB-Q ×2 (10:33→21:57)
[2020-04-14] MEDS: PANTOPRAZOLE SODIUM IV 40 MG VIAL IV PUSH (10:34)
[2020-04-14] MEDS: METOPROLOL TARTRATE 50 MG TAB 100 MG PO ×2 (10:34→21:57)
[2020-04-14] MEDS: CLOPIDOGREL BISULFATE 75 MG TABLET FEED TUBE (10:35)
[2020-04-14] MEDS: CHOLECALCIFEROL 1,000 UNITS TABLET 5000 UNITS PO (10:35)
[2020-04-14] MEDS: CENTRAL LINE FLUSH 10 ML IV PUSH ×3 (10:40→21:58)
[2020-04-14] MEDS: MICONAZOLE NITRATE 2% CREAM 30 GM TUBE 1 APPLIC TOPICAL ×2 (10:40→21:58)
[2020-04-14 12:31] LABS: Glucose Point of Care 173 (65-105)
--- NOTE | 2020-04-14 13:28 | PCDIET ---
Nutrition Follow-Up Complete: Nutrition Diagnosis: Inadequate oral intake related to oral intubation as evidenced by NPO status. Nutrition Goal: Patient to meet estimated nutritional needs. Goal in progress. Tube feedings held over weekend for 300mL residual. Glucerna 1.2 since resumed and infusing at 60mL/hr with 70mL water flush every 4-6 hours. Recommend increasing Glucerna 1.2 to 75mL/hr with 100mL water flush every 4 hours. Given tube feeding infusion of 22 hours/day, this will provide 1980kcal, 99g protein and 1928mL free water (not including flushes with medications). Last recorded weight is 106.3 kg which is significantly down from last review. Will monitor. -I/O. Bowel Motility: +BM on 04/13/20. Labs Reviewed: Hgb (10.3), Hct (33.8), Glu (174), Cl (112), Na (1157), Alb (2.9) Meds Noted: Novolog, Atrovent, Xopenex, Reglan, Lopressor, Protonix, Vitamin D Additional Notes: Right cheek scab. No pressure sores documented. Nutrition Monitoring and Evaluation: Follow up every Monday/Monday. Follow daily in ICU rounds.
--- NOTE | 2020-04-14 14:55 | PM.IMPN ---
Progress Note: A&P Assessment and Plan (1) Acute respiratory failure with hypoxia: Code(s): J96.01 - Acute respiratory failure with hypoxia Status: Acute Assessment and Plan: Secondary to COVID-19 pneumonia. Patient weaned to high flow therapy with trach. Sedation was discontinued but patient is still having acute metabolic encephalopathy with slow improvement of symptoms. Trach placed 04/07; PEG placed 04/06. CXR 04/13 reviewed and showing mild interval worsening. Fluid balance close to even. Continue Xopenex and Atrovent. Continue supportive care. and repeat cxr am , awaiting LTAC transfer increase free water flushes with elevated Na and add D5W (2) Pneumonia due to COVID-19 virus: Code(s): U07.1 - COVID-19; J12.89 - Other viral pneumonia Status: Acute Assessment and Plan: Completed plasma x 1 03/17. Completed Remdesevir 03/21; completed Dexamethasone 03/27. CT chest 04/09 showing regions of consolidation and ground glass opacity with peripheral and lower lung predominance; improved aeration in the bilateral lower lobes with decrease in regions of consolidation in the right lower lobe and more significantly in the basilar segments of the left lower lobe. CXR 04/13 showing slight worsening. Continue aggressive pulmonary toilet. Continue supportive care. (3) Elevated LFTs: Code(s): R79.89 - Other specified abnormal findings of blood chemistry Status: Acute Assessment and Plan: AST/ALT climbed to 664 and 708 before trending down. Liver congestion from CHF? Echo showing EF 40-45% but normal RV systolic function. Lasix IV once with good UOP. Hepatitis panel negative and RUQ US showing GB wall thickening but nonspecific. Ammonia level 04/04 negative. INR 1.7 on 04/05. Lipitor on hold. Levels still trending down now. Continue to follow. (4) Fever: Qualifiers: Fever type: unspecified Qualified Code(s): R50.9 - Fever, unspecified Code(s): R50.9 - Fever, unspecified Status: Acute Assessment and Plan: Persistent low-grade fevers without clear etiology. BCx 03/26 negative. Sputum 03/27 growing yeast. Urine cx 03/27 negative. CDiff negative 04/03. He completed a course of Zosyn (03/27-04/03) and patient currently off abx. Repeat blood cultures 04/05 NGTD. Possibly atelectasis causing low grade fevers. Fevers have resolved. Continue to monitor. (5) Pulmonary embolism associated with severe acute respiratory syndrome coronavirus 2 (SARS-CoV-2) infection: Code(s): U07.1 - COVID-19; I26.99 - Other pulmonary embolism without acute cor pulmonale Status: Acute Assessment and Plan: CT chest at the outside facility showing small few possible filling defect subsegmental branches right lower lobe which could be small PE vs artifact. Venous doppler negative. Repeat CTA mildly decreases sensitivity in the segmental and moderately decreased sensitivity in some of the smaller subsegmental pulmonary arteries but no definite pulmonary embolism. Spoke with radiology and CTA chest images reviewed from OSH and from here. He favors artifact over PE from the original films and does not see anything in the area of the RLL to suggest PE. Given his high risk for bleeding and low likelihood for PE, patient was changed to prophylactic Lovenox. (6) Encephalopathy: Code(s): G93.40 - Encephalopathy, unspecified Status: Acute Assessment and Plan: EEG c/w metabolic encephalopathy; Brain CT 04/03 showing no acute findings. Most likely patient has acute metabolic encephalopathy multifactorial due to COVID-19 infection and ICU stay. Also with critical illness polyneuropathy. Sedation stopped. Not as responsive. Will correct Na.. Consider MRI when able. (7) CLARK (acute kidney injury): Code(s): N17.9 - Acute kidney failure, unspecified Status: Acute Assessment and Plan: Multifactorial most likely related to COVID
[2020-04-14] MEDS: DEXTROSE 5% 1,000 ML 1,000 ML 50 ML IV CONT (17:24)
[2020-04-14 18:54] LABS: Glucose Point of Care 161 (65-105)
[2020-04-15] VITALS (23 sets, daily range): BP systolic 101–138; BP diastolic 52–82; PULSE 82–118; RESP 14–28; TEMP 35.8–37.6; O2SAT 90–99
[2020-04-15 00:01] LABS: Glucose Point of Care 191 (65-105)
[2020-04-15] MEDS: METOCLOPRAMIDE HCL INJ 10 MG/2 ML VIAL 5 MG IV PUSH ×4 (01:03→18:11)
[2020-04-15] MEDS: IPRATROPIUM BR 0.02% INH SOLN 0.5 MG/2.5 ML VIAL INHALATION ×4 (04:07→21:37)
[2020-04-15] MEDS: LEVALBUTEROL NEB 1.25 MG/3 ML 0.63 MG INHALATION ×4 (04:07→21:37)
[2020-04-15] MEDS: CENTRAL LINE FLUSH 10 ML IV PUSH ×3 (05:17→22:00)
[2020-04-15 06:05] LABS: Hematocrit 32.3 % (42.0-52.0); Hemoglobin 9.8 g/dL (14.0-18.0); Mean Corpuscular HGB Conc 30.3 g/dl (32-36); Mean Corpuscular Hemoglobin 29.8 pg (26-34); Mean Corpuscular Volume 98.2 fl (80-100); Mean Platelet Volume 10.5 fl (7.4-10.4); Platelet Count Result 205 k/mm3 (150-375); Red Blood Count 3.29 M/mm3 (4.6-6.20); Red Cell Distribution Width 14.6 % (11.5-14.5); White Blood Count 8.7 K/mm3 (4.5-10.0)
[2020-04-15 06:32] LABS: Alanine Aminotransferase 228 U/L (4-50); Albumin Level 2.8 g/dL (3.5-5.1); Alkaline Phosphatase 107 U/L (38-126); Anion Gap 3 mmol/L (8-16); Aspartate Amino Transferase 128 U/L (17-59); Bilirubin,Total 0.6 mg/dL (0.2-1.3); Blood Urea Nitrogen 24 mg/dL (9-20); Calcium 8.3 mg/dL (8.4-10.2); Carbon Dioxide 30 mmol/L (22-30); Chloride 121 mmol/L (98-107); Estimated CRCL calculation 102 ml/min; Estimated Glomerular Filt Rate > 60; Glucose 196 mg/dL (75-110); Magnesium 2.5 mg/dL (1.6-2.3); Phosphorus 3.5 mg/dL (2.5-4.5); Potassium 3.4 mmol/L (3.4-5.0); Sodium 154 mmol/L (137-145)
[2020-04-15] MEDS: POTASSIUM CHLORIDE 20 MEQ PACKET (FOR LIQUID) 40 MEQ FEED TUBE (08:19)
[2020-04-15] MEDS: METOPROLOL TARTRATE 50 MG TAB 100 MG PO ×2 (08:20→20:45)
[2020-04-15] MEDS: CLOPIDOGREL BISULFATE 75 MG TABLET FEED TUBE (08:20)
[2020-04-15] MEDS: CHOLECALCIFEROL 1,000 UNITS TABLET 5000 UNITS PO (08:20)
[2020-04-15] MEDS: ENOXAPARIN 40 MG/0.4 ML SYRINGE SUB-Q ×2 (08:20→20:45)
[2020-04-15] MEDS: PANTOPRAZOLE SODIUM IV 40 MG VIAL IV PUSH (08:21)
[2020-04-15] MEDS: MICONAZOLE NITRATE 2% CREAM 30 GM TUBE 1 APPLIC TOPICAL ×2 (12:23→20:44)
[2020-04-15 13:01] LABS: Glucose Point of Care 195 (65-105)
[2020-04-15] MEDS: DEXTROSE 5% 1,000 ML 1,000 ML 50 ML IV CONT (16:24)
--- NOTE | 2020-04-15 16:28 | PM.IMPN ---
Progress Note: A&P Assessment and Plan (1) Acute respiratory failure with hypoxia: Code(s): J96.01 - Acute respiratory failure with hypoxia Status: Acute Assessment and Plan: Secondary to COVID-19 pneumonia. Patient weaned to high flow therapy with trach. Sedation was discontinued but patient is still having acute metabolic encephalopathy with slow improvement of symptoms. Trach placed 04/07; PEG placed 04/06. CXR 04/13 reviewed and showing mild interval worsening. . Continue Xopenex and Atrovent. Continue supportive care. and repeat cxr today no improvement , awaiting LTAC transfer increase free water flushes with elevated Na and added D5W 04/14 Na down to 154 today (2) Pneumonia due to COVID-19 virus: Code(s): U07.1 - COVID-19; J12.89 - Other viral pneumonia Status: Acute Assessment and Plan: Completed plasma x 1 03/17. Completed Remdesevir 03/21; completed Dexamethasone 03/27. CT chest 04/09 showing regions of consolidation and ground glass opacity with peripheral and lower lung predominance; improved aeration in the bilateral lower lobes with decrease in regions of consolidation in the right lower lobe and more significantly in the basilar segments of the left lower lobe. CXR today no improvement. Continue aggressive pulmonary toilet. Continue supportive care. (3) Elevated LFTs: Code(s): R79.89 - Other specified abnormal findings of blood chemistry Status: Acute Assessment and Plan: AST/ALT climbed to 664 and 708 before trending down. Liver congestion from CHF? Echo showing EF 40-45% but normal RV systolic function. Lasix IV once with good UOP. Hepatitis panel negative and RUQ US showing GB wall thickening but nonspecific. Ammonia level 04/04 negative. INR 1.7 on 04/05. Lipitor on hold. Levels still trending down now. Continue to follow. (4) Fever: Qualifiers: Fever type: unspecified Qualified Code(s): R50.9 - Fever, unspecified Code(s): R50.9 - Fever, unspecified Status: Acute Assessment and Plan: Persistent low-grade fevers without clear etiology. BCx 03/26 negative. Sputum 03/27 growing yeast. Urine cx 03/27 negative. CDiff negative 04/03. He completed a course of Zosyn (03/27-04/03) and patient currently off abx. Repeat blood cultures 04/05 NGTD. Possibly atelectasis causing low grade fevers. Fevers have resolved. Continue to monitor. (5) Pulmonary embolism associated with severe acute respiratory syndrome coronavirus 2 (SARS-CoV-2) infection: Code(s): U07.1 - COVID-19; I26.99 - Other pulmonary embolism without acute cor pulmonale Status: Acute Assessment and Plan: CT chest at the outside facility showing small few possible filling defect subsegmental branches right lower lobe which could be small PE vs artifact. Venous doppler negative. Repeat CTA mildly decreases sensitivity in the segmental and moderately decreased sensitivity in some of the smaller subsegmental pulmonary arteries but no definite pulmonary embolism. Spoke with radiology and CTA chest images reviewed from OSH and from here. He favors artifact over PE from the original films and does not see anything in the area of the RLL to suggest PE. Given his high risk for bleeding and low likelihood for PE, patient was changed to prophylactic Lovenox. (6) Encephalopathy: Code(s): G93.40 - Encephalopathy, unspecified Status: Acute Assessment and Plan: EEG c/w metabolic encephalopathy; Brain CT 04/03 showing no acute findings. Most likely patient has acute metabolic encephalopathy multifactorial due to COVID-19 infection and ICU stay. Also with critical illness polyneuropathy. Sedation stopped. Not as responsive. Will correct Na.. repeat CT to asses for possible interim CVA (7) CLARK (acute kidney injury): Code(s): N17.9 - Acute kidney failure, unspecified Status: Acute Assessment and Plan: Multifactori
[2020-04-16] VITALS (20 sets, daily range): BP systolic 111–151; BP diastolic 67–80; PULSE 64–109; RESP 18–24; TEMP 36.2–36.6; O2SAT 90–97
[2020-04-16] MEDS: METOCLOPRAMIDE HCL INJ 10 MG/2 ML VIAL 5 MG IV PUSH ×4 (00:32→19:16)
[2020-04-16] MEDS: LEVALBUTEROL NEB 1.25 MG/3 ML 0.63 MG INHALATION ×3 (02:44→15:02)
[2020-04-16] MEDS: IPRATROPIUM BR 0.02% INH SOLN 0.5 MG/2.5 ML VIAL INHALATION ×3 (02:44→15:02)
[2020-04-16 05:34] LABS: Anion Gap -1 mmol/L (8-16); Blood Urea Nitrogen 25 mg/dL (9-20); Calcium 8.3 mg/dL (8.4-10.2); Carbon Dioxide 32 mmol/L (22-30); Chloride 121 mmol/L (98-107); Estimated CRCL calculation 90 ml/min; Estimated Glomerular Filt Rate > 60; Glucose 210 mg/dL (75-110); Sodium 152 mmol/L (137-145)
[2020-04-16] MEDS: CENTRAL LINE FLUSH 10 ML IV PUSH ×2 (06:22→14:45)
[2020-04-16] MEDS: INSULIN ASPART (*BKC) 100 UNITS/ML SUB-Q (06:34)
[2020-04-16 07:01] LABS: Glucose Point of Care 219 (65-105)
[2020-04-16 08:35] LABS: Glucose Point of Care 190 (65-105)
[2020-04-16] MEDS: PANTOPRAZOLE SODIUM IV 40 MG VIAL IV PUSH (10:06)
[2020-04-16] MEDS: CHOLECALCIFEROL 1,000 UNITS TABLET 5000 UNITS PO (10:07)
[2020-04-16] MEDS: MICONAZOLE NITRATE 2% CREAM 30 GM TUBE 1 APPLIC TOPICAL ×2 (10:07→22:16)
[2020-04-16] MEDS: CLOPIDOGREL BISULFATE 75 MG TABLET FEED TUBE (10:07)
[2020-04-16] MEDS: METOPROLOL TARTRATE 50 MG TAB 100 MG PO ×2 (10:07→22:15)
[2020-04-16] MEDS: ENOXAPARIN 40 MG/0.4 ML SYRINGE SUB-Q ×2 (10:07→22:14)
[2020-04-16 12:36] LABS: Glucose Point of Care 191 (65-105)
[2020-04-16] MEDS: DEXTROSE 5% 1,000 ML 1,000 ML 50 ML IV CONT (14:44)
--- NOTE | 2020-04-16 15:05 | PM.IMPN ---
Progress Note: A&P Assessment and Plan (1) Acute respiratory failure with hypoxia: Code(s): J96.01 - Acute respiratory failure with hypoxia Status: Acute Assessment and Plan: Secondary to COVID-19 pneumonia. Patient weaned to high flow therapy with trach. Sedation was discontinued but patient is still having acute metabolic encephalopathy with slow improvement of symptoms. Trach placed 04/07; PEG placed 04/06. CXR 04/13 reviewed and showing mild interval worsening. . Continue Xopenex and Atrovent. Continue supportive care. and repeat cxr today no improvement , awaiting LTAC transfer increase free water flushes with elevated Na and added D5W 04/14 Na down to 152 today slowly falling (2) Pneumonia due to COVID-19 virus: Code(s): U07.1 - COVID-19; J12.89 - Other viral pneumonia Status: Acute Assessment and Plan: Completed plasma x 1 03/17. Completed Remdesevir 03/21; completed Dexamethasone 03/27. CT chest 04/09 showing regions of consolidation and ground glass opacity with peripheral and lower lung predominance; improved aeration in the bilateral lower lobes with decrease in regions of consolidation in the right lower lobe and more significantly in the basilar segments of the left lower lobe. CXR 04/15 no improvement. Continue aggressive pulmonary toilet. Continue supportive care. (3) Elevated LFTs: Code(s): R79.89 - Other specified abnormal findings of blood chemistry Status: Acute Assessment and Plan: AST/ALT climbed to 664 and 708 before trending down. Liver congestion from CHF? Echo showing EF 40-45% but normal RV systolic function. Lasix IV once with good UOP. Hepatitis panel negative and RUQ US showing GB wall thickening but nonspecific. Ammonia level 04/04 negative. INR 1.7 on 04/05. Lipitor on hold. Levels still trending down now. Continue to follow. (4) Fever: Qualifiers: Fever type: unspecified Qualified Code(s): R50.9 - Fever, unspecified Code(s): R50.9 - Fever, unspecified Status: Acute Assessment and Plan: Had Persistent low-grade fevers without clear etiology. BCx 03/26 negative. Sputum 03/27 growing yeast. Urine cx 03/27 negative. CDiff negative 04/03. He completed a course of Zosyn (03/27-04/03) and patient currently off abx. Repeat blood cultures 04/05 NGTD. Possibly atelectasis causing low grade fevers. Fevers have resolved. Continue to monitor. (5) Pulmonary embolism associated with severe acute respiratory syndrome coronavirus 2 (SARS-CoV-2) infection: Code(s): U07.1 - COVID-19; I26.99 - Other pulmonary embolism without acute cor pulmonale Status: Acute Assessment and Plan: CT chest at the outside facility showing small few possible filling defect subsegmental branches right lower lobe which could be small PE vs artifact. Venous doppler negative. Repeat CTA mildly decreases sensitivity in the segmental and moderately decreased sensitivity in some of the smaller subsegmental pulmonary arteries but no definite pulmonary embolism. Spoke with radiology and CTA chest images reviewed from OSH and from here. He favors artifact over PE from the original films and does not see anything in the area of the RLL to suggest PE. Given his high risk for bleeding and low likelihood for PE, patient was changed to prophylactic Lovenox. (6) Encephalopathy: Code(s): G93.40 - Encephalopathy, unspecified Status: Acute Assessment and Plan: EEG c/w metabolic encephalopathy; Brain CT 04/03 showing no acute findings. Most likely patient has acute metabolic encephalopathy multifactorial due to COVID-19 infection and ICU stay. Also with critical illness polyneuropathy. Sedation stopped. Not as responsive. Will correct Na.. repeat CT today no acute changes, no cva as expected (7) CLARK (acute kidney injury): Code(s): N17.9 - Acute kidney failure, unspecified Status: Acute Assessme
[2020-04-16 18:21] LABS: Glucose Point of Care 195 (65-105)
[2020-04-16 22:03] LABS: Glucose Point of Care 201 (65-105)
[2020-04-17] VITALS (13 sets, daily range): BP systolic 99–166; BP diastolic 72–83; PULSE 64–98; RESP 20–24; TEMP 36.2–37.6; O2SAT 90–93
[2020-04-17] MEDS: INSULIN ASPART (*BKC) 100 UNITS/ML SUB-Q (00:06)
--- NOTE | 2020-04-17 00:17 | PCRCNOTE ---
Window of time for administration has passed. See next scheduled administration.
[2020-04-17 00:21] LABS: Glucose Point of Care 201 (65-105)
[2020-04-17] MEDS: IPRATROPIUM BR 0.02% INH SOLN 0.5 MG/2.5 ML VIAL INHALATION ×4 (02:47→20:31)
[2020-04-17] MEDS: LEVALBUTEROL NEB 1.25 MG/3 ML 0.63 MG INHALATION ×4 (02:47→20:31)
[2020-04-17] MEDS: METOCLOPRAMIDE HCL INJ 10 MG/2 ML VIAL 5 MG IV PUSH ×4 (04:05→17:45)
[2020-04-17 06:38] LABS: Glucose Point of Care 208 (65-105)
[2020-04-17 06:38] LABS: Alanine Aminotransferase 180 U/L (4-50); Alkaline Phosphatase 98 U/L (38-126); Anion Gap 4 mmol/L (8-16); Aspartate Amino Transferase 117 U/L (17-59); Bilirubin,Total 0.9 mg/dL (0.2-1.3); Blood Urea Nitrogen 22 mg/dL (9-20); Calcium 8.3 mg/dL (8.4-10.2); Carbon Dioxide 28 mmol/L (22-30); Chloride 120 mmol/L (98-107); Estimated CRCL calculation 102 ml/min; Estimated Glomerular Filt Rate > 60; Glucose 187 mg/dL (75-110); Potassium 3.6 mmol/L (3.4-5.0); Sodium 152 mmol/L (137-145)
[2020-04-17] MEDS: PANTOPRAZOLE SODIUM IV 40 MG VIAL IV PUSH (08:30)
[2020-04-17] MEDS: CHOLECALCIFEROL 1,000 UNITS TABLET 5000 UNITS PO (08:30)
[2020-04-17] MEDS: METOPROLOL TARTRATE 50 MG TAB 100 MG PO ×2 (08:31→21:28)
[2020-04-17] MEDS: ENOXAPARIN 40 MG/0.4 ML SYRINGE SUB-Q ×2 (08:31→21:28)
[2020-04-17] MEDS: MICONAZOLE NITRATE 2% CREAM 30 GM TUBE 1 APPLIC TOPICAL ×2 (08:31→21:28)
[2020-04-17] MEDS: CLOPIDOGREL BISULFATE 75 MG TABLET FEED TUBE (08:35)
--- NOTE | 2020-04-17 10:53 | PCNFU ---
Nutrition Follow-Up Complete: Inadequate oral intake related to oral intubation as evidenced by NPO status. Goal: Patient to meet estimated nutritional needs. Patient is progressing towards goal. We will continue current goal. Pt current nutrition is Glucerna 1.2 at 60 ml/hr. Nutrition Recommendation: increasing tube feedings of Glucerna 1.2 to 75 ml/hr Last recorded weight is 106.3 kg. down from 120 kg on admit. Bowel Motility:+BM reported 04/16 Labs Reviewed:Na 152,BUN 22,Glu 187,Alb 3.0 Meds Noted:Protonix, Reglan, Lopressor, Lovenox Additional Notes: Nutrition follow up. Spoke with MD today, new orders for tube feeding to increase to 75 ml/hr of Glucerna 1.2 which will provide 1980 kcals/99 gms protein/1328 ml water. Free water flushes have been increased from 100 ml to 120 ml q 4 hours 04/21 to Na 152. Monitoring: weight, labs, tube feeding tolerance every Monday and Monday.
--- NOTE | 2020-04-17 11:57 | WPDNEUROPN ---
Progress Note: A&P Assessment and Plan (1) Encephalopathy: Code(s): G93.40 - Encephalopathy, unspecified Status: Acute Additional Plan will obtain EEG Review of Systems Review of Systems: All systems reviewed & are unremarkable except as noted in HPI and below Exam Const: General: no acute distress Nutritional Appearance: average body habitus Limitations: altered mental status HENMT: Head: normal to inspection General nose exam: Normal external nose present Face and sinus: normal facial exam Mouth: Yes Normal oral and palatal mucosa present and Yes tongue normal Eyes: General: appearance normal, both eyes and all related structures ( left glass eye) Neck: Neck: full ROM Resp: Effort & Inspection: normal respiratory effort Auscultation: clear to auscultation bilaterally GI: Auscultation: normal bowel sounds Neuro: Motor exam (neuro): Abnormal motor strength present Sensory Exam: Sensory deficit (Neuro) Deep tendon reflexes (DTR's): Right triceps reflex intensity grade: 1+, Left triceps reflex intensity grade: 1+, Rt Biceps (C5, C6): 1+, Left biceps reflex intensity grade: 1+, Right brachioradialis reflex intensity grade: 1+, Left brachioradialis reflex intensity grade: 1+, Right patellar reflex intensity grade: 1+ and Left patellar reflex intensity grade: 1+ Plantar Reflex Responses: equivocal: bilateral Objective Data Vital Signs Vital Signs: Vital Signs - 24 hr 04/16/20 12:00 04/16/20 13:10 04/16/20 14:00 Temperature 36.5 C Pulse Rate 88 84 90 Respiratory Rate 24 H Blood Pressure 133/80 Pulse Oximetry 92 96 04/16/20 15:02 04/16/20 17:29 04/16/20 20:00 Temperature 36.3 C L Pulse Rate 96 88 64 Respiratory Rate 22 H 24 H 20 Blood Pressure 151/67 H Pulse Oximetry 96 90 04/16/20 20:10 04/16/20 22:15 04/16/20 23:08 Temperature 36.6 C Pulse Rate 97 72 101 H Respiratory Rate 20 Blood Pressure 111/79 Pulse Oximetry 97 92 04/17/20 00:00 04/17/20 02:47 04/17/20 03:18 Temperature 36.8 C Pulse Rate 74 91 80 Respiratory Rate 22 H Blood Pressure 166/76 H Pulse Oximetry 93 04/17/20 04:00 04/17/20 08:00 04/17/20 08:20 Temperature 36.6 C 37.6 C Pulse Rate 72 86 86 Respiratory Rate 20 20 Blood Pressure 105/82 99/76 L Pulse Oximetry 92 90 91 04/17/20 08:21 Temperature Pulse Rate 86 Respiratory Rate Blood Pressure Pulse Oximetry Intake/Output Intake/Output: Intake & Output 04/14/20 04/15/20 04/16/20 04/17/20 23:59 23:59 23:59 23:59 Intake Total 1360 1889 2020 0 Output Total 4681 870 9706 350 Balance 260 939 970 -350 Meds/Results Medications: Active Medications Generic Name Dose Route Start Last Admin Trade Name Freq PRN Reason Stop Dose Admin Clopidogrel Bisulfate 75 mg 04/14/20 09:00 04/17/20 08:35 Clopidogrel Bisulfate 75 Mg Tablet FEED TUBE 75 mg QAM ANALI Administration Dextrose 12.5 gm 03/17/20 10:14 Dextrose 50% 25 Gm/50 Ml Syringe IV PUSH 05/15/20 10:31 PRN PRN Hypoglycemia Protocol Enoxaparin Sodium 40 mg 04/11/20 09:00 04/17/20 08:31 Enoxaparin 40 Mg/0.4 Ml Syringe SUB-Q 40 mg Q12HR ANALI Administration Glucagon 1 mg 03/17/20 10:14 Glucagon For Inj 1 Mg Vial IM 05/15/20 10:31 PRN PRN Hypoglycemia Protocol Glucose 15 gm 03/17/20 10:14 Glucose Oral Gel 15 Gm Of Glucse In 37.5 Gm Tube PO 05/15/20 10:31 PRN PRN Hypoglycemia Protocol Dextrose 1,000 mls @ 75 mls/hr 04/14/20 14:55 04/17/20 04:11 Dextrose 5% 1,000 Ml IV CONT Not Given .[id number] ANALI Ipratropium [place] 0.5 mg 03/17/20 14:00 04/17/20 02:47 Ipratropium Br 0.02% Inh Soln 0.5 Mg/2.5 Ml Vial INHALATION 05/15/20 23:45 0.5 mg Q6HRT ANALI Administration Levalbuterol HCl 0.63 mg 03/17/20 14:00 04/17/20 02:47 Levalbuterol Neb 1.25 Mg/3 Ml INHALATION 05/15/20 23:45 0.63 mg Q6HRT ANALI Administration Metoclopramide HCl 5 mg 04/13/20 18:00 04/17/20
[2020-04-17 12:18] LABS: Glucose Point of Care 218 (65-105)
[2020-04-17] MEDS: CENTRAL LINE FLUSH 10 ML IV PUSH (12:26)
--- NOTE | 2020-04-17 15:43 | PM.IMPN ---
Progress Note: A&P Assessment and Plan (1) Acute respiratory failure with hypoxia: Code(s): J96.01 - Acute respiratory failure with hypoxia Status: Acute Assessment and Plan: Secondary to COVID-19 pneumonia. Patient weaned to high flow therapy with trach. Sedation was discontinued but patient is still having acute metabolic encephalopathy with slow improvement of symptoms. Trach placed 04/07; PEG placed 04/06. CXR 04/13 reviewed and showing mild interval worsening. . Continue Xopenex and Atrovent. Continue supportive care. and repeat cxr today no improvement , awaiting LTAC transfer increase free water flushes with elevated Na and added D5W 04/14 Na still 152 today and will increase free water flushes as well as D5W (2) Pneumonia due to COVID-19 virus: Code(s): U07.1 - COVID-19; J12.89 - Other viral pneumonia Status: Acute Assessment and Plan: Completed plasma x 1 03/17. Completed Remdesevir 03/21; completed Dexamethasone 03/27. CT chest 04/09 showing regions of consolidation and ground glass opacity with peripheral and lower lung predominance; improved aeration in the bilateral lower lobes with decrease in regions of consolidation in the right lower lobe and more significantly in the basilar segments of the left lower lobe. CXR 04/15 no improvement. Continue aggressive pulmonary toilet. Continue supportive care. (3) Elevated LFTs: Code(s): R79.89 - Other specified abnormal findings of blood chemistry Status: Acute Assessment and Plan: AST/ALT climbed to 664 and 708 before trending down. Liver congestion from CHF? Echo showing EF 40-45% but normal RV systolic function. Lasix IV once with good UOP. Hepatitis panel negative and RUQ US showing GB wall thickening but nonspecific. Ammonia level 04/04 negative. INR 1.7 on 04/05. Lipitor on hold. Levels still trending down now. Continue to follow. (4) Fever: Qualifiers: Fever type: unspecified Qualified Code(s): R50.9 - Fever, unspecified Code(s): R50.9 - Fever, unspecified Status: Acute Assessment and Plan: Had Persistent low-grade fevers without clear etiology. BCx 03/26 negative. Sputum 03/27 growing yeast. Urine cx 03/27 negative. CDiff negative 04/03. He completed a course of Zosyn (03/27-04/03) and patient currently off abx. Repeat blood cultures 04/05 NGTD. Possibly atelectasis causing low grade fevers. Fevers have resolved. Continue to monitor. (5) Pulmonary embolism associated with severe acute respiratory syndrome coronavirus 2 (SARS-CoV-2) infection: Code(s): U07.1 - COVID-19; I26.99 - Other pulmonary embolism without acute cor pulmonale Status: Acute Assessment and Plan: CT chest at the outside facility showing small few possible filling defect subsegmental branches right lower lobe which could be small PE vs artifact. Venous doppler negative. Repeat CTA mildly decreases sensitivity in the segmental and moderately decreased sensitivity in some of the smaller subsegmental pulmonary arteries but no definite pulmonary embolism. Spoke with radiology and CTA chest images reviewed from OSH and from here. He favors artifact over PE from the original films and does not see anything in the area of the RLL to suggest PE. Given his high risk for bleeding and low likelihood for PE, patient was changed to prophylactic Lovenox. (6) Encephalopathy: Code(s): G93.40 - Encephalopathy, unspecified Status: Acute Assessment and Plan: EEG c/w metabolic encephalopathy; Brain CT 04/03 showing no acute findings. Most likely patient has acute metabolic encephalopathy multifactorial due to COVID-19 infection and ICU stay. Also with critical illness polyneuropathy. Sedation stopped. Not as responsive. Will correct Na.. repeat CT 04/16 no acute changes, no cva seen (7) CLARK (acute kidney injury): Code(s): N17.9 - Acute kidney failure, unspecified St
[2020-04-17 17:54] LABS: Glucose Point of Care 240 (65-105)
[2020-04-18] VITALS (7 sets, daily range): BP systolic 125–142; BP diastolic 69–81; PULSE 84–95; RESP 20–40; TEMP 35.9–36.6; O2SAT 90–95
[2020-04-18] MEDS: METOCLOPRAMIDE HCL INJ 10 MG/2 ML VIAL 5 MG IV PUSH ×3 (00:19→11:46)
[2020-04-18 00:28] LABS: Glucose Point of Care 242 (65-105)
[2020-04-18] MEDS: DEXTROSE 5% 1,000 ML 1,000 ML 75 ML IV CONT (02:13)
[2020-04-18] MEDS: IPRATROPIUM BR 0.02% INH SOLN 0.5 MG/2.5 ML VIAL INHALATION ×2 (02:20→08:39)
[2020-04-18] MEDS: LEVALBUTEROL NEB 1.25 MG/3 ML 0.63 MG INHALATION ×2 (02:20→08:39)
[2020-04-18] MEDS: CENTRAL LINE FLUSH 10 ML IV PUSH (05:11)
[2020-04-18 05:43] LABS: Glucose Point of Care 267 (65-105)
[2020-04-18] MEDS: ENOXAPARIN 40 MG/0.4 ML SYRINGE SUB-Q (08:47)
[2020-04-18] MEDS: METOPROLOL TARTRATE 50 MG TAB 100 MG PO (08:47)
[2020-04-18] MEDS: CHOLECALCIFEROL 1,000 UNITS TABLET 5000 UNITS PO (08:47)
[2020-04-18] MEDS: CLOPIDOGREL BISULFATE 75 MG TABLET FEED TUBE (08:47)
[2020-04-18] MEDS: MICONAZOLE NITRATE 2% CREAM 30 GM TUBE 1 APPLIC TOPICAL (08:47)
[2020-04-18] MEDS: PANTOPRAZOLE SODIUM IV 40 MG VIAL IV PUSH (08:48)
[2020-04-18 10:16] LABS: Basophils Percent Auto 0.4 % (0.2-1.2); Eosinophils Absolute Auto 0.2 K/mm3 (0-0.3); Eosinophils Percent Auto 2.5 % (0-4.4); Hematocrit 32.2 % (42.0-52.0); Hemoglobin 10.2 g/dL (14.0-18.0); Immature Granulocyte Absolute 0.08 K/mm3 (0.00-0.031); Lymphocytes Absolute Auto 0.78 K/mm3 (0.9-3.2); Lymphocytes Percent Auto 9.9 % (18.3-44.2); Mean Corpuscular HGB Conc 31.7 g/dl (32-36); Mean Corpuscular Volume 94.7 fl (80-100); Mean Platelet Volume 10.9 fl (7.4-10.4); Monocytes Absolute Auto 0.3 K/mm3 (0.1-0.6); Monocytes Percent Auto 4.3 % (2.6-8.5); Neutrophils Absolute Auto 6.5 K/mm3 (1.3-6.7); Neutrophils Percent Auto 81.9 % (45.5-73.1); Nucleated Red Blood Cells Perc 0.3 % (0.0-0.2); Platelet Count Result 193 k/mm3 (150-375); Red Cell Distribution Width 14.6 % (11.5-14.5); White Blood Count 7.9 K/mm3 (4.5-10.0)
[2020-04-18 10:28] LABS: Anion Gap 1 mmol/L (8-16); Blood Urea Nitrogen 18 mg/dL (9-20); Calcium 8.2 mg/dL (8.4-10.2); Carbon Dioxide 28 mmol/L (22-30); Chloride 116 mmol/L (98-107); Estimated CRCL calculation 117 ml/min; Estimated Glomerular Filt Rate > 60; Glucose 289 mg/dL (75-110); Potassium 3.9 mmol/L (3.4-5.0); Sodium 145 mmol/L (137-145)
[2020-04-18] MEDS: POTASSIUM CHLORIDE 20 MEQ PACKET (FOR LIQUID) 40 MEQ FEED TUBE (11:46)
[2020-04-18] MEDS: INSULIN GLARGINE (*BKC) 100 UNITS/ML 10 UNITS SUB-Q (11:54)
[2020-04-18] MEDS: FUROSEMIDE INJ 40 MG/4 ML VIAL IV PUSH (11:54)
--- NOTE | 2020-04-18 14:25 | PC.NURSE ---
Pt has been discharged from this facility to [facility]. Pt has been discharged with Trach, Ventura, PEG tube, and left upper arm midline, per 's orders. Report has been called to Mira at [facility], who exhibited good understanding of discharge instructions. Pt has been suctioned, PEG tube flushed, ventura emptied, and mid line flushed before he left by ambulance. Pt left facility at 2:10 pm. [facility] called at time of discharge, to let them know pt was on the way.
--- NOTE | 2020-04-19 18:24 | PM.TDS ---
Transfer Discharge Sum: Prov Provider Date of admission: 03/17/20 00:20 Primary care physician: Pranav Garvin [facility] Admitting clinician: Lg Pruitt DO Consults: 03/17/20 Consult to Physician Routine Comment: Consulting Provider: Watson Kennedy call center recruiter/MD group to consult: Dr. Kennedy Reason for consultation: intubated, covid19 Has provider been notified: Yes 03/19/20 08:59 Consult to Physician Routine Comment: SPOKE WITH DR. GONZALEZ Consulting Provider: Zari Gonzalez call center recruiter/MD group to consult: NEPHROLOGY Reason for consultation: CLARK Has provider been notified: Yes 03/26/20 09:56 Consult to Physician Routine Comment: Consulting Provider: Ebenezer Jimenez call center recruiter/MD group to consult: LEFT VOICEMAIL AND CALLED OFFICE AND LEFT MESSAGE Reason for consultation: Encephalopathy Has provider been notified: Yes 04/03/20 Consult to Physician Routine Comment: Consulting Provider: Kyle Todd call center recruiter/MD group to consult: GI Reason for consultation: Peg Has provider been notified: Yes Consult to Physician Routine Comment: Consulting Provider: Tl Dunlap call center recruiter/MD group to consult: ENT Reason for consultation: Trach Has provider been notified: Yes 04/06/20 12:18 Consult to Dietitian Routine Reason for Consult:: Cylinder Grinder recommendations for tube feeding order 04/08/20 07:25 Consult to Physician Routine Comment: DR. TODD NOTIFIED OF CONULT BY ED Consulting Provider: Kyle Todd call center recruiter/MD group to consult: GI Reason for consultation: elevated LFTs Has provider been notified: Yes DS: Admitting Diagnosis Admitting Diagnosis Admitting Diagnosis: COVID pneumonia with respiratory failure DS: Discharge Diagnosis Discharge Diagnosis (1) Acute respiratory failure with hypoxia: Code(s): J96.01 - Acute respiratory failure with hypoxia Status: Acute Assessment and Plan: Secondary to COVID-19 pneumonia. Patient weaned to high flow therapy with trach. Sedation was discontinued but patient is still having acute metabolic encephalopathy with slow improvement of symptoms. Trach placed 04/07; PEG placed 04/06. Off ventilator support to C-collar 04/10. CXR 04/13 reviewed and showing mild interval worsening. . Continue Xopenex and Atrovent. Continue supportive care. and repeat cxr 04/15 no improvement , increase free water flushes with elevated Na and added D5W 04/14 Na 145 at discharge 04/18 (2) Pneumonia due to COVID-19 virus: Code(s): U07.1 - COVID-19; J12.89 - Other viral pneumonia Status: Acute Assessment and Plan: Completed plasma x 1 03/17. Completed Remdesevir 03/21; completed Dexamethasone 03/27. CT chest 04/09 showing regions of consolidation and ground glass opacity with peripheral and lower lung predominance; improved aeration in the bilateral lower lobes with decrease in regions of consolidation in the right lower lobe and more significantly in the basilar segments of the left lower lobe. CXR 04/15 no improvement. Continue aggressive pulmonary toilet. Continue supportive care. (3) Elevated LFTs: Code(s): R79.89 - Other specified abnormal findings of blood chemistry Status: Acute Assessment and Plan: AST/ALT climbed to 664 and 708 before trending down. Liver congestion from CHF? Echo showing EF 40-45% but normal RV systolic function. Lasix IV once with good UOP. Hepatitis panel negative and RUQ US showing GB wall thickening but nonspecific. Ammonia level 04/04 negative. INR 1.7 on 04/05. Lipitor on hold. Levels still trending down now. Continue to follow. (4) Fever: Qualifiers: Fever type: unspecified Qualified Code(s): R50.9 - Fever, unspecified Code(s): R50.9 - Fever, unspecified Status: Acute Assessment and Plan: Had Persistent low-grade fevers without clear etiology. BCx 03/26 negative. Sputum 03/27 growing yeast. Urine cx 03/27 negative
== END 2020-04-18 14:10 | DRG 4 ==
LOC: ANHIMU 03:20 → ANHICU 08:39 → ANH3MEDSUR 04-18 10:52 → ANHICU 04-21 07:40 → ANHIMU 04-21 07:40
PROVIDERS: Internal Medicine; Internal Medicine Gastroenterology; Otolaryngology; Admitting Provider Student in an Organized Health Care Education/Training Program; Visit Provider Internal Medicine
PROC: 0DH63UZ Insertion of Feeding Device into Stomach, Percutaneous Approach (ICD-10-PCS; CPT 43246; principal; 2020-04-06 11:30)
PROC: 0B110F4 Bypass Trachea to Cutaneous with Tracheostomy Device, Open Approach (ICD-10-PCS; principal; 2020-04-07 08:45)
DX: U07.1 COVID-19 (principal); J12.82 Pneumonia due to coronavirus disease 2019; J96.01 Acute respiratory failure with hypoxia; I26.99 Other pulmonary embolism without acute cor pulmonale; G93.41 Metabolic encephalopathy; N17.8 Other acute kidney failure; E87.0 Hyperosmolality and hypernatremia; J98.11 Atelectasis; G62.81 Critical illness polyneuropathy; T50.8X5A Adverse effect of diagnostic agents, initial encounter; T50.1X5A Adverse effect of loop [high-ceiling] diuretics, initial encounter; N40.0 Benign prostatic hyperplasia without lower urinary tract symptoms; G47.33 Obstructive sleep apnea (adult) (pediatric); I25.10 Atherosclerotic heart disease of native coronary artery without angina pectoris; R73.9 Hyperglycemia, unspecified; T38.0X5A Adverse effect of glucocorticoids and synthetic analogues, initial encounter; I11.0 Hypertensive heart disease with heart failure; I50.9 Heart failure, unspecified; F41.8 Other specified anxiety disorders; K21.9 Gastro-esophageal reflux disease without esophagitis; E78.5 Hyperlipidemia, unspecified; N32.81 Overactive bladder; J30.1 Allergic rhinitis due to pollen; F17.210 Nicotine dependence, cigarettes, uncomplicated; Z95.0 Presence of cardiac pacemaker; Z95.5 Presence of coronary angioplasty implant and graft; E66.9 Obesity, unspecified; Z68.30 Body mass index [BMI] 30.0-30.9, adult; J32.8 Other chronic sinusitis
CPT/HCPCS: 31500; 36415; 36430; 36569; 36600; 43246; 70450; 70490; 71045; 71250; 71275; 74019; 74176; 74177; 76705; 76775; 80048; 80053; 80069; 80074; 80076; 82140; 82375; 82436; 82570; 82607; 82728; 82746; 82805; 82948; 83036; 83050; 83605; 83615; 83690; 83735; 83880; 84100; 84133; 84300; 84443; 84460; 84478; 84484; 85025; 85027; 85055; 85610; 85730; 85999; 86140; 86900; 86901; 87040; 87070; 87077; 87086; 87088; 87186; 87205; 87324; 93005; 93306; 93922; 93923; 93925; 93970; 94002; 94003; 94640; 94667; 94668; 94669; 95816; 97110; 97161; 97166; 97530; 97535; A9270; C1751; C9113; J0131; J0282; J0360; J0690; J0692; J1100; J1650; J1741; J1815; J1940; J2060; J2250; J2543; J2704; J2765; J2997; J3010; J3370; J3480; J7030; J7040; J7050; J7070; P9047; P9059; Q9967